=== PATIENT | male | born 1975 | race Caucasian/White ===

== ENCOUNTER → 2017-11-04 07:08 | Outpatient (CLI) | payer OTHER, SELFPAY ==
--- NOTE | 2017-11-04 07:08 | DT_ITS ---
This patient was seen during an EMR downtime November 04, 2017 - November 11, 2017. This patient may have a combination of paper and electronic documentation or all paper documentation. All documentation is viewable within the e-chart portion of [facility] for each patient visit.
--- NOTE | 2017-11-04 09:42 | RDU_ITS ---
Reason For Study: HTN - CKD Right Renal Artery Left Renal Artery Right renal artery ostium Left renal artery ostium 104.0/29.2 125.0/33.7 RSV/EDV. PSV/EDV. Right renal artery proximal Left renal artery proximal PSV/EDV 140.0/38.3 PSV/EDV. 114.0/25.5 . Right renal artery mid 139.0/43.8 Left renal artery mid 102.0/23.7 PSV/EDV. PSV/EDV . Right renal artery distal 134.0 Left renal artery distal 112.0/27.4 PSV/EDV. PSV/EDV. Right Renal Parenchyma Left Renal Parenchyma Upper Pole Medula 41.9/11.0 Left upper pole medulla 33.6/8.6 PSV/EDV. PSV/EDV . Right upper pole medulla EDR .26 . Left upper pole medulla EDR .26 . Right upper pole medulla R.I. .74 . Left upper pole medulla R.I. .75 . Upper Evan Cortx 23.8/6.7 PSV/EDV. UP Cortex 15.0/4.3 PSV/EDV. Right upper pole cortex EDR .28 . Left upper pole cortex EDR .29 . Right upper pole cortex R.I. .72 . Left upper pole cortex R.I. .71 . Right lower Pole medulla 26.0/8.6 Left lower Pole medulla 30.3/8.9 PSV/EDV . PSV/EDV . Right lower pole medulla EDR .33 . Left lower pole medulla EDR .29 . Right lower pole medulla R.I. .67 . Left lower pole medulla R.I. .71 . Lower Pole Cortex 22.9/6.1 PSV/EDV. Lower Pole Cortx 20.5/6.7 PSV/EDV. Right lower pole cortex EDR .27 . Left lower pole cortex EDR .33 . Right lower pole cortex R.I. .73 . Left lower pole cortex R.I. .67 . Right Renal Hilar Left Renal Hilar Right Hilar avg 45.9/12.8 PSV/EDV. LT Hilar avg 73.9/12.3 PSV/EDV . Right hilar acceleration time 66 Left hilar acceleration time 51 m/sec. m/sec. Right Renal Dimensions Left Renal Dimensions Right kidney size 8.7 cm . Left kidney size 8.5 cm . Right cortical dimension 1.5 cm . Left cortical dimension 1.5 cm . Aorta Proximal abdominal aorta 1.5 x 1.6 cm . Distal abdominal aorta 1.0 x 1.1 cm . Proximal abdominal aorta peak systolic velocity is 119.0 cm/sec . Distal abdominal aorta peak systolic velocity is 101.0 cm/sec . Interpretation Summary Dimensions of the intra-abdominal aorta appear normal, without evidence of aneurysmal dilatation. Renal artery velocities are bilaterally normal. Acceleration times are normal bilaterally. There is no evidence of hemodynamically significant renal artery stenosis on either side. Renovascular resistance appears to be bilaterally elevated . Cortical dimensions are bilaterally normal. The right kidney is small in size. The left kidney is small in size. Ordering Physician: Les Jones Referring Physician: Les Jones
== END ==
PROVIDERS: Family Provider Family Medicine; PCP Family Medicine; Visit Provider Family Medicine
DX: N18.9 Chronic kidney disease, unspecified (principal)
CPT/HCPCS: 93975

== ENCOUNTER → 2017-11-28 16:51 | Outpatient (CLI) | payer OTHER, SELFPAY ==
--- NOTE | 2017-11-28 16:56 | RAD_ITS ---
STUDY: X-RAY - LEFT TIBIA AND FIBULA REASON FOR EXAM: Male, 42 years old. Lumbar and mid left lower leg anteriorly TECHNIQUE: 2 view(s) of the tibia and fibula were obtained. COMPARISON: None. FINDINGS: Normal visualized tibia. Normal visualized fibula. There is no demonstrated acute fracture. Vascular calcifications are seen. RAD/Tibia & Fibula 2 Views IMPRESSION: Atherosclerotic vascular changes. No discrete bony abnormality. Electronically Signed: Jose A Singh DO at 8:57 EDT Tel , Service support ,
== END ==
LOC: MTRAD 16:54
PROVIDERS: Family Provider Family Medicine; PCP Family Medicine; Visit Provider Family Medicine
DX: R22.42 Localized swelling, mass and lump, left lower limb (principal)
CPT/HCPCS: 73590

== ENCOUNTER → 2018-01-14 13:28 | Outpatient (CLI) | payer OTHER, SELFPAY ==
[2018-01-14 18:53] LABS: 24HR. UA Prot. Total Volume 1675 mL; Urine Protein (24 Hour) 100.5 mg/dL (<11.9)
[2018-01-14 19:16] LABS: Creat.Clear Total Volume 1675 mL
[2018-01-14 19:17] LABS: Creatinine Clearance 17 ml/min (100-200); Creatinine Serum Creat 5.1 mg/dL (0.8-1.3); Creatinine Urine 78.7 mg/dL (NO RANGE EST.); EST Glomerular Filtration Rate 13 mL/min (>60); Est Glom Filt Rate - Afr Amer 13 mL/min (>60)
== END ==
PROVIDERS: Family Provider Family Medicine; PCP Family Medicine; Visit Provider Internal Medicine Nephrology
DX: N18.4 Chronic kidney disease, stage 4 (severe) (principal)
CPT/HCPCS: 82575; 84156

== ENCOUNTER 2018-01-23 08:33 | Outpatient (RCR) | payer OTHER, SELFPAY | END 2018-01-31 23:59 | LOC: DC 08:33 | PROVIDERS: Family Provider Family Medicine; PCP Family Medicine; Visit Provider Internal Medicine Nephrology | DX: E10.22 Type 1 diabetes mellitus with diabetic chronic kidney disease (principal); Z71.3 Dietary counseling and surveillance | CPT/HCPCS: G0108 ==

== ENCOUNTER → 2018-01-24 08:26 | Outpatient (CLI) | payer OTHER, SELFPAY | PROVIDERS: Family Provider Family Medicine; PCP Family Medicine; Visit Provider Internal Medicine Nephrology | DX: N18.4 Chronic kidney disease, stage 4 (severe) (principal) ==

== ENCOUNTER → 2018-01-28 11:44 | Outpatient (CLI) | payer OTHER, SELFPAY ==
[2018-01-28 13:02] LABS: BUN 69 mg/dL (7-18); BUN/Creat Ratio 18.2 RATIO (10-20); Calcium,Total 9.1 mg/dL (8.5-10.1); Chloride 106 mmol/L (98-107); Creatinine, Serum 3.79 mg/dL (0.70-1.30); EST Glomerular Filtration Rate 19 mL/min (>60); Est Glom Filt Rate - Afr Amer 22 mL/min (>60); Glucose 95 mg/dL (74-106); Phosphorus 3.8 mg/dL (2.5-4.9); Potassium 5.3 mmol/L (3.5-5.1); Sodium Level 138 mmol/L (136-145)
[2018-01-29 09:47] LABS: PTHIN 86.1 pg/mL (18.4-80.1)
[2018-01-29 09:51] LABS: Vitamin D,25 Hydroxy 30.1 ng/mL (29.95-100.01)
== END ==
PROVIDERS: Family Provider Family Medicine; PCP Family Medicine; Visit Provider Internal Medicine Nephrology
DX: N18.4 Chronic kidney disease, stage 4 (severe) (principal)
CPT/HCPCS: 36415; 80069; 82306; 83970

== ENCOUNTER 2018-02-06 11:57 | Outpatient (RCR) | payer OTHER, SELFPAY | END 2018-02-06 23:59 | LOC: DC 11:57 | PROVIDERS: Family Provider Family Medicine; PCP Family Medicine; Visit Provider Internal Medicine Nephrology | DX: E10.22 Type 1 diabetes mellitus with diabetic chronic kidney disease (principal); Z71.3 Dietary counseling and surveillance | CPT/HCPCS: 97802 ==

== ENCOUNTER → 2018-02-07 16:00 | Outpatient (CLI) | payer OTHER, SELFPAY | LOC: CT 16:02 | PROVIDERS: Family Provider Family Medicine; PCP Family Medicine; Visit Provider Family Medicine | DX: R22.42 Localized swelling, mass and lump, left lower limb (principal) | CPT/HCPCS: 73700 ==

== ENCOUNTER → 2018-02-24 16:03 | Outpatient (CLI) | payer OTHER, SELFPAY ==
--- NOTE | 2018-02-24 16:21 | MRI_ITS ---
PROCEDURE: MRI LOWER EXTREMITY LEFT TIBIA/FIBULA REASON FOR EXAM: Male, 43 years old. Left calf mass. TECHNIQUE: Standardized fat and water weighted pulse sequences were obtained in all 3 orthogonal planes. COMPARISON: X-ray November 28, 2017. FINDINGS: Normal tibia and fibula, without a periosteal, cortical or cancellous marrow abnormality. Normal anterior, lateral, and posterior calf compartments, with normal muscles, crural fascia and intermuscular septa. There is subcutaneous edema and skin thickening of the anterior and lateral aspects. There is no solid, cystic or lipomatous mass lesion of the subcutis adipose space. MRI/Lower Ext/No Jt/w/o IMPRESSION: Normal unenhanced MRI of the calf. No dominant mass. Subcutaneous edema. No fracture or periosteal reaction. Electronically Signed: Lennox Burt MD at 16:08 EDT , Service support ,
--- NOTE | 2018-02-24 16:27 | RAD_ITS ---
STUDY: X-RAY - ORBITS REASON FOR EXAM: Male, 43 years old. This study is being performed as a clearance examination for exclusion of orbital metal, prior to the performance of an MRI examination. TECHNIQUE: 2 view(s) of the orbits were obtained. COMPARISON: None. FINDINGS: Normal bilateral orbits without a metallic orbital foreign body. Normal visualized facial bones. Normal paranasal sinuses. The soft tissue structures are unremarkable. RAD/Orbits for Foreign Body IMPRESSION: No demonstrated metallic orbital foreign body. The patient is cleared for an MRI examination. Electronically Signed: Chong Taylor MD at 16:40 EDT , Service support ,
== END ==
LOC: MRI 16:05
PROVIDERS: Family Provider Family Medicine; PCP Family Medicine; Visit Provider Family Medicine
DX: R22.42 Localized swelling, mass and lump, left lower limb (principal)
CPT/HCPCS: 70030; 73718

== ENCOUNTER 2018-03-26 09:40 | Day surgery (SDC) | payer OTHER, SELFPAY ==
[2018-03-26] VITALS (8 sets, daily range): BP systolic 126–150; BP diastolic 65–86; PULSE 61–76; RESP 16; TEMP 36–36.8; O2SAT 94–99; BMI 25.7
--- NOTE | 2018-03-26 09:45 | EKG12_ITS ---
Test Reason : PRE-OP Blood Pressure : / mmHG Vent. Rate : 080 BPM Atrial Rate : 080 BPM P-R Int : 122 ms QRS Dur : 074 ms QT Int : 340 ms P-R-T Axes : 000 170 127 degrees QTc Int : 392 ms Normal sinus rhythm Anterolateral infarct , age undetermined , possible arm lead reversal Abnormal ECG When compared with ECG of 02-MAR-2011 16:09, QRS axis Shifted right Anterolateral infarct is now Present T wave inversion now evident in Lateral leads Confirmed by BEAR LOCO ([id number]), publications editor MOHSEN VALENTINE ([id number]) on 04/01/2018 11:30:31 AM Referred By: Moshe Garcia Confirmed By:BEAR LOCO
[2018-03-26 10:02] LABS: Hematocrit 34.6 % (40-54); Hemoglobin 11.5 g/dl (13.0-16.5); Mean Corp Hgb Conc 33.2 g/gl (32-36); Mean Corpuscular Hgb 28.8 pg (27.0-32.0); Mean Corpuscular Volume 86.7 fL (80-94); Mean Platelet Vol. 10.2 fl (6.2-12.0); Platelet Count 214 K/mm3 (150-450); RBC Distribution Width CV 13.1 % (11.6-14.6); RBC Distribution Width SD 42.1 fl (35.1-43.9); Red Blood Count 3.99 M/mm3 (4.6-6.2); Scan Indicated on CBC? Y/N NO; White Blood Count 8.4 K/mm3 (4.4-11.0)
[2018-03-26 10:13] LABS: Anion Gap 6 (5-15); BUN 49 mg/dL (7-18); Calcium,Total 9.1 mg/dL (8.5-10.1); Chloride 104 mmol/L (98-107); Creatinine, Serum 3.51 mg/dL (0.70-1.30); EST Glomerular Filtration Rate 20 mL/min (>60); Est Glom Filt Rate - Afr Amer 25 mL/min (>60); Estimated Creatinine Clearance 23.36 ml/min; Glucose 273 mg/dL (74-106); Sodium Level 136 mmol/L (136-145)
--- NOTE | 2018-03-26 10:21 | DCINST_ITS ---
Discharge Diet: Renal Diet Discharge Activity: May Not Drive, May Not Shower Lifting Restrictions: 10 pounds Additional Dressing/Incision Instructions:: Please leave the dressings intact. The dialysis center will help manage with flushing the catheter and dressing changes Allergies/Adverse Reactions: Allergies No Known Allergies Allergy (Verified 03/24/18 13:41) Medications to take at Discharge amlodipine 10 mg tablet 10 mg PO DAILY 01/28/18 atorvastatin 20 mg tablet 20 mg PO DAILY 01/28/18 chromium picolinate 400 mcg tablet 400 mcg PO DAILY 01/28/18 ferrous sulfate ER 142 mg (45 mg iron) tablet,extended release 45 mg PO DAILY tab 01/28/18 insulin glargine (U-100) 100 unit/mL (3 mL) subcutaneous pen 28 unit SC QHS ml 01/28/18 krill oil 500 mg capsule 500 mg PO DAILY 01/28/18 losartan 50 mg tablet 50 mg PO DAILY tab 01/28/18 metoprolol tartrate 100 mg tablet 150 mg PO QDAY tab 01/28/18 nwxkjbmz-gytrnlyh-ihnyk acid 400 mcg-vit K 20 mcg-lycop 300 mcg tablet 1 tab PO DAILY 01/28/18 omeprazole 20 mg capsule,delayed release 40 mg PO DAILY 02/13/18 Glucosamine/MSM/Chondroitin A [Glucosamine Chondroit MSM Tab] 1 each PO 03/24/18 Insulin Aspart [Novolog Flexpen (BKC)] 5 - 15 units SC TIDCM 03/24/18 Primary Care Physician: Luis Jones MD [Primary Care Provider] - Test Results: Test results from this visit will be discussed in further detail at your follow- up appointment, if applicable. Please Follow Up With: Moshe Garcia MD - [phone] When: Call to make an appointment to be seen in about 10 days.
[2018-03-26] MEDS: Cefazolin 2 GM in 0.9% Normal Saline 100 ML IV (11:03)
[2018-03-26] MEDS: Heparin Injection (Vial) 5,000 UNIT/ML VIAL 5000 UNIT (12:12)
--- NOTE | 2018-03-26 12:15 | PCM.OPRPT ---
Problem List (1) Chronic renal insufficiency, stage IV (severe) Status: Acute Report of Operation Date of Procedure: 03/26/18 Pre-Operative Diagnosis: Stage IV chronic renal insufficiency Post-Operative Diagnosis: Stage IV chronic renal insufficiency Surgery/Procedure Performed:: Laparoscopic peritoneal dialysis catheter placement with laparoscopic omentopexy Description of Surgical Findings:: Timeout informed consent was obtained. 43-year-old gent was taken out from placement table underwent general endotracheal intubation anesthesia. Ancef 2 g given intravenous preoperatively. The abdomen sterilely prepped draped. Ioban draping was used. To the right of the umbilicus 0.5% Marcaine was instilled. Using a Visiport technique direct access was gained to the abdomen. The abdomen was inflated with CO2 to a pressure of 10 mmHg pressure. 10 lap scope inserted. No evidence of any trocar injuries. 5-minute trocar was placed in the right lower quadrant. Inspection revealed that there appeared to be a good pelvic space anterior to the rectum. The tubing was measured it was a double cuffed curl cath. Placed for the cuff exit was selected. A small incision was created in that area dissection performed down to the fascia a step to varies needle was then inserted tunneled in the posterior rectus sheath and then exited aimed at the pelvis. The stepwise dilator was inserted. The curl cath tubing was inserted through the sheath and placed in the pelvis. The internal cuff just beneath the peritoneal posterior sheath. The tubing was then tunneled so as to exit in the left midabdomen at a 30 degree angle. That counterincision was closed with interrupted 4 Monocryl subdermal stitches. The connection device of titanium was applied to the catheter. Saline tubing was applied to the catheter liter saline was instilled flowed easily and it was dropped to the floor return was achieved. Then the extension tubing was applied at the cath was irrigated with 20 cc of heparinized saline. The abdomen is inspected felt that was appropriate to secure the omentum and so in the left lateral abdomen cranial needle was inserted and using 0 Prolene I pleaded the omentum up on a grainy needle and secured the omentum to the left low lateral abdomen. This presented the omentum from each in the pelvis. Hemostasis was intact blood loss was minimal catheter was in good position. Trochars removed under visualization. Skin edges proximate up to 4 Monocryl subdermal stitches. Steri-Strips Telfa OpSite dressings applied silver dressing applied to the exit site complete OpSite dressings applied no apparent complications he tolerated procedure well he was taken to the recovery area in satisfactory condition without apparent complication Specimens none. Drains none. Blood loss minimal. Moshe Garcia M.D., F.A.C.S. Type of Anesthesia:: General Anesthesiologist: Irene Farias
[2018-03-26] MEDS: Bupivacaine 0.5% PF 10 ML VIAL (12:21)
[2018-03-26 12:55] LABS: Bedside Glucose 342 mg/dL (70-110)
[2018-03-26 14:21] LABS: Bedside Glucose 321 mg/dL (70-110)
[2018-03-26] MEDS: HYDROcodone Bitartrate/Apap 5/325 Tablet PO (14:22)
== END 2018-03-26 15:45 | disposition home or self-care (01) ==
LOC: SDC 09:42 → AC 09:42
PROVIDERS: Family Provider Family Medicine; PCP Family Medicine; Visit Provider Surgery
PROC: 0WHG43Z Insertion of Infusion Device into Peritoneal Cavity, Percutaneous Endoscopic Approach (ICD-10-PCS; CPT 49324; principal; 2018-03-26 11:05)
DX: I12.9 Hypertensive chronic kidney disease with stage 1 through stage 4 chronic kidney disease, or unspecified chronic kidney disease (principal); N18.4 Chronic kidney disease, stage 4 (severe); E10.22 Type 1 diabetes mellitus with diabetic chronic kidney disease; Z79.4 Long term (current) use of insulin; Z99.2 Dependence on renal dialysis; K21.9 Gastro-esophageal reflux disease without esophagitis; Z79.899 Other long term (current) drug therapy
CPT/HCPCS: 00840; 49324; 49326; 36415; 80048; 82962; 85027; 93005; J2405

== ENCOUNTER 2018-04-21 07:01 | Day surgery (SDC) | payer OTHER, SELFPAY ==
[2018-04-21] VITALS (7 sets, daily range): BP systolic 116–166; BP diastolic 76–93; PULSE 55–78; RESP 16–18; TEMP 36.3–36.9; O2SAT 96–100; BMI 25.6
--- NOTE | 2018-04-21 | GALL_PTH ---
PATIENT: BEAR DAVE [place] [facility] [id number] AGE/SX: 43/M ROOM: RE04/21/[address]: Dr. Moshe Garcia MD : [id number] BED: DIS: 04/21/2018 SPEC #: [id number] RECD: 04/21/18 13:39 STATUS: JABIER YUMIKO #: [id number] TREV: 04/21/18 00:[address]: Moshe Garcia DEPT: SURGICAL PATHOLOGY RECD BY: Fredy Aldana ENTERED: 04/21/18 13:39 SP TYPE: MEHRAN CASTELLANO DR: Dr. Les Jones MD Tissues: Gallbladder, NOS Procedures: Surgery Specimen Level III HEADER OPERATION: Laparoscopic cholecystectomy with IOC PRE-OP DIAGNOSIS: Gallbladder polyp TISSUE SUBMITTED: Gallbladder and contents MICROSCOPIC DIAGNOSIS Gallbladder and contents: Mild chronic cholecystitis. No stones are identified in the container or in the gallbladder. No obvious mucosal polyp is noted. SJ:diego 04/22/18 MICROSCOPIC DESCRIPTION Slides are reviewed. GROSS DESCRIPTION Received is one container labeled with the patient's name and designated gallbladder and contents. The specimen consists of a gallbladder measuring 8 cm in length and 3 cm in diameter. The external surface is pink-rueda, smooth and glistening for the most part. Focally it is granular, hemorrhagic and contains cautery artifact. The gallbladder contains green-yellow mucoid bile. No stones are identified in the container or in the gallbladder. The gallbladder wall measures up to 0.2 cm in thickness. Insulation Worker Interior Surface sections from the gallbladder and the cystic duct are submitted in one cassette. / NAVEEN:diego 04/21/18 TC:3 CPT: 57831
--- NOTE | 2018-04-21 07:18 | EKG12_ITS ---
Test Reason : PRE OP Blood Pressure : / mmHG Vent. Rate : 069 BPM Atrial Rate : 069 BPM P-R Int : 126 ms QRS Dur : 078 ms QT Int : 366 ms P-R-T Axes : 048 015 047 degrees QTc Int : 392 ms Normal sinus rhythm Normal ECG When compared with ECG of 26-MAR-2018 09:57, QRS axis Shifted left Criteria for Anterolateral infarct are no longer Present Confirmed by MARI ROSEN, DON ([id number]), mapping editor MOHSEN VALENTINE ([id number]) on 04/25/2018 2:30:08 PM Referred By: Moshe Garcia Confirmed By:DON GUERRA MD
[2018-04-21 07:35] LABS: Bedside Glucose 148 mg/dL (70-110)
[2018-04-21 07:39] LABS: Hematocrit 32.8 % (40-54); Hemoglobin 10.7 g/dl (13.0-16.5); Mean Corp Hgb Conc 32.6 g/gl (32-36); Mean Corpuscular Hgb 28.6 pg (27.0-32.0); Mean Corpuscular Volume 87.7 fL (80-94); Mean Platelet Vol. 10.8 fl (6.2-12.0); Platelet Count 225 K/mm3 (150-450); RBC Distribution Width CV 13.2 % (11.6-14.6); RBC Distribution Width SD 42.6 fl (35.1-43.9); Red Blood Count 3.74 M/mm3 (4.6-6.2); Scan Indicated on CBC? Y/N NO; White Blood Count 8.1 K/mm3 (4.4-11.0)
[2018-04-21 08:01] LABS: Anion Gap 6 (5-15); BUN 51 mg/dL (7-18); Chloride 109 mmol/L (98-107); Creatinine, Serum 3.18 mg/dL (0.70-1.30); EST Glomerular Filtration Rate 23 mL/min (>60); Est Glom Filt Rate - Afr Amer 27 mL/min (>60); Estimated Creatinine Clearance 25.79 ml/min; Glucose 141 mg/dL (74-106); Potassium 4.8 mmol/L (3.5-5.1); Sodium Level 140 mmol/L (136-145)
--- NOTE | 2018-04-21 08:31 | DCINST_ITS ---
Discharge Diet: Light diet - advance as tolerated - if you have questions about your diet instructions, please talk to you doctor. Discharge Activity: May Not Drive - for 3-5 days or while taking narcotic pain medicine. May shower in (days): 1 Lifting Restrictions: 10 pounds Call your doctor if your incision/area has: Continuous Slow Oozing, Sudden Increased Bleeding, Increased Pain/ Swelling, Increased Redness, Foul Smelling Discharge Call your doctor if you observe: Fever of 101 or Higher Suture Line Care: Avoid Pulling/Pushing, Avoid Pinching/Bending Additional Dressing/Incision Instructions:: Change or remove dressing in 4 days. Leave steri-strips in place for 1 week. Allergies/Adverse Reactions: Allergies No Known Allergies Allergy (Verified 04/18/18 14:47) Medications to take at Discharge atorvastatin 20 mg tablet 20 mg PO DAILY 01/28/18 chromium picolinate 400 mcg tablet 400 mcg PO DAILY 01/28/18 ferrous sulfate ER 142 mg (45 mg iron) tablet,extended release 45 mg PO DAILY tab 01/28/18 insulin glargine (U-100) 100 unit/mL (3 mL) subcutaneous pen 26 unit SC QHS ml 01/28/18 krill oil 500 mg capsule 500 mg PO DAILY 01/28/18 losartan 50 mg tablet 50 mg PO DAILY tab 01/28/18 metoprolol tartrate 100 mg tablet 150 mg PO QDAY tab 01/28/18 fegijfyk-nseluwyl-pcusm acid 400 mcg-vit K 20 mcg-lycop 300 mcg tablet 1 tab PO DAILY 01/28/18 omeprazole 20 mg capsule,delayed release 40 mg PO DAILY 02/13/18 Glucosamine/MSM/Chondroitin A [Glucosamine Chondroit MSM Tab] 2 ea PO DAILY 03/24/18 Insulin Aspart [Novolog Flexpen] 5 - 15 units SUBCUT TIDCM 03/24/18 nifedipine ER 90 mg tablet,extended release 90 mg PO DAILY 04/10/18 Primary Care Physician: Luis Jones MD [Primary Care Provider] - Test Results: Test results from this visit will be discussed in further detail at your follow- up appointment, if applicable. Please Follow Up With: Moshe Garcia MD - [phone] When: Call to make an appointment to be seen in about 10 days.
[2018-04-21] MEDS: Cefazolin 2 GM in 0.9% Normal Saline 100 ML IV (08:46)
--- NOTE | 2018-04-21 08:58 | RAD_ITS ---
STUDY: INTRAOPERATIVE CHOLANGIOGRAM. REASON FOR EXAM: Male, 43 years old. Laparoscopic cholecystectomy. FLUOROSCOPY TIME (if supplied): (0:06) minutes/seconds TECHNIQUE: An intraoperative cavagram was performed by the surgeon. Imaging was submitted. COMPARISON: None. FINDINGS: The common bile duct is not dilated. No intraluminal filling defect is seen. There is free flow of contrast into the duodenum. RAD/Cholangiogram/ O R,Initial IMPRESSION: Unremarkable examination. Electronically Signed: Warren Walter MD at 8:05 EST Tel [phone], Service support ,
[2018-04-21] MEDS: Bupivacaine Mpf 0.5% 30 ML VIAL (10:09)
--- NOTE | 2018-04-21 10:09 | PCM.OPRPT ---
Problem List (1) Gallbladder polyp Status: Acute Report of Operation Date of Procedure: 04/21/18 Pre-Operative Diagnosis: Gallbladder polyps Post-Operative Diagnosis: Same Surgery/Procedure Performed:: Laparoscopic cholecystectomy with cholangiograms Description of Surgical Findings:: Timeout and informed consent was obtained. 43-year-old gentleman was taken to the operating placement table and underwent general endotracheal intubation anesthesia. The abdomen sterilely prepped and draped. Ancef 2 g given intravenously preoperatively. She will 0.5% Marcaine was used as local anesthetic. Throughout the procedure a total 30 cc was used. Skin sites were pre-anesthetized. A vertical infraumbilical incision was created holding sutures of 0 Vicryl placed there is no certain saline drop test performed the abdomen was insufflated with CO2 to a pressure of 10 mmHg pressure to me trocar inserted to the left scope inserted no ventricular injuries under direct visitation 100 trochars were placed in the epigastric right upper quadrant and right lateral upper quadrant. Expiration of the abdomen revealed the peritoneal dialysis cath in good position in the pelvis. Gallbladder had some mild adhesions of omentum to it. These were bluntly dissected free hemoclips were used for hemostasis the infundibular the gallbladder was actually rather adherent and tedious blunt dissection was required until finally the cystic duct lymph node could be dissected free hemoclips used for hemostasis and then the cystic artery was densely adherent to the cystic duct and had to be very carefully teased free having achieved this I placed 2 hemoclips proximally 1 distally on the cystic artery prior to transecting it hemo-lock clip was placed on the cystic duct and through a 14-gauge change, apocrine Cleve catheter was inserted. Fluoroscopically controlled plane scans were obtained demonstrating normal ductal anatomy and free flow into the small bowel. Clench Cleve catheter was removed and 2 additional hemoclips were placed on the cystic duct stump prior to transecting it. The gallbladder was dissected free from the liver bed using electrocautery absolutely complete hemostasis was intact and there was absolutely no spillage throughout the entire procedure. The gallbladder was placed in retrieval bag intact. It was exited at the umbilicus by slightly and enlarging the fascial incision. The right upper quadrant was again inspected was noted to be hemostatic. The abdomen was allowed to deflate of the CO2 as trochars were removed under visualization. The fascia at the umbilicus pressing up to 2-0 Vicryl ipdrqt-aq-dvlid suture. Skin edges were approximated with interrupted 4 Monocryl subdermal stitches. Steri-Strips Telfa and OpSite dressings applied. Sponge and instrument and needle counts were reported to the surgeon to be correct. Blood loss was minimal. Specimens gallbladder. Drains none. Blood loss minimal. Moshe Garcia M.D., F.A.C.S.
--- NOTE | 2018-04-21 10:12 | OP.PCM_ITS ---
Problem List (1) Gallbladder polyp Status: Acute Report of Operation Date of Procedure: 04/21/18 Pre-Operative Diagnosis: Gallbladder polyps Post-Operative Diagnosis: Same Surgery/Procedure Performed:: Laparoscopic cholecystectomy with cholangiograms Description of Surgical Findings:: Timeout and informed consent was obtained. 43-year-old gentleman was taken to the operating placement table and underwent general endotracheal intubation anesthesia. The abdomen sterilely prepped and draped. Ancef 2 g given intravenously preoperatively. She will 0.5% Marcaine was used as local anes thetic. Throughout the procedure a total 30 cc was used. Skin sites were pre- anesthetized. A vertical infraumbilical incision was created holding sutures of 0 Vicryl placed there is no certain saline drop test performed the abdomen was insufflated with CO2 to a pressure of 10 mmHg pressure to me trocar inserted to the left scope inserted no ventricular injuries under direct visitation 100 trochars were placed in the epigastric right upper quadrant and right lateral upper quadrant. Expiration of the abdomen revealed the peritoneal dialysis cath in good position in the pelvis. Gallbladder had some mild adhesions of omentum to it. These were bluntly dissected free hemoclips were used for hemostasis the infundibular the gallbladder was actually rather adherent and tedious blunt dissection was required until finally the cystic duct lymph node could be dissected free hemoclips used for hemostasis and then the cystic artery was densely adherent to the cystic duct and had to be very carefully teased free having achieved this I placed 2 hemoclips proximally 1 distally on the cystic artery prior to transecting it hemo-lock clip was placed on the cystic duct and through a 14-gauge change, apocrine Cleve catheter was inserted. Fluoroscopically controlled plane scans were obtained demonstrating normal ductal anatomy and free flow into the small bowel. Clench Cleve catheter was removed and 2 additional hemoclips were placed on the cystic duct stump prior to transecting it. The gallbladder was dissected free from the liver bed using electrocautery absolutely complete hemostasis was intact and there was absolutely no spillage throughout the entire procedure. The gallbladder was placed in retrieval bag intact. It was exited at the umbilicus by slightly and enlarging the fascial incision. The right upper quadrant was again inspected was noted to be hemostatic. The abdomen was allowed to deflate of the CO2 as trochars were removed under visualization. The fascia at the umbilicus pressing up to 2-0 Vicryl [id number]-se-xdqzi suture. Skin edges were approximated with interrupted 4 Monocryl subdermal stitches. Steri-Strips Telfa and OpSite dressings applied. Sponge and instrument and needle counts were reported to the surgeon to be correct. Blood loss was minimal. Specimens gallbladder. Drains none. Blood loss minimal. Moshe Garcia M.D., F.A.C.S.
[2018-04-21] MEDS: Cefazolin 1 GM/50 ML BAG IV (11:35)
[2018-04-21 11:56] LABS: Bedside Glucose 250 mg/dL (70-110)
== END 2018-04-21 13:54 | disposition home or self-care (01) ==
LOC: SDC 07:01 → AC 07:03
PROVIDERS: Family Provider Family Medicine; PCP Family Medicine; Referring Provider Surgery; Visit Provider Surgery
PROC: (CPT 47610; principal; 2018-04-21 08:45)
DX: K81.1 Chronic cholecystitis (principal); I12.9 Hypertensive chronic kidney disease with stage 1 through stage 4 chronic kidney disease, or unspecified chronic kidney disease; E10.22 Type 1 diabetes mellitus with diabetic chronic kidney disease; N18.4 Chronic kidney disease, stage 4 (severe); N17.9 Acute kidney failure, unspecified; K21.9 Gastro-esophageal reflux disease without esophagitis; Z79.4 Long term (current) use of insulin; Z79.899 Other long term (current) drug therapy; Z87.891 Personal history of nicotine dependence
CPT/HCPCS: 47563; 74300; 76000; 80048; 82962; 85027; 88304; 93005; J7120; J2405

== ENCOUNTER → 2018-05-05 13:13 | Outpatient (CLI) | payer OTHER, SELFPAY ==
[2018-04-21 07:39] VITALS: BMI 25.6
[2018-05-05 14:14] LABS: Albumin, Serum 3.4 g/dL (3.2-5.0); BUN 54 mg/dL (7-18); BUN/Creat Ratio 15.8 RATIO (10-20); Chloride 100 mmol/L (98-107); Creatinine, Serum 3.42 mg/dL (0.70-1.30); EST Glomerular Filtration Rate 21 mL/min (>60); Est Glom Filt Rate - Afr Amer 25 mL/min (>60); Glucose 411 mg/dL (74-106); Potassium 4.6 mmol/L (3.5-5.1); Sodium Level 136 mmol/L (136-145)
--- OUTSIDE RECORDS SUMMARY | 2018-06-28 21:16 | XMS RPT_ITS ---
:1975 Author Organization OHIP Support Name Relationship Address Phone BATSHEVA DAVE Unavailable [address] + [place] [address] [facility] Unavailable [address] + [place] [address] [facility] Unavailable [address] + [place] [address] [facility] Unavailable [address] + [place] [address] [facility] Unavailable [address] + [place] [address] [facility] Unavailable [address] + [place] [address] [facility] BATS[facility]VA Unavailable [address] + [place] [address] [facility] Unavailable [address] + [place] [address] UN[facility] Unavailable [address] + [place] [address] TENZIN BATSHEVA Unavailable [address] + [place] [address] [facility] Unavailable [address] + [place] [address] [facility] Unavailable [address] + [place] [address] TENZIN BATSHEVA Unavailable [address] + [place] [address] [facility] Unavailable [address] + [place] [address] [facility] Unavailable [address] + [place] [address] TENZIN BATSHEVA Unavailable [address] + [place] [address] [facility] Unavailable [address] + [place] [address] UN[facility] Unavailable [address] + [place] [address] MILICH, BATSHEVA Unavailable [address] + [place] [address] [facility], [facility] Unavailable [address] + [place] [address] [facility] Unavailable [address] + [place] [address] [facility] BATSHEVA Unavailable [address] + [place] [address] [facility] Unavailable [address] + [place] [address] [facility] Unavailable [address] + [place] [address] [facility] BATSHEVA Unavailable [address] + [place] [address] [facility] Unavailable [address] + [place] [address] UN[facility] Unavailable [address] + [place] [address] MILICH, BATSHEVA Unavailable [address] + [place] [address] [facility] Unavailable [address] + [place] [address] [facility] Unavailable [address] + [place] [address] MILICH, BATSHEVA Unavailable [address] + [place] [address] [facility], [facility] Unavailable [address] + [place] [address] [facility] Unavailable [address] + [place] [address] MILICH, BATSHEVA Unavailable Unavailable + MILICH, BATSHEVA Unavailable Unavailable + MILICH, BATSHEVA Unavailable [address] + [place] [address] [facility], [facility] Unavailable [address] + [place] [address] [facility] Unavailable [address] + [place] [address] MILICH, BATSHEVA Unavailable [address] + [place] [address] [facility], [facility] Unavailable [address] + [place] [address] [facility] Unavailable [address] + [place] [address] MILICH, BATSHEVA Unavailable [address] + [place] [address] [facility] Unavailable [address] + [place] [address] UN[facility] Unavailable [address] + [place] [address] MILICH, BATSHEVA Unavailable Unavailable + MILICH, BATSHEVA Unavailable Unavailable + MILICH, BATSHEVA Unavailable [address] + [place] [address] [facility] Unavailable [address] + [place] [address] UNIT[facility] Unavailable [address] + [place] [address] MILICH, BATSHEVA Unavailable Unavailable + MILICH, BATSHEVA Unavailable [address] + [place] [address] [facility] Unavailable [address] + [place] [address] UNIT[facility] Unavailable [address] + [place] [address] MILICH, BATSHEVA Unavailable Unavailable + MILICH, BATSHEVA Unavailable [address] + [place] [address] [facility] Unavailable [address] + [place] [address] UN[facility] Unavailable [address] + [place] [address] MILICH, BATSHEVA Unavailable Unavailable + MILICH, BATSHEVA Unavailable Unavailable + MILICH, BATSHEVA Unavailable Unavailable + MILICH, BATSHEVA Unavailable Unavailable + MILICH, BATSHEVA Unavailable Unavailable + MILICH, BATSHEVA Unavailable Unavailable + MILICH, BATSHEVA Unavailable Unavailable + MILICH, BATSHEVA Unavailable [address] + [place] [address] [facility], [facility] Unavailable [address] + [place] [address] [facility] Unavailable [address] + [place] [address] [facility] Unavailable [address] + [place] [address] [facility] Unavailable [address] + [place] [address] UN[facility] Unavailable [address] + [place] [address] [facility] Unavailable [address] + [place] [address] [facility] Unavailable [address] + [place] [address] [facility] Unavailable [address] + [place] [address] [facility] BATSHEVA Unavailable [address] + [place] [address] [facility], [facility] Unavailable [address] + [place] [address] [facility] Unavailable [address] + [place] [address] [facility] Unavailable [address] + [place] [address] [facility] Unavailable [address] + [place] [address] [facility] Unavailable [address] + [place] [address] MILICH, BATSHEVA Unavailable [address] + [place] [address] [facility], [facility] Unavailable [address] + [place] [address] [facility] Unavailable [address] + [place] [address] MILICH, BATSHEVA Unavailable [address] + [place] [address] [facility] Unavailable [address] + [place] [address] [facility] Unavailable [address] + [place] [address] [facility] BATSHEVA Unavailable [address] + [place] [address] [facility] Unavailable [address] + [place] [address] [facility] Unavailable [address] + [place] [address] MILICH, BATSHEVA Unavailable [address] + [place] [address] [facility] Unavailable [address] + [place] [address] UN[facility] Unavailable [address] + [place] [address] MILICH, BATSHEVA Unavailable [address] + [place] [address] [facility] Unavailable [address] + [place] [address] [facility] Unavailable [address] + [place] [address] [facility] Unavailable [address] + [place] [address] [facility] Unavailable [address] + [place] [address] [facility] Unavailable [address] + [place] [address] Care Team Providers Name Role Phone Hanane Chowdary Attending Unavailable Les Jones Primary Care Unavailable Susan Gutiérrez Attending Unavailable Susan Gutiérrez Referring Unavailable Les Jones Primary Care Unavailable Les Jones Attending Unavailable Les Jones Primary Care Unavailable Ranney, Christopher Referring Unavailable Ranney, Christopher Attending Unavailable Ranney, Christopher Referring Unavailable Ranney, Christopher Primary Care Unavailable Epi, Hanane Attending Unavailable Ranney, Christopher Primary Care Unavailable Epi, Hanane Referring Unavailable Epi, Hanane Attending Unavailable Ranney, Christopher Primary Care Unavailable Epi, Hanane Attending Unavailable Ranney, Christopher Primary Care Unavailable Epi, Hanane Attending Unavailable Ranney, Christopher Primary Care Unavailable Epi, Hanane Referring Unavailable Tracy Glez ADMISSION NURSE COORDINATOR-C Attending Unavailable Ranney, Christopher Referring Unavailable Ranney, Christopher Primary Care Unavailable Epi, Hanane Attending Unavailable Ranney, Christopher Primary Care Unavailable Epi, Hanane Attending Unavailable Ranney, Christopher Primary Care Unavailable Ranney, Christopher Attending Unavailable Ranney, Christopher Referring Unavailable Ranney, Christopher Primary Care Unavailable Cebul, Moshe Attending Unavailable Ranney, Christopher Referring Unavailable Ranney, Christopher Primary Care Unavailable Ranney, Christopher Attending Unavailable Ranney, Christopher Primary Care Unavailable Ranney, Christopher Referring Unavailable Cebul, Moshe Attending Unavailable Cebul, Moshe Referring Unavailable Ranney, Christopher Primary Care Unavailable Epi, Hanane Attending Unavailable Ranney, Christopher Primary Care Unavailable Epi, Hanane Referring Unavailable Epi, Hanane Attending Unavailable Ranney, Christopher Primary Care Unavailable Stella Barr PA-C Attending Unavailable Ranney, Christopher Referring Unavailable Cebul, Moshe Attending Unavailable Cebul, Moshe Referring Unavailable Cebul, Moshe Attending Unavailable Tracy Glez ADMISSION NURSE COORDINATOR-C Attending Unavailable Ranney, Christopher Referring Unavailable Cebul, Moshe Attending Unavailable Ranney, Christopher Referring Unavailable Gavino Loco Attending Unavailable Cebul, Moshe Referring Unavailable Cebul, Moshe Attending Unavailable Cebul, Moshe Referring Unavailable Ranney, Christopher Primary Care Unavailable Stella Barr PA-C Attending Unavailable Ranney, Christopher Referring Unavailable EpiHanane Attending Unavailable Ranney, Christopher Primary Care Unavailable Fly Borjas Attending Unavailable Cebul, Moshe Referring Unavailable Cebul, Moshe Attending Unavailable UNKNOWN, PCP Primary Care Unavailable Lupe, Dr. Howard Attending Unavailable Padiyaelysia, Dr. Howard Referring Unavailable UNKNOWN, PCP Primary Care Unavailable Lupe, Dr. Howard Attending Unavailable Lupe, Dr. Howard Referring Unavailable Collins, Dr. Dewayne Cedeno Attending Unavailable UNKNOWN, PCP Referring Unavailable UNKNOWN, PCP Primary Care Unavailable UNKNOWN, PCP Primary Care Unavailable Lupe, Dr. Howard Attending Unavailable Lupe, Dr. Howard Referring Unavailable Sol, Dr. Radha Dickey Attending Unavailable UNKNOWN, PCP Referring Unavailable UNKNOWN, PCP Primary Care Unavailable Lupe, Dr. Howard Attending Unavailable UNKNOWN, PCP Referring Unavailable UNKNOWN, PCP Primary Care Unavailable Quang, Dr. Tex Shoemaker Attending Unavailable UNKNOWN, PCP Primary Care Unavailable Dr. Tex Del Rio Attending Unavailable UNKNOWN, PCP Primary Care Unavailable Mariano, Dr. Colt Prince Attending Unavailable Mariano, Dr. Colt Prince Referring Unavailable UNKNOWN, PCP Primary Care Unavailable MAIKEL BLACKBURN Attending Unavailable UNKNOWN, PCP Primary Care Unavailable Quang, Dr. Tex Shoemaker Attending Unavailable UNKNOWN, PCP Primary Care Unavailable MEÑO Attending Unavailable PCP, Pt states no Referring Unavailable UNKNOWN, PCP Primary Care Unavailable Quang, Dr. 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 Quang [place] [address] diagnosis preprocedural [facility] examination / Repository Z01.818(ICD-10) Final Encounter for other MEÑO [place] [address] diagnosis preprocedural Hospitals (discharge) examination / Repository Z01.818(ICD-10) Final Type 1 diabetes [place] [address] diagnosis mellitus w diabetic Hospitals (discharge) chronic kidney disease Repository / E10.22(ICD-10) Final End stage renal [place] [address] diagnosis disease / Hospitals (discharge) N18.6(ICD-10) Repository Final Dependence on renal [place] [address] diagnosis dialysis / Hospitals (discharge) Z99.2(ICD-10) Repository Final Essential (primary) WIL[facility] 8 diagnosis hypertension / Hospitals (discharge) I10(ICD-10) Repository Final Personal history of [facility] 8 diagnosis other diseases of Hospitals (discharge) urinary system / Repository Z87.448(ICD-10) Final Family history of WIL[facility] 8 diagnosis diabetes mellitus / Hospitals (discharge) Z83.3(ICD-10) Repository Unknown G89.18 - Other acute Moshe Garcia [facility] 8 postprocedural pain / Community G89.18(ICD-10) Hospital Repository Unknown N18.4 - Chronic kidney Moshe Garcia [facility] 8 disease, stage 4 Community (severe) / Hospital N18.4(ICD-10) Repository Unknown R94.31 - Abnormal Gavino Loco [facility] 8 electrocardiogram Community [ECG] [EKG] / Hospital R94.31(ICD-10) Repository Final Peripheral vascular Dr. Quang [facility] 8 diagnosis disease, unspecified / [facility] Hospitals (discharge) I73.9(ICD-10) Repository Admitting End stage renal Dr. Quang [facility] 8 diagnosis disease / [place] Hospitals N18.6(ICD-10) Repository Unknown E10.22 - Type 1 EpiHanane [facility] 8 diabetes mellitus with Community diabetic chronic Hospital kidney disease / Repository E10.22(ICD-10) Unknown R22.42 - Localized Rancb, [facility] 8 swelling, mass and [facility] lump, left lower limb Hospital / R22.42(ICD-10) Repository Unknown N18.9 - Chronic kidney Ranney, [facility] 8 disease, unspecified / [facility] N18.9(ICD-10) Hospital Repository PROCEDURES PROCEDURES No Procedure Records FoundRESULTS RESULTS ABO RH BLOOD TYPE, Collected: 06/05/2018 Status: F Source: [place]LEX PATIENT 4:43 PM [facility] [place] TYPE CODE TESTS RESULT OUT OF RANGE REFERENCE UNITS LAB B10.0800 B Normal BLOOD POSITIVE TYPE GEL Performed By: #### B10.0010 #### [facility] [place], [address] PHARM D NOTE Observed: 05/22/2018 Status: UNK Source: [place] 3:33 PM HOSPITALS REPOSITORY Active Problems Hypertension (401.9) (I10) Pre-transplant evaluation for end stage renal disease (V72.83) (Z01.818) Pre-transplant evaluation for kidney and pancreas transplant (V72.83) (Z01.818) Type 1 diabetes mellitus with chronic kidney disease on chronic dialysis (250.41,585.9,V45.11) (E10.22,N18.6,Z99.2) Allergies No Known Allergies Current Meds NIFEdipine ER 90 MG Oral Tablet Extended Release 24 Hour; TAKE 1 TABLET DAILY; Therapy: 01Apr2018 to (Evaluate:27Mar2019) Requested for: 01Apr2018; Last Rx:01Apr2018 Ordered Atorvastatin Calcium 20 MG Oral Tablet; TAKE 1 TABLET AT BEDTIME; Therapy: 50Beo7862 to (Evaluate:42Vlf8775) Recorded Basaglar KwikPen 100 UNIT/ML Subcutaneous Solution Pen-injector; Therapy: 25Feb2017 to Recorded Chromium 400 MCG Oral Tablet; TAKE 2 TABLET Daily; Therapy: (Recorded:01Apr2018) to Recorded Ferrous Sulfate ER 140 (45 Fe) MG Oral Tablet Extended Release; Take 1 tablet daily; Therapy: 01Apr2018 to Recorded Fish Oil OIL; Therapy: (Recorded:[id number]) to Recorded Glucosamine TABS; TAKE 2 TABLET Daily; Therapy: (Recorded:01Apr2018) to Recorded Losartan Potassium 100 MG Oral Tablet; TAKE 0.5 TABLET Daily; Therapy: 87Zaz7889 to (Evaluate:17Mpk1037) Recorded Metoprolol Succinate ER 100 MG Oral Tablet Extended Release 24 Hour; Take 1 tablet daily; Therapy: 14Bms7826 to (Evaluate:69Iqq0458) Recorded Metoprolol Succinate ER 50 MG Oral Tablet Extended Release 24 Hour; TAKE 1 TABLET BY MOUTH DAILY; Therapy: 01Apr2018 to (Evaluate:45Cnw7220) Recorded Multivitamin Men Oral Tablet; TAKE 1 TABLET DAILY; Therapy: (Recorded:68Bzq3744) to Recorded NovoLOG FlexPen 100 UNIT/ML Subcutaneous Solution Pen-injector; Therapy: 09Mar2017 to Recorded Meyers Chuck 3 1200 MG Oral Capsule; TAKE 1 CAPSULE Daily; Therapy: 01Apr2018 to Recorded PriLOSEC OTC 20 MG Oral Tablet Delayed Release; TAKE 1 TABLET DAILY; Therapy: 01Apr2018 to Recorded Testosterone PLLT; Therapy: (Recorded:21Feb2018) to Recorded Progress Note The patient's reported medications have been reviewed in [facility]. Based on the above medication list, there are no pharmacologic contraindications to kidney or kidney/pancreas transplantation. Recommend discontinuing herbal supplements at the time of transplant as the risk of unpredictable and erratic drug interactions with immunosuppressive agents likely outweigh any potential benefits of these supplements. Andres Soto, PharmD, BCPS Solid Organ Transplant Clinical Stable Manager Current Orders CT Abdomen and Pelvis without Contrast; Requested for:17Mar2018; Radiologist to Determine Optimal Study : Y What are the patient's signs and symptoms? : assess vessels for pre kidney txp eval. NO DYE Electrocardiogram EKG; Requested for:21Feb2018; Ultrasound Duplex Abd/Pel/Scrotal Cmpt; Requested for:21Feb2018; Radiologist to Determine Optimal Study : Y What are the patient's signs and symptoms? : Complete Abdomen with DOPPLERS.Include Iliacs. Signatures Electronically signed by : Andres Soto, ; May 22 2018 3:33PM EST (Author) PTHIN Collected: 05/15/2018 Status: F Source: [place] 12:17 PM [facility] [place] TYPE CODE TESTS RESULT OUT OF RANGE REFERENCE UNITS LAB L509.1000 18.4-80.1 pg/mL High PTHIN 105.7 Performed By: #### L509.1000 #### [facility] [address] [facility], [address] SURGERY VISIT REPORT Observed: 05/05/2018 Status: F Source: [place] 3:35 PM [facility] [place] [address] [place] [address] OFFICE VISIT Date of Service: 05/05/18 MR#: [id number] Acct: [id number] Name: GAVINO DAVE Rep #: [id number] : 1975 Provider: Stella Barr PA-C Age/Sex: 43/M Location: [facility] Status: Signed Intake Intake Visit Reasons: Gall Bladder Surgery 04/21 Chief Complaint: tawanda Allergies No Known Allergies Allergy (Verified 04/18/18 14:47) Medications atorvastatin 20 mg tablet 20 mg PO DAILY 01/28/18 [History Confirmed 04/18/18] chromium picolinate 400 mcg tablet 400 mcg PO DAILY 01/28/18 [History Confirmed 04/18/18] ferrous sulfate ER 142 mg (45 mg iron) tablet,extended release 45 mg PO DAILY tab 01/28/18 [History Confirmed 04/18/18] insulin glargine (U-100) 100 unit/mL (3 mL) subcutaneous pen 26 unit SC QHS ml 01/28/18 [History Confirmed 04/18/18] krill oil 500 mg capsule 500 mg PO DAILY 01/28/18 [History Confirmed 04/18/18] losartan 50 mg tablet 50 mg PO DAILY tab 01/28/18 [History Confirmed 04/18/18] metoprolol tartrate 100 mg tablet 150 mg PO QDAY tab 01/28/18 [History Confirmed 04/18/18] knvpqlap-owhdelqp-jxqbb acid 400 mcg-vit K 20 mcg-lycop 300 mcg tablet 1 tab PO DAILY 01/28/18 [History Confirmed 04/18/18] omeprazole 20 mg capsule,delayed release 40 mg PO DAILY 02/13/18 [History Confirmed 04/18/18] Glucosamine/MSM/Chondroitin A [Glucosamine Chondroit MSM Tab] 2 ea PO DAILY 03/24/18 [History Confirmed 04/18/18] Insulin Aspart [Novolog Flexpen] 5 - 15 units SUBCUT TIDCM 03/24/18 [History Confirmed 04/18/18] nifedipine ER 90 mg tablet,extended release 90 mg PO DAILY 04/10/18 [History Confirmed 04/18/18] Subjective Details: Patient is a 43 y/o male I am following for gallbladder polyp. Dr. Garcia performed a laparoscopic cholecystectomy with intraoperative cholangiogram on 04/21/18. Patient tolerated the procedure well. Pathology demonstrated mild chronic cholecystitis. No obvious polyp or stones noted. Patient notes minimal amount of discomfort of the right lateral incision. He denies nausea, vomiting. Objective Details: Abdomen- soft, nontender. incisions c/d/i. No erythema or infection noted. Peritoneal catheters intact and working well. Assessment AND Plan Problems 1. Chronic renal insufficiency, stage IV (severe) N18.4 2. Gallbladder polyp K82.4 Plan - Follow-up as needed - RTW letter given for 05/07 Coding Level of Care Code Global Post Op Diagnoses Chronic renal insufficiency, stage IV (severe) N18.4 Gallbladder polyp K82.4 05/05/18 9285 <Electronically signed by Stella Barr PA-C> Date Stella Barr PA-C Cosigner Signature: Date (if applicable) CC: Les Jones MD RENAL PROFILE Collected: 05/05/2018 Status: F Source: FLEX 1:19 PM [facility] [place] TYPE CODE TESTS RESULT OUT OF RANGE REFERENCE UNITS LAB L501.0100 74-106 mg/dL High GLU 411 Result Comment: Glucose result greater than or equal to 200 mg/dL suggests DIABETES MELLITUS per A.D.A. criteria. Please note revised GLUCOSE reference range effective 2017. LAB L501.1000 7-18 mg/dL High BUN 54 LAB L501.1100 0.70-1.30 mg/dL High CREAT,SERUM 3.42 Result Comment: The validity of the calculated GFR AND GFRAA in patients over 70 years has not been determined. Clinical correlation is essential. LAB L501.1110 >60 mL/min Low EST GFR 21 Result Comment: Non- GFR Calc LAB L501.1115 >60 mL/min Low EST GFR - AA 25 Result Comment: GFR Calc LAB L501.1300 10-20 RATIO Normal BUN/CRE 15.8 LAB L501.1800 3.2-5.0 g/dL Normal ALB 3.4 LAB L501.2200 8.5-10.1 mg/dL CA Normal 9.0 LAB L501.2300 2.5-4.9 mg/dL Normal PHOS 4.0 LAB L501.5300 136-145 mmol/L NA Normal 136 LAB L501.5600 3.5-5.1 mmol/L K Normal 4.6 LAB L501.5900 98-107 mmol/L CL Normal 100 LAB L501.6100 21.0-32.0 mmol/L Normal CO2 26.0 Performed By: #### L500.3600 #### [facility] [address] [place], [address] 12 LEAD ELECTROCARDIOGRAM Observed: 05/02/2018 Status: F Source: [place]LEX 9:20 AM [facility] [place] [facility] Cardi[facility] Services [address] [place] [address] 12 Lead EKG 04/21/18 0738 MR#: [id number] Acct: [id number] Name: GAVINO DAVE Rep #: [id number] : 1975 43 From: Fly Borjas MD Attending Dr: Moshe Garcia MD Status: DEP SDC Ordering Dr: Moshe Garcia MD Date: 04/21/18 [place] [facility] M C Admitted: Test Reason : PRE OP Blood Pressure : / mmHG Vent. Rate : 069 BPM Atrial Rate : 069 BPM P-R Int : 126 ms QRS Dur : 078 ms QT Int : 366 ms P-R-T Axes : 048 015 047 degrees QTc Int : 392 ms Normal sinus rhythm Normal ECG When compared with ECG of 26-MAR-2018 09:57, QRS axis Shifted left Criteria for Anterolateral infarct are no longer Present Confirmed by MARI ROSEN, FLY ([id number]), video news editor MOHSEN VALENTINE ([id number]) on 04/25/2018 2:30:08 PM Referred By: Moshe Garcia Confirmed By:FLY BORJAS MD 04/25/18 1430 Date Fly Borjas MD CC: Les Jones MD; Moshe Garcia MD Signed DISCHARGE INSTRUCTION Observed: 04/22/2018 Status: F Source: [place]LEX 3:11 PM [facility] [place] [facility] Medical Records Department [address] [place] [address] Instructions for Home/Discharge Instructions 04/21/18 0831 MR#: [id number] Acct: [id number] Name: GAVINO DAVE Rep #: [id number] : 1975 43 From: Moshe Garcia MD PCP: Les Jones MD [place] [facility] [place] Diet: Light diet - advance as tolerated - if you have questions about your diet instructions, please talk to you doctor. Discharge Activity: May Not Drive - for 3-5 days or while taking narcotic pain medicine. May shower in (days): 1 Lifting Restrictions: 10 pounds Call your doctor if your incision/area has: Continuous Slow Oozing, Sudden Increased Bleeding, Increased Pain/ Swelling, Increased Redness, Foul Smelling Discharge Call your doctor if you observe: Fever of 101 or Higher Suture Line Care: Avoid Pulling/Pushing, Avoid Pinching/Bending Additional Dressing/Incision Instructions:: Change or remove dressing in 4 days. Leave steri-strips in place for 1 week. Allergies/Adverse Reactions: Allergies No Known Allergies Allergy (Verified 04/18/18 14:47) Medications to take at Discharge atorvastatin 20 mg tablet 20 mg PO DAILY 01/28/18 chromium picolinate 400 mcg tablet 400 mcg PO DAILY 01/28/18 ferrous sulfate ER 142 mg (45 mg iron) tablet,extended release 45 mg PO DAILY tab 01/28/18 insulin glargine (U-100) 100 unit/mL (3 mL) subcutaneous pen 26 unit SC QHS ml 01/28/18 krill oil 500 mg capsule 500 mg PO DAILY 01/28/18 losartan 50 mg tablet 50 mg PO DAILY tab 01/28/18 metoprolol tartrate 100 mg tablet 150 mg PO QDAY tab 01/28/18 ghthjlfv-ereyqmna-rsjry acid 400 mcg-vit K 20 mcg-lycop 300 mcg tablet 1 tab PO DAILY 01/28/18 omeprazole 20 mg capsule,delayed release 40 mg PO DAILY 02/13/18 Glucosamine/MSM/Chondroitin A [Glucosamine Chondroit MSM Tab] 2 ea PO DAILY 03/24/18 Insulin Aspart [Novolog Flexpen] 5 - 15 units SUBCUT TIDCM 03/24/18 nifedipine ER 90 mg tablet,extended release 90 mg PO DAILY 04/10/18 Primary Care Physician: Luis Jones MD [Primary Care Provider] - Test Results: Test results from this visit will be discussed in further detail at your follow-up appointment, if applicable. Please Follow Up With: Moshe Garcia MD - [phone] When: Call to make an appointment to be seen in about 10 days. 04/22/18 1511 <Electronically signed by Moshe Garcia MD> Date Moshe Garcia MD CC: Les Jones MD OPERATIVE REPORT Observed: 04/22/2018 Status: F Source: [place] 3:11 PM [facility] [place] Medical Records Department [address] [place] [address] Operative Report 04/21/18 1009 MR#: [id number] Acct: [id number] Name: GAVINO DAVE Rep #: [id number] : 1975 43 From: Moshe Garcia MD PCP: Les Jones MD [place] [facility] [facility] List (1) Gallbladder polyp Status: Acute Report of Operation Date of Procedure: 04/21/18 Pre-Operative Diagnosis: Gallbladder polyps Post-Operative Diagnosis: Same Surgery/Procedure Performed:: Laparoscopic cholecystectomy with cholangiograms Description of Surgical Findings:: Timeout and informed consent was obtained. 43-year-old gentleman was taken to the operating placement table and underwent general endotracheal intubation anesthesia. The abdomen sterilely prepped and draped. Ancef 2 g given intravenously preoperatively. She will 0.5% Marcaine was used as local anesthetic. Throughout the procedure a total 30 cc was used. Skin sites were pre-anesthetized. A vertical infraumbilical incision was created holding sutures of 0 Vicryl placed there is no certain saline drop test performed the abdomen was insufflated with CO2 to a pressure of 10 mmHg pressure to me trocar inserted to the left scope inserted no ventricular injuries under direct visitation 100 trochars were placed in the epigastric right upper quadrant and right lateral upper quadrant. Expiration of the abdomen revealed the peritoneal dialysis cath in good position in the pelvis. Gallbladder had some mild adhesions of omentum to it. These were bluntly dissected free hemoclips were used for hemostasis the infundibular the gallbladder was actually rather adherent and tedious blunt dissection was required until finally the cystic duct lymph node could be dissected free hemoclips used for hemostasis and then the cystic artery was densely adherent to the cystic duct and had to be very carefully teased free having achieved this I placed 2 hemoclips proximally 1 distally on the cystic artery prior to transecting it hemo-lock clip was placed on the cystic duct and through a 14-gauge change, apocrine Cleve catheter was inserted. Fluoroscopically controlled plane scans were obtained demonstrating normal ductal anatomy and free flow into the small bowel. Clench Cleve catheter was removed and 2 additional hemoclips were placed on the cystic duct stump prior to transecting it. The gallbladder was dissected free from the liver bed using electrocautery absolutely complete hemostasis was intact and there was absolutely no spillage throughout the entire procedure. The gallbladder was placed in retrieval bag intact. It was exited at the umbilicus by slightly and enlarging the fascial incision. The right upper quadrant was again inspected was noted to be hemostatic. The abdomen was allowed to deflate of the CO2 as trochars were removed under visualization. The fascia at the umbilicus pressing up to 2-0 Vicryl xasjqg-ai-nqzmn suture. Skin edges were approximated with interrupted 4 Monocryl subdermal stitches. Steri-Strips Telfa and OpSite dressings applied. Sponge and instrument and needle counts were reported to the surgeon to be correct. Blood loss was minimal. Specimens gallbladder. Drains none. Blood loss minimal. Moshe Garcia M.D., F.A.C.S. 04/22/18 1511 <Electronically signed by Moshe Garcia MD> Date Moshe Garcia MD CC: Les Jones MD; Moshe Garcia MD Signed BEDSIDE GLUCOSE Collected: 04/21/2018 Status: F Source: [place] 11:50 AM [facility] [place] TYPE CODE TESTS RESULT OUT OF REFERENCE UNITS RANGE LAB L501.080 70-110 mg/dL High BEDSIDE GLU 250 Result Comment: MANAGEMENT OF PATIENT CARE PER NURSING PROTOCOL Performed By: #### L501.080 #### [facility] Point of Care [address] [place] [address] BEDSIDE GLUCOSE Collected: 04/21/2018 Status: F Source: [place] 7:33 AM [facility] [place] TYPE CODE TESTS RESULT OUT OF REFERENCE UNITS RANGE LAB L501.080 70-110 mg/dL High BEDSIDE GLU 148 Result Comment: MANAGEMENT OF PATIENT CARE PER NURSING PROTOCOL Performed By: #### L501.080 #### [facility] Point of Care [address] [place] [place] [address] CBC-COMPLETE BLOOD CNT Collected: 04/21/2018 Status: F Source: [place] NO DIFF 7:25 AM [facility] [place] [facility] TYPE CODE TESTS RESULT OUT OF RANGE REFERENCE UNITS LAB L100.1000 4.4-11.0 K/mm3 Normal WBC 8.1 LAB L100.1200 4.6-6.2 M/mm3 Low RBC 3.74 LAB L100.1300 13.0-16.5 g/dl Low HGB 10.7 LAB L100.1400 40-54 % Low HCT 32.8 LAB L100.1500 80-94 fL Normal MCV 87.7 LAB L100.1600 27.0-32.0 pg Normal MCH 28.6 LAB L100.1700 32-36 g/gl Normal MCHC 32.6 LAB L100.1810 11.6-14.6 % Normal RDW CV 13.2 LAB L100.1820 35.1-43.9 fl Normal RDW SD 42.6 LAB L100.1900 150-450 K/mm3 Normal PLT 225 LAB L100.2000 6.2-12.0 fl Normal MPV 10.8 Performed By: #### L100.0500, L500.2500 #### [facility] [address] [place], [place], [address] BASIC METABOLIC Collected: 04/21/2018 Status: F Source: [place] PROFILE (BMP) 7:25 AM [facility] [place] TYPE CODE TESTS RESULT OUT OF RANGE REFERENCE UNITS LAB L501.0100 74-106 mg/dL High GLU 141 Result Comment: Fasting Glucose result greater than or equal to 126 mg/dL suggests DIABETES MELLITUS per A.D.A. criteria. Please note revised GLUCOSE reference range effective 2017. LAB L501.1000 7-18 mg/dL High BUN 51 LAB L501.1100 0.70-1.30 mg/dL High CREAT,SERUM 3.18 Result Comment: The validity of the calculated GFR AND GFRAA in patients over 70 years has not been determined. Clinical correlation is essential. LAB L501.1110 >60 mL/min Low EST GFR 23 Result Comment: Non- GFR Calc LAB L501.1115 >60 mL/min Low EST GFR - AA 27 Result Comment: GFR Calc LAB L501.1255 ml/min Normal Estimated CRCL 25.79 LAB L501.1300 10-20 RATIO Normal BUN/CRE 16.0 LAB L501.2200 8.5-10 mg/dL Normal .1 CA 9.0 LAB L501.5300 136-14 mmol/L Normal 5 NA 140 LAB L501.5600 3.5-5. mmol/L Normal 1 K 4.8 LAB L501.5900 98-107 mmol/L High CL 109 LAB L501.6100 21.0-3 mmol/L Normal 2.0 CO2 25.0 LAB L501.6200 5-15 Normal GAP 6 Performed By: #### L100.0500, L500.2500 #### [facility] [address] [facility] [place], [address] CHOLANGIOGRAM/ O Observed: 04/21/2018 Status: F Source: [place] R,INITIAL 3:58 AM [facility] [place] Imaging Services [address] [place] [address] Cholangiogram/ O R,Initial MR#: [id number] Acct: [id number] Name: GAVINO DAVE Rep #: [id number] : 1975 M 43 From: Warren Walter MD PCP: Les Jones MD Status: [facility] Study: Cholangiogram/ O R,Initial Date of Exam: 04/21/18 Exam# [id number] Ordering Dr: Moshe Garcia MD STUDY: INTRAOPERATIVE CHOLANGIOGRAM. REASON FOR EXAM: Male, 43 years old. Laparoscopic cholecystectomy. FLUOROSCOPY TIME (if supplied): (0:06) minutes/seconds TECHNIQUE: An intraoperative cavagram was performed by the surgeon. Imaging was submitted. COMPARISON: None. FINDINGS: The common bile duct is not dilated. No intraluminal filling defect is seen. There is free flow of contrast into the duodenum. RAD/Cholangiogram/ O R,Initial IMPRESSION: Unremarkable examination. Electronically Signed: Warren Walter MD at 8:05 EST Tel [phone], Service support , CC: Les Jones MD; Moshe Garcia MD Circular Tank Cooper: Signed GALLBLADDER Observed: 04/21/2018 Status: F Source: [place] 12:00 AM [facility] [place] Patient: GAVINO DAVE : 1975 (43/M) Acct Num: [id number] Phys: Radha ROSEN,Moshe Unit Num: [id number] [place] [facility] Specimen: [id number] Received: 04/21/181338 Spec Type: GALLBLADDE TISSUES 1 TISSUES: Gallbladder, NOS GROSS DESCRIPTION Received is one container labeled with the patient's name and designated gallbladder and contents. The specimen consists of a gallbladder measuring 8 cm in length and 3 cm in diameter. The external surface is pink-rueda, smooth and glistening for the most part. Focally it is granular, hemorrhagic and contains cautery artifact. The gallbladder contains green-yellow mucoid bile. No stones are identified in the container or in the gallbladder. The gallbladder wall measures up to 0.2 cm in thickness. Data Storage Specialist sections from the gallbladder and the cystic duct are submitted in one cassette. / Dwayne 04/21/18 TC:3 CPT: 53870 HEADER OPERATION: Laparoscopic cholecystectomy with IOC PRE-OP DIAGNOSIS: Gallbladder polyp TISSUE SUBMITTED: Gallbladder and contents MICROSCOPIC DESCRIPTION Slides are reviewed. MICROSCOPIC DIAGNOSIS Gallbladder and contents: Mild chronic cholecystitis. No stones are identified in the container or in the gallbladder. No obvious mucosal polyp is noted. Dwayne 04/22/18 Signed Flavio Jain 04/22/18 <signature on file> Performed By: #### PGALL #### [facility] [address] [place], [address] ENDOCRINOLOGY VISIT Observed: 04/16/2018 Status: F Source: [place] REPORT 11:41 AM [facility] [address] [place] [address] OFFICE VISIT Date of Service: 04/10/18 MR#: [id number] Acct: [id number] Name: GAVINO DAVE Rep #: [id number] : 1975 Provider: Tracy Glez NP Age/Sex: 43/M [place] [facility] [place]: Signed HPI History of present illness History of present illness Gavino Dave is a 43 year old male who presents for follow up of diabetes type 1. Diagnosed at age 15. Accompanied by his . Is with significant renal issues and is following with Dr. Chowdary. He reports he is getting ready to be worked up for a kidney transplant. He is currently taking basaglar 27 units daily and meal insulin 10/05/09 and using 1-50 for correction. Reports less low BG while at work and when he uses his correction. Has peritoneal catheter in place now for home dialysis but has not started. Pt denies difficulty with injections or self monitoring of BG. Denies any signs of infection or irritation at site of injections. Reports taking insulin as directed At time of visit: -Pt denies symptoms of hypertensive emergency (CP,SOB,MACK, or blurred vision) and hypotension(dizziness or lightheadedness) -Pt denies symptoms of hypoglycemia ( sweaty, confusion, anxiety, tremor, hunger, palpitations) and hyperglycemia ( polydipsia, polyuria) -Pt denies potential medication adverse effect. Hypoglycemia Aware of hypoglycemia: When awake Able to self treat low BG: Yes Frequent low Blood sugar: No Has supply of glucagon: No SMBG 6-8 times daily Before meals and bedtime range of BG readings 78-330, average 200 Diet 3 meals and snacks Getting more comfortable carb count his meals Exercise Is active but does not have a routine exercise program Exam Const General: comfortable, well groomed Nutritional Appearance: well nourished Orientation: oriented x3 [facility] Head: normal to inspection, atraumatic Ears: hearing grossly normal bilaterally Nose: external nose normal Mouth: oral mucosae normal, moist mucous membranes Teeth and gingiva: dentition normal Eyes General: appearance normal, both eyes and all related structures Eyelids: eyelids normal Sclera: sclerae normal Pupils: PERRL Resp Effort AND Inspection: normal respiratory effort, able to speak in complete sentences, symmetric chest movement Auscultation: Bilateral: Clear to Auscultation Cardio Rate: regular rate Rhythm: regular rhythm Heart Sounds: S1 normal, S2 normal GI Inspection: normal to inspection, catheter for dialysis in place Auscultation: normal bowel sounds Palpation: soft, no guarding Skin General: no rashes or lesions noted Lesions: no lesions Diabetic Foot Pulses: L dorsalis pedis pulse: normal, R dorsalis pedis pulse: normal Monofilament test: Left foot: abnormal, Right foot: abnormal Neuro General: oriented x3, moves all extremities Cognition: normal cognition Speech: speech normal Gait: normal gait Motor: muscle tone normal throughout Extrem General: normal to inspection, normal capillary refill, no pedal edema Psych Appearance: grossly normal Mental Status: mental status grossly normal Mood: congruent mood Affect: normal affect Speech and Movement: speech and movement normal Attitude: cooperative Thought Process: normal Judgment: judgment good Weight and fatigue symptoms: Denies snoring Cardiopulmonary symptoms: Reports lightheadedness; denies chest pain at rest, dyspnea on exertion or myalgias GI symptoms: Denies constipation, diarrhea, nausea/dyspepsia or vomiting Skin and extremity symptoms: Denies erectile dysfunction Other symptoms: Denies blurry vision or change in vision Intake Vital Signs04/10/18 Height 5 ft 5 in 04/10/18 Weight: 157 lb 6 oz 04/10/18 Body Mass Index (BMI) 26.2 04/10/18 Blood Pressure 145/83 H 04/10/18 Blood Pressure Location Lt popliteal 04/10/18 Blood Pressure Position Sitting Intake Visit Reasons: Type 1 diabetes mellitus Investment Broker Required: No Accompanied by: Family / Other Allergies No Known Allergies Allergy (Verified 04/14/18 15:33) Medications atorvastatin 20 mg tablet 20 mg PO DAILY 01/28/18 [History Confirmed 04/14/18] chromium picolinate 400 mcg tablet 400 mcg PO DAILY 01/28/18 [History Confirmed 04/14/18] ferrous sulfate ER 142 mg (45 mg iron) tablet,extended release 45 mg PO DAILY tab 01/28/18 [History Confirmed 04/14/18] insulin glargine (U-100) 100 unit/mL (3 mL) subcutaneous pen 28 unit SC QHS ml 01/28/18 [History Confirmed 04/14/18] krill oil 500 mg capsule 500 mg PO DAILY 01/28/18 [History Confirmed 04/14/18] losartan 50 mg tablet 50 mg PO DAILY tab 01/28/18 [History Confirmed 04/14/18] metoprolol tartrate 100 mg tablet 150 mg PO QDAY tab 01/28/18 [History Confirmed 04/14/18] utjmhylo-wahwbfev-pfcrs acid 400 mcg-vit K 20 mcg-lycop 300 mcg tablet 1 tab PO DAILY 01/28/18 [History Confirmed 04/14/18] omeprazole 20 mg capsule,delayed release 40 mg PO DAILY 02/13/18 [History Confirmed 04/14/18] Glucosamine/MSM/Chondroitin A [Glucosamine Chondroit MSM Tab] 1 ea PO 03/24/18 [History Confirmed 04/14/18] Insulin Aspart [Novolog Flexpen] 5 - 15 units SUBCUT TIDCM 03/24/18 [History Confirmed 04/14/18] nifedipine ER 90 mg tablet,extended release 90 mg PO DAILY 04/10/18 [History Confirmed 04/14/18] Nurse's Note: blood sugars : low : 78 high : 330 PFSH Medical History Chronic renal insufficiency, stage IV (severe) (Acute) GERD (gastroesophageal reflux disease) (Acute) History of wisdom tooth extraction (Acute) Kidney disease (Acute) Kidney failure (Acute) Type 1 diabetes mellitus (Acute) HTN (hypertension) (Chronic) Surgical History H/O hernia repair (Acute) Hx of appendectomy (Acute) repair of fx arm (Acute) Family History Mother Cancer sarcoma Breast cancer Skin cancer Brother Diabetes Father Heart disease High cholesterol Social History Smoking Status: Smoker, status unknown alcohol intake: never substance use type: does not use ROS Const Constitutional: No anorexia, body ache, chills, fatigue, fever(s), frequent falls, decreased energy, malaise, night sweats, weakness, weight change, sleep problems, abnormal sleep pattern, change in appetite, other, headache(s), snoring or excessive sweating Eyes Eyes: No blurry vision, change in vision, double vision, discharge, dry eyes, bulging eyes, floaters, visual disturbances, eye pain, light sensitivity, spots in vision, tunnel vision or other ENT ENT: No abnormal hearing, ear pain, ear discharge, ear pressure, hearing loss, tinnitus, dizziness/vertigo, balance problems, nosebleed/epistaxis, nasal congestion, nasal obstruction, nose pain, sinus pressure, sinus pain, nasal discharge, post nasal drip, headache(s), facial pain, dental pain, dry mouth, bad breath, hoarseness, lip swelling, mouth lesions, mouth pain, sore throat, tongue swelling, throat swelling, other, difficulty swallowing or neck pain Resp Respiratory: No cough, change in phlegm color, chest congestion, excessive phlegm production, hemoptysis, pain on inspiration, shortness of breath, pain with cough, snoring, stridor, wheezing or other Cardio Cardiology: Positive for lightheadedness; no chest pain at rest, chest pain with exertion, leg pain with exertion, excessive sweating, shortness of breath, dyspnea on exertion, generalized swelling, irregular heart rhythm, orthopnea, radiating jaw, neck or arm pain, fast heart rate, slow heart rate, palpitations or other Gastro GI: No abdominal pain, belching, bloating, change in bowel habits, change in stool character, coffee ground emesis, constipation, cramping, diarrhea, heartburn, difficulty swallowing, feeling full early, excessive flatus, incontinent of stools, Vomiting blood/hematemesis, blood in stool, loose stools, Black,tarry stools, nausea/dyspepsia, pain with swallowing, vomiting or other Genitourinary Male: No difficulty urinating, burning urination, painful urination, urinary incontinence, urinary frequency, urinary urgency, urinary hesitancy, urinary retention, blood in urine, Frequent nighttime urination/ nocturia, post void dribbling, suprapubic fullness, side pain, sexual problems, genital lesions, genital itching, erectile dysfunction, penile discharge, difficulty with ejaculations, blood in semen, scrotal swelling, testicle lump, testicle pain or other Musc Musculoskeletal: No abnormal walking, joint pain, back pain, deformity, joint swelling, limited range of motion, loss of height, muscle cramps, muscle weakness, decreased muscle mass, body aches, neck pain, numbness, radiating pain into limb, stiffness, tingling or other Skin Skin: No acne, hair loss, change in hair, nail changes, boil, change in skin color, dry skin, redness, excessive hair growth, yellowing of the skin, lesions, itching, rash, skin pain, skin ulcer, sores, skin swelling, wounds or other Breast Breast: No other Neuro Neurology: No frequent falls, weakness, visual disturbances, abnormal hearing, headache(s), abnormal walking, numbness or tingling Psych Psychiatric: No abnormal sleep pattern, No change in appetite Endo Endocrine: No fatigue, other or excessive sweating Aller/Imm Allergy/Immunologic: No lip swelling, tongue swelling, throat swelling, wheezing or itchy eyes Assessment AND Plan 1. Uncontrolled type 1 diabetes with renal manifestation E10.29; E10.65 Plan Reviewed BG readings. Has more awareness of low BG and has been able to feel BG in the 70 range now Is still working on his carb counting. We reviewed how to mathematically use his carb counting to work through his I/C ratio. He understands how to do but has not done it consistently enough to have it figured out to have his I/c ratio. Has done some calls regarding the kidney transplant process. Contninues to follow with Dr. Chowdary nephrology. Patient Instructions Carb counting of meals I/C ratios Continue to monitor BG intensively Plan Detail Additional Comments 1. Please schedule follow up in 3 months. 2. Lab work one week before appointment. 3. Discussed importance of regular exercise and recommend starting or continuing a regular exercise program for good health. 4. The patient was encouraged to lose weight for good health 5. The importance of monitoring blood sugar regularly was reviewed. 6. The importance of monitoring the HBA1c level regularly was reviewed. 7. The importance of prper foot care and regularly checking feet to prevent sores and loss of limbs was reviewed. 8. The importance of keeping BP at or below 130/80 to prevent stroke, heart attacks, kidney failure, blindness was reviewed. Spent approximately 60 minutes with patient with over 50% of time spent in discussion and counseling regarding medication adjustment, symptoms and treatment of hypoglycemia, diet adherence, and checking BG before driving. Coding Level of Care Code Off vis,est,level 4 Diagnoses Uncontrolled type 1 diabetes with renal manifestation E10.29; E10.65 04/16/18 1141 <Electronically signed by Tracy CASAS> Date Tracy CASAS Cosigner Signature: Date (if applicable) CC: SURGERY VISIT REPORT Observed: 04/14/2018 Status: F Source: [place] 3:46 PM [facility] [place] [address] [place] [address]. [address] [place], [place] [address] OFFICE VISIT Date of Service: 04/14/18 MR#: [id number] Acct: [id number] Name: GAVINO DAVE Rep #: [id number] : 1975 Provider: Moshe Garcia MD Age/Sex: 43/M Location: [facility] Status: Signed Intake Vital Signs04/14/18 Height 5 ft 5 in 04/14/18 Weight: 157 lb 8 oz 04/14/18 Body Mass Index (BMI) 26.2 04/14/18 Blood Pressure 143/79 H Intake Visit Reasons: Gall Bladder US 04/01 Chief Complaint: tawanda Investment Broker Required: No Is patient in pain?: No Allergies No Known Allergies Allergy (Verified 04/14/18 15:33) Medications atorvastatin 20 mg tablet 20 mg PO DAILY 01/28/18 [History Confirmed 04/14/18] chromium picolinate 400 mcg tablet 400 mcg PO DAILY 01/28/18 [History Confirmed 04/14/18] ferrous sulfate ER 142 mg (45 mg iron) tablet,extended release 45 mg PO DAILY tab 01/28/18 [History Confirmed 04/14/18] insulin glargine (U-100) 100 unit/mL (3 mL) subcutaneous pen 28 unit SC QHS ml 01/28/18 [History Confirmed 04/14/18] krill oil 500 mg capsule 500 mg PO DAILY 01/28/18 [History Confirmed 04/14/18] losartan 50 mg tablet 50 mg PO DAILY tab 01/28/18 [History Confirmed 04/14/18] metoprolol tartrate 100 mg tablet 150 mg PO QDAY tab 01/28/18 [History Confirmed 04/14/18] tttpdixt-urvfuayz-thqlx acid 400 mcg-vit K 20 mcg-lycop 300 mcg tablet 1 tab PO DAILY 01/28/18 [History Confirmed 04/14/18] omeprazole 20 mg capsule,delayed release 40 mg PO DAILY 02/13/18 [History Confirmed 04/14/18] Glucosamine/MSM/Chondroitin A [Glucosamine Chondroit MSM Tab] 1 ea PO 03/24/18 [History Confirmed 04/14/18] Insulin Aspart [Novolog Flexpen] 5 - 15 units SUBCUT TIDCM 03/24/18 [History Confirmed 04/14/18] nifedipine ER 90 mg tablet,extended release 90 mg PO DAILY 04/10/18 [History Confirmed 04/14/18] PFSH Medical History Chronic renal insufficiency, stage IV (severe) (Acute) GERD (gastroesophageal reflux disease) (Acute) History of wisdom tooth extraction (Acute) Kidney disease (Acute) Kidney failure (Acute) Type 1 diabetes mellitus (Acute) HTN (hypertension) (Chronic) Surgical History H/O hernia repair (Acute) Hx of appendectomy (Acute) repair of fx arm (Acute) Family History Mother Cancer sarcoma Breast cancer Skin cancer Brother Diabetes Father Heart disease High cholesterol Social History Smoking Status: Smoker, status unknown alcohol intake: never substance use type: does not use HPI HPI HPI: GAVINO DAVE, is a 43 M who presents to the office today for surgical consultation regarding an abnormal gallbladder ultrasound suggesting multiple polyps. I have recently assisted this patient. I performed a consult on him with previous information noted below GAVINO DAVE, is a 43 M who presents to the office today for surgical consultation regarding peritoneal dialysis catheter placement. The patient's primary care physician is Dr. Les Jones and his special delivery worker is Dr. Hanane Chowdary. The patient is referred by Dr. Hanane Chowdary for surgical consultation regarding PD placement and a written copy of my surgical consult recommendations will be returned to her. The patient is age 43. He has been long-term type I diabetic since age 15. He has been variable in his attention and controlled to his diabetes. 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 There is a lubricating oil that gets vaporized and he returns home daily with a fine mist of oil on his skin face and clothing. They have already made arrangements to change their home situation to allow for room to be dedicated free from their pets. He currently has stage IV renal insufficiency with a GFR of 17. He has had a previous appendectomy and he states at the same time he had a umbilical or ventral hernia repair and he thinks with mesh On March 26, 2018 I performed laparoscopy with placement of peritoneal dialysis catheters. That went without complication there is no evidence of any intra-abdominal adhesions. He has had 2 simulated catheter drainage procedures with good results. As part of his ongoing workup for renal transplantation on April 01, 2018 at [facility] the patient had an ultrasound performed. The gallbladder was noted to be of normal size. There is no evidence of any wall thickening or gallstones however multiple polyps were noted. The largest one measures less than 5 mm. Recommendations were made to the patient to have his gallbladder removed. He has not had any symptoms. ROS General General: Yes fatigue; no weight change, appetite, colon cancer, breast cancer or weakness HEENT HEENT: Yes eye injury; no difficulty swallowing, eye surgery, swollen glands or hoarseness Additional Details: corneal injury x2 Endo Endocrine: Yes diabetes mellitus; no thyroid disease, thyroid cancer, Hair loss, heat intolerance or cold intolerance Musc Musculoskeletal: No back problems, arthritis, rheumatoid arthritis, gout or joint pain Cardio Cardiovascular: Yes high blood pressure; no murmur, pacemaker, heart disease, atrial fibrillation, heart attack, heart stent, palpitations, shortness of breat with exertion or chest pain Psych Psychiatric: No depression, anxiety or hearing voices Resp Respiratory: No shortness of breath, No sleep apnea, No cough, No COPD, No asthma, No emphysema, No wheezing Gastro Gastrointestinal: No abdominal pain, No nausea or vomiting, No diarrhea, No constipation, No blood in stool, Yes acid reflux, No hemorrhoids, No ulcers, No gallbladder problem, No black,tarry stools Jayden Hematologic: No blood thinners, No blood disorders, No bleeding, No anemia, No blood clots Neuro Neurologic: No weakness Exam Const General: cooperative, healthy appearing, comfortable Nutritional Appearance: average body habitus Orientation: alert, awake, oriented x3 HENMT Head: normal to inspection Ears: hearing grossly normal bilaterally Eyes General: appearance normal, both eyes and all related structures Resp Effort AND Inspection: normal respiratory effort Auscultation: clear to auscultation bilaterally Cardio Rate: regular rate Rhythm: regular rhythm Heart Sounds: no murmurs GI Palpation: soft, no hepatosplenomegaly Other: Left lower quadrant peritoneal dialysis catheter exiting clean and dry Skin General: no rashes or lesions noted Neuro General: alert, awake Extrem General: no clubbing, cyanosis or edema Psych Affect: normal affect Assessment AND Plan Problems 1. Gallbladder polyp K82.4 Plan The patient is doing well status post lap scopic placement of peritoneal dialysis catheters This appointment is for a completely separate issue. The patient has been detected as having suspected gallbladder polyps. He is being evaluated for renal transplantation. Recommendations have been made for his removal of his gallbladder. I have discussed with him technique, benefits, risks, alternatives. Greater care will need to be observed because of the recent placement of the peritoneal dialysis catheters. He has had an opportunity to ask and have questions answered. We will schedule and proceed at his discretion. I appreciate the ongoing opportunity of assisting with his surgical care. Cc: Dr. Les Garcia M.D., F.A.C.S. Coding Level of Care Code Off vis,est,level 2 Diagnoses Gallbladder polyp K82.4 Comment modifier 24 04/14/18 1546 <Electronically signed by Moshe Garcia MD> Date Moshe Garcia MD Cosigner Signature: Date (if applicable) CC: Les Jones MD SURGERY VISIT REPORT Observed: 04/07/2018 Status: F Source: [place] 5:18 PM [facility] [place] [facility] 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 Required: No Is patient in pain?: No Allergies No Known Allergies Allergy (Verified 04/07/18 16:00) Medications amlodipine 10 mg tablet 10 mg PO DAILY 01/28/18 [History Confirmed 03/26/18] atorvastatin 20 mg tablet 20 mg PO DAILY 01/28/18 [History Confirmed 03/26/18] chromium picolinate 400 mcg tablet 400 mcg PO DAILY 01/28/18 [History Confirmed 03/26/18] ferrous sulfate ER 142 mg (45 mg iron) tablet,extended release 45 mg PO DAILY tab 01/28/18 [History Confirmed 03/26/18] insulin glargine (U-100) 100 unit/mL (3 mL) subcutaneous pen 28 unit SC QHS ml 01/28/18 [History Confirmed 03/26/18] krill oil 500 mg capsule 500 mg PO DAILY 01/28/18 [History Confirmed 03/26/18] losartan 50 mg tablet 50 mg PO DAILY tab 01/28/18 [History Confirmed 03/26/18] metoprolol tartrate 100 mg tablet 150 mg PO QDAY tab 01/28/18 [History Confirmed 03/26/18] ywotebnn-uslozxhc-cfnsf acid 400 mcg-vit K 20 mcg-lycop 300 mcg tablet 1 tab PO DAILY 01/28/18 [History Confirmed 03/26/18] omeprazole 20 mg capsule,delayed release 40 mg PO DAILY 02/13/18 [History Confirmed 03/26/18] Glucosamine/MSM/Chondroitin A [Glucosamine Chondroit MSM Tab] 1 ea PO 03/24/18 [History Confirmed 03/24/18] Insulin Aspart [Novolog Flexpen] 5 - 15 units SUBCUT TIDCM 03/24/18 [History Confirmed 03/26/18] Subjective Details: 43-year-old gentleman. He returns for his first post surgical follow-up from laparoscopic placement of dialysis catheters March 26, 2018. By his report the initial flushing went without complication. Objective Details: Laparoscopic incisions and peritoneal dialysis catheter all appear to be intact. Minimal erythema at the catheter exit site. Assessment AND Plan Problems 1. Chronic renal insufficiency, stage IV (severe) N18.4 Plan Wounds were inspected and dressings changed for him today. He has had an opting to ask and have questions answered. Their office surgical follow-up can be as needed. Moshe Garcia M.D., F.A.C.S. Coding Level of Care Code Global Post Op Diagnoses Chronic renal insufficiency, stage IV (severe) N18.4 04/07/18 1718 <Electronically signed by Moshe Garcia MD> Date Moshe Garcia MD Cosigner Signature: Date (if applicable) CC: NUTRITION - TRANSPLANT Observed: 04/02/2018 Status: UNK Source: [place] 7:42 AM HOSPITALS REPOSITORY Reason For Visit Reason For Visit: Patient is here for initial assessment. Pt is being evaluated for pancreas transplant Active Problems Problems Hypertension (401.9) (I10) Pre-transplant evaluation for end stage renal disease (V72.83) (Z01.818) Pre-transplant evaluation for kidney and pancreas transplant (V72.83) (Z01.818) Type 1 diabetes mellitus with chronic kidney disease on chronic dialysis (250.41,585.9,V45.11) (E10.22,N18.6,Z99.2) Past Medical History History of chronic kidney disease (V13.09) (Z87.448) Family History Mother Family history of malignant neoplasm (V16.9) (Z80.9) Brother Family history of type 1 diabetes mellitus (V18.0) (Z83.3) Unknown No pertinent family history Social History Problems Activities of daily living (ADL's), independent Full-time employment Lives with family Never smoker No illicit drug use Current Meds Medication NameInstruction Atorvastatin Calcium 20 MG Oral TabletTAKE 1 TABLET AT BEDTIME. Basaglar KwikPen 100 UNIT/ML Subcutaneous Solution Pen-injector Chromium 400 MCG Oral TabletTAKE 2 TABLET Daily Ferrous Sulfate ER 140 (45 Fe) MG Oral Tablet Extended ReleaseTake 1 tablet daily Fish Oil OIL Glucosamine TABSTAKE 2 TABLET Daily Losartan Potassium 100 MG Oral TabletTAKE 0.5 TABLET Daily Metoprolol Succinate ER 100 MG Oral Tablet Extended Release 24 HourTake 1 tablet daily Metoprolol Succinate ER 50 MG Oral Tablet Extended Release 24 HourTAKE 1 TABLET BY MOUTH DAILY Multivitamin Men Oral TabletTAKE 1 TABLET DAILY. NIFEdipine ER 90 MG Oral Tablet Extended Release 24 HourTAKE 1 TABLET DAILY. NovoLOG FlexPen 100 UNIT/ML Subcutaneous Solution Pen-injector Meyers Chuck 3 1200 MG Oral CapsuleTAKE 1 CAPSULE Daily PriLOSEC OTC 20 MG Oral Tablet Delayed ReleaseTAKE 1 TABLET DAILY. Testosterone PLLT Results/Data Nutrition Labs [id number] Height5 ft 4 in5 ft 4 in Ujrzmr015 lb 12.8 oz157 lb 11.2 oz BMI Wmisrmnumt10.7427.07 Wgppqnnvfs86.3 g/dL Cxkcczfykp94.2 % Cqemmvj86 mg/dL Cqklbk396 mmol/L Potassium4.6 mmol/L Blood Urea Nitrogen (BUN)69 mg/dL Creatinine3.64 mg/dL Rzykwcc40.7 mg/dL Albumin5.1 g/dL Total Bilirubin0.5 mg/dL HGB A1C8.3 % History of Present Illness Transplant Nutrition HPI Listed Status: evaluatin for kidney/pancreas transplant. Anthropometrics DBW: 130# % DBW: 119.8% Food/Nutrition Related History: Pt states he didn't know he had kidney disease until a few months ago. He was having trouble controlling his blood pressure with medications and a low Na diet so they did more lab work where they found he had ESRD. He will be starting PD, training starts in a few weeks. 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 He is more tired but feels good. He has variable glycemic control. He ranges from 40 mid 200's. They do hot believe it is based on what he eats. He has been educated on a diabetic diet but they do admit that they need further education. They started seeing an Endo MD recently to yael kory manage his blood sugars. He has been seeing a PCP who had been managing his insulin regimen for years. They enjoy the Endo MD but also admitted that they didn't understand everything she said as fal l as sliding scale coverage. Pt has an appointment next week. States his A1c has also been less than 7% but the last one was above 7%, most recent A1c - (02/2018) - 8.3% They follow a low Na diet as well as potassium because he has had elevated potassium levels. He started eating banana chips instead of potato chips and then he had a really high potassium lab, he has si nce stopped that, most recent lab normal. 24 Hour Diet Recall: - , Breakfast: 3 eggs, 3 toast, 4 oz OJ, - 1-2x/week or granola bar. - Lunch: egg salad sandwich or tuna sandwich - made at home. - Dinner: meatloaf with mashed potatoes - potatoes soaked - 1/2 cup. - Snack: fruit or fruit roll up during the day meatloaf and 1/2 cup MP for snack before bed. - Fluids: coffee, water, 1 can of dt pepsi. Dining Out: Fast Foods: no. Restaurants: no. Take Out: no. Food Insecurity: none. SNAP: Patient does not receive SNAP. Cooking: patient and spouse/sig. other. Grocery Shopping: spouse/sig. other. Food Allergy/Intolerance: Patient has no food allergies. Patient has no food intolerance. Percentage of usual intake: >/= 75% Appetite: Good Supplement Intake: none. CMN: no. Dietary Supplements: multivitamin and fish oil . GI Symptoms: None . one day of nausea and diarrhea, believes it was a stomach bug. Chewing/Swallowing: Denies. Mobility: Assistive Devices: Patient does not use assistive devices. Overall Physical Activity Level: moderate. active at work. Sleep: 5-6 hours per night, disrupted. Does not nap during the day. insomnia, can fall asleep but does not stay asleep, believes it is due to stress Physical Exam Muscle Wasting: Temporal: None Shoulder: None Clavicle: None Scapula/Back: None Interosseous: None Quadriceps: None Calf: None Loss of Subcutaneous Fat: Eyes: None Perioral: None Triceps: None Chest: None Other Physical Findings: Hair: Negative Eyes: Negative Mouth: Negative Nails: Negative Skin: Negative Edema: none. Change in Metabolic Demand: No Malnutrition Assessment: Malnutrition not present at this time Estimated Nutrient Needs Estimated Nutrient Needs Estimated Nutrient Needs Designed for Maintenance: 1900-200 kcals/day 50-55 gms protein/day Nutrition Diagnosis Diagnosis 1: new Food- and nutrition-related knowledge deficit related to a diabetic diet with consistent CHO intake at meals as well as sliding scale coverage with meals as evidence by as evidence by diet recall and re view of blood sugars where are variable, not necessarily based on his CHO Intake but he is not sure what appropriate portions are. Nutrition Interventions Nutrition Intervention Discussed: 1) Reviewed diabetic diet including CHO foods and appropriate portions at each meal. They have handouts when they met with Nan ROSEN and RDN to review diet. If they want to call me with directions for insulin coverage based on CHO, I will be happy to review. 2) Discussed high potassium foods to limit 3) Remain active. Monitoring and Evaluation Nutritional Goals: improve blood glucose control , carbohydrate consistency 3 -4 per meal, consistent meal/snack pattern , Improve Hgb A1C Less than 7% and maintain stable weight . Exercise: 30 min, 4 days a week. Recommended Follow-Up: 6 Months Signatures Electronically signed by : ROMEO Banuelos; Apr 02 2018 7:42AM EST (Author) US ABD COMPLETE Observed: 04/01/2018 Status: F Source: [place] 12:56 PM HOSPITALS REPOSITORY Patient Name: GAVINO DAVE STUDY: US ABD COMP; US DUPLX ART/VEIN AB; 04/01/2018 12:56 pm INDICATION: complete abdomen w/dopplers include lliacs. COMPARISON: None. ACCESSION NUMBER(S): [id number]; [id number] ORDERING CLINICIAN: TEX DEL RIO TECHNIQUE: Multiple images of the abdomen were obtained. FINDINGS: LIVER: The liver measures 13.3 cm and is grossly unremarkable and free of any focal lesions. GALLBLADDER: The gallbladder is nondistended, and demonstrates no evidence of gallstones, wall thickening or surrounding fluid. Sonographic Hercules's sign is negative. There are multiple polyps noted, the largest of which measures less than 5 mm.. BILIARY SYSTEM: No evidence of intra or extrahepatic biliary dilatation is identified; the common bile duct measures 2.6 mm. DOPPLER EVALUATION: HEPATIC ARTERIES: Hepatic artery and its right and left branches RI's are estimated at 0.73, 0.73 and 0.68, respectively. PORTAL VEIN: Portal vein is patent and measures 11.1 mm. There is normal respiratory variation. Portal vein velocities are calculated as follows: main portal vein 23.9 cm/sec, antegrade flow; left portal vein branch 25.6 cm/sec, antegrade flow; right portal vein anterior branch 12.8 cm/sec, antegrade flow; right portal vein posterior branch 18.0 cm/sec, antegrade flow. The splenic vein is also patent. HEPATIC VEIN: The right, middle and left hepatic veins are patent and demonstrate triphasic antegrade flow. IVC appears also patent. PANCREAS: The pancreas is poorly visualized due to overlying bowel gas. RIGHT KIDNEY: The right kidney measures 7.65 cm in length. No hydronephrosis or renal calculi are seen. The kidney is atrophic with diffuse cortical echogenicity. LEFT KIDNEY: The right kidney measures 9.37 cm in length. No hydronephrosis or renal calculi are seen. The kidney is atrophic with diffuse cortical echogenicity. BLADDER: The bladder is unremarkable. SPLEEN: The spleen measures 8.92 cm and is grossly unremarkable. PERITONEUM AND RETROPERITONEUM: There is no free or loculated fluid seen in the abdomen. ABDOMINAL AORTA AND IVC: The visualized portions of the aorta and IVC are unremarkable. ILIAC VESSELS: The right iliac artery is patent with a flow velocity of 95.1 cm/sec. The right iliac vein is patent. The left iliac artery is patent with a velocity of 104.8 cm/sec. The left iliac vein is patent. IMPRESSION: 1. Diffusely echogenic bilateral kidneys. Consistent with medical renal disease. 2. Patent iliac vessels with appropriate flow velocities. 3. Multiple small gallbladder polyps. I personally reviewed the images/study and I agree with the findings as stated. This study was interpreted at [facility], [place], [place]. Electronically signed by: CHARLES YA MD US DUPLX ART/VEIN AB Observed: 04/01/2018 Status: F Source: [place] 12:56 PM HOSPITALS REPOSITORY Patient Name: GAVINO DAVE STUDY: US ABD COMP; US DUPLX ART/VEIN AB; 04/01/2018 12:56 pm INDICATION: complete abdomen w/dopplers include lliacs. COMPARISON: None. ACCESSION NUMBER(S): [id number]; [id number] ORDERING CLINICIAN: TEX DEL RIO TECHNIQUE: Multiple images of the abdomen were obtained. FINDINGS: LIVER: The liver measures 13.3 cm and is grossly unremarkable and free of any focal lesions. GALLBLADDER: The gallbladder is nondistended, and demonstrates no evidence of gallstones, wall thickening or surrounding fluid. Sonographic Hercules's sign is negative. There are multiple polyps noted, the largest of which measures less than 5 mm.. BILIARY SYSTEM: No evidence of intra or extrahepatic biliary dilatation is identified; the common bile duct measures 2.6 mm. DOPPLER EVALUATION: HEPATIC ARTERIES: Hepatic artery and its right and left branches RI's are estimated at 0.73, 0.73 and 0.68, respectively. PORTAL VEIN: Portal vein is patent and measures 11.1 mm. There is normal respiratory variation. Portal vein velocities are calculated as follows: main portal vein 23.9 cm/sec, antegrade flow; left portal vein branch 25.6 cm/sec, antegrade flow; right portal vein anterior branch 12.8 cm/sec, antegrade flow; right portal vein posterior branch 18.0 cm/sec, antegrade flow. The splenic vein is also patent. HEPATIC VEIN: The right, middle and left hepatic veins are patent and demonstrate triphasic antegrade flow. IVC appears also patent. PANCREAS: The pancreas is poorly visualized due to overlying bowel gas. RIGHT KIDNEY: The right kidney measures 7.65 cm in length. No hydronephrosis or renal calculi are seen. The kidney is atrophic with diffuse cortical echogenicity. LEFT KIDNEY: The right kidney measures 9.37 cm in length. No hydronephrosis or renal calculi are seen. The kidney is atrophic with diffuse cortical echogenicity. BLADDER: The bladder is unremarkable. SPLEEN: The spleen measures 8.92 cm and is grossly unremarkable. PERITONEUM AND RETROPERITONEUM: There is no free or loculated fluid seen in the abdomen. ABDOMINAL AORTA AND IVC: The visualized portions of the aorta and IVC are unremarkable. ILIAC VESSELS: The right iliac artery is patent with a flow velocity of 95.1 cm/sec. The right iliac vein is patent. The left iliac artery is patent with a velocity of 104.8 cm/sec. The left iliac vein is patent. IMPRESSION: 1. Diffusely echogenic bilateral kidneys. Consistent with medical renal disease. 2. Patent iliac vessels with appropriate flow velocities. 3. Multiple small gallbladder polyps. I personally reviewed the images/study and I agree with the findings as stated. This study was interpreted at [facility], [place], [place]. Electronically signed by: CHARLES YA MD 12 LEAD ELECTROCARDIOGRAM Observed: 04/01/2018 Status: F Source: [place] 11:30 AM [facility] [place] [facility] [address] [place] [address] 12 Lead EKG 03/26/18 0957 MR#: [id number] Acct: [id number] Name: GAVINO DAVE Rep #: [id number] : 1975 43 From: Gavino Loco MD Attending Dr: Moshe Garcia MD [place] [facility] [place]: Moshe Garcia MD Date: 03/26/18 [place] [facility] [place]: M C Admitted: Test Reason : PRE-OP Blood Pressure : / mmHG Vent. Rate : 080 BPM Atrial Rate : 080 BPM P-R Int : 122 ms QRS Dur : 074 ms QT Int : 340 ms P-R-T Axes : 000 170 127 degrees QTc Int : 392 ms Normal sinus rhythm Anterolateral infarct , age undetermined , possible arm lead reversal Abnormal ECG When compared with ECG of 02-MAR-2011 16:09, QRS axis Shifted right Anterolateral infarct is now Present T wave inversion now evident in Lateral leads Confirmed by GAVINO LOCO ([id number]), video news editor MOHSEN VALENTINE ([id number]) on 04/01/2018 11:30:31 AM Referred By: Moshe Garcia Confirmed By:GAVINO LOCO 04/01/18 1130 Date Gavino Loco MD CC: Les Jones MD; Moshe Garcia MD Signed OFFICE VISIT Observed: 04/01/2018 Status: UNK Source: [place] (CARDIOLOGY) 10:18 AM HOSPITALS REPOSITORY Chief Complaint GAVINO DAVE is being seen for a consultation for cardiac risk stratification pre-renal and pancreatic transplant and a routine medication evaluation. History of Present Illness Transportation Engineering Technician: , Dr Hanane Chowdary Transplant Surgeon: Dr. 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 Consultation is requested by Nephrology/ Transplant Surgery for an opinion regarding cardiac risks pre kidney pancreas transplantation and my final recommendations will be communicated back to the [facility] physicians by way of shared Medical record. 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 His other co- morbidities include HTN x 4 years that has been s uboptimally controlled, HL, Type 1 DM diagnosed in 1990 without DM complications, bilateral rotator cuff injury ( chronic). Per history and review of Physician Portal there is history of past UT, percutaneous coronary interventions, CABG, cardiac related admissions. Functionally, his energy levels are generally good and he is always in the go but his energy levels have been declining in the past month of so. Despite this drop in energy, he is able to chop a truck load of wood and last did that on December 2017, able to do heavy gardening with automation, He is an avid hiker on outdoor trails and has unlimited exercise capacity, and he last hiked 2 miles, 2 days pror to this appt. He climbed steep outdoor trail stairs and did 5 minutes without needing to stop and can climb in door stairs for several flights. No exertional symptoms. Symptomatically, there is no h/o orthopnoea, PND, chronic fatigue, ankle swelling, chest pain, palpitations, SOB, SOBOE, pre syncope, syncope. See full RoS below Surgical Hx: - PD cath insertion 03/2018 - appendectomy - hernia repair - L arm fracture repair with metal plate SHx: - Smoking- ex smoker, quit 2009. smoked 1PPD for 20 years - Ethanol- never - Illicit drugs- never Family history: Paternal gfather with fatal UT at 80s Dad- QUINONEZ ( ETOH) Paternal great g'father- PPM Specifically, there is no family history of heart failure, ICD, LVAD, OHT, or sudden cardiac . Has 2 children (20, 22 years)- healthy Ix: TTE 03/13/2018 1. The left ventricular systolic function is normal. 2. Normal RV size and function. IVSd: 1.00 cm (0.6-1.1cm) LVPWd: 1.00 cm (0.6-1.1cm) LVIDd: 4.40 cm (3.9-5.9cm) LVIDs: 2.50 cm LV Mass Index: 82.4 g/m2 LV % FS 43.2 % Nuclear pharm stress test 03/20/2018 Normal myocardial perfusion imaging in response to pharmacologic stress without evidence for stress-induced ischemia or previous infarct. 2. Well-maintained left ventricular function with the ventricle ejection fraction of 64%. Physician portal has been reviewed by me for salient history. All cardiovascular imaging and testing available in Physician portal, and [employer] has been reviewed. ECG done 03/20/2018 has been reviewed independently by me. Active Problems Pre-transplant evaluation for end stage renal disease (V72.83) (Z01.818) Pre-transplant evaluation for kidney and pancreas transplant (V72.83) (Z01.818) Type 1 diabetes mellitus with chronic kidney disease on chronic dialysis (250.41,585.9,V45.11) (E10.22,N18.6,Z99.2) Surgical History History of Appendectomy History of Hernia Repair Performed concurrenttly with appendectomy. Type of hernia not known. Past Medical History History of chronic kidney disease (V13.09) (Z87.448) Current Meds AmLODIPine Besylate 10 MG Oral Tablet; Take 1 tablet daily; Therapy: 40Nua5391 to (Evaluate:23Sep2017) Recorded Dispense: 30 Days ; #:30 Tablet; Refill: 6; LAURA = N; Record; Last Updated By: Beatriz Bonilla; 04/01/2018 10:04:00 AM Atorvastatin Calcium 20 MG Oral Tablet; TAKE 1 TABLET AT BEDTIME; Therapy: 41Drs0253 to (Evaluate:19Jyo2670) Recorded Dispense: 90 Days ; #:90 Tablet; Refill: 3; LAURA = N; Record; Last Updated By: Beatriz Bonilla; 04/01/2018 9:27:44 AM Basaglar KwikPen 100 UNIT/ML Subcutaneous Solution Pen-injector; Therapy: 27Dqq1792 to Recorded Dispense: 90 Days ; #:30 SOPN; Refill: 0; LAURA = N; Record; Last Updated By: Savi Benites; 02/21/2018 2:02:33 PM Chromium 400 MCG Oral Tablet; TAKE 2 TABLET Daily; Therapy: (Recorded:01Apr2018) to Recorded Dispense: 0 Days ; #: Sufficient Tablet; Refill: 0; LAURA = N; Record; Last Updated By: Beatriz Bonilla; 04/01/2018 9:27:45 AM Ferrous Sulfate ER 140 (45 Fe) MG Oral Tablet Extended Release; Take 1 tablet daily; Therapy: 01Apr2018 to Recorded Dispense: 0 Days ; #: Sufficient Tablet Extended Release; Refill: 0; LAURA = N; Record; Last Updated By: Beatriz Bonilla; 04/01/2018 9:27:45 AM Fish Oil OIL; Therapy: (Recorded:71Wfw7195) to Recorded Dispense: 0 Days ; #: Sufficient OIL; Refill: 0; LAURA = N; Record; Last Updated By: Savi Benites; 02/21/2018 2:02:33 PM Glucosamine TABS; TAKE 2 TABLET Daily; Therapy: (Recorded:37Tpi9736) to Recorded Dispense: 0 Days ; #: Sufficient Tablet; Refill: 0; LAURA = N; Record; Last Updated By: Beatriz Bonilla; 04/01/2018 9:27:44 AM Losartan Potassium 100 MG Oral Tablet; TAKE 0.5 TABLET Daily; Therapy: 29Mwl6711 to (Evaluate:96Ire9977) Recorded Dispense: 90 Days ; #:45 Tablet; Refill: 0; LAURA = N; Record; Last Updated By: Beatriz Bonilla; 04/01/2018 9:27:44 AM Metoprolol Succinate ER 100 MG Oral Tablet Extended Release 24 Hour; Take 1 tablet daily; Therapy: 08Afc1595 to (Evaluate:37Lyw7640) Recorded Dispense: 30 Days ; #:30 Tablet Extended Release 24 Hour; Refill: 6; LAURA = N; Record; Last Updated By: Beatriz Bonilla; 04/01/2018 9:27:44 AM Metoprolol Succinate ER 50 MG Oral Tablet Extended Release 24 Hour; TAKE 1 TABLET BY MOUTH DAILY; Therapy: 52Ndf3453 to (Evaluate:72Ynu9792) Recorded Dispense: 90 Days ; #:90 Tablet Extended Release 24 Hour; Refill: 2; LAURA = N; Record; Last Updated By: Beatriz Bonilla; 04/01/2018 9:27:45 AM Multivitamin Men Oral Tablet; TAKE 1 TABLET DAILY; Therapy: (Recorded:01Apr2018) to Recorded Dispense: 0 Days ; #: Sufficient Tablet; Refill: 0; LAURA = N; Record; Last Updated By: Beatriz Bonilla; 04/01/2018 9:27:45 AM NexIUM 40 MG Oral Capsule Delayed Release; Therapy: (Recorded:21Feb2018) to Recorded Dispense: 0 Days ; #: Sufficient CPDR; Refill: 0; LAURA = N; Record; Last Updated By: Savi Benites; 04/01/2018 9:27:45 AM NovoLOG FlexPen 100 UNIT/ML Subcutaneous Solution Pen-injector; Therapy: 09Mar2017 to Recorded Dispense: 90 Days ; #:45 SOPN; Refill: 0; LAURA = N; Record; Last Updated By: Savi Benites; 02/21/2018 2:02:33 PM Meyers Chuck 3 1200 MG Oral Capsule; TAKE 1 CAPSULE Daily; Therapy: 01Apr2018 to Recorded Dispense: 0 Days ; #: Sufficient Capsule; Refill: 0; LAURA = N; Record; Last Updated By: Beatriz Bonilla; 04/01/2018 9:27:45 AM PriLOSEC OTC 20 MG Oral Tablet Delayed Release; TAKE 1 TABLET DAILY; Therapy: 01Apr2018 to Recorded Dispense: 0 Days ; #: Sufficient Tablet Delayed Release; Refill: 0; LAURA = N; Record; Last Updated By: Beatriz Bonilla; 04/01/2018 9:27:45 AM Testosterone PLLT; Therapy: (Recorded:21Feb2018) to Recorded Dispense: 0 Days ; #: Sufficient PLLT; Refill: 0; LAURA = N; Record; Last Updated By: Savi Benites; 02/21/2018 2:02:33 PM Allergies No Known Allergies Recorded By: Savi Benites; 02/21/2018 2:02:33 PM Family History Family history of malignant neoplasm (V16.9) (Z80.9) Family history of type 1 diabetes mellitus (V18.0) (Z83.3) No pertinent family history Social History Activities of daily living (ADL's), independent Full-time employment Lives with family Never smoker No illicit drug use Review of Systems Constitutional: not feeling tired. Eyes: no eyesight problems. ENT: no hearing loss and no nosebleeds. Cardiovascular: as noted in HPI, no chest pain, no tightness or heavy pressure, no palpitations, no lower extremity edema and no intermittent leg claudication. Respiratory: no chronic cough, no shortness of breath during exertion, no shortness of breath, no orthopnea and no postural nocturnal dyspnea. Gastrointestinal: diarrhea and nausea, but no change in bowel habits, no constipation, no blood in stools and no vomiting. Genitourinary: no urinary frequency and no hematuria. Musculoskeletal: no limb swelling. Skin: no skin rashes. Neurological: no dizziness, no seizures, no frequent falls and no fainting. Psychiatric: no depression and not suicidal. Endocrine: diabetes mellitus, but no thyroid disorder. Hematologic/Lymphatic: does not bleed easily. Vitals Vital Signs Recorded: 01Apr2018 09:23AM Jdokxjllexp39.9 F Heart Rate75 Xqbvpitf258 Jjxyomgrg76 Height5 ft 4 in Buwxcz559 lb 12.8 oz BMI Pioraxogng09.74 BSA Calculated1.76 Pain Scale0 Physical Exam Constitutional: Very pleasant, fit appearing young man in no CP or painful distress. Eyes: no erythema, swelling or discharge from the eye . Ears, Nose, Mouth, and Throat: oropharynx normal with no erythema, edema, exudate or lesions . Neck: neck is supple, symmetric, trachea midline, no masses and no thyromegaly . Pulmonary: no increased work of breathing or signs of respiratory distress , normal percussion of chest , chest palpation normal and lungs clear to auscultation. Cardiovascular: carotid pulses 2+ bilaterally with no bruit , JVP was normal, no thrills , regular rhythm, normal S1 and S2, no murmurs and no edema . Abdomen: Heavy dressing over site of PD insertion surgery. Dressings immaculate. Abdomen flat, SNT, BS wnl. Lymphatic: no palpable adenopathy. Musculoskeletal: Grossly normal. Limited RoM of upper limbs 2/2 roattor cuff issues. Skin: skin warm and dry, normal skin turgor . Neurologic: AO x 3. Psychiatric judgment and insight is normal , Excellent insight, oriented to person, place and time , recent and remote memory intact and normal mood and affect . Results/Data 03/20/2018: NSR, no ischaemic changes NM Cardiac Stress/Rest Nuclear Med [id number] 11:13AMMaikel Blackburn [Mar 11, 2018 12:55PM Kristine Silva] AMA Intake Activity Log Entry by Kristine Silva ([email or web address]) on 03/11/2018 12:50 PM Status Change: To Confirmed - N/A [Mar 11, 2018 12:55PM Kristine Silva] AMA Intake updated by Kristine Silva ([email or web address]) on 03/11/2018 12:50 PM New Recipient: Maikel Blackburn New Appointment Date: Mar 20 2018 9:00AM [Mar 06, 2018 12:46PM Maikel Blackburn] Reason: Unspecified for NM Cardiac Stress/Rest Nuclear Med Order Test NameResultFlagReference NM Cardiac Stress/Rest Nuclear Med Order(Report) Interpreted by: PLACIDO JAMIL 03/20/18 12:04 Patient Name: GAVINO DAVE STUDY: CARDIAC STRESS/REST INJECTION; CARDIAC STRESS/REST (MYOCARDIAL PERFUSION/MIBI); PART 2 STRESS OR R EST (NO CHARGE); 03/20/2018 11:13 am INDICATION: Pre renal transplant evaluation. COMPARISON: None. ACCESSION NUMBER(S): [id number]; [id number]; [id number] ORDERING CLINICIAN: MAIKEL BLACKBURN TECHNIQU E: DIVISION OF NUCLEAR MEDICINE PHARMACOLOGIC STRESS MYOCARDIAL PERFUSION SCAN, ONE DAY PROTOCOL The patient received an intravenous dose of 10 mCi of Tc-99m Myoview and resting emission tomographic ( SPECT) images of the myocardium were acquired. The patient then received an intravenous infusion of 0.4 mg regadenoson (Lexiscan) followed by an additional dose of 32.2 mCi of Tc-99m Myoview. Stress pha se SPECT images of the myocardium were then acquired. These included ECG-gated images to assess and quantify ventricular function. FINDINGS: Stress and rest images both demonstrate a normal distributi on of perfusion throughout all LV segments with no sign of stress-induced ischemia or fixed perfusion defect to suggest infarct. ECG-gated images demonstrate normal LV size and myocardial contractilit y with an LV ejection fraction of 64 % (normal above 45 percent). IMPRESSION: 1. Normal myocardial perfusion imaging in response to pharmacologic stress without evidence for stress-induced ischemia or previous infarct. 2. Well-maintained left ventricular function with the ventricle ejection fraction of 64%. I personally reviewed the images/study and I agree with the findings as stated. This study wa s interpreted at [facility], [place], [place]. Electronically signed by: PLACIDO JAMIL 03/20/18 12:04 [id number] 09:22AMMaikel Blackburn [Mar 01, 2018 9:35AM Sharon Alvarenga] AMA Intake Activity Log Entry by Sharon Alvarenga ([email or web address]) on 03/01/2018 9:34 AM Status Change: To Confirmed - N/A [Mar 01, 2018 9:35AM Sharon Alvarenga] AMA Intake updated by Sharon Alvarenga ([email or web address]) on 03/01/2018 9:34 AM New Recipient: Colt Quintana Appointment Date: Mar 13 2018 9:00AM Test NameResultFlagReference Echocardiogram(Report) [id number] [facility], [address] [place] [address], [address] [address] and TRANSTHORACIC ECHOCARDIOGRA M REPORT Patient Name: GAVINO Lafleur Physician: [id number] Colt Quintana MD Study Date: 03/13/2018 Referring Physician: Maikel Blackburn MD MRN/PID: [id number] PCP: Accession/Order#: [id number] Department Location: [facility] Date of : 1975 Fellow: Gender: M Nurse: Admit Date: Eviscerator: Delbert Hercules [facility] Admission Status: Outpatient Additi onal Staff: Height: 165.10 cm CC Report to: Weight: 72.12 kg Study Type: Echocardiogram BSA: 1.79 m2 Blood Pressure: 145 /74 mmHg Diagnosis/ICD: Z01.818-Encounter for other prepr ocedural examination Indication: Pre kidney and pancreas transplant Procedure/CPT: Echo Complete w Full Doppler-[id number] Patient History: Pertinent History: DM, HTN, kidney and pancreas disease. Study Det ail: The following Echo studies were performed: 2D, M-Mode, Doppler and color flow. PHYSICIAN INTERPRETATION: Left Ventricle: The left ventricular systolic function is normal. The left ventricu lar cavity size is normal. Spectral Doppler shows a normal pattern of left ventricular diastolic filling. Left Atrium: The left atrium is normal in size. Right Ventricle: The right ventricle is normal i n size. There is normal right ventricular global systolic function. Right Atrium: The right atrium is normal in size. Aortic Valve: The aortic valve appears structurally normal. There is no evidence of aortic valve regurgitation. The peak instantaneous gradient of the aortic valve is 6.7 mmHg. The mean gradient of the aortic valve is 4.0 mmHg. Mitral Valve: The mitral valve is normal in structure. The re is no evidence of mitral valve regurgitation. Tricuspid Valve: The tricuspid valve is structurally normal. No evidence of tricuspid regurgitation. Pulmonic Valve: The pulmonic valve is structurally n ormal. There is no indication of pulmonic valve regurgitation. Pericardium: There is no pericardial effusion noted. Aorta: The aortic root is normal. CONCLUSIONS: 1. The left ventricular systolic fun ction is normal. 2. Normal RV size and function. QUANTITATIVE DATA SUMMARY: 2D MEASUREMENTS: Normal Ranges: IVSd: 1.00 cm (0.6-1.1cm) LVPWd: 1.00 cm (0.6-1.1cm) LVIDd: 4.40 c m (3.9-5.9cm) LVIDs: 2.50 cm LV Mass Index: 82.4 g/m2 LV % FS 43.2 % LA VOLUME: Normal Ranges: LA Vol A4C: 40.6 ml (22+/-6mL/m2) LA Vol A2C: 40.2 ml LA Vol BP: 40.6 ml LA Vol Index A4C: 22.6 ml/m2 LA Vol Index A2C: 22.4 ml/m2 LA Vol Index BP: 22.6 ml/m2 LA Area A4C: 15.4 cm2 LA Area A2C: 15.4 cm2 LA Major [place] A4C: 5.0 cm LA Major [place] A2C: 5.0 cm LA Volume Ind ex: 22.4 ml/m2 RA VOLUME BY A/L METHOD: Normal Ranges: RA Area A4C: 12.3 cm2 M-MODE MEASUREMENTS: Normal Ranges: Ao Root: 3.00 cm (2.0- 3.7cm) LAs: 3.50 cm (2.7-4.0cm) AORTA MEASUR EMENTS: Normal Ranges: Asc Ao, d: 2.90 cm (2.1-3.4cm) LV SYSTOLIC FUNCTION BY 2D PLANIMETRY (MOD): Normal Ranges: EF-A4C View: 56.2 % (>55%) EF- A2C View: 63.0 % EF-Biplane: 60.8 % LV DIASTOLIC FUNCTION: Normal Ranges: MV Peak E: 1.12 m/s (0.7- 1.2 m/s) MV Peak A: 0.86 m/s (0.42-0.7 m/s) E/A Ratio: 1.30 (1.0-2.2) MV e' 0.10 m/s (>8.0) MV lateral e ' 0.11 m/s MV medial e' 0.09 m/s E/e' Ratio: 11.20 (<8.0) PulmV Sys Braxton: 51.80 cm/s PulmV Zaidi Braxton: 37.50 cm/s PulmV S/D Braxton: 1.40 MITRAL VALVE: Normal Ranges: MV DT: 169 msec (150-240m sec) AORTIC VALVE: Normal Ranges: AoV Vmax: 1.29 m/s (<1.7m/s) AoV Peak P.7 mmHg (<20mmHg) AoV Mean P.0 mmHg (1.7- 11.5mmHg) LVOT Max Braxton: 1.01 m/s (<1.1m/s) AoV VTI: 28.40 cm (18-25cm) LVOT VTI: 19.60 cm LVOT Diameter: 1.90 cm (1.8-2.4cm) AoV Area, VTI: 1.96 cm2 (2.5-5.5cm2) AoV Area,Vmax: 2.22 cm2 (2.5-4.5cm2) AoV Dimensionless Index: 0.69 RIGHT VENTRICLE: RV 1 3.3 cm RV 2 2.3 cm RV 3 6.4 cm TAPSE: 21.8 mm RV s' 0.14 m/s TRICUSPID VALVE/RVSP: Normal Ranges: IVC Diam: 1.50 cm PULMONIC VALVE: Normal Ranges: PV Max Braxton: 1.1 m/s (0.6-0.9m/s) PV Max P.8 mmHg Pulmonary Veins: PulmV Zaidi Braxton: 37.50 cm/s PulmV S/D Braxton: 1.40 PulmV Sys Braxton: 51.80 cm/s [id number] Colt Quintana MD Electronically signed on 03/18/2018 at 12:57:34 PM Final Diagnoses/Problems Hypertension (401.9) (I10) Pre-transplant evaluation for kidney and pancreas transplant (V72.83) (Z01.818) Type 1 diabetes mellitus with chronic kidney disease on chronic dialysis (250.41,585.9,V45.11) (E10.22,N18.6,Z99.2) History of Appendectomy History of chronic kidney disease (V13.09) (Z87.448) Family history of type 1 diabetes mellitus (V18.0) (Z83.3) : Brother Never smoker No illicit drug use Activities of daily living (ADL's), independent Full-time employment Lives with family Impressions IMPRESSION/PLAN: 43 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 His other co- morbidities include HTN x 4 years that has been suboptimally controlled, HL, Type 1 DM diagnosed in 1990 without DM complications, bi lateral rotator cuff injury ( chronic). he is euvolaemic and hypertensive today. Mr Dave has an excellent exercise capacity ( > 10 METS) and is completely asymptomatic from a cardiac perspective and there has been no previous concern for cardiac pathology. Review of his ECG, TTE, and nuclear stress test were all satisfactory His BP control is suboptimal and we will stop Amlodipine and start Nifedpine 90 mg once daily. Can be monitored and antiHTNsives uptitrated as needed by his Nephrology team His topographic computator will monitor his lipids and notify us if help with lipid management is required. His Revised Cardiac Risk Index (RCRI) score for pre-operative risk is 3 (high risk surgery, SCr > 2, insulin controlled DM) with an 11 % risk of perioperative events. Overall, he is at low risk from a cardiac perspective for pursuing kidney pancreas transplantation. He does not require any additional cardiac testing. I will plan to see him I spent 45 minutes in this visit, with more than 50% of the time devoted to patient counseling. Follow-up appointment March 2019 with a TTE and stress test. We discussed that in future, coronary interrogation might be required with [facility] and we will discuss this, should it become necessary. Patient Instructions Thank you for coming to see me. How to reach Dr. Blakely office: [phone], option 6. Follow up with Dr. Madison in 12 months. Call [phone] to schedule the appointment. Please bring all pill bottles and inhalers OR an updated copy of your medication list with you to each visit 1. STOP Amlodipine. START taking Nifedipine 90mg daily 2.Endocrinology should perform lipid blood panel- can contact us for statin dosing if necessary 3.Ok to proceed with transplant from cardiac perspective. Follow up in 1 year with echocardiogram and nuclear stress test done prior to visit .. End of Encounter Meds Atorvastatin Calcium 20 MG Oral Tablet; TAKE 1 TABLET AT BEDTIME; Therapy: 94Ynl2588 to (Evaluate:36Vlz2181) Recorded Basaglar KwikPen 100 UNIT/ML Subcutaneous Solution Pen-injector; Therapy: 36Xxx5858 to Recorded Chromium 400 MCG Oral Tablet; TAKE 2 TABLET Daily; Therapy: (Recorded:22Zvj6545) to Recorded Ferrous Sulfate ER 140 (45 Fe) MG Oral Tablet Extended Release; Take 1 tablet daily; Therapy: 07Xdv0025 to Recorded Fish Oil OIL; Therapy: (Recorded:51Uju5761) to Recorded Glucosamine TABS; TAKE 2 TABLET Daily; Therapy: (Recorded:83Tmz1223) to Recorded Losartan Potassium 100 MG Oral Tablet; TAKE 0.5 TABLET Daily; Therapy: 59Xnw8200 to (Evaluate:29Dxz2233) Recorded Metoprolol Succinate ER 100 MG Oral Tablet Extended Release 24 Hour; Take 1 tablet daily; Therapy: 58Zih7761 to (Evaluate:45Yng8868) Recorded Metoprolol Succinate ER 50 MG Oral Tablet Extended Release 24 Hour; TAKE 1 TABLET BY MOUTH DAILY; Therapy: 98Ewp1030 to (Evaluate:18Cfh7454) Recorded Multivitamin Men Oral Tablet; TAKE 1 TABLET DAILY; Therapy: (Recorded:38Ahf8352) to Recorded NIFEdipine ER 90 MG Oral Tablet Extended Release 24 Hour; TAKE 1 TABLET DAILY; Therapy: 41Ime2487 to (Evaluate:52Tou9501) Requested for: 01Apr2018; Last Rx:01Apr2018; Status: ACTIVE - Retrospective By Protocol Authorization Ordered NovoLOG FlexPen 100 UNIT/ML Subcutaneous Solution Pen-injector; Therapy: 09Mar2017 to Recorded Meyers Chuck 3 1200 MG Oral Capsule; TAKE 1 CAPSULE Daily; Therapy: 01Apr2018 to Recorded PriLOSEC OTC 20 MG Oral Tablet Delayed Release; TAKE 1 TABLET DAILY; Therapy: 01Apr2018 to Recorded Testosterone PLLT; Therapy: (Recorded:93Byo7605) to Recorded Signatures Electronically signed by : Alivia Madison MD; Apr 01 2018 10:18AM EST (Author) DISCHARGE INSTRUCTION Observed: 03/27/2018 Status: F Source: [facility] 7:22 AM [facility] [place] [facility] Medical Records Department [address] [place] [address] Instructions for Home/Discharge Instructions 03/26/18 1020 MR#: [id number] Acct: [id number] Name: GAVINO DAVE Rep #: [id number] : 1975 43 From: Moshe Garcia MD PCP: Les Jones MD Status: DEP DCC Discharge Diet: Renal Diet Discharge Activity: May Not Drive, May Not Shower Lifting Restrictions: 10 pounds Additional Dressing/Incision Instructions:: Please leave the dressings intact. The dialysis center will help manage with flushing the catheter and dressing changes Allergies/Adverse Reactions: Allergies No Known Allergies Allergy (Verified 03/24/18 13:41) Medications to take at Discharge amlodipine 10 mg tablet 10 mg PO DAILY 01/28/18 atorvastatin 20 mg tablet 20 mg PO DAILY 01/28/18 chromium picolinate 400 mcg tablet 400 mcg PO DAILY 01/28/18 ferrous sulfate ER 142 mg (45 mg iron) tablet,extended release 45 mg PO DAILY tab 01/28/18 insulin glargine (U-100) 100 unit/mL (3 mL) subcutaneous pen 28 unit SC QHS ml 01/28/18 krill oil 500 mg capsule 500 mg PO DAILY 01/28/18 losartan 50 mg tablet 50 mg PO DAILY tab 01/28/18 metoprolol tartrate 100 mg tablet 150 mg PO QDAY tab 01/28/18 pdvxrwgs-yuzgqfxb-cxiwu acid 400 mcg-vit K 20 mcg-lycop 300 mcg tablet 1 tab PO DAILY 01/28/18 omeprazole 20 mg capsule,delayed release 40 mg PO DAILY 02/13/18 Glucosamine/MSM/Chondroitin A [Glucosamine Chondroit MSM Tab] 1 each PO 03/24/18 Insulin Aspart [Novolog Flexpen (BKC)] 5 - 15 units SC TIDCM 03/24/18 Primary Care Physician: Luis Jones MD [Primary Care Provider] - Test Results: Test results from this visit will be discussed in further detail at your follow-up appointment, if applicable. Please Follow Up With: Moshe Garcia MD - [phone] When: Call to make an appointment to be seen in about 10 days. 03/27/18 0722 <Electronically signed by Moshe Garcia MD> Date Moshe Garcia MD CC: Les Jones MD OPERATIVE REPORT Observed: 03/27/2018 Status: F Source: [facility]RAS 7:22 AM [facility] Medical Records Department [address] [place] [address] Operative Report 03/26/18 1215 MR#: [id number] Acct: [id number] Name: GAVINO DAVE Rep #: [id number] : 1975 43 From: Moshe Garcia MD PCP: Les Jones MD Status: [facility] [place] [facility] [place] (1) Chronic renal insufficiency, stage IV (severe) Status: Acute Report of Operation Date of Procedure: 03/26/18 Pre-Operative Diagnosis: Stage IV chronic renal insufficiency Post-Operative Diagnosis: Stage IV chronic renal insufficiency Surgery/Procedure Performed:: Laparoscopic peritoneal dialysis catheter placement with laparoscopic omentopexy Description of Surgical Findings:: Timeout informed consent was obtained. 43-year-old gent was taken out from placement table underwent general endotracheal intubation anesthesia. Ancef 2 g given intravenous preoperatively. The abdomen sterilely prepped draped. Ioban draping was used. To the right of the umbilicus 0.5% Marcaine was instilled. Using a Visiport technique direct access was gained to the abdomen. The abdomen was inflated with CO2 to a pressure of 10 mmHg pressure. 10 lap scope inserted. No evidence of any trocar injuries. 5-minute trocar was placed in the right lower quadrant. Inspection revealed that there appeared to be a good pelvic space anterior to the rectum. The tubing was measured it was a double cuffed curl cath. Placed for the cuff exit was selected. A small incision was created in that area dissection performed down to the fascia a step to varies needle was then inserted tunneled in the posterior rectus sheath and then exited aimed at the pelvis. The stepwise dilator was inserted. The curl cath tubing was inserted through the sheath and placed in the pelvis. The internal cuff just beneath the peritoneal posterior sheath. The tubing was then tunneled so as to exit in the left midabdomen at a 30 degree angle. That counterincision was closed with interrupted 4 Monocryl subdermal stitches. The connection device of titanium was applied to the catheter. Saline tubing was applied to the catheter liter saline was instilled flowed easily and it was dropped to the floor return was achieved. Then the extension tubing was applied at the cath was irrigated with 20 cc of heparinized saline. The abdomen is inspected felt that was appropriate to secure the omentum and so in the left lateral abdomen cranial needle was inserted and using 0 Prolene I pleaded the omentum up on a grainy needle and secured the omentum to the left low lateral abdomen. This presented the omentum from each in the pelvis. Hemostasis was intact blood loss was minimal catheter was in good position. Trochars removed under visualization. Skin edges proximate up to 4 Monocryl subdermal stitches. Steri-Strips Telfa OpSite dressings applied silver dressing applied to the exit site complete OpSite dressings applied no apparent complications he tolerated procedure well he was taken to the recovery area in satisfactory condition without apparent complication Specimens none. Drains none. Blood loss minimal. Moshe Garcia M.D., F.A.C.S. Type of Anesthesia:: General Anesthesiologist: Irene Farias 03/27/18 0722 <Electronically signed by Moshe Garcia MD> Date Moshe Garcia MD CC: Les Jones MD; Moshe Garcia MD Signed BEDSIDE GLUCOSE Collected: 03/26/2018 Status: F Source: FLEX 1:52 PM [facility] [place] TYPE CODE TESTS RESULT OUT OF REFERENCE UNITS RANGE LAB L501.080 70-110 mg/dL High BEDSIDE GLU 321 Result Comment: MANAGEMENT OF PATIENT CARE PER NURSING PROTOCOL Performed By: #### L501.080 #### [facility] Point of Care [address] [place], [place] [id number] BEDSIDE GLUCOSE Collected: 03/26/2018 Status: F Source: FLEX 12:51 PM [facility] [place] TYPE CODE TESTS RESULT OUT OF REFERENCE UNITS RANGE LAB L501.080 70-110 mg/dL High BEDSIDE GLU 342 Result Comment: MANAGEMENT OF PATIENT CARE PER NURSING PROTOCOL Performed By: #### L501.080 #### [facility] Point of Care [address] [facility]. [place], [place] [id number] CBC-COMPLETE BLOOD CNT Collected: 03/26/2018 Status: F Source: FLEX NO DIFF 9:56 AM [facility] [place] TYPE CODE TESTS RESULT OUT OF RANGE REFERENCE UNITS LAB L100.1000 4.4-11.0 K/mm3 Normal WBC 8.4 LAB L100.1200 4.6-6.2 M/mm3 Low RBC 3.99 LAB L100.1300 13.0-16.5 g/dl Low HGB 11.5 LAB L100.1400 40-54 % Low HCT 34.6 LAB L100.1500 80-94 fL Normal MCV 86.7 LAB L100.1600 27.0-32.0 pg Normal MCH 28.8 LAB L100.1700 32-36 g/gl Normal MCHC 33.2 LAB L100.1810 11.6-14.6 % Normal RDW CV 13.1 LAB L100.1820 35.1-43.9 fl Normal RDW SD 42.1 LAB L100.1900 150-450 K/mm3 Normal PLT 214 LAB L100.2000 6.2-12.0 fl Normal MPV 10.2 Performed By: #### L100.0500 #### [facility] [address] [place], [address] BASIC METABOLIC Collected: 03/26/2018 Status: F Source: [place] PROFILE (BMP) 9:56 AM [facility] [place] TYPE CODE TESTS RESULT OUT OF RANGE REFERENCE UNITS LAB L501.0100 74-106 mg/dL High GLU 273 Result Comment: Glucose result greater than or equal to 200 mg/dL suggests DIABETES MELLITUS per A.D.A. criteria. Please note revised GLUCOSE reference range effective 2017. LAB L501.1000 7-18 mg/dL High BUN 49 LAB L501.1100 0.70-1.30 mg/dL High CREAT,SERUM 3.51 Result Comment: The validity of the calculated GFR AND GFRAA in patients over 70 years has not been determined. Clinical correlation is essential. LAB L501.1110 >60 mL/min Low EST GFR 20 Result Comment: Non- GFR Calc LAB L501.1115 >60 mL/min Low EST GFR - AA 25 Result Comment: GFR Calc LAB L501.1255 ml/min Normal Estimated CRCL 23.36 LAB L501.1300 10-20 RATIO Normal BUN/CRE 14.0 LAB L501.2200 8.5-10 mg/dL Normal .1 CA 9.1 LAB L501.5300 136-14 mmol/L Normal 5 NA 136 LAB L501.5600 3.5-5. mmol/L Normal 1 K 5.0 LAB L501.5900 98-107 mmol/L Normal CL 104 LAB L501.6100 21.0-3 mmol/L Normal 2.0 CO2 26.0 LAB L501.6200 5-15 Normal GAP 6 Performed By: #### L500.2500 #### [facility] [address] [place], [place], [address] VASC LAB PVR (ARTERIAL Observed: 03/25/2018 Status: F Source: [facility]) ZANDER 7:55 AM HOSPITALS REPOSITORY [facility], [address] [place] [address], [address], [place], [place] [address] and Vascular Lab Report PVR ZANDER Patient Name: GAVINO Lafleur Physician: [id number] Fabrice Covarrubias MD Study Date: 03/25/2018 Referring Physician: Tex Del Rio MD MRN/PID: [id number] PCP: Accession/Order#: [id number] CC Report to: Date of : 1975 Technologist: Isabel Stokes RVT Gender: M Technologist 2: Admission Status: Outpatient Location Performed: [facility] Diagnosis/ICD: I73.9-Peripheral vascular disease, unspecified Procedure/CPT: 90218 Peripheral artery ZANDER Only-[id number] CONCLUSIONS: Bilateral Lower PVR: No evidence of arterial occlusive disease bilaterally in the lower extremities at rest. Right Lower PVR: Right pressures of >220 mmHg suggest no compressibility of vessels and may make absolute Segmental Limb Pressures (TROUBLE DISPATCHER) unreliable. Triphasic flow is noted in the right dorsalis pedi s artery, right posterior tibial artery and right common femoral artery. Left Lower PVR: Left pressures of >220 mmHg suggest no compressibility of vessels and may make absolute Segmental Limb Pressures (TROUBLE DISPATCHER) unreliable. Triphasic flow is noted in the left dorsalis pedis a rtery, left posterior tibial artery and left common femoral artery. Imaging & Doppler Findings: RIGHT Lower PVR Pressures Ratios Right Posterior Tibial (Ankle) 255 mmHg 1.60 Right Dorsalis Pedis (Ankle) 255 mmHg 1.60 Right Digit (Great Toe) 133 mmHg 0.84 LEFT Lower PVR Pressures Ratios Left Posterior Tibial (Ankle) 255 mmHg 1.60 Left Dorsalis Pedis (Ankle) 255 mmHg 1.60 Left Digit (Great Toe) 124 mmHg 0.78 Right Left Brachial Pressure 159 mmHg 150 mmHg [id number] Fabrice Covarrubias MD Final CARDIAC STRESS/REST Observed: 03/20/2018 Status: F Source: [facility] 11:13 AM HOSPITALS REPOSITORY Patient Name: GAVINO DAVE STUDY: CARDIAC STRESS/REST INJECTION; CARDIAC STRESS/REST (MYOCARDIAL PERFUSION/MIBI); PART 2 STRESS OR REST (NO CHARGE); 03/20/2018 11:13 am INDICATION: Pre renal transplant evaluation. COMPARISON: None. ACCESSION NUMBER(S): [id number]; [id number]; [id number] ORDERING CLINICIAN: MAIKEL BLACKBURN TECHNIQUE: DIVISION OF NUCLEAR MEDICINE PHARMACOLOGIC STRESS MYOCARDIAL PERFUSION SCAN, ONE DAY PROTOCOL The patient received an intravenous dose of 10 mCi of Tc-99m Myoview and resting emission tomographic (SPECT) images of the myocardium were acquired. The patient then received an intravenous infusion of 0.4 mg regadenoson (Lexiscan) followed by an additional dose of 32.2 mCi of Tc-99m Myoview. Stress phase SPECT images of the myocardium were then acquired. These included ECG-gated images to assess and quantify ventricular function. FINDINGS: Stress and rest images both demonstrate a normal distribution of perfusion throughout all LV segments with no sign of stress-induced ischemia or fixed perfusion defect to suggest infarct. ECG-gated images demonstrate normal LV size and myocardial contractility with an LV ejection fraction of 64 % (normal above 45 percent). IMPRESSION: 1. Normal myocardial perfusion imaging in response to pharmacologic stress without evidence for stress-induced ischemia or previous infarct. 2. Well-maintained left ventricular function with the ventricle ejection fraction of 64%. I personally reviewed the images/study and I agree with the findings as stated. This study was interpreted at [place], [place]. Electronically signed by: PLACDIO JAMIL MD SYNGO NUCLEAR ORDER Observed: 03/20/2018 Status: F Source: [place] 9:23 [facility], [address] [place] [address], [place] [address] [address] and Nuclear Pharmacologic Stress Test Patient Name: Gavino Dave Ordering Physician: [id number] Maikel Blackburn MD Study Date: 03/20/2018 Reading Physician: [id number] Colt Quintana MD MRN/PID: [id number] Referring [id number] Maikel Blackburn MD Physician: Accession/Order#: [id number] PCP: Date of : 1975 Fellow: Gender: M Fellow: Admit Date: 03/20/2018 Patient Location: [facility] Admission Status: 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: Height: 165.10 cm Nurse: Savi Hernandez RN, CVRN-BC Weight: 72.58 kg Eviscerator: N/A BSA: 1.80 m2 Technologist: Jocy Walls BMI: 26.63 kg/m2 Additional Staff: Age: 43 years cc report to: Radha Horton MD cc report to: [id number] Maikel Blackburn MD Study Type: Syngo Nuclear Order Diagnosis/ICD: G29-Axtyuixta (primary) hypertension;Z01.818- Encounter for other preprocedural examination Indication: Pre-Op Evaluation and Hypertension Procedure/CPT: Stress Test Interpretation-03761;Stress Test Supervision-15136 Study Details: Correct procedure and correct patient verified with ID Band checked and verbally. Patient History: Sedentary life style, renal failure and hypertension. Allergies: None. Smoker: Former. Diabetes: Yes. Medications: The patient's prescribed medication is Metoprolol, Norvasc, Insulin, Fish Oil, MVI. The patient took medications as prescribed. Patient Performance: Patient received a total of 0.4 mg of Regadenoson at 9:51:56 AM. Patient received a total of 32.2 mCi of Myoview at 9:52:31 AM. The patient did not exercise during infusion. The pea k heart rate achieved was 99 bpm, which was 56 % of the age predicted target heart rate of 176 bpm. The resting blood pressure was 169/89 mmHg with a heart rate of 72 bpm. The patient developed no sympt oms during the stress exam. The blood pressure response was normal. The test was terminated due to: completed lab protocol. Patient has met the discharge criteria and is discharged to home. Baseline ECG: Resting ECG showed normal sinus rhythm with normal tracing. Stress ECG: Stress ECG showed normal sinus rhythm, with no abnormal findings. No ST changes. Stress Stage Data: +--+------+-------+ + HRSys BPDias BPComments +--+------+-------+ + 68225 89 +--+------+-------+ + 03843 80 0100 minute +--+------+-------+ + 63990 83 0200 minutes +--+------+-------+ + Recovery ECG: Recovery ECG showed normal sinus rhythm, with no abnormal findings. The heart rate recovery was normal. + +--+------+-------+ + HRSys BPDias BPComments + +--+------+-------+ + Recovery I 95 0100 minute + +--+------+-------+ + [place] [address] 87 0200 minutes + +--+------+-------+ + Recovery [id number] 83 0400 minutes + +--+------+-------+ + [place] [address] 78 0600 minutes + +--+------+-------+ + Summary: 1. No clinical or electrocardiographic evidence for ischemia at a maximal infusion. 2. Normal ECG. 3. Normal Stress Test. 4. Nuclear image results are reported separately. 5. The adequate level of stress was achieved. [id number] Colt Quintana MD Electronically signed on 03/20/2018 at 5:11:[address] ABDOMEN AND PELVIS Observed: 03/20/2018 Status: F Source: [place] WO CONTRAST 9:16 AM HOSPITALS REPOSITORY Patient Name: GAVINO DAVE STUDY: CT ABDOMEN AND PELVIS WO CONTRAST; 03/20/2018 9:16 am INDICATION: Assess vessels for pre kidney txp eval. End-stage renal disease COMPARISON: None ACCESSION NUMBER(S): [id number] ORDERING CLINICIAN: MAIKEL BLACKBURN TECHNIQUE: CT of the abdomen and pelvis was performed. Contiguous axial images were obtained at 3 mm slice thickness through the abdomen and pelvis. Coronal and sagittal reconstructions at 3 mm slice thickness were performed. No intravenous contrast was administered. FINDINGS: Please note that the evaluation of vessels, lymph nodes and organs is limited without intravenous contrast. LOWER CHEST: The visualized lung base is unremarkable. The heart is normal in size without evidence of pericardial effusion. No pleural effusion is present. Visualized distal esophagus appears normal. ABDOMEN: LIVER: The liver is normal in size without evidence of focal hepatic lesion. BILE DUCTS: The intrahepatic and extrahepatic ducts are not dilated. GALLBLADDER: The gallbladder is nondistended and without evidence of radiopaque stones. PANCREAS: The pancreas appears unremarkable without evidence of ductal dilatation or masses. SPLEEN: The spleen is normal in size without focal lesions. ADRENAL GLANDS: Bilateral adrenal glands appear normal. KIDNEYS AND URETERS: The kidneys are normal in size and unremarkable in appearance. No hydroureteronephrosis or nephroureterolithiasis is identified. PELVIS: BLADDER: The urinary bladder appears normal without abnormal wall thickening. REPRODUCTIVE ORGANS: The prostate is not enlarged. BOWEL: The stomach is unremarkable. The small bowel is not abnormally dilated. There are several diverticula involving the sigmoid colon without inflammation. The appendix is surgically absent. VESSELS: Atherosclerotic changes to the aorta and pelvic vessels are as follows: - distal aorta moderate calcifications; RIGHT pelvic arteries: common iliac mild, external iliac none, internal iliac severe; LEFT pelvic arteries: common iliac none, external iliac none, internal iliac severe. PERITONEUM/RETROPERITONEUM/LYMPH NODES: No ascites or free air, no fluid collection. No abdominopelvic lymphadenopathy is present. ABDOMINAL WALL: The abdominal wall soft tissues appear normal. BONES: No suspicious osseous lesions are identified. IMPRESSION: 1. No acute abdominopelvic process. 2. Mild to severe atherosclerotic calcification of the aorta and pelvic vessels, as above. 3. Mild colonic diverticulosis without evidence of diverticulitis. I personally reviewed the images/study and I agree with the findings as stated. This study was interpreted at [place], [place]. Electronically signed by: OLY NUÑEZ MD SURGERY VISIT REPORT Observed: 03/19/2018 Status: F Source: [place] 3:57 PM [facility] [place] [facility] [address] [place] [address]. [address] [place] [address] OFFICE VISIT Date of Service: 03/19/18 MR#: [id number] Acct: [id number] Name: GAVINO DAVE Rep #: [id number] : 1975 Provider: Stella Barr PA-C Age/Sex: 43/M Location: [facility] Status: Signed Intake Vital Signs03/19/18 Height 5 ft 5 in 03/19/18 Blood Pressure 155/89 H 03/19/18 Blood Pressure Location Lt brachial Intake Visit Reasons: Update H AND P Lap PD Caths Chief Complaint: PD cath insertion Investment Broker Required: No Accompanied by: None Is patient in pain?: No Allergies No Known Allergies Allergy (Verified 02/13/18 09:14) Medications amlodipine 10 mg tablet 10 mg PO DAILY 01/28/18 [History Confirmed 02/13/18] atorvastatin 20 mg tablet 20 mg PO DAILY 01/28/18 [History Confirmed 02/13/18] chromium picolinate 400 mcg tablet 400 mcg PO DAILY 01/28/18 [History Confirmed 02/13/18] ferrous sulfate ER 142 mg (45 mg iron) tablet,extended release 142 mg PO DAILY tab 01/28/18 [History Confirmed 02/13/18] glycosamine PO 01/28/18 [History Confirmed 02/13/18] insulin aspart U- 100 100 unit/mL subcutaneous solution See Rx Instructions SC TID ml 01/28/18 [History Confirmed 02/13/18] insulin glargine (U-100) 100 unit/mL (3 mL) subcutaneous pen 31 unit SC DAILY ml 01/28/18 [History Confirmed 02/13/18] krill oil 500 mg capsule mg PO 01/28/18 [History Confirmed 02/13/18] losartan 50 mg tablet 25 mg PO DAILY tab 01/28/18 [History Confirmed 02/13/18] metoprolol tartrate 100 mg tablet 100 mg PO QDAY tab 01/28/18 [History Confirmed 02/13/18] spadygfj-lacsdfbf-hrpiq acid 400 mcg-vit K 20 mcg-lycop 300 mcg tablet tab PO 01/28/18 [History Confirmed 02/13/18] omeprazole 20 mg capsule,delayed release 20 mg PO DAILY 02/13/18 [History Confirmed 02/13/18] metoprolol succinate ER 50 mg tablet,extended release 24 hr PO 90 Days #90 tab 03/19/18 [History Confirmed 03/19/18] PFSH Medical History Chronic renal insufficiency, stage IV (severe) (Acute) GERD (gastroesophageal reflux disease) (Acute) History of wisdom tooth extraction (Acute) Kidney disease (Acute) Kidney failure (Acute) Type 1 diabetes mellitus (Acute) HTN (hypertension) (Chronic) Surgical History H/O hernia repair (Acute) Hx of appendectomy (Acute) repair of fx arm (Acute) Family History Mother Cancer sarcoma Breast cancer Skin cancer Brother Diabetes Father Heart disease High cholesterol Social History Smoking Status: Smoker, status unknown alcohol intake: never substance use type: does not use HPI HPI HPI: Patient is a 43 y/o male I am following for chronic renal failure. Patient denies recent hospitalizations or illnesses. Patient has a cardiac work- up tomorrow, 03/20, in preparation for a future renal pancreas transplant at . Patient denies previous cardiac history, stroke and blood clots. Patient's history per Dr. Garcia: GAVINO DAVE, is a 43 M who presents to the office today for surgical consultation regarding peritoneal dialysis catheter placement. The patient's primary care physician is Dr. Les Jones and his special delivery worker is Dr. Hanane Chowdary. The patient is referred by Dr. Hanane Chowdary for surgical consultation regarding PD placement and a written copy of my surgical consult recommendations will be returned to her. The patient is age 43. He has been long-term type I diabetic since age 15. He has been variable in his attention and controlled to his diabetes. 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 There is a lubricating oil that gets vaporized and he returns home daily with a fine mist of oil on his skin face and clothing. They have already made arrangements to change their home situation to allow for room to be dedicated free from their pets. He currently has stage IV renal insufficiency with a GFR of 17. He has had a previous appendectomy and he states at the same time he had a umbilical or ventral hernia repair and he thinks with mesh. That procedure was performed approximately 2004 at [facility]. We do not have records regarding that particular process yet. He denies any abdominal pain. He is interested in performing home dialysis. He is interested in the future renal pancreatic combined transplant Exam Const General: cooperative, healthy appearing, comfortable, no acute distress HENMT Head: normal to inspection Eyes General: appearance normal, both eyes and all related structures Neck Neck mass: No Resp Effort AND Inspection: normal respiratory effort Auscultation: clear to auscultation bilaterally Cardio Rate: regular rate Rhythm: regular rhythm GI Inspection: normal to inspection Palpation: soft Auscultation: normal bowel sounds Skin General: no rashes or lesions noted Neuro General: no focal motor deficits, CN's II-XI intact bilaterally Extrem General: normal to inspection Psych Appearance: grossly normal Affect: normal affect Assessment AND Plan Problems 1. Chronic renal insufficiency, stage IV (severe) N18.[address] Garcia will plan to perform a laparoscopic peritoneal dialysis catheters with omentopexy. Procedure details, risks and benefits were reviewed with the patient. Patient has had the opportunity to ask and have questions answered. Patient verbally understands and agrees with the plan. Patient to stop Fish oil today. Coding Level of Care Code No Charge Diagnoses Chronic renal insufficiency, stage IV (severe) N18.4 Comment Update H AND P 03/19/18 1557 <Electronically signed by Stella Barr PA-C> Date Stella Barr PA-C Cosigner Signature: Date (if applicable) CC: ECHOCARDIOGRAM Observed: 03/13/2018 Status: F Source: [place] 9:22 [facility], [address] [place] [address], [address] [address] and TRANSTHORACIC ECHOCARDIOGRAM REPORT Patient Name: GAVINO Lafleur Physician: [id number] Colt Quintana MD Study Date: 03/13/2018 Referring Physician: Maikel Blackburn MD MRN/PID: [id number] PCP: Accession/Order#: [id number] Department Location: [facility] Date of : 1975 Fellow: Gender: M Nurse: Admit Date: Eviscerator: Delbert Hercules [facility] Admission Status: Outpatient Additional Staff: Height: 165.10 cm CC Report to: Weight: 72.12 kg Study Type: Echocardiogram BSA: 1.79 m2 Blood Pressure: 145 /74 mmHg Diagnosis/ICD: Z01.818-Encounter for other preprocedural examination Indication: Pre kidney and pancreas transplant Procedure/CPT: Echo Complete w Full Doppler-10092 Patient History: Pertinent History: DM, HTN, kidney and pancreas disease. Study Detail: The following Echo studies were performed: 2D, M-Mode, Doppler and color flow. PHYSICIAN INTERPRETATION: Left Ventricle: The left ventricular systolic function is normal. The left ventricular cavity size is normal. Spectral Doppler shows a normal pattern of left ventricular diastolic filling. Left Atrium: The left atrium is normal in size. Right Ventricle: The right ventricle is normal in size. There is normal right ventricular global systolic function. Right Atrium: The right atrium is normal in size. Aortic Valve: The aortic valve appears structurally normal. There is no evidence of aortic valve regurgitation. The peak instantaneous gradient of the aortic valve is 6.7 mmHg. The mean gradient of the aortic valve is 4.0 mmHg. Mitral Valve: The mitral valve is normal in structure. There is no evidence of mitral valve regurgitation. Tricuspid Valve: The tricuspid valve is structurally normal. No evidence of tricuspid regurgitation. Pulmonic Valve: The pulmonic valve is structurally normal. There is no indication of pulmonic valve regurgitation. Pericardium: There is no pericardial effusion noted. Aorta: The aortic root is normal. CONCLUSIONS: 1. The left ventricular systolic function is normal. 2. Normal RV size and function. QUANTITATIVE DATA SUMMARY: 2D MEASUREMENTS: Normal Ranges: IVSd: 1.00 cm (0.6-1.1cm) LVPWd: 1.00 cm (0.6-1.1cm) LVIDd: 4.40 cm (3.9-5.9cm) LVIDs: 2.50 cm LV Mass Index: 82.4 g/m2 LV % FS 43.2 % LA VOLUME: Normal Ranges: LA Vol A4C: 40.6 ml (22+/-6mL/m2) LA Vol A2C: 40.2 ml LA Vol BP: 40.6 ml LA Vol Index A4C: 22.6 ml/m2 LA Vol Index A2C: 22.4 ml/m2 LA Vol Index BP: 22.6 ml/m2 LA Area A4C: 15.4 cm2 LA Area A2C: 15.4 cm2 LA Major [place] A4C: 5.0 cm LA Major [place] A2C: 5.0 cm LA Volume Index: 22.4 ml/m2 RA VOLUME BY A/L METHOD: Normal Ranges: RA Area A4C: 12.3 cm2 M-MODE MEASUREMENTS: Normal Ranges: Ao Root: 3.00 cm (2.0-3.7cm) LAs: 3.50 cm (2.7-4.0cm) AORTA MEASUREMENTS: Normal Ranges: Asc Ao, d: 2.90 cm (2.1-3.4cm) LV SYSTOLIC FUNCTION BY 2D PLANIMETRY (MOD): Normal Ranges: EF-A4C View: 56.2 % (>55%) EF-A2C View: 63.0 % EF-Biplane: 60.8 % LV DIASTOLIC FUNCTION: Normal Ranges: MV Peak E: 1.12 m/s (0.7-1.2 m/s) MV Peak A: 0.86 m/s (0.42-0.7 m/s) E/A Ratio: 1.30 (1.0-2.2) MV e' 0.10 m/s (>8.0) MV lateral e' 0.11 m/s MV medial e' 0.09 m/s E/e' Ratio: 11.20 (<8.0) PulmV Sys Braxton: 51.80 cm/s PulmV Zaidi Braxton: 37.50 cm/s PulmV S/D Braxton: 1.40 MITRAL VALVE: Normal Ranges: MV DT: 169 msec (150-240msec) AORTIC VALVE: Normal Ranges: AoV Vmax: 1.29 m/s (<1.7m/s) AoV Peak P.7 mmHg (<20mmHg) AoV Mean P.0 mmHg (1.7-11.5mmHg) LVOT Max Braxton: 1.01 m/s (<1.1m/s) AoV VTI: 28.40 cm (18-25cm) LVOT VTI: 19.60 cm LVOT Diameter: 1.90 cm (1.8-2.4cm) AoV Area, VTI: 1.96 cm2 (2.5-5.5cm2) AoV Area,Vmax: 2.22 cm2 (2.5-4.5cm2) AoV Dimensionless Index: 0.69 RIGHT VENTRICLE: RV 1 3.3 cm RV 2 2.3 cm RV 3 6.4 cm TAPSE: 21.8 mm RV s' 0.14 m/s TRICUSPID VALVE/RVSP: Normal Ranges: IVC Diam: 1.50 cm PULMONIC VALVE: Normal Ranges: PV Max Braxton: 1.1 m/s (0.6-0.9m/s) PV Max P.8 mmHg Pulmonary Veins: PulmV Zaidi Braxton: 37.50 cm/s PulmV S/D Braxton: 1.40 PulmV Sys Braxton: 51.80 cm/s [id number] Colt Quintana MD Electronically signed on 03/18/2018 at 12:57:34 PM Final HLA-A,B,C LR Collected: 02/26/2018 Status: F Source: [place] 5:09 [facility] REPOSITORY TYPE CODE TESTS RESULT OUT OF REFERENCE UNITS RANGE LAB DN1LA(LOINC ) HLA-A SEE COMMENT LOCUS LR TYPE Result Comment: HLA-A LOCUS, LOW RESOLUTION TYPE SEE SEPARATE REPORT. LAB DN1LB(LOINC) SEE HLA-B LOCUS COMMENT LR TYPE Result Comment: HLA-B LOCUS, LOW RESOLUTION TYPE SEE SEPARATE REPORT. LAB DN1LC(LOINC) SEE HLA-C LOCUS COMMENT LR TYPE Result Comment: HLA-C LOCUS, LOW RESOLUTION TYPE SEE SEPARATE REPORT. Performed By: #### [id number] #### [facility] [id number] [place] [address] HLA-DRB1/3/4/5 AND DQB1 Collected: 02/26/2018 Status: F Source: [place] LR TYPING 5:09 [facility] REPOSITORY TYPE CODE TESTS RESULT OUT OF REFERENCE UNITS RANGE LAB DN2LR(LOINC ) HLA-DRB1/3/4/ SEE COMMENT 5 & DQB1 LR TYPING Result Comment: HLA-DRB1/3/4/5 AND DQB1 LOW RESOLUTION TYPING SEE SEPARATE REPORT. Performed By: #### [id number] #### [facility] [address] [place] [address] HLA-DQB1 HR TYPING Collected: 02/26/2018 Status: F Source: [place] 5:09 [facility] REPOSITORY TYPE CODE TESTS RESULT OUT OF REFERENCE UNITS RANGE LAB DQBHR(LOINC ) HLA-DQB1 HR SEE COMMENT TYPING Result Comment: HLA-DQB1 HIGH RESOLUTION TYPING SEE SEPARATE REPORT. Performed By: #### DQBHT #### [facility] [address] [place] [id number] HLA-DPB1 HR TYPING Collected: 02/26/2018 Status: F Source: [place] 5:09 PM [facility] REPOSITORY TYPE CODE TESTS RESULT OUT OF REFERENCE UNITS RANGE LAB DPBHR(LOINC ) HLA-DPB1 HR SEE COMMENT TYPING Result Comment: HLA-DPB1 HIGH RESOLUTION TYPING SEE SEPARATE REPORT. Performed By: #### DPBHT #### [facility] [address] [place] [id number] HLA CLASS I AB Collected: 02/26/2018 Status: F Source: [facility] 5:09 PM HOSPITALS REPOSITORY TYPE CODE TESTS RESULT OUT OF REFERENCE UNITS RANGE LAB HLA1S(LOINC ) HLA CLASS SEE COMMENT I AB SCREEN,FC Result Comment: HLA CLASS I AB SCREEN,FLOW CYTOMETRY SEE SEPARATE REPORT. Performed By: #### [id number] #### [place] [address] [place] [address] HLA CLASS II AB Collected: 02/26/2018 Status: F Source: [facility], 5:09 PM [facility] REPOSITORY TYPE CODE TESTS RESULT OUT OF REFERENCE UNITS RANGE LAB HLA2S(LOINC ) HLA CLASS SEE COMMENT II AB SCREEN,FC Result Comment: HLA CLASS II AB SCREEN,FLOW CYTOMETRY SEE SEPARATE REPORT. Performed By: #### HLAS2 #### [facility] [address] [place] [id number] AUTOCROSSMATCH, FLOW Collected: 02/26/2018 Status: F Source: [place] 5:09 PM [facility] REPOSITORY TYPE CODE TESTS RESULT OUT OF REFERENCE UNITS RANGE LAB FLAUT(LOINC ) COMMENT AUTOCROSSMAT CH, FLOW Result Comment: SEE SEPARATE REPORT. Performed By: #### FLAUC #### [facility] [id number] [place] [address] ORBITS FOR FOREIGN Observed: 02/24/2018 Status: F Source: [place] 4:27 PM [facility] [place] Imaging Services [address] [place] [address] Orbits for Foreign Body MR#: [id number] Acct: [id number] Name: GAVINO DAVE Rep #: [id number] : 1975 M 43 From: Chong Taylor MD PCP: Les Jones MD Status: REG CLI Study: Orbits for Foreign Body Date of Exam: 02/24/18 Exam# [id number] Ordering Dr: Luis Jones MD STUDY: X-RAY - ORBITS REASON FOR EXAM: Male, 43 years old. This study is being performed as a clearance examination for exclusion of orbital metal, prior to the performance of an MRI examination. TECHNIQUE: 2 view(s) of the orbits were obtained. COMPARISON: None. FINDINGS: Normal bilateral orbits without a metallic orbital foreign body. Normal visualized facial bones. Normal paranasal sinuses. The soft tissue structures are unremarkable. RAD/Orbits for Foreign Body IMPRESSION: No demonstrated metallic orbital foreign body. The patient is cleared for an MRI examination. Electronically Signed: Chong Taylor MD at 16:40 EDT , Service support , CC: Les Jones MD Circular Tank Cooper: Signed LOWER EXT/NO JT/W/O Observed: 02/24/2018 Status: F Source: [place] 4:22 PM [facility] [place] [facility] Imaging Services [address] [place] [id number] Lower Ext/No Jt/w/o MR#: [id number] Acct: [id number] Name: GAVINO DAVE Rep #: [id number] : 1975 M 43 From: Lennox Burt MD PCP: Les Jones MD Status: REG CLI Study: Lower Ext/No Jt/w/o Date of Exam: 02/24/18 Exam# [id number] Ordering Dr: Luis Jones MD PROCEDURE: MRI LOWER EXTREMITY LEFT TIBIA/FIBULA REASON FOR EXAM: Male, 43 years old. Left calf mass. TECHNIQUE: Standardized fat and water weighted pulse sequences were obtained in all 3 orthogonal planes. COMPARISON: X-ray November 28, 2017. FINDINGS: Normal tibia and fibula, without a periosteal, cortical or cancellous marrow abnormality. Normal anterior, lateral, and posterior calf compartments, with normal muscles, crural fascia and intermuscular septa. There is subcutaneous edema and skin thickening of the anterior and lateral aspects. There is no solid, cystic or lipomatous mass lesion of the subcutis adipose space. MRI/Lower Ext/No Jt/w/o IMPRESSION: Normal unenhanced MRI of the calf. No dominant mass. Subcutaneous edema. No fracture or periosteal reaction. Electronically Signed: Lennox Burt MD at 16:08 EDT , Service support , CC: Les Jones MD Circular Tank Cooper: Signed TRANSPLANT SW Observed: 02/21/2018 Status: UNK Source: [place] RECIPIENT ASSESSMENT 4:58 PM HOSPITALS REPOSITORY Assessment Visit Type: This is the initial visit for the patient. Location: [facility]. Accompanied by: Spouse- Batsheva. Organ for Transplant: Pancreas and Kidney. Ethnicity: White: Not Specified/ Unknown. ADLs: Fully Independent. Instrumental ADLs: Fully Independent. Level of Activity: Active. Knowledge of Health: Good. Why do you have end stage organ disease? Diabetes (Dx at age 15). Knowledge of Transplant: Patient is able to make an informed decision. Patient verbalizes understanding of: risk of rejection, risk of infection, risk of complications and risk of . Patient verbalizes understanding of recovery and follow up from transplant regarding length of stay, verbalizes understanding of recovery and follow up from transplant regarding appointments, verbalizes understanding of recovery and follow up from transplant regarding labs and verbalizes understanding of recovery and follow up from transplant regarding rehab. Patient has Identified Goals of Transplant? Pt states no longer having to be on dialysis, follow a restricted diet or constantly check his blood sugar. Any Potential Donors? No. Overall Compliance: Good. Compliance with Medications: good. Managed By: Patient. Understanding of Medication: good. Compliance with Appointments: good. Kidney Dialysis: What Dialysis Center? Pre-Dialysis, Began: Pt having PD put in March 10. Pancreas Pancreas: checks blood sugar 6-7 times/day. : no Education: HS Diploma, Patient is literate, Patient is computer literate, Patient has Internet access . 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 Will patient have paid status from employment during recovery? no. Short Term Disability Pt states he is hopeful to get FMLA Spouse/SO current employment: Full-time Will spouse/SO have paid status from employment during recovery? yes. PTO Patient has no financial concerns Patient is able to meet current monthly expenses Primary Insurance: Self [employer] [place] Medicaid: no. Pt states he will be eligible for Medicare at the beginning of next month. Single: no. : yes. How Long? 24. Describe Relationship: very good. : no. : no. : no. In a Relationship: no. Spouse/SO Name: Batsheva. Health: Very Good. Children: # Biological: 2 Adult Children. Child #1 Name: Mo. Health: Asperger's, Bipolar, ADHD- pt and spouse identify no concerns about pt's care at this time. Lives: local. How Much Contact? daily. Child #2 Name: Reema. Health: Very Good. Lives: local. How Much Contact? daily. Raised By: both biological parents. Mother ? yes. Father ? yes. Siblings: # Biological: 1 Brother . Sibling #1 Name: Stephen. Health: Diabetes. Lives: local. Support AND Recovery Plan: Both primary and secondary supports are adequate. Primary Support Name: Batsheva. Relationship to Patient: Spouse If employed, can they take time off work? yes. If so, is it paid time off? no. If not, will this impact your finances? no. Did they attend education classes? yes. Do they have their own conditions which may prevent them from providing care for you? no. Are they available on short notice? yes. Are they reliable? yes. Are they responsible? yes. Are they able to understand and process new information? yes. Do they have reliable transportation or will you allow them to use you vehicle? yes. Are they currently involved in your care? yes. Secondary Support: Name: Rufina. Dumisodgwokt to Patient: Mother Can they take time off work? yes. If so, is it paid time off? yes. If not, will this impact your finances? no. Did they attend education classes? no. Do they have other caregiver responsibilities (child or eldercare)? no. Do they have their own conditions which may prevent them from providing care for you? yes. Cancer. Are they available on short notice? yes. Are they reliable? yes. Are they responsible? yes. Are they able to understand and process new information? yes. Do they have reliable transportation or will you allow them to use you vehicle? yes. Are they currently involved in your care? yes. Comments: Pt's mother lives down the street. Alternate Support: Name: Reema. Zluktapqwllu to Patient: Child Can they take time off work? yes. Do they have their own conditions which may prevent them from providing care for you? no. Are they available on short notice? yes. Are they reliable? yes. Are they responsible? yes. Are they able to understand and process new information? yes. Do they have reliable transportation or will you allow them to use you vehicle? yes. Are they currently involved in your care? yes. Housing: Patient does have adequate housing, Owns home. Type of Home: # of stairs [place] . Distance to [facility]: 1 hour 20 minutes. Pets: 4 dogs, 3 Cats. Does Patient Feel Safe in Home? yes. Transportation: Patient does have adequate transportation. # Licensed Drivers in the Home: 3. Does Patient Drive? yes. # Reliable Vehicles: 3. Does Patient use Public Transportation? no. Does Patient use Medical Transportation? no. The patient reports his/her mood as: Pt states good but admits to feeling nervous and scared about the transplant. Family History of Mental Health Concerns: Pt states his son is diagnosed with Bipolar What are patient's psychosocial stressors? Pt states stress related to receiving a transplant. Cognition: No cognitive deficits reported or observed. OTC Meds: Melatonin, Benedryl Counseling: never Patient has not been hospitalized for mental health. Hospitalization was involuntary. History of Suicide Ideation: No History of Suicide Attempt: No History of Suicide Ideation in the past 3 months: No. Attitude toward Interviewer: cooperative. Eye Contact: Patient maintained good eye contact throughout appointment. Appearance: The patient was neatly groomed, appropriately dressed and adequately nourished and unkempt. Affect: appropriate. Is the patient's mental health stable enough to proceed including the donor's ability to cope with the surgery, related stresses and potential risks? yes. Current Tobacco User? No. Former Tobacco User? Yes. Describe past tobacco use and date quit: 1 PPD- quit in 2007 Current Alcohol User? No. Former Alcohol User? Yes. Describe past alcohol use and date quit: Pt reports last use was 3 years ago. Pt states he drank one beer. Has patient ever gone to CD treatment? No. Do support people drink alcohol? Yes. Is alcohol kept in the home? No. Does Patient need to sign a CD contract? No. Current Illegal / Unprescribed Drug User? No. Former Illegal / Unprescribed Drug User? No. Has patient ever gone to CD treatment? No. Do support people use illegal drugs? No. Are illegal drugs kept in the home? No. Does Patient need to sign a CD contract? No. Prescription Drug Abuse: patient has not experienced feelings of addiction, patient has not experienced symptoms of withdrawal and patient has not experienced any side effects. Does Patient Meet the Criteria for Alcohol Use Disorder? No. Does Patient Meet [place] guidelines? Yes Does Patient Does Patient Meet the Criteria for Illegal Drug Use Disorder? No. Does Patient Meet [place] guidelines? Yes Legal Issues: patient has had no arrests Patient is not currently on probation or parole. Custodial: No Citizenship: [place] Citizen: Yes Advance Directives: no Impression Impression: SW met with pt and his spouse for initial assessment. Both were pleasant and engaged. Pt has [employer] [place] Insurance. Pt states he will apply for Medicare next month. Pt states he found out he had ESRD two months ago. Pt has a good support system as evidence by his (Batsheva) as the primary support and his mother and daughter as back up support. All supports drive and are reliable. Pt den ies any history of mental health illness.Pt describes his overall mood as good but does report he is feels anxious and nervous about having a transplant. Pt denies current tobacco use. Pt also denies al cohol or drug use. He states he has never used illicit drugs. Pt states he is getting PD for Peritoneal dialysis next month. Pt is low psychosocial risk. Pt currently meets [place]ST[employer] guidelines. Plan Plan: SW will see pt yearly. Signatures Electronically signed by : FORREST Amin; Feb 21 2018 4:58PM EST (Author) INITIAL VISIT Observed: 02/21/2018 Status: UNK Source: [facility] (NEPHROLOGY) 3:22 PM HOSPITALS REPOSITORY Chief Complaint Kidney transplant evaluation History of Present Illness 43 yo CM here for transplant evaluation Blood group B, cPRA unknown % Predialysis, PD cath planned for next month Followed by Dr. 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 No potential donors Interested in KP PMH/PSH T1 DM diagnosed age 10, req insulin since age 10; denies retinopathy, neuropathy, gastroparesis HTN DLD CKD as above SocHx Denies tobacco, ETOH, illicits Lives with FMHX Brother with T1DM No cancer ROS: Otherwise negative for constitutional, cardiac, respiratory, gastrointestinal, genitourinary, endocrinologic, hematologic, musculoskeletal, psychiatric, neurologic *Active Problems Pre-transplant evaluation for end stage renal disease (V72.83) (Z01.818) Family History No pertinent family history Vitals All Vitals Recorded: [id number] 01:30PM Zpsbcvli688 Egcgutuma75 Heart Rate86 Znpuloaephl97.9 F, Tympanic Height5 ft 4 in Srkjia373 lb 11.2 oz BMI Vvnkujcinx94.07 BSA Calculated1.77 O2 Azjesdzrzx84, RA Physical Exam NAD Sclera AI without injection MMM, no sores Neck supple, no LAD CTAB s1s2 reg no rub/murmur soft, nontender No edema No tremor/asterixis No rash Appropriate mood/behavior Diagnoses/Problems Pre-transplant evaluation for end stage renal disease (V72.83) (Z01.818) Provider Impressions Appears to be medically suitable candidate for KP Needs standard evaluation, await labs. Discussed the typical course of both and live donor transplant. Discussed risks of immunosuppression in general, including infection and malignancy. Patient asked appropriate questions, which I answered to the best of my ability. Encouraged pursuit of living donor candidates. Appreciate referral of Dr. Hanane Chowdary. [phone] Signatures Electronically signed by : Anita Andrade MD; Feb 21 2018 3:22PM EST (Author) TRANSPLANT-SURGERY Observed: 02/21/2018 Status: UNK Source: [place] 3:17 PM HOSPITALS REPOSITORY Chief Complaint Kidney and pancreas transplant surgical evaluation. History of Present Illness Reason For Visit: Initial Surgical Evaluation . w/ pancreas transplant evaluation. Functional Status: 100 - Normal; no complaints; no evidence of disease. CKD: ESRD. Disease Etiology: diabetic nephropathy. Disease Complications: dyslipidemia and hypertension. Current Treatment: SHELDON inhibitors/angiotensin receptor blockers, antihypertensives, diabetes control and dyslipidemia treatment. Compliance/Tolerance/Control: good compliance with treatment. Pertinent History: diabetes. No risk factors have been identified. I am seeing your patient at your request to perform a surgical evaluation for potential candidacy on the kidney transplant list here at [facility]. I court byers reviewed all potential records we have received, and all testing performed to this date. This is a patient of Dr. HANANE CHOWDARY (tel: [phone]) This is a 43 year yo male with ESRD secondary to DM type I. Listing Date: PENDING. Dialysis Vintage: PRE-DIALYSIS. Current Vascular Access or PD: PRE-DIALYSIS; PD catheter placement planned. Issues with dialysis or access: PRE-DIALYSIS. Exhausted Vascular Access: PRE-DIALYSIS. Urine O/P: NORMAL. Blood transfusions in the past year: NO. Recent hospitalizations/illnesses: NO. Previous Transplant: NO. Hx of Cancer: NO. Hx Peripheral Vascular Disease: NO. Living Donors: NO. Karnofsky Score: 100. Visit issues: 1. Patient takes Humalog on sliding scale, and 28 U of Basaglar. 5-10 U of Novalog with meals morning/afternoon/evening, for insulin dosage of about 48 U a day. 2. Patient is scheduled for PD catheter placement. 2. Patient exhibits no hypoglycemic unawareness or issues with gastric emptying or bowel movements. In the past few months, patient has experienced issues with GERD which were relieved with medication. No diabetic neuropathy or retinopathy was reported. Latest Hgb A1c is about 7.8%. 3. Patient has been experiencing high daily BP. 4 Patient previously had appendectomy and hernia repair. Also hx of L arm fracture repair with metal plate. Review of Systems Constitutional: feeling tired. Cardiovascular: lower extremity edema. Gastrointestinal: heartburn. Musculoskeletal: joint stiffness/swelling. Endocrine: has diabetes. Surgical History History of Appendectomy History of Hernia Repair Performed concurrenttly with appendectomy. Type of hernia not known. Family History Family history of malignant neoplasm (V16.9) (Z80.9) Family history of type 1 diabetes mellitus (V18.0) (Z83.3) No pertinent family history Social History Never smoker No illicit drug use * Vitals 21 Feb 2018 1:30 PM Systolic 176 mm Hg Diastolic 88 mm Hg Heart Rate 86 bpm Temperature 97.9 F O2 Saturation 98 BSA Calculated 1.77 BMI Calculated 27.07 Height 5-4 in Weight 157.7-0 lb Physical Exam Constitutional - General appearance: In no acute distress, well appearing and well nourished. Eyes sclera anicteric. Ears, Nose, Mouth, and Throat - External inspection of ears and nose: Normal. Pulmonary - Respiratory effort: Normal respiration. Cardiovascular - NSR. 2+ bilaterally. no BLE edema present. Chest - No HD catheter present. Abdomen - no CVA tenderness; soft non-tender, nondistended, ASIS easily palpable. Musculoskeletal - Digits and nails: Normal without clubbing or cyanosis. Skin - no rashes. Neurologic - Coordination: Normal gait. Psychiatric - Orientation to person, place, and time: Normal. Mood and affect: Normal. Diagnoses/Problems Type 1 diabetes mellitus with chronic kidney disease on chronic dialysis (250.41,585.9,V45.11) (E10.22,N18.6,Z99.2) Pre-transplant evaluation for kidney and pancreas transplant (V72.83) (Z01.818) Patient Discussion/Summary Impression: Kidney Transplant and Pancreas Transplant . Current Status:. Patient is stable. Medication Changes. There are no changes in medication management. Transplant Status:. Candidate work-up is in progress. Reviewed:. Further Testing Required. Patient Discussion:. Discussed with the patient. Discussed with the patient's family. Plan: 1. Patient advised to work closely with endocrinology following PD catheter placement for management of blood glucose. 2. Patient advised that he is very appropriate for dual pancreas and kidney transplant given his age and relatively healthy status. He was further educated that a dual pancreas and kidney transplant justino l come from the same donor, is placed with a different surgical technique compared to single kidney transplant, and also results in a longer recovery period compared to single kidney transplant. 3. Patient advised to be continually mindful of diet and lifestyle following transplant in order to reduce risk of developing type II DM. 4. Standard KP work-up The patient and I reviewed the rules applicable to the donor kidney and pancreas transplant wait list. I described the listing process as well as the selection committee process. I described ho w they would accrue waiting time. We discussed the different kinds of donors including KDPI and PHS high risk donors. The criteria that makes a donor high risk were discussed. We also discussed the risks and benefits of surgery. The ris ks include but are not limited to bleeding, infection, damage to surrounding structures, lymphatic leaks, pancreatic leaks, bowel anastomotic leaks, urine leaks, rejection, clotting of the kidney, clott ing of the pancreas, need for reoperation, DVT, PE, myocardial infarction, stroke, and . The patient expressed understanding and wished to proceed. We also discussed the need for long-term immunosuppression after the kidney and pancreas transplant. If the patient does not take their immunosuppression exactly as directed, the chance of rejection is very high. Even if they do take their medications exactly as directed, rejection is still a possibility however it is much less likely. We discussed the risks of long-term immunosuppression including op portunistic infections and cancers. We specifically discussed CMV infection and PTLD. We also discussed skin cancer as this is the most common malignancy post- transplant. I encouraged them to stay out o f the sun and use sunscreen. I also recommended seeing a lead software tester yearly for a skin check. We further discussed the possibility of transmission of HIV, hepatitis C, and hepatitis B through the dono r organs. We also discussed the possibility of other donor derived infections and/or malignancies being transmitted with donor organs. We discussed the 1 and 3 year survival rates after transplant. The patient expressed understanding and wished to proceed with listing. Finally I discussed the importance of being available by phone while on the list. I encouraged the patient to call us with any changes in their medical history, medications, or if they received blood tr ansfusions. I also encouraged them to call us should they be out of town for any reason. This patient will be taken to the committee for final decision on listing. The patient and I discussed listing for the following types of donors: 1. PHS increased risk donors 2. KDPI greater than 85% donors 3. Hepatitis B core antibody positive donors 4. Hepatitis C antibody positive donors 5. DCD donors The patient consented to receiving the following donor offers: 1. PHS increased risk donors 2. Hepatitis B core antibody positive donors 3. DCD donors All of the risks benefits and alternatives were discussed with the patient. The patient was in agreement and wishes to proceed with listing for the above donors. I spent approximately 30 minutes in cons ultation with the patient discussing the above consent. By signing my name below, I, Kandice Martinez, attest that this documentation has been prepared under the direction and in the presence of Dr. Radha Horton. All medical record entries made by the Scribe were at my direction and personally dictated by me. I have reviewed the chart and agree that the record accurately reflects my personal performance of the h istory, physical exam, discussion and plan. Signatures Electronically signed by : Radha Horton MD; Feb 21 2018 3:17PM EST (Author) TH CHEST 2 VIEW PA Observed: 02/21/2018 Status: F Source: [facility] 3:07 PM HOSPITALS REPOSITORY Patient Name: GAVINO DAVE STUDY: CHEST 2 VIEW PA AND LAT; 02/21/2018 3:07 pm INDICATION: Signs/Symptoms: pre kidney/panc txp eval. COMPARISON: None. ACCESSION NUMBER(S): [id number] ORDERING CLINICIAN: TEX DEL RIO FINDINGS: CARDIOMEDIASTINAL SILHOUETTE: Cardiomediastinal silhouette is normal in size and configuration. LUNGS: Lungs are clear. ABDOMEN: No remarkable upper abdominal findings. BONES: No acute osseous changes. IMPRESSION: 1. No evidence of acute cardiopulmonary process. I personally reviewed the images/study and I agree with the findings as stated. This study was interpreted at [facility], [place], [place]. Electronically signed by: OLY NUÑEZ MD TRANSPLANT-SURGERY Observed: 02/21/2018 Status: UNK Source: [place] 12:05 PM HOSPITALS REPOSITORY No report was sent COAGULATION SCREEN Collected: 02/21/2018 Status: F Source: [place] 8:28 AM HOSPITALS REPOSITORY TYPE CODE TESTS RESULT OUT OF REFERENCE UNITS RANGE LAB PT(LOINC) 9.8 - 12.7 sec PROTHROMBIN TIME 10.5 LAB INR(LOINC) 0.9 - 1.1 PT, INR 1.0 LAB APTT(LOINC 25 - 36 sec ) APTT 29 Result Comment: THE APTT IS NO LONGER USED FOR MONITORING UNFRACTIONATED HEPARIN THERAPY. FOR MONITORING HEPARIN THERAPY, USE THE HEPARIN ASSAY. Performed By: #### COAGS #### [facility] [address] [place] [address] HLA-A,B,C LR Collected: 02/21/2018 Status: CANCELLED Source: [place] 8:28 AM HOSPITALS REPOSITORY Order Comment: TEST HLA-A,B,C LR WAS CANCELLED, 02/21/2018 10:54 DUPLICATE ORDER. TYPE CODE TESTS RESULT OUT OF REFERENCE UNITS RANGE LAB DN1LA(LOINC ) HLA-A Canceled LOCUS LR TYPE LAB DN1LB(LOINC ) HLA-B Canceled LOCUS LR TYPE LAB DN1LC(LOINC ) HLA-C Canceled LOCUS LR TYPE Performed By: #### [id number] #### [facility] [address] [place] [id number] HLA-DRB1/3/4/5 AND DQB1 Collected: 02/21/2018 Status: CANCELLED Source: [place] LR TYPING 8:28 AM HOSPITALS REPOSITORY Order Comment: TEST HLA-DRB1/3/4/5 AND DQB1 LR TYPING WAS CANCELLED, 02/21/2018 10:54 DUPLICATE ORDER. TYPE CODE TESTS RESULT OUT OF REFERENCE UNITS RANGE LAB DN2LR(LOINC ) Canceled HLA-DRB1/3/4 /5 & DQB1 LR TYPING Performed By: #### DN2LT #### [facility] [address] [place] [address] HLA-DPB1 HR TYPING Collected: 02/21/2018 Status: CANCELLED Source: [place] 8:28 HOSPITALS REPOSITORY Order Comment: TEST HLA-DPB1 HR TYPING WAS CANCELLED, 02/21/2018 10:54 DUPLICATE ORDER. TYPE CODE TESTS RESULT OUT OF REFERENCE UNITS RANGE LAB DPBHR(LOINC ) HLA-DPB1 Canceled HR TYPING Performed By: #### DPBHT #### [facility] [address] [place] [address] HLA CLASS I AB Collected: 02/21/2018 Status: CANCELLED Source: [place] SCREEN,FC 8:28 [facility]POSITORY Order Comment: TEST HLA CLASS I AB SCREEN,FC WAS CANCELLED, 02/21/2018 10:54 DUPLICATE ORDER. TYPE CODE TESTS RESULT OUT OF REFERENCE UNITS RANGE LAB HLA1S(LOINC ) HLA CLASS Canceled I AB SCREEN,FC Performed By: #### HLAS1 #### [facility] [address] [place] [address] HLA-DQB1 HR TYPING Collected: 02/21/2018 Status: CANCELLED Source: [place] 8:28 AM [facility]IT[facility] REPOSITORY Order Comment: TEST HLA-DQB1 HR TYPING WAS CANCELLED, 02/21/2018 10:54 DUPLICATE ORDER. TYPE CODE TESTS RESULT OUT OF REFERENCE UNITS RANGE LAB DQBHR(LOINC ) HLA-DQB1 Canceled HR TYPING Performed By: #### DQBHT #### [facility] [address] [place] [id number] HLA CLASS II AB Collected: 02/21/2018 Status: CANCELLED Source: [place] SCREEN, 8:28 HOSPITALS REPOSITORY Order Comment: TEST HLA CLASS II AB SCREEN,FC WAS CANCELLED, 02/21/2018 10:54 DUPLICATE ORDER. TYPE CODE TESTS RESULT OUT OF REFERENCE UNITS RANGE LAB HLA2S(LOINC ) HLA CLASS Canceled II AB SCREEN,FC Performed By: #### HLAS2 #### [facility] [address] [place] [id number] CBC Collected: 02/21/2018 Status: F Source: [place] 8:28 [facility] [address] REPOSITORY TYPE CODE TESTS RESULT OUT OF REFERENCE UNITS RANGE LAB WBCR(LOINC 4.4 - 11.3 x10E9/L ) WBC 7.9 LAB NRBC(LOINC 0.0-0.0 /100 WBC ) NUCLEATED RBC 0.0 LAB RBCCT(LOIN 4.50 - 5.90 x10E12/L C) Low RBC 4.44 LAB HGB(LOINC) 13.5 - 17.5 g/dL Low HGB 13.3 LAB HCT(LOINC) 41.0 - 52.0 % Low HCT 39.2 LAB MCV(LOINC) 80 - 100 fL MCV 88 LAB MCHC2(LOIN 32.0 - 36.0 g/dL C) MCHC 33.9 LAB PLTCT(LOIN 150 - 450 x10E9/L C) PLT 233 LAB RDWCV(LOIN 11.5 - 14.5 % C) RDW-CV 13.2 Performed By: #### CBC #### [facility] [address] [place] [address] HEPATITIS B SURF AB Collected: 02/21/2018 Status: F Source: [address] REPOSITORY TYPE CODE TESTS RESULT OUT OF RANGE REFERENCE UNITS LAB HABF2(LOINC <10 mIU/mL ) HEP B 439.2 SURF AB Result Comment: INTERPRETIVE CRITERIA: <10 mIU/mL....NONREACTIVE >=10 mIU/mL...REACTIVE . Patients receiving more than 5 mg/day of biotin may have interference in test results. A sample should be taken no sooner than eight hours after previous dose. Contact [phone] for additional information. LAB SOURCE([facility]) Lab Specimen Source Performed By: #### [id number] #### [facility] [address] [place] [address] HEPATITIS B SURFACE AG Collected: 02/21/2018 Status: F Source: [address] REPOSITORY TYPE CODE TESTS RESULT OUT OF REFERENCE UNITS RANGE LAB HAGFN(LOIN NONREACTIVE C) HEP.B SURFACE NONREACTIVE AG Result Comment: Patients receiving more than 5 mg/day of biotin may have interference in test results. A sample should be taken no sooner than eight hours after previous dose. Contact [phone] for additional information. LAB SOURCE([facility]) Lab Specimen Source Performed By: #### HBSAG #### [facility] [address] [place] [address] SYPHILIS IGG Collected: 02/21/2018 Status: F Source: [address] REPOSITORY TYPE CODE TESTS RESULT OUT OF REFERENCE UNITS RANGE LAB SYPHG(LOIN NONREACTIVE C) SYPHILIS IGG NON REACTIVE Result Comment: Patients receiving more than 5 mg/day of biotin may have interference in test results. A sample should be taken no sooner than eight hours after previous dose. Contact [phone] for additional information. LAB SOURCE([facility]) Lab Specimen Source Performed By: #### SYPH #### [facility] [address] [place] [address] HEPATITIS C AB Collected: 02/21/2018 Status: F Source: [address] REPOSITORY TYPE CODE TESTS RESULT OUT OF REFERENCE UNITS RANGE LAB HCVFN(LOIN NONREACTIVE C) HEPATITIS C AB NON-REACTIVE Result Comment: Patients receiving more than 5 mg/day of biotin may have interference in test results. A sample should be taken no sooner than eight hours after previous dose. Contact [phone] for additional information. LAB SOURCE([facility]) Lab Specimen Source Performed By: #### HCVAB #### [facility] [address] [place] [address] HEPATITIS B CORE Collected: 02/21/2018 Status: F Source: [place] AB-TOTAL 8:28 [facility] [address] REPOSITORY TYPE CODE TESTS RESULT OUT OF REFERENCE UNITS RANGE LAB HCTFN(LOIN NONREACTIVE C) NONREACTIVE HEP. B CORE AB-TOTAL Result Comment: Patients receiving more than 5 mg/day of biotin may have interference in test results. A sample should be taken no sooner than eight hours after previous dose. Contact [phone] for additional information. LAB SOURCE([facility]) Lab Specimen Source Performed By: #### HBCRT #### [facility] [address] [place] [address] ABO/RH GROUP TEST Collected: 02/21/2018 Status: F Source: [place] 8:28 [facility] [address] REPOSITORY TYPE CODE TESTS RESULT OUT OF RANGE REFERENCE UNITS LAB ABORH(LOINC ) ABO TYPE B LAB RH(LOINC) RH TYPE POS Performed By: #### ABORG #### [facility] [address] [place] [id number] AMYLASE Collected: 02/21/2018 Status: F Source: [place] 8:28 [facility] [address] REPOSITORY TYPE CODE TESTS RESULT OUT OF REFERENCE UNITS RANGE LAB BATSHEVA(LOINC) 29 - 103 U/L High AMYLASE 137 LAB SOURCE(LOIN C) Lab Specimen Source Performed By: #### BATSHEVA #### [facility] [address] [place] [id number] BILIRUBIN,DIRECT Collected: 02/21/2018 Status: F Source: [place] 8:28 [facility] [address] REPOSITORY TYPE CODE TESTS RESULT OUT OF REFERENCE UNITS RANGE LAB DBILI(LOINC 0.0 - 0.3 mg/dL ) BILIRUBIN,DIRE 0.1 CT LAB SOURCE(LOIN C) Lab Specimen Source Performed By: #### DBILI #### [facility] [address] [place] [address] COMPREHENSIVE PANEL Collected: 02/21/2018 Status: F Source: [place] 8:28 AM [facility]OSPITALS REPOSITORY TYPE CODE TESTS RESULT OUT OF RANGE REFERENCE UNITS LAB GLU(LOINC) 74 - 99 mg/dL Low GLUCOSE 44 LAB SOD(LOINC) 136 - 145 mmol/L SODIUM 138 LAB K(LOINC) 3.5 - 5.3 mmol/L POTASSIUM 4.6 LAB CHLOR(LOIN 98 - 107 mmol/L C) CHLORIDE 104 LAB BIC(LOINC) 21 - 32 mmol/L BICARBONATE 21 LAB ANGAP(LOIN 10 - 20 mmol/L C) ANION GAP 18 LAB UREA(LOINC 6 - 23 mg/dL ) High UREA NITROGEN 69 LAB CREA(LOINC 0.50 - 1.30 mg/dL ) High CREATININE 3.64 LAB GFRFN(LOIN >60 mL/min/1.7 C) 3m2 GFR-NON Abnormal AM. 18 LAB GFRAA(LOIN >60 mL/min/1.7 C) 3m2 GFR- Abnormal AM. 22 Result Comment: CALCULATIONS OF ESTIMATED GFR ARE PERFORMED USING THE MDRD STUDY EQUATION FOR THE IDMS-TRACEABLE CREATININE METHODS. CLIN CHEM 2007;53:766-72 LAB CA(LOINC) 8.6 - 10.6 mg/dL CALCIUM High 10.7 LAB ALB(LOINC) 3.4 - 5.0 g/dL ALBUMIN High 5.1 LAB AP(LOINC) 33 - 120 U/L ALKALINE PHOSPHATASE 93 LAB TP(LOINC) 6.4 - 8.2 g/dL TOTAL PROTEIN High 8.9 LAB AST(LOINC) 9 - 39 U/L AST 22 LAB TBILI(LOINC) 0.0 - 1.2 mg/dL BILIRUBIN,TOTAL 0.5 LAB ALT(LOINC) 10 - 52 U/L ALT 44 Result Comment: Patients treated with Sulfasalazine may generate falsely decreased results for ALT. LAB SOURCE(LOINC) Lab Specimen Source Performed By: #### [facility] #### [facility] [address] [place] [address] CMV IGG Collected: 02/21/2018 Status: F Source: [place] 8:28 AM [facility]OS[facility]ITALS REPOSITORY TYPE CODE TESTS RESULT OUT OF RANGE REFERENCE UNITS LAB CMVGF(LOINC INDEX ) CMV IGG 0.3 AB Result Comment: RESULTS WERE OBTAINED WITH THE IMMULITE CMV IGG CHEMILUMINESCENT METHOD. THE MAGNITUDE OF THE MEASURED RESULT, ABOVE THE CUT-OFF, IS NOT INDICATIVE OF THE TOTAL AMOUNT OF ANTIBODY PRESENT. NEGATIVE: < 0.9 EQUIVOCAL: 0.9 - 1.0 POSITIVE: >=1.1 Performed By: #### CMVG2 #### [facility] [address] [facility] [place] [address] EBV PANEL Collected: 02/21/2018 Status: F Source: [place] [address] [place] [address] REPOSITORY TYPE CODE TESTS RESULT OUT OF RANGE REFERENCE UNITS LAB VCAGI(JEANNIE NEGATIVE NC) VCA IGG ANTIBODY Abnormal POSITIVE LAB EAGI(LOIN NEGATIVE C) EBV EA-D IGG ANTIBODY Negative LAB KOJO(LOIN NEGATIVE C) EBV NA-1 IGG Abnormal ANTIBODY POSITIVE LAB VCAMI(JEANNIE NEGATIVE NC) VCA IGM ANTIBODY Negative LAB EBVIN(JEANNIE NC) EBV INTERPRETATION SEE BELOW Result Comment: . EBV INTERPRETATION CHART . VCA-IGG VCA-IGM NA-IGG EA-IGG . PRIMARY ACUTE +/- +/- - +/- LATE ACUTE + +/- +/- +/- RECOVERING + - - + PREVIOUS INFECTION + - +/- - LAB SOURCE([facility]) Lab Specimen Source Performed By: #### EBVP1 #### [facility] [address] [employer] [facility] [place] [address] VARICELLA [place] IGG Collected: 02/21/2018 Status: F Source: [facility] [address] [place] [address] REPOSITORY TYPE CODE TESTS RESULT OUT OF REFERENCE UNITS RANGE LAB VARZG(LOIN NEGATIVE C) VARICELLA POSITIVE [place] IGG AB Result Comment: INTERPRETATIVE COMMENT NEGATIVE: No IgG antibodies specific to VZV detected. It is likely that the patient has not had a previous exposure to VZV through infection or vaccination. Alternatively, the patient may have been exposed to VZV but a failure to respond may indicate immunodeficiency. EQUIVOCAL:Equivocal results; obtain additional sample for retesting. POSITIVE: IgG antibody to VZV detected. This may indicate that the patient was exposed to VZV through infection or vaccination. The interpretation of serological tests should take into account the immunological status of the patient. Test results for patients, including immunocompromised patients, neonates, and pediatric patients, reflect their capacity to respond immunologically to the virus as well as their exposure to the pathogen. Patients treated with IVIG may demonstrate altered results in serological assays. LAB SOURCE(LOINC) Lab Specimen Source Performed By: #### VARZG #### [facility] [address] [place] [address] AUTOCROSSMATCH, FLOW Collected: Status: CANCELLED Source: [place] 02/21/2018 8:28 AM HOSPITALS REPOSITORY Order Comment: TEST AUTOCROSSMATCH, FLOW WAS CANCELLED, 02/21/2018 16:16 Wrong visit used. TYPE CODE TESTS RESULT OUT OF REFERENCE UNITS RANGE LAB FLAUT(LOINC ) Canceled AUTOCROSSMAT CH, FLOW Performed By: #### FLAUC #### [facility] [address] [place] [address] HEMOGLOBIN A1C Collected: 02/21/2018 Status: F Source: [place] 8:28 [facility] [address] REPOSITORY TYPE CODE TESTS RESULT OUT OF RANGE REFERENCE UNITS LAB HBA1C(LOINC % ) HGB A1C 8.3 Result Comment: Diagnosis of Diabetes-Adults Non-Diabetic: < or = 5.6% Increased risk for developing diabetes: 5.7-6.4% Diagnostic of diabetes: > or = 6.5% . Monitoring of Diabetes Age (y) Therapeutic Goal (%) Adults: >18 <7.0 Pediatrics: 13-18 <7.5 7-12 <8.0 0- 6 7.5-8.5 [place] [employer]. Diabetes Care 33(S1), Jun 2009. LAB ESAVG(LOINC) MG/DL EST.AVG.GLUCOSE 192 Performed By: #### HBA1E #### [facility] [address] [place] [address] C PEPTIDE Collected: 02/21/2018 Status: F Source: [place] 8:28 [facility] [address] REPOSITORY TYPE CODE TESTS RESULT OUT OF REFERENCE UNITS RANGE LAB CPEPT(LOINC 1.1 - 5.0 ng/mL ) Low C PEPTIDE <0.1 Performed By: #### CPEPT #### [facility] [address] [place] [address] HIV 1/2 ANTIBODY Collected: 02/21/2018 Status: F Source: [facility] 8:28 AM HOSPITALS REPOSITORY TYPE CODE TESTS RESULT OUT OF REFERENCE UNITS RANGE LAB HIV12(LOIN C) HIV CONFIRMATION NEGATIVE Result Comment: A positive/indeterminate HIV Ag/Ab screening test followed by a negative HIV1/HIV2 confirmation test may indicate either a false positive screening test, acute HIV infection, or, rarely, an HIV strain that reacts poorly with the confirmatory test. Recommend testing HIV RNA by PCR (viral load) to further evaluate the clinical status. LAB SOURCE(LOINC) Lab Specimen Source Performed By: #### HIVCN #### [facility] [address] [address] DRUG-PROFILE 9,BLOOD Collected: 02/21/2018 Status: F Source: [place] WITH REFLEX TO 8:28 AM HOSPITALS REPOSITORY CONFIRMATION TYPE CODE TESTS RESULT OUT OF REFERENCE UNITS RANGE LAB AMPB0(EJANNIE Cutoff 30 ng/mL NC) AMPHETAMINES SCREEN Negative LAB MAMB0(JEANNIE Cutoff 30 ng/mL NC) METHAMPHETAMINES SCREEN Negative LAB BARC0(JEANNIE Cutoff 75 ng/mL NC) BARBITURATES SCREEN Negative LAB BENC0(JEANNIE Cutoff 75 ng/mL NC) BENZODIAZEPINES SCREEN Negative LAB BUPB0(JEANNIE Cutoff 1 ng/mL NC) BUPRENORPHINE SCREEN Negative LAB CANB0(JEANNIE Cutoff 30 ng/mL NC) CANNABINOID SCREEN Negative LAB COCB0(JEANNIE Cutoff 30 ng/mL NC) COCAINE SCREEN Negative LAB METB0(JEANNIE Cutoff 40 ng/mL NC) METHADONE SCREEN Negative LAB OPIB0(JEANNIE Cutoff 30 ng/mL NC) OPIATE SCREEN Negative LAB OXYB0(JEANNIE Cutoff 30 ng/mL NC) OXYCODONE SCREEN Negative LAB PCPB0(JEANNIE Cutoff 15 ng/mL NC) PCP SCREEN Negative LAB DRBSC(JEANNIE NC) DRUG SCREEN COMMENT See Note Result Comment: INTERPRETIVE INFORMATION: Drug Screen 9 Panel, Serum or Plasma - Immunoassay Screen with Reflex to Mass Spectrometry Confirmation/Quantitation 1. Methodology: Qualitative Immunoassay Screen 2. Drugs/Drug classes reported as Positive are automatically reflexed to mass spectrometry confirmation/quantitation testing. An immunoassay unconfirmed positive screen result may be useful for medical purposes but does not meet forensic standards. 3. The absence of expected drug(s) and/or drug metabolite(s) may indicate non-compliance, inappropriate timing of specimen collection relative to drug administration, poor drug absorption, or limitations of testing. The concentration at which the screening test can detect a drug or metabolite varies within a drug class. Specimens for which drugs or drug classes are detected by the screen are automatically reflexed to a second, more specific technology (mass spectrometry). The concentration value must be greater than or equal to the cutoff to be reported as positive. Interpretive questions should be directed to the laboratory. 4. For medical purposes only; not valid for forensic use. Test developed and characteristics determined by [employer]. See Compliance Statement B: CNZZ/ Performed by [employer], [address] [facility], [facility] [address] [email or web address], Senthil Rizvi MD - Lab. Director Performed By: #### [id number] #### [employer] [facility] [address] [place] [address] QUANTIFERON TB GOLD Collected: 02/21/2018 Status: F Source: [place] 8:28 AM HOSPITALS REPOSITORY TYPE CODE TESTS RESULT OUT OF REFERENCE UNITS RANGE LAB QUAFE(LOIN Negative C) QUANTIFERON TB GOLD NEGATIVE Result Comment: Negative test result. M. tuberculosis complex infection unlikely. LAB QUNIL(LOINC) IU/mL NIL 0.05 LAB QUMIN(LOINC) IU/mL MITOGEN NIL 8.68 LAB QUTBN(LOINC) IU/mL TB ANTIGEN NIL <0.00 Result Comment: The Nil tube value is used to determine if the patient has a preexisting immune response which could cause a false-positive reading on the test. In order for a test to be valid, the Nil tube must have a value of <=8.0 IU/mL. The Mitogen control tube is used to assure the patient has a healthy immune status and also serves as a control for correct blood handling and incubation. It is used to detect false-negative readings. The mitogen tube must have a gamma interferon value >= 0.5 IU/mL higher than the value of the Nil tube. The TB Antigen tube is coated with the M tuberculosis specific antigens. For a test to be considered positive the TB antigen tube value minus the Nil tube value must be >=0.35 IU/mL. Data on the performance of the test in children younger than 5 years of age are limited, and the CDC advises that caution is warranted when using the assay in children aged <5 years (MMWR 2010; 59 (RR-05):1-25). For additional information, please refer to: http://education.BioVentrix.RentPost/faq/QFT (This link is being provided for informational/ educational purposes only). Performed By: #### [email or web address] #### [facility] [place] [id number] [place] [address] URINALYSIS Collected: 02/21/2018 Status: F Source: [place] 8:25 [facility] [address] REPOSITORY TYPE CODE TESTS RESULT OUT OF RANGE REFERENCE UNITS LAB COLU(LOIN STRAW,YELLOW C) COLOR STRAW LAB APPRU(JEANNIE CLEAR NC) APPEARANCE CLEAR LAB SPGRU(JEANNIE 1.005 - 1.035 NC) SPECIFIC GRAVITY 1.008 LAB PIYUSH(LOINC 5.0 - 8.0 ) pH 5.0 LAB PROTU(JEANNIE NEGATIVE mg/dL NC) PROTEIN Abnormal 100 (2+) LAB GLUCU(JEANNIE NEGATIVE mg/dL NC) GLUCOSE Abnormal >=500 (3+) LAB BLDU(LOIN NEGATIVE C) BLOOD NEGATIVE LAB KETU(LOIN NEGATIVE mg/dL C) KETONES NEGATIVE LAB BILIU(JEANNIE NEGATIVE NC) BILIRUBIN NEGATIVE LAB UROU2(JEANNIE 0.0 - 1.9 mg/dL NC) UROBILINOGEN <2.0 LAB NITRU(JEANNIE NEGATIVE NC) NITRITE NEGATIVE LAB LEUKU(JEANNIE NEGATIVE NC) LEUKOCYTE ESTERASE NEGATIVE Performed By: #### UA #### [facility] [address] [place] [address] UA MICROSCOPIC Collected: 02/21/2018 Status: F Source: [place] [address] [place] [address] REPOSITORY TYPE CODE TESTS RESULT OUT OF REFERENCE UNITS RANGE LAB WBCUR(LOINC 0-5 /HPF ) WBC <1 LAB RBCUR(LOINC 0-5 /HPF ) RBC <1 LAB EPSQE(LOINC /HPF ) SQUAMOUS <1 EPITH. CELLS Performed By: #### UAMIC #### [facility] [address] [place] [address] SURGERY VISIT REPORT Observed: 02/13/2018 Status: F Source: [place] 5:45 PM [facility] [address] [place] [address]. [address] [place] [address] OFFICE VISIT Date of Service: 02/13/18 MR#: [id number] Acct: [id number] Name: GAVINO DAVE Rep #: [id number] : 1975 Provider: Moshe Garcia MD Age/Sex: 43/M Location: [facility] Status: Signed Intake Vital Signs02/13/18 Height 5 ft 5 in 02/13/18 Weight: 160 lb 2 oz 02/13/18 Body Mass Index (BMI) 26.6 02/13/18 Blood Pressure 161/82 Intake Visit Reasons: PD Catheter Placement Chief Complaint: PD cath insertion [employer] Required: No Is patient in pain?: No Allergies No Known Allergies Allergy (Verified 02/13/18 09:14) Medications amlodipine 10 mg tablet 10 mg PO DAILY 01/28/18 [History Confirmed 02/13/18] atorvastatin 20 mg tablet 20 mg PO DAILY 01/28/18 [History Confirmed 02/13/18] chromium picolinate 400 mcg tablet 400 mcg PO DAILY 01/28/18 [History Confirmed 02/13/18] ferrous sulfate ER 142 mg (45 mg iron) tablet,extended release 142 mg PO DAILY tab 01/28/18 [History Confirmed 02/13/18] glycosamine PO 01/28/18 [History Confirmed 02/13/18] insulin aspart U-100 100 unit/mL subcutaneous solution See Label Instructions SC TID ml 01/28/18 [History Confirmed 02/13/18] insulin glargine (U-100) 100 unit/mL (3 mL) subcutaneous pen 31 unit SC DAILY ml 01/28/18 [History Confirmed 02/13/18] krill oil 500 mg capsule mg PO 01/28/18 [History Confirmed 02/13/18] losartan 50 mg tablet 25 mg PO DAILY tab 01/28/18 [History Confirmed 02/13/18] metoprolol tartrate 100 mg tablet 100 mg PO QDAY tab 01/28/18 [History Confirmed 02/13/18] mgjvftdg-mofnvupy-yiutu acid 400 mcg-vit K 20 mcg-lycop 300 mcg tablet tab PO 01/28/18 [History Confirmed 02/13/18] omeprazole 20 mg capsule,delayed release 20 mg PO DAILY 02/13/18 [History Confirmed 02/13/18] [facility] Medical History Chronic renal insufficiency, stage IV (severe) (Acute) GERD (gastroesophageal reflux disease) (Acute) Kidney disease (Acute) Kidney failure (Acute) Type 1 diabetes mellitus (Acute) HTN (hypertension) (Chronic) Surgical History H/O hernia repair (Acute) History of wisdom tooth extraction (Acute) Hx of appendectomy (Acute) repair of fx arm (Acute) Family History Mother Cancer sarcoma Breast cancer Skin cancer Brother Diabetes Father Heart disease High cholesterol Social History Smoking Status: Smoker, status unknown alcohol intake: never substance use type: does not use HPI HPI HPI: GAVINO DAVE, is a 43 M who presents to the office today for surgical consultation regarding peritoneal dialysis catheter placement. The patient's primary care physician is Dr. Les Jones and his special delivery worker is Dr. Hanane Chowdary. The patient is referred by Dr. Hanane Chowdary for surgical consultation regarding PD placement and a written copy of my surgical consult recommendations will be returned to her. The patient is age 43. He has been long-term type I diabetic since age 15. He has been variable in his attention and controlled to his diabetes. 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 There is a lubricating oil that gets vaporized and he returns home daily with a fine mist of oil on his skin face and clothing. They have already made arrangements to change their home situation to allow for room to be dedicated free from their pets. He currently has stage IV renal insufficiency with a GFR of 17. He has had a previous appendectomy and he states at the same time he had a umbilical or ventral hernia repair and he thinks with mesh. That procedure was performed approximately 2004 at the [facility]. We do not have records regarding that particular process yet. He denies any abdominal pain. He is interested in performing home dialysis. He is interested in the future renal pancreatic combined transplant ROS General General: Yes fatigue; no weight change, appetite, colon cancer, breast cancer or weakness HEENT HEENT: Yes eye injury; no difficulty swallowing, eye surgery, swollen glands or hoarseness Additional Details: corneal injury x2 Endo Endocrine: Yes diabetes mellitus; no thyroid disease, thyroid cancer, Hair loss, heat intolerance or cold intolerance Musc Musculoskeletal: No back problems, arthritis, rheumatoid arthritis, gout or joint pain Cardio Cardiovascular: Yes high blood pressure; no murmur, pacemaker, heart disease, atrial fibrillation, heart attack, heart stent, palpitations, shortness of breat with exertion or chest pain Psych Psychiatric: No depression, anxiety or hearing voices Resp Respiratory: No shortness of breath, No sleep apnea, No cough, No COPD, No asthma, No emphysema, No wheezing Gastro Gastrointestinal: No abdominal pain, No nausea or vomiting, No diarrhea, No constipation, No blood in stool, Yes acid reflux, No hemorrhoids, No ulcers, No gallbladder problem, No black,tarry stools Jayden Hematologic: No blood thinners, No blood disorders, No bleeding, No anemia, No blood clots Neuro Neurologic: No system reviewed and no additional complaints, except as docu, No as per HPI, No abnormal walking, No abnormal hearing, No abnormal movements, No abnormal speech, No behavioral changes, No burning sensations, No confusion, No seizure-like activity, No unsteadiness, No dizziness, No localized weakness, No frequent falls, No headache(s), No lack of coordination, No loss of vision, No memory loss, No numbness, No other visual disturbances, No radiating pain, No restless legs, No sensory deficit, No fainting, No tingling, No tremor(s), No weakness, No other Exam Const General: cooperative, comfortable, no acute distress Nutritional Appearance: average body habitus Orientation: alert, awake, oriented x3 HENMT Head: normal to inspection Eyes General: appearance normal, both eyes and all related structures Neck Neck: normal visual inspection Resp Effort AND Inspection: normal respiratory effort Auscultation: clear to auscultation bilaterally Cardio Rate: regular rate Rhythm: regular rhythm Heart Sounds: no murmurs GI Palpation: soft, no hepatosplenomegaly Auscultation: normal bowel sounds Skin General: no rashes or lesions noted Neuro General: CN's II-XI intact bilaterally Extrem General: no calf tenderness Psych Affect: normal affect Assessment AND Plan Problems 1. Chronic renal insufficiency, stage IV (severe) N18.4 Plan I have discussed with him plans for laparoscopic placement of peritoneal dialysis catheters. I compared and contrasted this with arteriovenous fistula creation. Absolutely no guarantees of success been offered. I have educated the patient that his highest degree of risk is secondary to infection of the catheters. The patient already is establishing a home situation that would be favorable however his work conditions would place him at risk. I have instructed him that great care would need to be obtained on a daily basis to assure that the catheter exit site was well covered and protected from the vaporized lubricating oils that are present at work. He has had an appendectomy with a ventral hernia repair and he thinks mesh. We want to try to obtain those medical records from the [facility]. The patient did express some concern as to whether he needed to proceed at this time. I directed him back to Dr. Hanane Chowdary if he has concerns as to when the peritoneal dialysis catheter should be placed. I did caution him that we work very hard to avoid placement of tunneled venous hemodialysis catheters. This was a 50 minute ucjv-xq-iwnw consultative appointment. He and his have had an opportunity to ask and have questions answered. At this point they will tentatively schedule to proceed with the laparoscopic placement of the peritoneal dialysis catheters. I very much appreciate the kind opportunity of assisting with his surgical care Cc: Dr. Les Jones and Dr. Hanane Garcia M.D., F.A.C.S. Coding Level of Care Code Comprehensive,moderate Diagnoses Chronic renal insufficiency, stage IV (severe) N18.4 02/13/18 1745 <Electronically signed by Moshe Garcia MD> Date Moshe Garcia MD [facility] Signature: Date (if applicable) CC: Hanane Chowdary DO; Les Jones MD EXTREMITY LOWER Observed: 02/07/2018 Status: F Source: [facility] WITHOUT CONTRA 4:04 PM [facility] [place] [facility] Imaging Services [address] [place] [address] Extremity Lower without Contra MR#: [id number] Acct: [id number] Name: GAVINO DAVE Rep #: [id number] : 1975 M 43 From: Bassem Lemos MD PCP: Les Jones MD Status: REG CLI Study: Extremity Lower without Contra Date of Exam: 02/07/18 Exam# [id number] Ordering Dr: Luis Jones MD STUDY: CT LOWER LEG WITHOUT CONTRAST, LEFT REASON FOR EXAM: Male, 43 years old. Left leg mass RADIATION DOSAGE (If Supplied By Facility): CTDIvol = ( 15.35 ) mGy, DLP = ( 821.97 ) mGycm. Individualized dose optimization techniques were used for this CT.? TECHNIQUE: Axial CT images of the left lower leg were obtained without contrast followed by sagittal and coronal reconstructions. COMPARISON: Radiographs 11/28/2017 FINDINGS: Arterial calcifications. No fractures or osteolytic lesions. No distinct soft tissue masses are identified on this noncontrast study. No fluid collections are seen. The visualized musculature is intact. CT/Extremity Lower without Contra IMPRESSION: No leg masses are identified on this noncontrast study. No osseous or muscular abnormalities are evident. Electronically Signed: Bassem Lemos MD at 22:22 EDT Tel , Service support , CC: Les Jones MD Circular Tank Cooper: Signed ENDOCRINOLOGY VISIT Observed: 02/02/2018 Status: F Source: [facility] REPORT 3:29 PM [facility] [place] [facility] [address] [place] [address] [address] [place] [address] OFFICE VISIT Date of Service: 01/28/18 MR#: [id number] Acct: [id number] Name: GAVINO DAVE Rep #: [id number] : 1975 Provider: Tracy Glez NP Age/Sex: 43/M [place] [facility] [place]: Signed HPI History of present illness Gavino Dave is a 43 year old male who presents for consult of diabetes type 1. Diagnosed at age 15. Accompanied by his . Is with significant renal issues and is following with Dr. Chowdary. He reports he is getting ready to be worked up for a kidney transplant. He is currently taking basaglar 31 units daily and meal insulin 5/5/10 and using 1-50 for correction. Reports frequent low BG while at work and shruthi when he uses his correction. Pt denies difficulty with injections or self monitoring of BG. Denies any signs of infection or irritation at site of injections. Reports taking insulin as directed At time of visit: -Pt denies symptoms of hypertensive emergency (CP,SOB,MACK, or blurred vision) and hypotension(dizziness or lightheadedness) -Pt denies symptoms of hypoglycemia ( sweaty, confusion, anxiety, tremor, hunger, palpitations) and hyperglycemia ( polydipsia, polyuria) -Pt denies potential medication adverse effect. Hypoglycemia Aware of hypoglycemia: When awake Able to self treat low BG: Yes Frequent low Blood sugar: Recently yes Has supply of glucagon: No SMBG 8-10 times daily Before meals and bedtime 35-250 range of BG readings Diet 3 meals and snacks Does not carb count his meals Exercise Is active but does not have a routine exercise program Type: type 1, insulin-requiring Glucose control symptoms: Reports hypoglycemic with activity, daytime hypoglycemia and nocturnal hypoglycemia Weight and fatigue symptoms: Denies snoring Cardiopulmonary symptoms: Denies chest pain at rest, dyspnea on exertion, lightheadedness or myalgias GI symptoms: Reports diarrhea; denies constipation, nausea/dyspepsia or vomiting Skin and extremity symptoms: Reports tingling/numbness/burning; denies erectile dysfunction Other symptoms: Denies blurry vision or change in vision Pertinent visit history: Denies recent visit to ER or recent DKA Self monitoring: Yes Dietary compliance: Diabetes: good Diabetes education in past year: No Glucose testing: demonstrates correct use of meter Sick day education - understands ketone testing: Yes Physical activity: regular Exam Const General: comfortable, well groomed Nutritional Appearance: well nourished Orientation: oriented x3 HENMT Head: normal to inspection, atraumatic Ears: hearing grossly normal bilaterally Nose: external nose normal Mouth: oral mucosae normal, moist mucous membranes Teeth and gingiva: dentition normal Eyes General: appearance normal, both eyes and all related structures Eyelids: eyelids normal Sclera: sclerae normal Pupils: PERRL Resp Effort AND Inspection: normal respiratory effort, able to speak in complete sentences, symmetric chest movement Auscultation: Bilateral: Clear to Auscultation Cardio Rate: regular rate Rhythm: regular rhythm Heart Sounds: S1 normal, S2 normal GI Inspection: normal to inspection Auscultation: normal bowel sounds Palpation: soft, no guarding Skin General: no rashes or lesions noted Lesions: no lesions Diabetic Foot Pulses: L dorsalis pedis pulse: normal, R dorsalis pedis pulse: normal Monofilament test: Left foot: abnormal, Right foot: abnormal Neuro General: oriented x3, moves all extremities Cognition: normal cognition Speech: speech normal Gait: normal gait Motor: muscle tone normal throughout Extrem General: normal to inspection, normal capillary refill, no pedal edema Psych Appearance: grossly normal Mental Status: mental status grossly normal Mood: congruent mood Affect: normal affect Speech and Movement: speech and movement normal Attitude: cooperative Thought Process: normal Judgment: judgment good Intake Vital Signs01/28/18 Height 5 ft 5 in 01/28/18 Weight: 161 lb 4 oz 01/28/18 Body Mass Index (BMI) 26.8 01/28/18 Blood Pressure 157/89 01/28/18 Blood Pressure Location Lt popliteal 01/28/18 Blood Pressure Position Sitting Intake Visit Reasons: Diabetes Investment Broker Required: No Accompanied by: Family / Other Is patient in pain?: No Allergies No Known Allergies Allergy (Unverified 01/28/18 09:56) Medications amlodipine 10 mg tablet 10 mg PO DAILY 01/28/18 [History Confirmed 01/28/18] atorvastatin 20 mg tablet 20 mg PO DAILY 01/28/18 [History Confirmed 01/28/18] chromium picolinate 400 mcg tablet 400 mcg PO DAILY 01/28/18 [History Confirmed 01/28/18] ferrous sulfate ER 142 mg (45 mg iron) tablet,extended release 142 mg PO DAILY tab 01/28/18 [History Confirmed 01/28/18] glycosamine PO 01/28/18 [History Confirmed 01/28/18] insulin aspart U-100 100 unit/mL subcutaneous solution See Label Instructions SC TID ml 01/28/18 [History Confirmed 01/28/18] insulin glargine (U-100) 100 unit/mL (3 mL) subcutaneous pen 31 unit SC DAILY ml 01/28/18 [History Confirmed 01/28/18] krill oil 500 mg capsule mg PO 01/28/18 [History Confirmed 01/28/18] losartan 50 mg tablet 25 mg PO DAILY tab 01/28/18 [History Confirmed 01/28/18] metoprolol tartrate 100 mg tablet 100 mg PO QDAY tab 01/28/18 [History Confirmed 01/28/18] jiakjgyu-rngaeaev-edzmv acid 400 mcg-vit K 20 mcg-lycop 300 mcg tablet tab PO 01/28/18 [History Confirmed 01/28/18] ranitidine 150 mg capsule 150 mg PO DAILY 01/28/18 [History Confirmed 01/28/18] Nurse's Note: blood sugars : low : 34 high : 250 checks 6-10 x qd PFSH Medical History Kidney disease (Acute) Kidney failure (Acute) Type 1 diabetes mellitus (Acute) HTN (hypertension) (Chronic) Surgical History H/O hernia repair (Acute) Hx of appendectomy (Acute) repair of fx arm (Acute) Family History Mother Cancer Breast cancer Skin cancer Brother Diabetes Father Heart disease High cholesterol Social History Smoking Status: Smoker, status unknown alcohol intake: never substance use type: does not use ROS Const Constitutional: Positive for fatigue; no anorexia, body ache, chills, fever(s), frequent falls, decreased energy, malaise, night sweats, weakness, weight change, sleep problems, abnormal sleep pattern, change in appetite, other, headache(s), snoring or excessive sweating Eyes Eyes: Positive for other (eye exam soon); no blurry vision, change in vision, double vision, discharge, dry eyes, bulging eyes, floaters, visual disturbances, eye pain, light sensitivity, spots in vision or tunnel vision ENT ENT: No abnormal hearing, ear pain, ear discharge, ear pressure, hearing loss, tinnitus, dizziness/vertigo, balance problems, nosebleed/epistaxis, nasal congestion, nasal obstruction, nose pain, sinus pressure, sinus pain, nasal discharge, post nasal drip, headache(s), facial pain, dental pain, dry mouth, bad breath, hoarseness, lip swelling, mouth lesions, mouth pain, sore throat, tongue swelling, throat swelling, other, difficulty swallowing or neck pain Resp Respiratory: No cough, change in phlegm color, chest congestion, excessive phlegm production, hemoptysis, pain on inspiration, shortness of breath, pain with cough, snoring, stridor, wheezing or other Cardio Cardiology: No chest pain at rest, chest pain with exertion, leg pain with exertion, excessive sweating, shortness of breath, dyspnea on exertion, generalized swelling, irregular heart rhythm, lightheadedness, orthopnea, radiating jaw, neck or arm pain, fast heart rate, slow heart rate, palpitations or other Gastro GI: Positive for diarrhea; no abdominal pain, belching, bloating, change in bowel habits, change in stool character, coffee ground emesis, constipation, cramping, heartburn, difficulty swallowing, feeling full early, excessive flatus, incontinent of stools, Vomiting blood/hematemesis, blood in stool, loose stools, Black,tarry stools, nausea/dyspepsia, pain with swallowing, vomiting or other Genitourinary Male: No difficulty urinating, burning urination, painful urination, urinary incontinence, urinary frequency, urinary urgency, urinary hesitancy, urinary retention, blood in urine, Frequent nighttime urination/ nocturia, post void dribbling, suprapubic fullness, side pain, sexual problems, genital lesions, genital itching, erectile dysfunction, penile discharge, difficulty with ejaculations, blood in semen, scrotal swelling, testicle lump, testicle pain or other Musc Musculoskeletal: No abnormal walking, joint pain, back pain, deformity, joint swelling, limited range of motion, loss of height, muscle cramps, muscle weakness, decreased muscle mass, body aches, neck pain, numbness, radiating pain into limb, stiffness, tingling or other Skin Skin: No acne, hair loss, change in hair, nail changes, boil, change in skin color, dry skin, redness, excessive hair growth, yellowing of the skin, lesions, itching, rash, skin pain, skin ulcer, sores, skin swelling, wounds or other Breast Breast: No other Neuro Neurology: No frequent falls, weakness, visual disturbances, abnormal hearing, headache(s), abnormal walking, numbness or tingling Psych Psychiatric: No abnormal sleep pattern, No change in appetite Endo Endocrine: Positive for fatigue; no other or excessive sweating Aller/Imm Allergy/Immunologic: No lip swelling, tongue swelling, throat swelling, wheezing or itchy eyes Assessment AND Plan 1. Diabetes mellitus E11.9 2. Uncontrolled type 1 diabetes with renal manifestation E10.29; E10.65 Plan Reviewed patient data. Has frequent low BG during night as well as any time he gives correction. Will reduce his basal insulin as well as his sliding scale. Also will ask patient to begin use of I/C ratio approach to diabetes. Reviewed basic carb counting and the approach to determining his I/C ratio. He is a quick learn and he is given instruction to begin. Begin basaglar 28 units daily and titrate in small increments as needed. Use 1-70 sliding scale. Begin carb counting meals and check before meals and 2 hours post meal Will try to set patient up with dao sensor. Plan Detail Additional Comments 1. Please schedule follow up in 3 weeks 2. Lab work one week before appointment. 3. Discussed importance of regular exercise and recommend starting or continuing a regular exercise program for good health. 4. The patient was encouraged to lose weight for good health 5. The importance of monitoring blood sugar regularly was reviewed. 6. The importance of monitoring the HBA1c level regularly was reviewed. 7. The importance of prper foot care and regularly checking feet to prevent sores and loss of limbs was reviewed. 8. The importance of keeping BP at or below 130/80 to prevent stroke, heart attacks, kidney failure, blindness was reviewed. Spent approximately 60 minutes with patient with over 50% of time spent in discussion and counseling regarding medication adjustment, symptoms and treatment of hypoglycemia, diet adherence, and checking BG before driving. Coding Level of Care Code Off vis,new,level 4 Diagnoses Diabetes mellitus E11.9 Uncontrolled type 1 diabetes with renal manifestation E10.29; E10.65 Depression Screen PHQ-2/9 PHQ-2 Over the last 2 weeks, how often have you been bothered by any of the following problems? 1. Little interest or pleasure in doing things: not at all 2. Feeling down, depressed, or hopeless: not at all Total score: 0 If score is 2 or greater, continue 3. Trouble falling or staying asleep, or sleeping too much: nearly every day 4. Feeling tired or having little energy: nearly every day 5. Poor appetite or overeating: not at all 6. Feeling bad about yourself - or that you are a failure or have let yourself and your family down: not at all 7. Trouble concentrating on things, such as reading the newspaper or watching television: not at all 8. Moving or speaking so slowly that other people could have noticed? - Or the opposite - being so fidgety or restless that you have been moving around a lot more than usual: not at all 9. Thoughts that you would be better off or of hurting yourself in some way: not at all Total score: 6 If you checked off any problems, how difficult have these problems made it for you to do your work, take care of things at home, or get along with other people?: somewhat difficult Source: Developed by Drs. Moshe Leavitt, Rama Zuniga, Meliton Win and colleagues, with an educational skinny from [employer]. Scoring: Total Score Depression Severity Action 1-4 Minimal depression No action needed 5-9 Mild depression Repeat PHQ-9 at follow up 10-14 Moderate depression Make tx plan,consider counseling, fup, prescription 02/02/18 1529 <Electronically signed by Tracy CASAS> Date Tracy CASAS Cosigner Signature: Date (if applicable) CC: RENAL PROFILE Collected: 01/28/2018 Status: F Source: [place]LEX 11:49 AM [facility] [place] TYPE CODE TESTS RESULT OUT OF RANGE REFERENCE UNITS LAB L501.0100 74-106 mg/dL Normal GLU 95 Result Comment: Please note revised GLUCOSE reference range effective 2017. LAB L501.1000 7-18 mg/dL High BUN 69 LAB L501.1100 0.70-1.30 mg/dL High CREAT,SERUM 3.79 Result Comment: The validity of the calculated GFR AND GFRAA in patients over 70 years has not been determined. Clinical correlation is essential. LAB L501.1110 >60 mL/min Low EST GFR 19 Result Comment: Non- GFR Calc LAB L501.1115 >60 mL/min Low EST GFR - AA 22 Result Comment: GFR Calc LAB L501.1300 10-20 RATIO Normal BUN/CRE 18.2 LAB L501.1800 3.2-5.0 g/dL Normal ALB 4.0 LAB L501.2200 8.5-10.1 mg/dL CA Normal 9.1 LAB L501.2300 2.5-4.9 mg/dL Normal PHOS 3.8 LAB L501.5300 136-145 mmol/L NA Normal 138 LAB L501.5600 3.5-5.1 mmol/L High K 5.3 LAB L501.5900 98-107 mmol/L CL Normal 106 LAB L501.6100 21.0-32.0 mmol/L Normal CO2 22.0 Performed By: #### L500.3600 #### [facility] [address] [place], [address] PTHIN Collected: 01/28/2018 Status: F Source: [place] 11:49 AM [facility] [place] TYPE CODE TESTS RESULT OUT OF RANGE REFERENCE UNITS LAB L509.1000 18.4-80.1 pg/mL High PTHIN 86.1 Performed By: #### L509.1000 #### [facility] [address] [place], [address] VITAMIN D,25 HYDROXY Collected: 01/28/2018 Status: F Source: [place] 11:49 AM [facility] [place] TYPE CODE TESTS RESULT OUT OF RANGE REFERENCE UNITS LAB L506.1000 29.95-100.01 ng/mL Normal Vitamin D 30.1 25-OH Result Comment: Vitamin D 25(OH) Status Range Deficiency <20 ng/mL (50nmol/L) Insuffciency 20 - 30 ng/mL (50 - 75 nmol/L) Sufficiency 30 - 100 ng/mL (75 - 250 nmol/L) Toxicity >100 ng/mL (>250 nmol/L) Performed By: #### L506.1000 #### [facility] [address] [place], [address] CNCO Observed: 01/27/2018 Status: COMPLETED Source: HALLIDAY 12:[address] [facility] REPOSITORY Letter Text [facility] Pancreas Transplant Program Pre-Transplant Office [address] [place] [address], [address] [address] , ext. [phone] January 27, 2018 Dear Mr. Gavino Dave, Our office had received a referral for you for a kidney transplant evaluation. We made attempts to contact you on 01/21/2018 and 01/27/2018 but we were unable to reach you. If you are ready to pursue transplantation at [facility], please call our office at [phone] or toll-free at ext [phone] to speak with a member of our team about getting started. If this is not the right time for you to pursue transplantation, please call us in the future when you are ready. If we do not hear from you by 5pm on 02/10/2018, we will close your referral for transplant. Respectfully yours, [facility] cc: Dr. Hanane Chowdary PROTEIN, URINE 24HR Collected: 01/12/2018 Status: F Source: FLEX 12:00 PM [facility] [place] Order Comment: PATIENT WAS NOT PRESENT, PATIENT WILL BE BACK FOR A BLOOD DRAW ON 01/16/18 TYPE CODE TESTS RESULT OUT OF RANGE REFERENCE UNITS LAB L501.1850 24.0 HOURS Normal UR COLLECT 24.0 TIME LAB L501.1875 mL Normal UR TOTAL 1675 VOLUME LAB L501.1900 <11.9 mg/dL High URINE PROTEIN 100.5 LAB L501.1925 <150 MG/24HR mg/24HR High 24hr UR 1683.4 PROTEIN Performed By: #### L500.9000 #### [facility] [place], [address] 24 HR UR CREATININE Collected: 01/12/2018 Status: F Source: FLEX CLEARANCE 12:00 PM [facility] [place] [facility] Order Comment: PATIENT WAS NOT PRESENT, PATIENT WILL BE BACK FOR A BLOOD DRAW ON 01/16/18 TYPE CODE TESTS RESULT OUT OF RANGE REFERENCE UNITS LAB L501.0050 24.0 HOURS UR Normal COLLECT TIME 24.0 LAB L501.0075 mL UR Normal TOTAL VOLUME 1675 LAB L501.1050 0.8-1.3 mg/dL High SERUM CREAT 5.1 LAB L501.1110 >60 mL/min Low EST GFR 13 LAB L501.1115 >60 mL/min Low EST GFR - AA 13 LAB L501.1150 NO RANGE EST. mg/dL URINE Normal CREAT 78.7 LAB L501.1250 100-200 ml/min Low CREAT CLEARANCE 17 Performed By: #### L500.4507 #### [facility] [address] [place], [address] TIBIA AND FIBULA Observed: 11/28/2017 Status: F Source: FLEX 2 VIEWS 4:56 PM [facility] [place] [facility] Imaging Services [address] [place] [address] Tibia AND Fibula 2 Views MR#: [id number] Acct: [id number] Name: GAVINO DAVE Rep #: [id number] : 1975 M 42 From: Jose A Singh DO PCP: Les Jones MD Status: REG CLI Study: Tibia AND Fibula 2 Views Date of Exam: 11/28/17 Exam# [id number] Ordering Dr: Luis Jones MD STUDY: X-RAY - LEFT TIBIA AND FIBULA REASON FOR EXAM: Male, 42 years old. Lumbar and mid left lower leg anteriorly TECHNIQUE: 2 view(s) of the tibia and fibula were obtained. COMPARISON: None. FINDINGS: Normal visualized tibia. Normal visualized fibula. There is no demonstrated acute fracture. Vascular calcifications are seen. RAD/Tibia AND Fibula 2 Views IMPRESSION: Atherosclerotic vascular changes. No discrete bony abnormality. Electronically Signed: Jose A Singh DO at 8:57 EDT Tel , Service support , CC: Les Jones MD Circular Tank Cooper: Signed DOWNTIME REPORT Observed: 11/21/2017 Status: F Source: FLEX 11:46 AM [facility] [place] [facility] Medical Records Department [address] [place] [address] Downtime Report MR#: [id number] Acct: [id number] Name: GAVINO DAVE Rep #: [id number] : 1975 42 From: Ish Valentine PCP: Les Jones MD Status: REG CLI This patient was seen during an EMR downtime November 04, 2017 - November 11, 2017. This patient may have a combination of paper and electronic documentation or all paper documentation. All documentation is viewable within the e-chart portion of [employer] for each patient visit. RENAL ARTERY DUPLEX Observed: 11/13/2017 Status: F Source: FLEX 3:00 PM [facility] [place] [facility] Cardiovascular Services [address] [place] [address] Renal Artery Duplex Ultrasound 11/04/17 0800 MR#: [id number] Acct: [id number] Name: GAVINO DAVE Rep #: [id number] : 1975 42 From: Silvano Velarde MD Attending Dr: Les Jones MD Status: REG CLI Ordering Dr: Luis Jones MD Date: 11/04/17 Location: [facility] Sex: M C Admitted: Reason For Study: HTN - CKD Right Renal Artery Left Renal Artery Right renal artery ostium Left renal artery ostium 104.0/29.2 125.0/33.7 RSV/EDV. PSV/EDV. Right renal artery proximal Left renal artery proximal PSV/EDV 140.0/38.3 PSV/EDV. 114.0/25.5 . Right renal artery mid 139.0/43.8 Left renal artery mid 102.0/23.7 PSV/EDV. PSV/EDV . Right renal artery distal 134.0 Left renal artery distal 112.0/27.4 PSV/EDV. PSV/EDV. Right Renal Parenchyma Left Renal Parenchyma Upper Pole Medula 41.9/11.0 Left upper pole medulla 33.6/8.6 PSV/EDV. PSV/EDV . Right upper pole medulla EDR .26 . Left upper pole medulla EDR .26 . Right upper pole medulla R.I. .74 . Left upper pole medulla R.I. .75 . Upper Evan Cortx 23.8/6.7 PSV/EDV. UP Cortex 15.0/4.3 PSV/EDV. Right upper pole cortex EDR .28 . Left upper pole cortex EDR .29 . Right upper pole cortex R.I. .72 . Left upper pole cortex R.I. .71 . Right lower Pole medulla 26.0/8.6 Left lower Pole medulla 30.3/8.9 PSV/EDV . PSV/EDV . Right lower pole medulla EDR .33 . Left lower pole medulla EDR .29 . Right lower pole medulla R.I. .67 . Left lower pole medulla R.I. .71 . Lower Pole Cortex 22.9/6.1 PSV/EDV. Lower Pole Cortx 20.5/6.7 PSV/EDV. Right lower pole cortex EDR .27 . Left lower pole cortex EDR .33 . Right lower pole cortex R.I. .73 . Left lower pole cortex R.I. .67 . Right Renal Hilar Left Renal Hilar Right Hilar avg 45.9/12.8 PSV/EDV. LT Hilar avg 73.9/12.3 PSV/EDV . Right hilar acceleration time 66 Left hilar acceleration time 51 m/sec. m/sec. Right Renal Dimensions Left Renal Dimensions Right kidney size 8.7 cm . Left kidney size 8.5 cm . Right cortical dimension 1.5 cm . Left cortical dimension 1.5 cm . Aorta Proximal abdominal aorta 1.5 x 1.6 cm . Distal abdominal aorta 1.0 x 1.1 cm . Proximal abdominal aorta peak systolic velocity is 119.0 cm/sec . Distal abdominal aorta peak systolic velocity is 101.0 cm/sec . Interpretation Summary Dimensions of the intra-abdominal aorta appear normal, without evidence of aneurysmal dilatation. Renal artery velocities are bilaterally normal. Acceleration times are normal bilaterally. There is no evidence of hemodynamically significant renal artery stenosis on either side. Renovascular resistance appears to be bilaterally elevated . Cortical dimensions are bilaterally normal. The right kidney is small in size. The left kidney is small in size. Ordering Physician: Les Jones Referring Physician: Les Jones 11/13/17 1500 Date Silvano Velarde MD CC: Les Jones MD Date Dictated: 11/04/17 0800 Date Transcribed: 11/13/17 1500 Circular Tank Cooper: Signed PROGRESS Observed: 09/04/2017 Status: COMPLETED Source: [place] 2:54 PM [facility] REPOSITORY HNO ID: [id number] Author: Edwina Navarro Service: (none) Author Type: 411 Directory Assistance Operator Type: Progress Notes Filed: 09/04/2017 2:55 PM Note Text: Certified letter was not claimed. Label states Return to Sender, unclaimed, unable to forward. Edwina Navarro MA PROGRESS Observed: 08/05/2017 Status: COMPLETED Source: [place] 12:25 PM [facility] REPOSITORY HNO ID: [id number] Author: Edwina Navarro Service: (none) Author Type: 411 Directory Assistance Operator Type: Progress Notes Filed: 08/06/2017 4:59 PM Note Text: Mailed certified letter to patient. CNPTOUTREAKRIS Observed: 08/05/2017 Status: COMPLETED Source: [place] 12:00 AM [facility] REPOSITORY Patient Outreach (FAMPWS) GAVINO DAVE ([id number]) 1975 M Date Time Provider Department 08/05/17 EDWINA NAVARRO) FAMPWS During your visit today, we recorded the following information about you: Edwina Navarro MA 08/06/2017 4:59 PM Signed Mailed certified letter to patient. Edwina Navarro MA 09/04/2017 2:55 PM Signed Certified letter was not claimed. Label states Return to Sender, unclaimed, unable to forward. Edwina Navarro MA Allergies As of Date: 08/05/2017 Noted Allergy Reaction LISINOPRIL 11/08/2008 3 - Cough Date Reviewed: 08/10/2015 Reviewed by: Itzel Abbott Ma - Fully Assessed Reason for Visit: PHMA/Care Gap Outreach [3605] Prescriptions as of 08/05/2017 Sig: INSULIN ASPART U-100 100 UNI* INJECT SUBQ ACCORDING TO SLID* AMLODIPINE 10 MG TABLET TAKE 1 TABLET EVERY DAY INSULIN GLARGINE (U-100) 100 * Inject 26 units subcutaneousl* LOSARTAN 100 MG TABLET Take 1 tablet by mouth once d* LOVASTATIN 40 MG TABLET TAKE 1 TABLET BY MOUTH DAILY * TADALAFIL 20 MG TABLET Take 1 tablet by mouth once d* SILDENAFIL 100 MG TABLET Take 1 tablet by mouth as nee* INSULIN GLARGINE (U-100) 100 * 22 units daily in the morning* PEN NEEDLE, DIABETIC 31 GAUGE* Use as directed 5-6 times eric* COMPOUNDED PRESCRIPTION BLOOD PRESSURE CUFF FOR HOME * Problem List As Of Date 08/05/2017 Noted Resolved Essential hypertension [I10] INVALID FOR* Uncontrolled type 1 diabetes mellitus with allie*INVALID FOR* MIXED HYPERLIPIDEMIA [E78.2] INVALID FOR* Renal failure (HCC) [N19] INVALID FOR* Letter Text Elpidio Servin MD [address] [facility] [id number] Edwina Navarro MA, Population Health M.A. August 05, 2017 Gavino Dave [address] [facility] [address] Dear Mr. Dave In an effort to serve your healthcare needs, it has come to the attention of Elpidio Servin MD, your Primary Care Provider, that you are overdue for routine health care. We've attempted to contact you and have been unsuccessful. Please call the office at [phone] to schedule an appointment for Follow Up. In addition, you are due for the following health maintenance Health Maintenance Due: DILATED RETINAL EXAM due on 03/06/2015 TETANUS due on 11/13/2015 HBA1C due on 02/10/2016 URINE ALBUMIN CREATININE RATIO due on 08/09/2016 LDL due on 08/09/2016 DIABETIC FOOT EXAM due on 08/16/2016 INFLUENZA(1) due on 02/01/2017 If any of these routine health care items were completed by an outside facility, please have that office fax the results to [phone] Attn: Elpidio Servin MD or bring the records with you to your appointment. We will gladly update your record. If you have any questions, please feel free to call the office at [phone] or message us via [employer]. Thank you for choosing the [facility]. Sincerely, Edwina Navarro MA, [facility].A. (electronically signed to expedite mailing) Encounter Status:Closed by EDWINA NAVARRO on 08/06/17 ALLERGIES ALLERGIES DATE TYPE / CODE NAME / CODE REACTION SEVERITY SOURCE 04/18/2018 Drug No Known Unknown [facility] Allergy/4160 Allergies/F00 Hospital 16269(SNOMED 2082169(RXNOR Repository CT) M) ENCOUNTERS ENCOUNTERS ADMIT/DISCHARGE ACCOUNT ADMITTING ENCOUNTER LOCATION SOURCE NUMBER CLASS 06/16/2018 [id number] Ambulatory [facility] ing:LAB.FUTUR Repository E 06/05/2018 [id number] Ambulatory [facility] ing:MTLAB Repository 05/15/2018 [id number] Ambulatory [facility] ing:POLAB3 Repository 05/05/2018/05/05/20 [id number] Ambulatory BMSBuilding:B Andreas [facility] Repository 05/05/2018 [id number] Ambulatory [facility] ing:MTLAB Repository 04/21/2018/04/21/20 [id number] Ambulatory [address] ing:SDCRoom: Repository AC09 04/21/2018 [id number] Ambulatory BMSBuilding:W Flex [facility] Repository 04/21/2018/04/21/20 [id number] Ambulatory BMSBuilding:B Flex 18 MS.[facility] Repository 04/14/2018/04/14/20 [id number] Ambulatory BMSBuilding:B Flex 18 [facility] Hospital Repository 04/10/2018/04/10/20 [id number] Ambulatory BMSBuilding:B Andreas 18 [facility] Hospital Repository 04/07/2018/04/07/20 [id number] Ambulatory BMSBuilding:B Andreas 18 [facility] Hospital Repository 04/01/2018 [id number] Ambulatory [facility] Repository 04/01/2018 [id number] Ambulatory [facility] Repository 03/26/2018/03/26/20 [id number] [facility] [address] [facility] ing:SDCRoom: Repository 20 03/26/2018/03/26/20 [id number] Ambulatory BMSBuilding:B Andreas 18 [facility] Repository 03/26/2018 [id number] Ambulatory BMSBuilding:W Flex [facility] Hospital Repository 03/25/[id number] [facility] Repository 03/20/[id number] [facility] Repository 03/19/2018/03/19/20 [id number] Ambulatory BMSBuilding:B Flex 18 [facility] Hospital Repository 03/13/[id number] [facility] Repository 03/13/2018 [id number] [facility]DC Repository 02/26/2018 [id number] Ambulatory [facility] Repository 02/24/2018 [id number] [facility] ing:MRI Repository 02/21/2018 [id number] Ambulatory [facility] Repository 02/21/2018 [id number] Ambulatory [facility] Repository 02/21/2018 [id number] Ambulatory [facility] Repository 02/21/2018 [id number] Ambulatory [facility] Repository 02/21/2018 [id number] Ambulatory [facility] Repository 02/21/2018 [id number] Ambulatory [facility] Repository 02/21/2018 [id number] Ambulatory [facility] Repository 02/13/2018/02/14/20 [id number] Ambulatory BMSBuilding:B Andreas 18 MS.SRUTHI [facility] Hospital Repository 02/07/2018 [id number] [facility] Repository 02/06/2018/03/02/20 [id number] Ambulatory Andreas Andreas[address] Hospital ing:DC Repository 01/30/2018 [id number] Ambulatory [facility] Hospital ing:LAB.FUTUR Repository E 01/28/2018 [id number] Ambulatory [facility] Hospital ing:LAB.FUTUR Repository E 01/28/2018/01/29/20 [id number] Ambulatory BMSBuilding:B Flex 18 MS.AVELINO [facility] Repository 01/24/2018 [id number] [facility] Hospital ing:LAB.FUTUR Repository E 01/23/2018/02/01/20 [id number] Ambulatory Andreas Flex[address] Hospital ing:DC Repository 01/14/2018 [id number] [facility] Hospital ing:LAB.FUTUR Repository E 11/28/2017 [id number] [facility] Hospital ing:MTRAD Repository 11/04/2017 [id number] [facility] Hospital ing:CVS Repository PAYERS PAYERS ENCOUNTER GUARANTOR PAYER SUBSCRIBER SOURCE 06/16/2018 GAVINO Hackett Primary AGVINOLAMIN Spearoster [id number] STEVIC Insurance:MEDICAL MILICHDOB: [facility] [id number] Health Center [address]Apb: Number: Repository [id number] () Date:2151-57-83QW [address] [place] [address]KG: 06/16/2018 Secondary NOT GIVENUNK Flex Insurance:SELF PAY [facility] Number: Effective Repository Date:2018-05-16 06/05/2018 GAVINO Hackett Primary GAVINO Spearoster [id number] STEVIC Insurance:MEDICAL MILICHDOB: [facility] [id number] Health Center [address]Acv: Number: Repository [id number] (HP) Date:5790-28-36JS [address] [address]HN: 06/05/2018 Secondary NOT GIVENUNK Andreas Insurance:SELF PAY [facility] Number: Effective Repository Date:2018-06-05 05/15/2018 GAVINO Lew Primary GAVINO Mccord [id number] STEVIC Insurance:MEDICAL MILICHDOB: [facility] [id number] Hospital [place] [address]Ibf: Number: Repository [id number] (HP) Date:4489-14-81TF [address] [address]OQ: 05/15/2018 Secondary NOT GIVENUNK Andreas Insurance:SELF PAY [facility] Number: Effective Repository Date:2018-05-06 05/05/2018 GAVINO M Primary GAVINO Mccord [id number] STEVIC Insurance:MEDICAL MILICHDOB: [facility] [id number] Health Center [address]Cad: Number: Repository [id number] (HP) Date:8099-22-50HN [address] [address]DC: 05/05/2018 Secondary NOT GIVENUNK Flex Insurance:SELF PAY [facility] Number: Effective Repository Date:2018-05-05 05/05/2018 GAVINO M Primary GAVINO Mccord [id number] STEVIC Insurance:MEDICAL MILICHDOB: [address]08-18[facility] [place] [address]Bqt: Number: Repository [id number] (HP) Date:3441-76-84KF [address] [address]KZ: 05/05/2018 Secondary NOT GIVENUNK Flex Insurance:SELF PAY [facility] Number: Effective Repository Date:2018-02-24 04/21/2018 GAVINO Hackett Primary Insurance:MED GAVINO MEZA [facility] MILICHDOB: [facility], Number: [id number] Health Center [address]Acz: [id number] Repository Date:4153-69-82AJ [address] () 92644UZFUSHWFU, [place] [address]LM: CHECK WEBSITE 04/21/2018 Secondary NOT GIVENUNK Andreas Insurance:SELF PAY [facility] Number: Effective Repository Date:2018-04-15 04/21/2018 GAVINO Hackett Primary Insurance:MED GAVINO FLOWERS [facility] MILICHDOB: [facility], Number: [id number] Health Center [address]Xgu: [id number] Repository Date:0120-65-99OQ [address] () [place]TDFBTKXUNScott [place] [address]WP: CHECK WEBSITE 04/21/2018 Secondary NOT GIVENUNK Andreas Insurance:SELF PAY [facility] Number: Effective Repository Date:2018-04-21 04/21/2018 GAVINO Hackett Primary Insurance:CRISTI FLOWERS [facility]: [facility], Number: [id number] Health Center [address]Ljd: [id number] Repository Date:1332-83-13OZ [address] () [address]WALHUALPX, [place] [address]JL: CHECK WEBSITE 04/21/2018 Secondary NOT GIVENUNK Andreas Insurance:SELF PAY [facility] Number: Effective Repository Date:2018-04-21 04/14/2018 GAVINO Hackett Primary Insurance:MED GAVINO FLOWERS [facility]wayICHDOB: [facility], Number: [id number] Health Center [address]Hee: [id number] Repository Date:4179-80-89OZ [address]OX () [address]33[address]FYOXYDPFH, [place] [address]BI: CHECK WEBSITE 04/14/2018 Secondary NOT GIVENUNK Flex Insurance:SELF PAY [facility] Number: Effective Repository Date:2018-04-12 04/10/2018 GAVINO M Primary Insurance:MED GAVINO Hackett Andreas [id number] [facility]: [facility], Number: [id number] Health Center [address]Kda: [id number] Repository Date:5412-15-88NK [address] () [address]AJSHEGNYQ, [place] [address]NY: CHECK WEBSITE 04/10/2018 Secondary NOT GIVENUNK Andreas Insurance:SELF PAY [facility] Number: Effective Repository Date:2018-04-10 04/07/2018 GAVINO Lew Primary Insurance:MED GAVINO Hackett Flex[address]: [facility], Number: [id number] Health Center [address]Pbf: [id number] Repository Date:5629-58-19FV [address] () [address]186CVPKZVGII, [place] [address]UC: CHECK WEBSITE 04/07/2018 Secondary NOT GIVENUNK Andreas Insurance:SELF PAY [facility] Number: Effective Repository Date:2018-04-03 04/01/2018 [facility]: [facility] Policy Number: [id number] Repository [facility] [id number] [facility] [place] Date:Plan Name:Health [place], [place] [address]Bmz: [phone]: (HP) [phone] (HP) 04/01/2018 Secondary [facility] Insurance:Medical MILICHDOB: [facility] [id number] Repository Number: STEVIVCMARSHALLV [id number] [place], [place] Date:Plan Name:Health [address]Nyl: (HP) 04/01/2018 GAVINO Primary GAVINO University MILICHDOB: Insurance:[facility] MILICHDOB: Hospitals Policy Number: [id number] Repository STEVIVCMARSHALLV [id number] [facility]INICIVCMARSVIRTUA [place] Date:Plan Name:[place], [place] [address]Jbt: [phone]: (HP) [phone] () 04/01/2018 Secondary [facility] Insurance:Medical MILICHDOB: [facility] [id number] Repository Number: STEVIVCMARSHALLV [id number] [facility] [place] Date:Plan Name:[facility] [address]Uxf: () 03/26/2018 GAVINO Hackett Primary Insurance:MED GAVINO Mccord [address]: [facility], Number: [id number] [facility] [address]Hwy: [id number] Repository Date:6744-97-55FZ [address]OX () [address]14UOSOGBINQ, [place] [address]DL: CHECK WEBSITE 03/26/2018 Secondary NOT GIVENUNK Flex Insurance:SELF PAY [facility] Number: Effective Repository Date:2018-02-13 03/26/2018 GAVINO Hackett Primary Insurance:MED GAVINO Hackett [address]: [facility], Number: [id number] [facility] [address]Bkt: [id number] Repository Date:0137-91-02EI [address]OX () [address]33WZSLZIXBS, [place] [address]TZ: CHECK WEBSITE 03/26/2018 Secondary NOT GIVENUNK Andreas Insurance:SELF PAY [facility] Number: Effective Repository Date:2018-03-26 03/26/2018 GAVINO Hackett Primary Insurance:MED GAVINO Mcocrd [address]: [facility], Number: [id number] [facility] [address]Uwz: [id number] Repository Date:5192-06-28IZ [address] ) [address]YZTWRFDWV, [place] [address]MB: CHECK WEBSITE 03/26/2018 Secondary NOT GIVENUNK Andreas Insurance:SELF PAY [facility] Number: Effective Repository Date:2018-03-26 03/25/2018 [facility]B: Insurance:[facility] MILICHDOB: Hospitals Policy Number: [id number] Repository [facility] [id number] [place]IVCMARSHARTF[place], [place] Date:Plan Name:[place], [place] [address]Fqr: [phone]: () [phone] () 03/20/2018 [facility]B: Insurance:Medical MILICHDOB: [facility] [id number] Repository [facility]OH[facility] Number: STEVIVCMARSHARTFORD, [place] [id number] [place], [place] [address]Wbh: (330) Date:2760-12-90Ucvs [address]Mvn: () Name:[address]3102 () 03/19/2018 [facility] Andreas[address] Insurance:MEDICAL [facility]: [facility] [id number] Health Center [address]Hev: Number: Repository [id number] () Date:2782-91-18XH [address], [place] [address]JR: 03/19/2018 Secondary NOT GIVENUNK Andreas Insurance:SELF PAY [facility] Number: Effective Repository Date:2018-03-19 03/13/2018 [facility]B: Insurance:[facility] MILICHDOB: Hospitals Policy Number: [id number] Repository [facility] [id number] STEVIVCMARSHALLV [place], [place] Date:Plan Name:[place], [place] [address]Tar: [phone]: (HP) [phone] (HP) 03/13/2018 Secondary [facility] Insurance:Medical MILICHDOB: [facility] [id number] Repository Number: STEVIVCMARSHALLV [id number] [place], [place] Date:Plan Name:[place] [address]Tel: (HP) 03/13/2018 GAVINO Hackett Primary GAVINO [place] [address] STEVIC Insurance:MEDICAL MILICHDOB: [facility] [id number] Health Center [address]Zyc: Number: Repository [id number] () Date:1346-05-82TE [address] [place] [address]TT: 03/13/2018 Secondary NOT GIVENUNK Andreas Insurance:SELF PAY [facility] Number: Effective Repository Date:2018-03-03 02/26/2018 GAVINO [facility]HDOB: Insurance:[facility]: [facility] Policy Number: [id number] Repository HANNAIVCMARSHALLV [id number] STEVIVCMARSHALLV [place] Date:Plan Name:[place], [place] [address]Aae: [phone]: (HP) [phone] (HP) 02/24/2018 GAVINO Hackett Primary GAVINO [address] Insurance:MEDICAL [facility] HOSPITALICHDOB: [facility] [id number] Hospital [place] [address]Zom: Number: Repository [id number] () Date:8176-80-96EO [address] [place] [address]JM: 02/24/2018 Secondary NOT GIVENUNK Flex Insurance:SELF PAY [facility] Number: Effective Repository Date:2018-02-18 02/21/2018 [facility] MILICHDOB: [facility] Policy Number: [id number] Repository STEVIVCMARSHALLV [id number] STEVIVCMARSHALLV [place], [place] Date:Plan Name:Health [place] [address]Xoj: [phone]: (HP) [phone] (HP) 02/21/2018 [facility] Insurance:Medical [facility] [id number] Repository Number: STEVIVCMARSHALLV [id number] [place] Date:Plan Name:Health [address]Qrm: (HP) 02/21/2018 [facility]: Insurance:[facility]: [facility] Policy Number: [id number] Repository STEVIVCMARSHALLV [id number] STEVIVCMARSHALLV [place] Date:Plan Name:Health [place], [place] [address]Rla: [phone]) [id number]: (HP) [phone] (HP) 02/21/2018 [facility] Insurance:Medical [facility]: [facility] [id number] Repository Number: STEVIVCMARSHALLV [id number] [place] Date:Plan Name:Health [address]Hgl: (HP) 02/21/2018 [facility]: Insurance:[facility] MILICHDOB: [facility] Policy Number: [id number] Repository STEVIVCMARSHALLV [id number] STEVIVCMARSHALLV [place] Date:Plan Name:Health [place] [address]Mal: 330) [id number]: (HP) [phone] (HP) 02/21/2018 [facility] Insurance:Medical [facility] HOSPITALICHDOB: [facility] [id number] Repository Number: STEVIVCMARSHALLV [id number] [place] Date:Plan Name:Health [address]Nfj: (HP) 02/21/2018 [facility] Insurance:Self [facility] PayPolic Number: Repository STEVIVCMARSHALLV Effective Date:Plan [place] Name:Health [address]Cme: (HP) 02/21/2018 [facility]B: Insurance:[facility]NOR[facility]. DEAN HOSPITALDOB: [facility] Policy Number: [id number] Repository STEVIVCMARSHALLV [id number] STEVIVCMARSHALLV [place] Date:Plan Name:Health [place] [address]Llj: [phone]: (HP) [phone] (HP) 02/21/2018 [facility] Insurance:Medical [facility]: [facility] [id number] Repository Number: STEVIVCMARSHALLV [id number] [place] Date:Plan Name:Health [address]Qcj: (HP) 02/21/2018 [facility]B: Insurance:Medical [facility]: [facility] [id number] Repository STEVIVCMARSHALLV Number: STEVIVCMARSHALLV [place] [id number] [place], [place] [address]Rqf: (330) Date:Plan Name:Health [address]Rtp: (HP) [phone] (HP) 02/21/2018 [facility]B: Insurance:Medical [facility]: [facility] [id number] Repository STEVIVCMARSHALLV Number: STEVIVCMARSHALLV [place] [id number] [place], [place] [address]Sap: (330) Date:Plan Name:[facility] [address]Wml: (HP) [phone] () 02/13/2018 GAVINO Hackett Primary Insurance:MED GAVINO Lew Andreas [id number] STEVIC [employer]UT[employer] TPAPolicy MILICHDOB: [facility], Number: [id number] Health Center [address]Ekb: [id number] Repository Date:0643-20-34XL [address]OX () [address]262QEJOPWATU, [place] [address]GQ: CHECK WEBSITE 02/13/2018 Secondary NOT GIVENUNK Flex Insurance:SELF PAY [facility] Number: Effective Repository Date:2018-01-23 02/07/2018 GAVINO Hackett Primary Insurance:MED GAVINO Hackett Andreas [id number] STEVIC MUTUAL TPAPolicy MILICHDOB: [facility], Number: [id number] Health Center [address]Uiq: [id number] Repository Date:6652-69-40YP [address]OX () [address]94AIZXPEVGM, [place] [address]RX: CHECK WEBSITE 02/07/2018 Secondary NOT GIVENUNK Andreas Insurance:SELF PAY [facility] Number: Effective Repository Date:2018-01-28 02/06/2018 GAVINO Hackett Primary Insurance:MED GAVINO M Flex [id number] STEVIC MUTUAL [facility]ITALPolicy MILICHDOB: [facility], Number: [id number] Health Center [address]Piq: [id number] Repository Date:2509-82-57BC [address]OX () [address]EYEOKPLCB, [place] [address]AQ: CHECK WEBSITE 02/06/2018 Secondary NOT GIVENUNK Flex Insurance:SELF PAY [facility] Number: Effective Repository Date:2018-02-01 01/30/2018 GAVINO Hackett Primary Insurance:MED GAVINO Hackett Andreas [id number] STEVIC MUTUAL TPAPolicy MILICHDOB: [facility], Number: [id number] Health Center [address]Mxs: [id number] Repository Date:0143-40-35XU BOX () [address]SAADEOQTH, [place] [address]JZ: CHECK WEBSITE 01/30/2018 Secondary NOT GIVENUNK Andreas Insurance:SELF PAY [facility] Number: Effective Repository Date:2018-01-30 01/28/2018 GAVINO Hackett Primary Insurance:MED GAVINO Hackett Andreas [id number] STEVIC [place] TPAPolicy MILICHDOB: [facility], Number: [id number] Health Center [address]Bqd: [id number] Repository Date:3520-20-28BP [address]OX () [address]MJYNAHLSI, [place] [address]MO: CHECK WEBSITE 01/28/2018 Secondary NOT GIVENUNK Flex Insurance:SELF PAY [facility] Number: Effective Repository Date:2018-01-24 01/28/2018 GAVINO Hackett Primary Insurance:MED GAVINO M Andreas [id number] [facility]ITALP[facility] MILICHDOB: [facility], Number: [id number] Health Center [address]Swi: [id number] Repository Date:5760-63-35OX BOX () [address]47UBFFJVFDN, [place] [address]JV: CHECK WEBSITE 01/28/2018 Secondary NOT GIVENUNK Andreas Insurance:SELF PAY [facility] Number: Effective Repository Date:2018-01-28 01/24/2018 GAVINO Hackett Primary Insurance:MED GAVINO [id number] [facility] MIL[facility], Number: [id number] [address]Gbn: [id number] Repository Date:3876-11-80[address] () [address], [place] [address]NA: CHECK WEBSITE 01/24/2018 Secondary NOT GIVENUNK Flex Insurance:SELF PAY [facility] Number: Effective Repository Date:2018-01-24 01/23/2018 GAVINO Hackett Primary Insurance:MED GAVINO Hackett Andreas [id number] [facility] MILICHDOB: [facility], Number: [id number] Health Center [address]Wxb: [id number] Repository Date:0290-75-37[address] () [address], [place] [address]CP: CHECK WEBSITE 01/23/2018 Secondary NOT GIVENUNK Flex Insurance:SELF PAY [facility] Number: Effective Repository Date:2018-01-23 01/14/2018 GAVINO Hackett Primary Insurance:MED GAVINO Hackett Flex [id number] [facility] MILICHDOB: [facility], Number: [id number] Health Center [id number]: [id number] Repository Date:7062-75-27[address] () [address], [place] [address]DH: CHECK WEBSITE 01/14/2018 Secondary NOT GIVENUNK Andreas Insurance:SELF PAY [facility] Number: Effective Repository Date:2018-01-13 11/28/2017 GAVINO Hackett Primary Insurance:MED GAVINO Spearoster [id number] [facility] MILICHDOB: [facility], Number: [id number] Health Center [address]Tnr: [id number] Repository Date:7480-57-45[address] () [address], [place] [address]EU: CHECK WEBSITE 11/28/2017 Secondary NOT GIVENUNK Flex Insurance:SELF PAY [facility] Number: Effective Repository Date:2017-11-28 11/04/2017 GAVINO Hackett Primary GAVINO Mccord [id number] STEVIC Insurance:MEDICAL MILICHDOB: [facility] [id number] Health Center [id number]: Number: Repository [id number] () Date:9354-10-39[address], [place] [address]YB: 11/04/2017 Secondary NOT GIVENUNK Flex Insurance:SELF PAY [facility] Number: Effective Repository Date:2017-10-15
== END ==
PROVIDERS: Family Provider Family Medicine; PCP Family Medicine; Referring Provider Internal Medicine Nephrology; Visit Provider Internal Medicine Nephrology
DX: N18.4 Chronic kidney disease, stage 4 (severe) (principal)
CPT/HCPCS: 36415; 80069

== ENCOUNTER → 2018-05-15 12:14 | Outpatient (CLI) | payer OTHER, SELFPAY ==
[2018-04-21 07:39] VITALS: BMI 25.6
[2018-05-15 13:09] LABS: PTHIN 105.7 pg/mL (18.4-80.1)
--- OUTSIDE RECORDS SUMMARY | 2018-07-01 07:22 | XMS RPT_ITS ---
:1975 Author Organization OHIP Support Name Relationship Address Phone BATSHEVA DAVE Unavailable [address] + [place] [address] [facility] Unavailable [address] + [place] [address] UNITI Unavailable [address] + [place] [address] [facility] Unavailable [address] + [place] [address] [facility] Unavailable [address] + [place] [address] UNIT[facility] Unavailable [address] + [place] [address] [facility] Unavailable [address] + [place] [address] [facility] Unavailable [address] + [place] [address] UNIT[facility] Unavailable [address] + [place] [address] TENZIN BATSHEVA Unavailable [address] + [place] [address] [facility] Unavailable [address] + [place] [address] UNIT[facility] Unavailable [address] + [place] [address] TENZIN BATSHEVA Unavailable [address] + [place] [address] [facility] Unavailable [address] + [place] [address] UNIT[facility] Unavailable [address] + [place] [address] TENZIN BATSHEVA Unavailable [address] + [place] [address] [facility] Unavailable [address] + [place] [address] UN[facility] Unavailable [address] + [place] [address] MILICH, BATSHEVA Unavailable [address] + [place] [address] [facility], [facility]FIN[facility] Unavailable [address] + [place] [address] UN[facility] Unavailable [address] + [place] [address] [facility] BATSHEVA Unavailable [address] + [place] [address] [facility] Unavailable [address] + [place] [address] UNIT[facility] Unavailable [address] + [place] [address] [facility] BATS[facility]VA Unavailable [address] + [place] [address] [facility] Unavailable [address] + [place] [address] [facility] Unavailable [address] + [place] [address] MILICH, BATSHEVA Unavailable [address] + [place] [address] [facility] Unavailable [address] + [place] [address] UN[facility] Unavailable [address] + [place] [address] MILICH, BATSHEVA Unavailable [address] + [place] [address] [facility], [facility]FIN[facility] Unavailable [address] + [place] [address] UN[facility] Unavailable [address] + [place] [address] MILICH, BATSHEVA Unavailable Unavailable + MILICH, BATSHEVA Unavailable Unavailable + MILICH, BATSHEVA Unavailable [address] + [place] [address] [facility], [facility]FIN[facility] Unavailable [address] + [place] [address] [facility] Unavailable [address] + [place] [address] MILICH, BATSHEVA Unavailable [address] + [place] [address] [facility], [facility]FIN[facility] Unavailable [address] + [place] [address] UN[facility] Unavailable [address] + [place] [address] MILICH, BATSHEVA Unavailable [address] + [place] [address] [facility] Unavailable [address] + [place] [address] UNIT[facility] Unavailable [address] + [place] [address] MILICH, BATSHEVA Unavailable Unavailable + MILICH, BATSHEVA Unavailable Unavailable + MILICH, BATSHEVA Unavailable [address] + [place] [address] [facility] Unavailable [address] + [place] [address] UN[facility] Unavailable [address] + [place] [address] MILICH, BATSHEVA Unavailable Unavailable + MILICH, BATSHEVA Unavailable [address] + [place] [address] [facility] Unavailable [address] + [place] [address] UNIT[facility] Unavailable [address] + [place] [address] MILICH, BATSHEVA Unavailable Unavailable + MILICH, BATSHEVA Unavailable [address] + [place] [address] [facility] Unavailable [address] + [place] [address] UN[facility] Unavailable [address] + [place] [address] MILICH, BATSHVEA Unavailable Unavailable + MILICH, BATSHEVA Unavailable Unavailable + MILICH, BATSHEVA Unavailable Unavailable + MILICH, BATSHEVA Unavailable Unavailable + MILICH, BATSHEVA Unavailable Unavailable + MILICH, BATSHEVA Unavailable Unavailable + MILICH, BATSHEVA Unavailable Unavailable + MILICH, BATSHEVA Unavailable [address] + [place] [address] [facility], [facility]FIN[facility] Unavailable [address] + [place] [address] UNIT[facility] Unavailable [address] + [place] [address] [facility], BATSHEVA Unavailable [address] + [place] [address] [facility] Unavailable [address] + [place] [address] UNIT[facility] Unavailable [address] + [place] [address] [facility], BATSHEVA Unavailable [address] + [place] [address] [facility] Unavailable [address] + [place] [address] UNIT[facility] Unavailable [address] + [place] [address] [facility] BATS[facility]VA Unavailable [address] + [place] [address] [facility], RUFINA Unavailable [address] + [place] [address] UNIT[facility] Unavailable [address] + [place] [address] [facility], BATSHEVA Unavailable [address] + [place] [address] [facility] Unavailable [address] + [place] [address] UN[facility] Unavailable [address] + [place] [address] MILICH, BATSHEVA Unavailable [address] + [place] [address] [facility], RUFIN[facility] Unavailable [address] + [place] [address] UN[facility] Unavailable [address] + [place] [address] MILICH, BATSHEVA Unavailable [address] + [place] [address] [facility] Unavailable [address] + [place] [address] UNIT[facility] Unavailable [address] + [place] [address] [facility] BATSHEVA Unavailable [address] + [place] [address] [facility] Unavailable [address] + [place] [address] UN[facility] Unavailable [address] + [place] [address] MILICH, BATSHEVA Unavailable [address] + [place] [address] [facility] Unavailable [address] + [place] [address] UN[facility] Unavailable [address] + [place] [address] MILICH, BATSHEVA Unavailable [address] + [place] [address] [facility] Unavailable [address] + [place] [address] UN[facility] Unavailable [address] + [place] [address] [facility], BATS[facility]VA Unavailable [address] + [place] [address] [facility] Unavailable [address] + [place] [address] [facility] Unavailable [address] + [place] [address] Care Team Providers Name Role Phone Les Jones Attending Unavailable Les Jones Primary Care Unavailable Les Jnoes Referring Unavailable Les Jones Attending Unavailable Les Jones Referring Unavailable Les Jones Primary Care Unavailable Hanane Chowdary Attending Unavailable Ranney, Christopher Primary Care Unavailable Epi, Hanane Referring Unavailable Epi, Hanane Attending Unavailable Ranney, Christopher Primary Care Unavailable Epi, Hanane Attending Unavailable Ranney, Christopher Primary Care Unavailable Epi, Hanane Attending Unavailable Ranney, Christopher Primary Care Unavailable Epi, Hanane Referring Unavailable Tracy Glez INSIDE TECHNICAL SALES REPRESENTATIVE-C Attending Unavailable Ranney, Christopher Referring Unavailable Ranney, Christopher Primary Care Unavailable Epi, Hanane Attending Unavailable Ranney, Christopher Primary Care Unavailable Epi, Hanane Attending Unavailable Ranney, Christopher Primary Care Unavailable Ranney, Mikeyopher Attending Unavailable Ranney, Christopher Referring Unavailable Ranney, [...] Unavailable Cebul, Moshe Attending Unavailable Tracy Glez INSIDE TECHNICAL SALES REPRESENTATIVE-C Attending Unavailable Ranney, Christopher Referring Unavailable Cebul, [...] Moshe Referring Unavailable Cebul, Moshe Attending Unavailable Hanane Chowdary Attending Unavailable Ranney, Christopher Primary Care Unavailable Susan Gutiérrez Attending Unavailable Susan Gutiérrez Referring Unavailable Ranney, Christopher Primary Care Unavailable UNKNOWN, PCP Primary Care Unavailable Lupe, Dr. Howard Attending Unavailable Deangeloiyaelysia, Dr. Howard Referring Unavailable UNKNOWN, PCP Primary Care Unavailable Dr. Anita nAdrade Attending Unavailable Lupe, Dr. 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 Quang [place] [address] diagnosis preprocedural [facility] examination / Repository Z01.818(ICD-10) Final Encounter for other MEÑO [place] [address] diagnosis preprocedural Hospitals (discharge) examination / Repository Z01.818(ICD-10) Final Type 1 diabetes [place] [address] diagnosis mellitus w diabetic Hospitals (discharge) chronic kidney disease Repository / E10.22(ICD-10) Final End stage renal [place] [address] diagnosis disease / Hospitals (discharge) N18.6(ICD-10) Repository Final Dependence on renal [place] [address] diagnosis dialysis / Hospitals (discharge) Z99.2(ICD-10) Repository Final Essential (primary) [facility] 8 diagnosis hypertension / Hospitals (discharge) I10(ICD-10) Repository Final Personal history of [facility] 8 diagnosis other diseases of Hospitals (discharge) urinary system / Repository Z87.448(ICD-10) Final Family history of W[facility] 8 diagnosis diabetes mellitus / Hospitals (discharge) Z83.3(ICD-10) Repository Unknown G89.18 - Other acute Moshe Garcia [facility] 8 postprocedural pain / Community G89.18(ICD-10) Hospital Repository Unknown N18.4 - Chronic kidney Moshe Garcia [facility] 8 disease, stage 4 Community (severe) / Hospital N18.4(ICD-10) Repository Unknown R94.31 - Abnormal Gavino Loco [facility] 8 electrocardiogram Community [ECG] [EKG] / Hospital R94.31(ICD-10) Repository Final Peripheral vascular Dr. Quang [facility] 8 diagnosis disease, unspecified / [place] [facility] Hospitals (discharge) I73.9(ICD-10) Repository Admitting End stage renal Dr. Quang [facility] 8 diagnosis disease / [place] Hospitals N18.6(ICD-10) Repository Unknown E10.22 - Type 1 EpiHanane [facility] 8 diabetes mellitus with Community diabetic chronic Hospital kidney disease / Repository E10.22(ICD-10) Unknown R22.42 - Localized Rancb, [facility] [address] [place] [address] swelling, mass and [facility] lump, left lower limb Hospital / R22.42(ICD-10) Repository Unknown N18.9 - Chronic kidney Ranney, [facility] 8 disease, unspecified / [facility] N18.9(ICD-10) Hospital Repository PROCEDURES PROCEDURES No Procedure Records FoundRESULTS RESULTS ABO RH BLOOD TYPE, Collected: 06/05/2018 Status: F Source: [place] PATIENT 4:43 PM [facility] REPOSITORY TYPE CODE TESTS RESULT OUT OF RANGE REFERENCE UNITS LAB B10.0800 B Normal BLOOD POSITIVE TYPE GEL Performed By: #### B10.0010 #### [facility] [place], [address] PHARM D NOTE Observed: 05/22/2018 Status: UNK Source: [place] 3:33 PM HOSPITALS REPOSITORY Active Problems Hypertension [...] Tablet; TAKE 1 TABLET AT BEDTIME; Therapy: 46Lhx1127 to (Evaluate:89Pwj8820) Recorded Basaglar KwikPen 100 UNIT/ML Subcutaneous Solution Pen-injector; Therapy: 25Feb2017 to Recorded Chromium 400 MCG Oral Tablet; TAKE 2 TABLET Daily; Therapy: (Recorded:01Apr2018) to Recorded Ferrous Sulfate ER 140 (45 Fe) MG Oral Tablet Extended Release; Take 1 tablet daily; Therapy: 01Apr2018 to Recorded Fish Oil OIL; Therapy: (Recorded:98Qeu6457) to Recorded Glucosamine TABS; TAKE 2 TABLET Daily; Therapy: (Recorded:01Apr2018) to Recorded Losartan Potassium 100 MG Oral Tablet; TAKE 0.5 TABLET Daily; Therapy: 62Mmb2291 to (Evaluate:05Pyx1202) Recorded Metoprolol Succinate ER 100 MG Oral Tablet Extended Release 24 Hour; Take 1 tablet daily; Therapy: 34Mvq9291 to (Evaluate:08Awq5135) Recorded Metoprolol Succinate ER 50 MG Oral Tablet Extended Release 24 Hour; TAKE 1 TABLET BY MOUTH DAILY; Therapy: 01Apr2018 to (Evaluate:31Opf3418) Recorded Multivitamin Men Oral Tablet; TAKE 1 TABLET DAILY; Therapy: (Recorded:85Cjy1212) to Recorded NovoLOG [place]Pen 100 UNIT/ML Subcutaneous Solution Pen-injector; Therapy: 09Mar2017 to Recorded [place] 3 1200 MG Oral Capsule; TAKE 1 [...] Soto, PharmD, BCPS Solid Organ Transplant Clinical Special Education Paraeducator Current Orders CT Abdomen and Pelvis without [...] (Author) PTHIN Collected: 05/15/2018 Status: F Source: [place] 12:17 PM [facility] REPOSITORY TYPE CODE TESTS RESULT OUT OF RANGE REFERENCE UNITS LAB L509.1000 18.4-80.1 pg/mL High PTHIN 105.7 Performed By: #### L509.1000 #### [facility] [address] [facility] [place], [address] SURGERY VISIT REPORT Observed: 05/05/2018 Status: F Source: [place] 3:35 PM [facility] REPOSITORY [facility] [place] [facility] [address] [place] [address] OFFICE VISIT Date of Service: 05/05/18 MR#: [id number] Acct: [id number] Name: GAVINO DAVE Rep #: [id number] : 1975 Provider: Stella Barr PA-C Age/Sex: 43/M Location: [facility] Status: Signed Intake Intake Visit Reasons: Gall [...] PO QDAY tab 01/28/18 [History Confirmed 04/18/18] rzndxhcs-erkmrqjz-toyav acid 400 mcg-vit K 20 mcg-lycop 300 [...] IV (severe) N18.4 Gallbladder polyp K82.4 05/05/18 4205 <Electronically signed by Stella Barr PA-C> Date Stella Barr PA-C Cosigner Signature: Date (if applicable) CC: Les Jones MD RENAL PROFILE Collected: 05/05/2018 Status: F Source: [place] 1:19 PM [facility] REPOSITORY TYPE CODE TESTS RESULT [...] CO2 26.0 Performed By: #### L500.3600 #### [facility] [address] [place], [address] 12 LEAD ELECTROCARDIOGRAM Observed: 05/02/2018 Status: F Source: [place] 9:20 AM [facility] REPOSITORY [facility] Cardiovascular Services [address] [place] [address] 12 Lead EKG 04/21/18 0738 MR#: [id number] Acct: [id number] Name: GAVINO DAVE Rep #: [id number] : 1975 43 From: Fly Borjas MD Attending Dr: Moshe Garcia MD Status: DEP SDC Ordering Dr: Moshe Garcia MD Date: 04/21/18 [place] [facility] Sex: M C Admitted: Test Reason : [...] Present Confirmed by MARI ROSEN, FLY ([id number]), book or script editor MOHSEN VALENTNIE ([id number]) on 04/25/2018 2:30:08 PM Referred By: Moshe Garcia Confirmed By:FLY BORJAS MD 04/25/18 1430 Date Fly Borjas MD CC: Les Jones MD; Moshe Garcia MD Signed DISCHARGE INSTRUCTION Observed: 04/22/2018 Status: F Source: [place] 3:11 PM [facility] REPOSITORY [facility] Medical Records Department [address] [place] [address] Instructions for Home/Discharge Instructions 04/21/18 0831 MR#: [id number] Acct: [id number] Name: GAVINO DAVE Rep #: [id number] : 1975 43 From: Moshe Garcia MD PCP: Les Jones MD Status: DEP [facility] Discharge Diet: Light diet - advance as [...] tablet 150 mg PO QDAY tab 01/28/18 vantezff-cqljzczl-bqhgu acid 400 mcg-vit K 20 mcg-lycop 300 [...] Follow Up With: Moshe Garcia MD - [phone] When: Call to make an appointment to be seen in about 10 days. 04/22/18 1511 <Electronically signed by Moshe Garcia MD> Date Moshe Garcia MD CC: Les Jones MD OPERATIVE REPORT Observed: 04/22/2018 Status: F Source: [place] 3:11 PM [facility] REPOSITORY [facility] Medical Records Department [address] [place] [address] Operative Report 04/21/18 1009 MR#: [id number] Acct: [id number] Name: GAVINO DAVE Rep #: [id number] : 1975 43 From: Moshe Garcia MD PCP: Les Jones MD Status: DEP [facility] Y Location: [facility] Problem List (1) Gallbladder polyp Status: Acute [...] the umbilicus pressing up to 2-0 Vicryl zxowoq-yl-icall suture. Skin edges were approximated with interrupted [...] 04/21/2018 Status: F Source: [place] 11:50 AM [facility] REPOSITORY TYPE CODE TESTS RESULT OUT OF REFERENCE UNITS RANGE LAB L501.080 70-110 mg/dL High BEDSIDE GLU 250 Result Comment: MANAGEMENT OF PATIENT CARE PER NURSING PROTOCOL Performed By: #### L501.080 #### [facility] Point of Care [address] [place] [address] BEDSIDE GLUCOSE Collected: 04/21/2018 Status: F Source: [place] 7:33 AM [facility] REPOSITORY TYPE CODE TESTS RESULT OUT OF REFERENCE UNITS RANGE LAB L501.080 70-110 mg/dL High BEDSIDE GLU 148 Result Comment: MANAGEMENT OF PATIENT CARE PER NURSING PROTOCOL Performed By: #### L501.080 #### [facility] Point of Care [address] [place] [address] CBC-COMPLETE BLOOD CNT Collected: 04/21/2018 Status: F Source: [place] NO DIFF 7:25 AM [facility] REPOSITORY TYPE CODE TESTS RESULT [...] 10.8 Performed By: #### L100.0500, L500.2500 #### [facility] [address] [place], [place], [address] BASIC METABOLIC Collected: 04/21/2018 Status: F Source: [place] PROFILE (BMP) 7:25 AM [facility] REPOSITORY TYPE CODE TESTS RESULT [...] 6 Performed By: #### L100.0500, L500.2500 #### [facility] [address] [facility] [place], [address] CHOLANGIOGRAM/ O Observed: 04/21/2018 Status: F Source: [place] R,INITIAL 3:58 AM [facility] REPOSITORY [facility] Imaging Services [address] [place] [address] Cholangiogram/ O R,Initial MR#: [id number] Acct: [id number] Name: GAVINO DAVE Rep #: [id number] : 1975 M 43 From: Warren [place] MD PCP: Les Jones MD Status: [facility] Study: Cholangiogram/ O R,Initial Date of Exam: 04/21/18 Exam# [id number] Ordering Dr: Moshe Garcia MD STUDY: INTRAOPERATIVE [...] Warren Walter MD at 8:05 EST Tel [phone], Service support , CC: Les Jones MD; Moshe Garcia MD Cyber Security Administrator: Signed GALLBLADDER Observed: 04/21/2018 Status: F Source: [place] 12:00 AM [facility] REPOSITORY Patient: GAVINO DAVE : 1975 (43/M) Acct Num: [id number] Phys: Radha ROSEN,Moshe Unit Num: [id number] Loc: [facility] Specimen: [id number] Received: 04/21/181338 Spec Type: GALLBLADDE TISSUES 1 [...] measures up to 0.2 cm in thickness. Consumer Experience Consultant sections from the gallbladder and the cystic duct are submitted in one cassette. / Dwayne 04/21/18 TC:3 CPT: 07053 HEADER OPERATION: Laparoscopic cholecystectomy with IOC PRE-OP DIAGNOSIS: Gallbladder polyp TISSUE SUBMITTED: Gallbladder and contents MICROSCOPIC DESCRIPTION Slides are reviewed. MICROSCOPIC DIAGNOSIS Gallbladder and contents: Mild chronic cholecystitis. No stones are identified in the container or in the gallbladder. No obvious mucosal polyp is noted. Dwayne 04/22/18 Signed Flavio Jain 04/22/18 <signature on file> Performed By: #### PGALL #### [facility] [address] [place], [address] ENDOCRINOLOGY VISIT Observed: 04/16/2018 Status: F Source: [place] REPORT 11:41 AM [facility] REPOSITORY [facility] [place] [facility] [address] [place] [address] OFFICE VISIT Date of Service: 04/10/18 MR#: [id number] Acct: [id number] Name: GAVINO DAVE Rep #: [id number] : 1975 Provider: Tracy Glez NP Age/Sex: 43/M Location[place] [facility] Status: Signed HPI History of present illness [...] Nutritional Appearance: well nourished Orientation: oriented x3 [facility] Head: normal to inspection, atraumatic Ears: [...] Intake Visit Reasons: Type 1 diabetes mellitus Jamb Cutter Required: No Accompanied by: Family / Other [...] PO QDAY tab 01/28/18 [History Confirmed 04/14/18] xhxygtpk-psryqazz-mnnkw acid 400 mcg-vit K 20 mcg-lycop 300 [...] VISIT REPORT Observed: 04/14/2018 Status: F Source: [place] 3:46 PM [facility] REPOSITORY [facility] [place] [facility] [address] [place] [address]. [address] [place], [place] [address] OFFICE VISIT Date of Service: 04/14/18 MR#: [id number] Acct: [id number] Name: GAVINO DAVE Rep #: [id number] : 1975 Provider: Moshe Garcia MD Age/Sex: 43/M Location: [facility] Status: Signed Intake Vital Signs04/14/18 Height 5 ft 5 in 04/14/18 Weight: 157 lb 8 oz 04/14/18 Body Mass Index (BMI) 26.2 04/14/18 Blood Pressure 143/79 H Intake Visit Reasons: Gall Bladder US 04/01 Chief Complaint: tawanda Jamb Cutter Required: No Is patient in pain?: No [...] PO QDAY tab 01/28/18 [History Confirmed 04/14/18] dmwimzwq-bwdmprts-tfdvy acid 400 mcg-vit K 20 mcg-lycop 300 [...] physician is Dr. Les Jones and his patient registration manager is Dr. Hanane Chowdary. The patient is referred by Dr. Hanane Chowdary for surgical consultation regarding PD placement and a written copy of my surgical consult recommendations will be returned to her. The patient is age 43. He has been long-term type I diabetic since age 15. He has been variable in his attention and controlled to his diabetes. 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 There is a lubricating oil that gets [...] renal transplantation on April 01, [address] [facility] the patient had an ultrasound performed. [...] 04/07/2018 Status: F Source: [place] 5:18 PM [facility] REPOSITORY [facility] [address] [place] [address] OFFICE VISIT Date of Service: 04/07/18 MR#: [id number] Acct: [id number] Name: GAVINO DAVE Rep #: [id number] : 1975 Provider: Moshe Garcia MD Age/Sex: 43/M Location: [facility] Status: Signed Intake Intake Visit Reasons: PD Cath Insert 03/26 Chief Complaint: post op PD cath insertion Jamb Cutter Required: No Is patient in pain?: No [...] PO QDAY tab 01/28/18 [History Confirmed 03/26/18] wayqwber-zcwzpqdf-tewfa acid 400 mcg-vit K 20 mcg-lycop 300 [...] - TRANSPLANT Observed: 04/02/2018 Status: UNK Source: [place] 7:42 AM HOSPITALS REPOSITORY Reason For Visit [...] NovoLOG [place]Pen 100 UNIT/ML Subcutaneous Solution Pen-injector [place] 3 1200 MG Oral CapsuleTAKE 1 CAPSULE Daily PriLOSEC OTC 20 MG Oral Tablet Delayed ReleaseTAKE 1 TABLET DAILY. Testosterone PLLT Results/Data [facility] [id number] Height5 ft 4 in5 ft 4 in Qgdbuf811 lb 12.8 oz157 lb 11.2 oz BMI Bmrodopahr95.7427.07 Gpsgiadqre48.3 g/dL Trciyfwecy91.2 % Xjaufcw95 mg/dL Qexcmz690 mmol/L Potassium4.6 mmol/L Blood Urea Nitrogen (BUN)69 mg/dL Creatinine3.64 mg/dL Emiazfr71.7 mg/dL Albumin5.1 g/dL Total Bilirubin0.5 mg/dL HGB [...] in a few weeks. 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 [...] ABD COMPLETE Observed: 04/01/2018 Status: F Source: [place] 12:56 PM [facility]OSPITALS REPOSITORY Patient Name: GAVINO DAVE STUDY: US ABD COMP; US DUPLX ART/VEIN AB; 04/01/2018 12:56 pm INDICATION: complete abdomen w/dopplers include lliacs. COMPARISON: None. ACCESSION NUMBER(S): [id number]; [id number] ORDERING CLINICIAN: TEX DEL RIO TECHNIQUE: Multiple [...] as stated. This study was interpreted at [facility], [place], [place]. Electronically signed by: CHARLES YA MD US DUPLX ART/VEIN AB Observed: 04/01/2018 Status: F Source: [place] 12:56 PM [facility]ITALS REPOSITORY Patient Name: GAVINO DAVE STUDY: US ABD COMP; US DUPLX ART/VEIN AB; 04/01/2018 12:56 pm INDICATION: complete abdomen w/dopplers include lliacs. COMPARISON: None. ACCESSION NUMBER(S): [id number]; [id number] ORDERING CLINICIAN: TEX DEL RIO TECHNIQUE: Multiple [...] as stated. This study was interpreted at [facility], [place], [place]. Electronically signed by: CHARLES YA MD 12 LEAD ELECTROCARDIOGRAM Observed: 04/01/2018 Status: F Source: [place] 11:30 AM [facility] [facility] REPOSITORY [facility] Cardiovascular Services [address] [place] [address] 12 Lead EKG 03/26/18 0957 MR#: [id number] Acct: [id number] Name: GAVINO DAVE Rep #: [id number] : 1975 43 From: Gavino Loco MD Attending Dr: Moshe Garcia MD Status: DEP [facility] Ordering Dr: Moshe Garcia MD Date: 03/26/18 Location: [facility] Sex: M C Admitted: Test Reason : [...] in Lateral leads Confirmed by GAVINO LOCO ([id number]), book or script editor MOHSEN VALENTINE ([id number]) on 04/01/2018 11:30:31 AM Referred By: Moshe Garcia Confirmed By:GAVINO LOCO 04/01/18 1130 Date Gavino Loco MD CC: Les Jones MD; Moshe Garcia MD Signed OFFICE VISIT Observed: 04/01/2018 Status: UNK Source: [facility] (CARDIOLOGY) 10:18 AM HOSPITALS REPOSITORY Chief Complaint GAVINO DAVE is being seen for a consultation for cardiac risk stratification pre-renal and pancreatic transplant and a routine medication evaluation. History of Present Illness Tool Specialist: , Dr Hanane Chowdary Transplant Surgeon: Dr. 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 Consultation is requested by Nephrology/ Transplant Surgery for an opinion regarding cardiac risks pre kidney pancreas transplantation and my final recommendations will be communicated back to the [facility] physicians by way of shared Medical record. [...] Physician Portal there is history of past IA, percutaneous coronary interventions, CABG, cardiac related admissions. [...] never Family history: Paternal gfather with fatal IA at 80s Dad- QUINONEZ ( ETOH) Paternal [...] and testing available in Physician portal, and [employer] has been reviewed. ECG done 03/20/2018 has [...] Oral Tablet; Take 1 tablet daily; Therapy: 06Kga6921 to (Evaluate:23Sep2017) Recorded Dispense: 30 Days ; #:30 Tablet; Refill: 6; LAURA = N; Record; Last Updated By: Beatriz Bonilla; 04/01/2018 10:04:00 AM Atorvastatin Calcium 20 MG Oral Tablet; TAKE 1 TABLET AT BEDTIME; Therapy: 64Lsm0714 to (Evaluate:20Dly4932) Recorded Dispense: 90 Days ; #:90 Tablet; Refill: 3; LAURA = N; Record; Last Updated By: Beatriz Bonilla; 04/01/2018 9:27:44 AM Basaglar KwikPen 100 UNIT/ML Subcutaneous Solution Pen-injector; Therapy: 74Ghe6279 to Recorded Dispense: 90 Days ; #:30 [...] 04/01/2018 9:27:45 AM Fish Oil OIL; Therapy: (Recorded:23Uzg4311) to Recorded Dispense: 0 Days ; #: Sufficient OIL; Refill: 0; LAURA = N; Record; Last Updated By: Savi Benites; 02/21/2018 2:02:33 PM Glucosamine TABS; TAKE 2 TABLET Daily; Therapy: (Recorded:20Ztj4841) to Recorded Dispense: 0 Days ; #: Sufficient Tablet; Refill: 0; LAURA = N; Record; Last Updated By: Beatirz Bonilla; 04/01/2018 9:27:44 AM Losartan Potassium 100 MG Oral Tablet; TAKE 0.5 TABLET Daily; Therapy: 51Aex0881 to (Evaluate:43Nlh3519) Recorded Dispense: 90 Days ; #:45 Tablet; Refill: 0; LAURA = N; Record; Last Updated By: Beatriz Bonilla; 04/01/2018 9:27:44 AM Metoprolol Succinate ER 100 MG Oral Tablet Extended Release 24 Hour; Take 1 tablet daily; Therapy: 40Swi4764 to (Evaluate:94Enh0752) Recorded Dispense: 30 Days ; #:30 Tablet Extended Release 24 Hour; Refill: 6; LAURA = N; Record; Last Updated By: Beatriz Bonilla; 04/01/2018 9:27:44 AM Metoprolol Succinate ER 50 MG Oral Tablet Extended Release 24 Hour; TAKE 1 TABLET BY MOUTH DAILY; Therapy: 82Myk9560 to (Evaluate:58Ypy2681) Recorded Dispense: 90 Days ; #:90 Tablet [...] Updated By: Savi Benites; 02/21/2018 2:02:33 PM Fairfax 3 1200 MG Oral Capsule; TAKE 1 [...] easily. Vitals Vital Signs Recorded: 01Apr2018 09:23AM Dighmxdxlho49.9 F Heart Rate75 Selosyzm446 Fxnhalsgl02 Height5 ft 4 in Vhtkbv317 lb 12.8 oz BMI Kfytoyrdof06.74 BSA Calculated1.76 Pain Scale0 Physical Exam Constitutional: [...] ischaemic changes NM Cardiac Stress/Rest Nuclear Med Kghoe58Kqs6243 11:13AMMaikel Blackburn [Mar 11, 2018 12:55PM Kristine [...] renal transplant evaluation. COMPARISON: None. ACCESSION NUMBER(S): [id number]; [id number]; [id number] ORDERING CLINICIAN: MAIKEL BLACKBURN TECHNIQU E: DIVISION [...] stated. This study wa s interpreted at [facility], [place], [place]. Electronically signed by: PLACIDO JAMIL 03/20/18 12:04 Ppqhdmzqbmhutg17Hmh0112 09:22AMMaikel Blackburn [Mar 01, 2018 9:35AM Sharon Alvarenga] AMA Intake Activity Log Entry by Sharon Alvarenga ([email or web address]) on 03/01/2018 9:34 AM Status Change: To Confirmed - N/A [Mar 01, 2018 9:35AM Sharon Alvarenga] AMA Intake updated by Sharon Alvarenga ([email or web address]) on 03/01/2018 9:34 AM New Recipient: Colt Quintana Appointment Date: Mar 13 2018 9:00AM Test NameResultFlagReference Echocardiogram(Report) [id number] [facility], [address] [place] [address], [address] [address] and TRANSTHORACIC ECHOCARDIOGRA M REPORT Patient Name: GAVINO Lafleur Physician: [id number] Colt Quintana MD Study Date: 03/13/2018 Referring Physician: Maikel Blackburn MD MRN/PID: [id number] PCP: Accession/Order#: [id number] Department Location: [facility] Date of : 1975 Fellow: Gender: M Nurse: Admit Date: Matzo Forming Machine Operator: Delbert Hercules [facility] Admission Status: Outpatient Additi onal Staff: Height: 165.10 cm CC Report to: Weight: 72.12 kg Study Type: Echocardiogram BSA: 1.79 m2 Blood Pressure: 145 /74 mmHg Diagnosis/ICD: Z01.818-Encounter for other prepr ocedural examination Indication: Pre kidney and pancreas transplant Procedure/CPT: Echo Complete w Full Doppler-65376 Patient History: Pertinent History: DM, HTN, kidney [...] LA Area A2C: 15.4 cm2 LA Major Aladdin A4C: 5.0 cm LA Major Aladdin A2C: 5.0 cm LA Volume Ind ex: [...] Braxton: 1.40 PulmV Sys Braxton: 51.80 cm/s [id number] Colt Quintana MD Electronically signed on 03/18/2018 [...] with family Impressions IMPRESSION/PLAN: 43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 Patient Instructions Thank you for coming to see me. How to reach Dr. Blakely office: [phone], option 6. Follow up with Dr. Madison in 12 months. Call [phone] to schedule the appointment. Please bring all [...] Tablet; TAKE 1 TABLET AT BEDTIME; Therapy: 58Ahs7175 to (Evaluate:04Lfz3093) Recorded Basaglar KwikPen 100 UNIT/ML Subcutaneous Solution Pen-injector; Therapy: 23Enq5517 to Recorded Chromium 400 MCG Oral Tablet; TAKE 2 TABLET Daily; Therapy: (Recorded:37Aqw3522) to Recorded Ferrous Sulfate ER 140 (45 Fe) MG Oral Tablet Extended Release; Take 1 tablet daily; Therapy: 29Brg2167 to Recorded Fish Oil OIL; Therapy: (Recorded:49Kvn3595) to Recorded Glucosamine TABS; TAKE 2 TABLET Daily; Therapy: (Recorded:22Omi1751) to Recorded Losartan Potassium 100 MG Oral Tablet; TAKE 0.5 TABLET Daily; Therapy: 11Vrq4119 to (Evaluate:86Kwh3088) Recorded Metoprolol Succinate ER 100 MG Oral Tablet Extended Release 24 Hour; Take 1 tablet daily; Therapy: 40Fxv4836 to (Evaluate:62Lco6182) Recorded Metoprolol Succinate ER 50 MG Oral Tablet Extended Release 24 Hour; TAKE 1 TABLET BY MOUTH DAILY; Therapy: 25Ylh6996 to (Evaluate:11Mbg9170) Recorded Multivitamin Men Oral Tablet; TAKE 1 TABLET DAILY; Therapy: (Recorded:46Dbr5714) to Recorded NIFEdipine ER 90 MG Oral Tablet Extended Release 24 Hour; TAKE 1 TABLET DAILY; Therapy: 57Zxt0511 to (Evaluate:86Rms4634) Requested for: 01Apr2018; Last Rx:01Apr2018; Status: ACTIVE - Retrospective By Protocol Authorization Ordered NovoLOG FlexPen 100 UNIT/ML Subcutaneous Solution Pen-injector; Therapy: 09Mar2017 to Recorded Fairfax 3 1200 MG Oral Capsule; TAKE 1 CAPSULE Daily; Therapy: 01Apr2018 to Recorded PriLOSEC OTC 20 MG Oral Tablet Delayed Release; TAKE 1 TABLET DAILY; Therapy: 01Apr2018 to Recorded Testosterone PLLT; Therapy: (Recorded:39Tsi0390) to Recorded Signatures Electronically signed by : Alivia Madison MD; Apr 01 2018 10:18AM EST (Author) DISCHARGE INSTRUCTION Observed: 03/27/2018 Status: F Source: [place] 7:22 AM [facility] REPOSITORY [facility] Medical Records Department [address] [place] [address] Instructions for Home/Discharge Instructions 03/26/18 1020 MR#: [id number] Acct: [id number] Name: GAVINO DAVE Rep #: [id number] : 1975 43 From: Moshe Garcia MD PCP: Les Jones MD Status: DEP [facility] Discharge Diet: Renal Diet Discharge Activity: May [...] tablet 150 mg PO QDAY tab 01/28/18 mtoxebyy-vkcnqpyg-vcqgw acid 400 mcg-vit K 20 mcg-lycop 300 [...] Follow Up With: Moshe Garcia MD - [phone] When: Call to make an appointment to be seen in about 10 days. 03/27/18 0722 <Electronically signed by Moshe Garcia MD> Date Moshe Garcia MD CC: Les Jones MD OPERATIVE REPORT Observed: 03/27/2018 Status: F Source: [place] 7:22 AM [facility] REPOSITORY [facility] Medical Records Department [address] [place] [address] Operative Report 03/26/18 1215 MR#: [id number] Acct: [id number] Name: GAVINO DAVE Rep #: [id number] : 1975 43 From: Moshe Garcia MD PCP: Les Jones MD Status: [facility] Location[place] [facility] Problem List (1) Chronic renal insufficiency, stage [...] 03/26/2018 Status: F Source: FLEX 1:52 PM [facility] REPOSITORY TYPE CODE TESTS RESULT OUT OF REFERENCE UNITS RANGE LAB L501.080 70-110 mg/dL High BEDSIDE GLU 321 Result Comment: MANAGEMENT OF PATIENT CARE PER NURSING PROTOCOL Performed By: #### L501.080 #### [facility] Point of Care [address] [place], [place] [address] BEDSIDE GLUCOSE Collected: 03/26/2018 Status: F Source: FLEX 12:51 PM [facility] REPOSITORY TYPE CODE TESTS RESULT OUT OF REFERENCE UNITS RANGE LAB L501.080 70-110 mg/dL High BEDSIDE GLU 342 Result Comment: MANAGEMENT OF PATIENT CARE PER NURSING PROTOCOL Performed By: #### L501.080 #### [facility] Point of Care [address] [facility] [place], [place] [address] CBC-COMPLETE BLOOD CNT Collected: 03/26/2018 Status: F Source: FLEX NO DIFF 9:56 AM [facility] REPOSITORY TYPE CODE TESTS RESULT [...] MPV 10.2 Performed By: #### L100.0500 #### [facility] [address] [place], [address] BASIC METABOLIC Collected: 03/26/2018 Status: F Source: [place] PROFILE (BMP) 9:56 AM [facility] REPOSITORY TYPE CODE TESTS RESULT [...] GAP 6 Performed By: #### L500.2500 #### [facility] [address] [place], [place], [address] VASC LAB PVR (ARTERIAL Observed: 03/25/2018 Status: F Source: [facility] 7:55 AM HOSPITALS REPOSITORY [facility], [address] [place] [address], [address], [place], [place] [address] and Vascular Lab Report PVR ZANDER Patient Name: GAVINO Lafleur Physician: [id number] Fabrice Covarrubias MD Study Date: 03/25/2018 Referring Physician: Tex Del Rio MD MRN/PID: [id number] PCP: Accession/Order#: [id number] CC Report to: Date of : 1975 Technologist: Isabel Stokes RVT Gender: M Technologist 2: Admission Status: Outpatient Location Performed: [facility] Diagnosis/ICD: I73.9-Peripheral vascular disease, unspecified Procedure/CPT: 95592 Peripheral artery ZANDER Only-13638 CONCLUSIONS: Bilateral Lower PVR: No evidence of arterial occlusive disease bilaterally in the lower extremities at rest. Right Lower PVR: Right pressures of >220 mmHg suggest no compressibility of vessels and may make absolute Segmental Limb Pressures (REGIONAL BUSINESS DEVELOPMENT MANAGER) unreliable. Triphasic flow is noted in the right dorsalis pedi s artery, right posterior tibial artery and right common femoral artery. Left Lower PVR: Left pressures of >220 mmHg suggest no compressibility of vessels and may make absolute Segmental Limb Pressures (REGIONAL BUSINESS DEVELOPMENT MANAGER) unreliable. Triphasic flow is noted in the [...] Left Brachial Pressure 159 mmHg 150 mmHg [id number] Fabrice Covarrubias MD Final CARDIAC STRESS/REST Observed: 03/20/2018 Status: F Source: [facility] 11:13 AM HOSPITALS REPOSITORY Patient Name: GAVINO DAVE STUDY: CARDIAC STRESS/REST INJECTION; CARDIAC STRESS/REST (MYOCARDIAL PERFUSION/MIBI); PART 2 STRESS OR REST (NO CHARGE); 03/20/2018 11:13 am INDICATION: Pre renal transplant evaluation. COMPARISON: None. ACCESSION NUMBER(S): [id number]; [id number]; [id number] ORDERING CLINICIAN: MAIKEL BLACKBURN TECHNIQUE: DIVISION OF [...] as stated. This study was interpreted at [place], [place]. Electronically signed by: PLACIDO JAMIL MD SYNGO NUCLEAR ORDER Observed: 03/20/2018 Status: F Source: [facility] 9:23 [facility], [address] [place] [address], [facility] [address] [address] and Nuclear Pharmacologic Stress Test Patient Name: Gavino Dave Ordering Physician: [id number] Maikel Blackburn MD Study Date: 03/20/2018 Reading Physician: [id number] Colt Quintana MD MRN/PID: [id number] Referring 64683 Maikel Blackburn MD Physician: Accession/Order#: [id number] PCP: Date of : 1975 Fellow: Gender: M Fellow: Admit Date: 03/20/2018 Patient Location: [facility] Admission Status: Outpatient Continuous Loft Operator: Height: 165.10 cm Nurse: Savi Hernandez RN, CVRN-BC Weight: 72.58 kg Matzo Forming Machine Operator: N/A BSA: 1.80 m2 Technologist: Jocy Walls BMI: 26.63 kg/m2 Additional Staff: Age: 43 years cc report to: Radha Horton MD cc report to: [id number] Maikel Blackburn MD Study Type: Syngo Nuclear Order Diagnosis/ICD: M16-Ydzegcyql (primary) hypertension;Z01.818- Encounter for other preprocedural examination Indication: Pre-Op Evaluation and Hypertension Procedure/CPT: Stress Test Interpretation-96385;Stress Test Supervision-58257 Study Details: Correct procedure and correct patient [...] +--+------+-------+ + HRSys BPDias BPComments +--+------+-------+ + 19181 89 +--+------+-------+ + 58931 80 0100 minute +--+------+-------+ + 10663 83 0200 minutes +--+------+-------+ + Recovery ECG: Recovery ECG showed normal sinus rhythm, with no abnormal findings. The heart rate recovery was normal. + +--+------+-------+ + HRSys BPDias BPComments + +--+------+-------+ + Recovery I 95 0100 minute + +--+------+-------+ + Recovery II 11605 87 0200 minutes + +--+------+-------+ + Recovery MCM56325 83 0400 minutes + +--+------+-------+ + [place] [address] 78 0600 minutes + +--+------+-------+ + Summary: 1. No clinical or electrocardiographic evidence for ischemia at a maximal infusion. 2. Normal ECG. 3. Normal Stress Test. 4. Nuclear image results are reported separately. 5. The adequate level of stress was achieved. 58106 Colt Quintana MD Electronically signed on 03/20/2018 at 5:11:[address] ABDOMEN AND PELVIS Observed: 03/20/2018 Status: F Source: [facility] WO CONTRAST 9:16 AM HOSPITALS REPOSITORY Patient Name: GAVINO DAVE STUDY: CT ABDOMEN AND PELVIS WO CONTRAST; 03/20/2018 9:16 am INDICATION: Assess vessels for pre kidney txp eval. End-stage renal disease COMPARISON: None ACCESSION NUMBER(S): [id number] ORDERING CLINICIAN: MAIKEL BLACKBURN TECHNIQUE: CT of [...] as stated. This study was interpreted at [place], [place]. Electronically signed by: OLY NUÑEZ MD SURGERY VISIT REPORT Observed: 03/19/2018 Status: F Source: [place] 3:57 PM [facility] REPOSITORY [facility] [address] [place] [address]. [address] [place] [address] OFFICE VISIT Date of Service: 03/19/18 MR#: [id number] Acct: [id number] Name: GAVINO DAVE Rep #: [id number] : 1975 Provider: Stella Barr PA-C Age/Sex: 43/M Location: [facility] Status: Signed Intake Vital Signs03/19/18 Height 5 ft 5 in 03/19/18 Blood Pressure 155/89 H 03/19/18 Blood Pressure Location Lt brachial Intake Visit Reasons: Update H AND P Lap PD Caths Chief Complaint: PD cath insertion Jamb Cutter Required: No Accompanied by: None Is patient [...] PO QDAY tab 01/28/18 [History Confirmed 02/13/18] rzhrhiww-dxlseftf-ggalt acid 400 mcg-vit K 20 mcg-lycop 300 [...] physician is Dr. Les Jones and his patient registration manager is Dr. Haanne Chowdary. The patient is referred by Dr. Hanane Chowdary for surgical consultation regarding PD placement and a written copy of my surgical consult recommendations will be returned to her. The patient is age 43. He has been long-term type I diabetic since age 15. He has been variable in his attention and controlled to his diabetes. 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 We do not have records regarding that [...] CC: ECHOCARDIOGRAM Observed: 03/13/2018 Status: F Source: [place] 9:22 [facility], [address] [place] [address], [address] [address] and TRANSTHORACIC ECHOCARDIOGRAM REPORT Patient Name: GAVINO Lafleur Physician: [id number] Colt Quintana MD Study Date: 03/13/2018 Referring Physician: Maikel Blackburn MD MRN/PID: [id number] PCP: Accession/Order#: [id number] Department Location: [facility] Date of : 1975 Fellow: Gender: M Nurse: Admit Date: Matzo Forming Machine Operator: Delbert Hercules [facility] Admission Status: Outpatient Additional Staff: Height: 165.10 cm CC Report to: Weight: 72.12 kg Study Type: Echocardiogram BSA: 1.79 m2 Blood Pressure: 145 /74 mmHg Diagnosis/ICD: Z01.818-Encounter for other preprocedural examination Indication: Pre kidney and pancreas transplant Procedure/CPT: Echo Complete w Full Doppler-96995 Patient History: Pertinent History: DM, HTN, kidney [...] LA Area A2C: 15.4 cm2 LA Major Aladdin A4C: 5.0 cm LA Major Aladdin A2C: 5.0 cm LA Volume Index: 22.4 [...] Braxton: 1.40 PulmV Sys Braxton: 51.80 cm/s 13665 Colt Quintana MD Electronically signed on 03/18/2018 at 12:57:34 PM Final HLA-A,B,C LR Collected: 02/26/2018 Status: F Source: [facility] 5:09 [facility] REPOSITORY TYPE CODE TESTS RESULT OUT [...] REPORT. Performed By: #### DN1LR #### [facility] [address] [place] [address] HLA-DRB1/3/4/5 AND DQB1 Collected: 02/26/2018 Status: F Source: [place] LR TYPING 5:09 [facility] REPOSITORY TYPE CODE TESTS RESULT OUT OF REFERENCE UNITS RANGE LAB DN2LR(LOINC ) HLA-DRB1/3/4/ SEE COMMENT 5 & DQB1 LR TYPING Result Comment: HLA-DRB1/3/4/5 AND DQB1 LOW RESOLUTION TYPING SEE SEPARATE REPORT. Performed By: #### DN2LT #### [facility] [address] [place] [address] HLA-DQB1 HR TYPING Collected: 02/26/2018 Status: F Source: [place] 5:09 [facility] REPOSITORY TYPE CODE TESTS RESULT OUT OF REFERENCE UNITS RANGE LAB DQBHR(LOINC ) HLA-DQB1 HR SEE COMMENT TYPING Result Comment: HLA-DQB1 HIGH RESOLUTION TYPING SEE SEPARATE REPORT. Performed By: #### DQBHT #### [facility] [address] [place] [id number] HLA-DPB1 HR TYPING Collected: 02/26/2018 Status: F Source: [place] 5:09 PM [facility] REPOSITORY TYPE CODE TESTS RESULT OUT OF REFERENCE UNITS RANGE LAB DPBHR(LOINC ) HLA-DPB1 HR SEE COMMENT TYPING Result Comment: HLA-DPB1 HIGH RESOLUTION TYPING SEE SEPARATE REPORT. Performed By: #### DPBHT #### [facility] [address] [place] [id number] HLA CLASS I AB Collected: 02/26/2018 Status: F Source: [facility] 5:09 PM HOSPITALS REPOSITORY TYPE CODE TESTS RESULT OUT OF REFERENCE UNITS RANGE LAB HLA1S(LOINC ) HLA CLASS SEE COMMENT I AB SCREEN,FC Result Comment: HLA CLASS I AB SCREEN,FLOW CYTOMETRY SEE SEPARATE REPORT. Performed By: #### HLAS1 #### [place] [address] [place] [address] HLA CLASS II AB Collected: 02/26/2018 Status: F Source: [facility], 5:09 PM [facility] REPOSITORY TYPE CODE TESTS RESULT OUT OF REFERENCE UNITS RANGE LAB HLA2S(LOINC ) HLA CLASS SEE COMMENT II AB SCREEN,FC Result Comment: HLA CLASS II AB SCREEN,FLOW CYTOMETRY SEE SEPARATE REPORT. Performed By: #### HLAS2 #### [facility] [address] [place] [id number] AUTOCROSSMATCH, FLOW Collected: 02/26/2018 Status: F Source: [place] 5:09 PM [facility] REPOSITORY TYPE CODE TESTS RESULT OUT OF REFERENCE UNITS RANGE LAB FLAUT(LOINC ) COMMENT AUTOCROSSMAT CH, FLOW Result Comment: SEE SEPARATE REPORT. Performed By: #### FLAUC #### [facility] [address] [place] [address] [facility] FOR [facility] Observed: 02/24/2018 Status: F Source: FLEX BODY 4:27 PM [facility] REPOSITORY [facility] Imaging Services [address] [place] [address] Orbits for Foreign Body MR#: [id number] Acct: [id number] Name: GAVINO DAVE Rep #: [id number] : 1975 M 43 From: Chong Taylor MD PCP: Les Jones MD Status: REG CLI Study: Orbits for Foreign Body Date of Exam: 02/24/18 Exam# [id number] Ordering Dr: Luis Jones MD STUDY: X-RAY [...] Service support , CC: Les Jones MD Cyber Security Administrator: Signed LOWER EXT/NO JT/W/O Observed: 02/24/2018 Status: F Source: [place] 4:22 PM [facility] REPOSITORY [facility] Imaging Services [address] [place] [address] Lower Ext/No Jt/w/o MR#: [id number] Acct: [id number] Name: GAVINO DAVE Rep #: [id number] : 1975 M 43 From: Lennox Burt MD PCP: Les Jones MD Status: REG CLI Study: Lower Ext/No Jt/w/o Date of Exam: 02/24/18 Exam# [id number] Ordering Dr: Luis Jones MD PROCEDURE: MRI [...] No fracture or periosteal reaction. Electronically Signed: Lennxo Burt MD at 16:08 EDT , Service support , CC: Les Jones MD Cyber Security Administrator: Signed TRANSPLANT SW Observed: 02/21/2018 Status: UNK Source: [place] RECIPIENT ASSESSMENT 4:58 PM HOSPITALS REPOSITORY Assessment Visit Type: This is the initial visit for the patient. Location: [facility]. Accompanied by: Spouse- Batsheva. Organ for Transplant: [...] Internet access . 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 Will patient have paid status from employment during recovery? no. Short Term Disability Pt states he is hopeful to get FMLA Spouse/SO current employment: Full-time Will spouse/SO have paid status from employment during recovery? yes. PTO Patient has no financial concerns Patient is able to meet current monthly expenses Primary Insurance: Self Medical [place] Medicaid: no. Pt states he will be [...] your care? yes. Secondary Support: Name: Rufina. Pmgyvgyidnnh to Patient: Mother Can they take time [...] down the street. Alternate Support: Name: Reema. Chhqlktwkfaw to Patient: Child Can they take time [...] # of stairs [place] . Distance to [facility]: 1 hour 20 minutes. Pets: 4 dogs, [...] is not currently on probation or parole. Nursing Home: No Citizenship: [place] Citizen: Yes Advance Directives: no Impression Impression: SW met with pt and his spouse for initial assessment. Both were pleasant and engaged. Pt has Medical [place] Insurance. 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 Appreciate referral of Dr. Hanane Chowdary. [phone] Signatures Electronically signed by : Anita Andrade MD; Feb 21 2018 3:22PM EST (Author) TRANSPLANT-SURGERY Observed: 02/21/2018 Status: UNK Source: [place] 3:17 PM HOSPITALS REPOSITORY Chief Complaint Kidney [...] on the kidney transplant list here at [facility] [place]. [address] reviewed all potential records we have received, and all testing performed to this date. This is a patient of Dr. HANANE CHOWDARY (tel: [phone]) This is a 43 year yo male [...] use sunscreen. I also recommended seeing a field attendant yearly for a skin check. We further [...] VIEW PA Observed: 02/21/2018 Status: F Source: [facility] 3:07 PM HOSPITALS REPOSITORY Patient Name: GAVINO DAVE STUDY: CHEST 2 VIEW PA AND LAT; 02/21/2018 3:07 pm INDICATION: Signs/Symptoms: pre kidney/panc txp eval. COMPARISON: None. ACCESSION NUMBER(S): [id number] ORDERING CLINICIAN: TEX DEL RIO FINDINGS: CARDIOMEDIASTINAL SILHOUETTE: Cardiomediastinal silhouette is normal in size and configuration. LUNGS: Lungs are clear. ABDOMEN: No remarkable upper abdominal findings. BONES: No acute osseous changes. IMPRESSION: 1. No evidence of acute cardiopulmonary process. I personally reviewed the images/study and I agree with the findings as stated. This study was interpreted at [facility], [place], [place]. Electronically signed by: OLY NUÑEZ MD TRANSPLANT-SURGERY Observed: 02/21/2018 Status: UNK Source: [facility] 12:05 PM HOSPITALS REPOSITORY No report was sent COAGULATION SCREEN Collected: 02/21/2018 Status: F Source: [facility] 8:28 AM HOSPITALS REPOSITORY TYPE CODE TESTS [...] HEPARIN ASSAY. Performed By: #### COAGS #### [facility] [address] [place] [address] HLA-A,B,C LR Collected: 02/21/2018 Status: CANCELLED Source: [facility] 8:28 AM HOSPITALS REPOSITORY Order Comment: TEST HLA-A,B,C LR WAS CANCELLED, 02/21/2018 10:54 DUPLICATE ORDER. TYPE CODE TESTS RESULT OUT OF REFERENCE UNITS RANGE LAB DN1LA(LOINC ) HLA-A Canceled LOCUS LR TYPE LAB DN1LB(LOINC ) HLA-B Canceled LOCUS LR TYPE LAB DN1LC(LOINC ) HLA-C Canceled LOCUS LR TYPE Performed By: #### DN1LR #### [facility] [address] [place] [id number] HLA-DRB1/3/4/5 AND DQB1 Collected: 02/21/2018 Status: CANCELLED Source: [facility] LR TYPING 8:28 AM HOSPITALS REPOSITORY Order Comment: TEST HLA-DRB1/3/4/5 AND DQB1 LR TYPING WAS CANCELLED, 02/21/2018 10:54 DUPLICATE ORDER. TYPE CODE TESTS RESULT OUT OF REFERENCE UNITS RANGE LAB DN2LR(LOINC ) Canceled HLA-DRB1/3/4 /5 & DQB1 LR TYPING Performed By: #### DN2LT #### [facility] [address] [place] [address] HLA-DPB1 HR TYPING Collected: 02/21/2018 Status: CANCELLED Source: [facility] 8:28 HOSPITALS REPOSITORY Order Comment: TEST HLA-DPB1 HR TYPING WAS CANCELLED, 02/21/2018 10:54 DUPLICATE ORDER. TYPE CODE TESTS RESULT OUT OF REFERENCE UNITS RANGE LAB DPBHR(LOINC ) HLA-DPB1 Canceled HR TYPING Performed By: #### DPBHT #### [facility] [address] [place] [address] HLA CLASS I AB Collected: 02/21/2018 Status: CANCELLED Source: [facility] SCREEN,FC 8:28 AM HOSPITALS REPOSITORY Order Comment: TEST HLA CLASS I AB SCREEN,FC WAS CANCELLED, 02/21/2018 10:54 DUPLICATE ORDER. TYPE CODE TESTS RESULT OUT OF REFERENCE UNITS RANGE LAB HLA1S(LOINC ) HLA CLASS Canceled I AB SCREEN,FC Performed By: #### HLAS1 #### [facility] [address] [place] [address] HLA-DQB1 HR TYPING Collected: 02/21/2018 Status: CANCELLED Source: [facility] 8:28 AM HOSPITALS REPOSITORY Order Comment: TEST HLA-DQB1 HR TYPING WAS CANCELLED, 02/21/2018 10:54 DUPLICATE ORDER. TYPE CODE TESTS RESULT OUT OF REFERENCE UNITS RANGE LAB DQBHR(LOINC ) HLA-DQB1 Canceled HR TYPING Performed By: #### DQBHT #### [facility] [address] [place] [id number] HLA CLASS II AB Collected: 02/21/2018 Status: CANCELLED Source: [facility] SCREEN, 8:28 HOSPITALS REPOSITORY Order Comment: TEST HLA CLASS II AB SCREEN,FC WAS CANCELLED, 02/21/2018 10:54 DUPLICATE ORDER. TYPE CODE TESTS RESULT OUT OF REFERENCE UNITS RANGE LAB HLA2S(LOINC ) HLA CLASS Canceled II AB SCREEN,FC Performed By: #### HLAS2 #### [facility] [address] [place] [id number] CBC Collected: 02/21/2018 Status: F Source: [facility] 8:28 [facility] REPOSITORY TYPE CODE TESTS RESULT OUT OF [...] 13.2 Performed By: #### CBC #### [facility] [address] [place] [address] HEPATITIS B SURF AB Collected: 02/21/2018 Status: F Source: [address] REPOSITORY TYPE CODE TESTS RESULT OUT OF RANGE REFERENCE UNITS LAB HABF2(LOINC <10 mIU/mL ) HEP B 439.2 SURF AB Result Comment: INTERPRETIVE CRITERIA: <10 mIU/mL....NONREACTIVE >=10 mIU/mL...REACTIVE . Patients receiving more than 5 mg/day of biotin may have interference in test results. A sample should be taken no sooner than eight hours after previous dose. Contact [phone] for additional information. LAB SOURCE([facility]) Lab Specimen Source Performed By: #### HBAB3 #### [facility] [address] [place] [address] HEPATITIS B SURFACE AG Collected: 02/21/2018 Status: F Source: [address] REPOSITORY TYPE CODE TESTS RESULT OUT OF REFERENCE UNITS RANGE LAB HAGFN(LOIN NONREACTIVE C) HEP.B SURFACE NONREACTIVE AG Result Comment: Patients receiving more than 5 mg/day of biotin may have interference in test results. A sample should be taken no sooner than eight hours after previous dose. Contact [phone] for additional information. LAB SOURCE([facility]) Lab Specimen Source Performed By: #### HBSAG #### [facility] [address] [place] [address] SYPHILIS IGG Collected: 02/21/2018 Status: F Source: [address] REPOSITORY TYPE CODE TESTS RESULT OUT OF REFERENCE UNITS RANGE LAB SYPHG(LOIN NONREACTIVE C) SYPHILIS IGG NON REACTIVE Result Comment: Patients receiving more than 5 mg/day of biotin may have interference in test results. A sample should be taken no sooner than eight hours after previous dose. Contact [phone] for additional information. LAB SOURCE([facility]) Lab Specimen Source Performed By: #### SYPH #### [facility] [address] [place] [address] HEPATITIS C AB Collected: 02/21/2018 Status: F Source: [address] REPOSITORY TYPE CODE TESTS RESULT OUT OF REFERENCE UNITS RANGE LAB HCVFN(LOIN NONREACTIVE C) HEPATITIS C AB NON-REACTIVE Result Comment: Patients receiving more than 5 mg/day of biotin may have interference in test results. A sample should be taken no sooner than eight hours after previous dose. Contact [phone] for additional information. [facility] Lab Specimen Source Performed By: #### HCVAB #### [facility] [address] [place] [address] HEPATITIS B CORE Collected: 02/21/2018 Status: F Source: [facility] AB-TOTAL 8:28 [facility] REPOSITORY TYPE CODE TESTS RESULT OUT OF REFERENCE UNITS RANGE LAB HCTFN(LOIN NONREACTIVE C) NONREACTIVE HEP. B CORE AB-TOTAL Result Comment: Patients receiving more than 5 mg/day of biotin may have interference in test results. A sample should be taken no sooner than eight hours after previous dose. Contact [phone] for additional information. LAB SOURCE([facility]) Lab Specimen Source Performed By: #### HBCRT #### [facility] [address] [place] [address] ABO/RH GROUP TEST Collected: 02/21/2018 Status: F Source: [facility] 8:28 [facility] REPOSITORY TYPE CODE TESTS RESULT OUT OF RANGE REFERENCE UNITS LAB ABORH(LOINC ) ABO TYPE B LAB RH(LOINC) RH TYPE POS Performed By: #### ABORG #### [facility] [address] [place] [id number] AMYLASE Collected: 02/21/2018 Status: F Source: [facility] 8:28 [facility] REPOSITORY TYPE CODE TESTS RESULT OUT OF REFERENCE UNITS RANGE LAB BATSHEVA(LOINC) 29 - 103 U/L High AMYLASE 137 LAB SOURCE(LOIN C) Lab Specimen Source Performed By: #### BATSHEVA #### [facility] [address] [place] [id number] BILIRUBIN,DIRECT Collected: 02/21/2018 Status: F Source: [facility] 8:28 [facility] REPOSITORY TYPE CODE TESTS RESULT OUT OF REFERENCE UNITS RANGE LAB DBILI(LOINC 0.0 - 0.3 mg/dL ) BILIRUBIN,DIRE 0.1 CT LAB SOURCE(LOIN C) Lab Specimen Source Performed By: #### DBILI #### [facility] [address] [place] [address] COMPREHENSIVE PANEL Collected: 02/21/2018 Status: F Source: [facility] 8:28 AM HOSPITALS REPOSITORY TYPE CODE TESTS [...] SOURCE(LOINC) Lab Specimen Source Performed By: #### [facility] #### [facility] [address] [place] [address] CMV IGG Collected: 02/21/2018 Status: F Source: [facility] 8:28 AM HOSPITALS REPOSITORY TYPE CODE TESTS [...] >=1.1 Performed By: #### CMVG2 #### [facility] [address] [facility] [address] EBV PANEL Collected: 02/21/2018 Status: F Source: [facility] [address] [place] [address] REPOSITORY TYPE CODE TESTS RESULT OUT OF [...] PREVIOUS INFECTION + - +/- - LAB SOURCE([facility]) Lab Specimen Source Performed By: #### EBVP1 #### [facility] [address] [facility] [address] VARICELLA ZOSTER IGG Collected: 02/21/2018 Status: F Source: [facility] [address] [place] [address] REPOSITORY TYPE CODE TESTS RESULT OUT OF [...] Source Performed By: #### VARZG #### [facility] [address] [place] [address] AUTOCROSSMATCH, FLOW Collected: Status: CANCELLED Source: [facility] 02/21/2018 8:28 AM HOSPITALS REPOSITORY Order Comment: TEST AUTOCROSSMATCH, FLOW WAS CANCELLED, 02/21/2018 16:16 Wrong visit used. TYPE CODE TESTS RESULT OUT OF REFERENCE UNITS RANGE LAB FLAUT(LOINC ) Canceled AUTOCROSSMAT CH, FLOW Performed By: #### FLAUC #### [facility] [address] [place] [address] HEMOGLOBIN A1C Collected: 02/21/2018 Status: F Source: [facility] 8:28 [facility] REPOSITORY TYPE CODE TESTS RESULT OUT OF RANGE REFERENCE UNITS LAB HBA1C(LOINC % ) HGB A1C 8.3 Result Comment: Diagnosis of Diabetes-Adults Non-Diabetic: < or = 5.6% Increased risk for developing diabetes: 5.7-6.4% Diagnostic of diabetes: > or = 6.5% . Monitoring of Diabetes Age (y) Therapeutic Goal (%) Adults: >18 <7.0 Pediatrics: 13-18 <7.5 7-12 <8.0 0- 6 7.5-8.5 [employer]. Diabetes Care 33(S1), Jun 2009. LAB ESAVG(LOINC) MG/DL EST.AVG.GLUCOSE 192 Performed By: #### HBA1E #### [facility] [address] [place] [address] C PEPTIDE Collected: 02/21/2018 Status: F Source: [facility] 8:28 [facility] REPOSITORY TYPE CODE TESTS RESULT OUT OF REFERENCE UNITS RANGE LAB CPEPT(LOINC 1.1 - 5.0 ng/mL ) Low C PEPTIDE <0.1 Performed By: #### CPEPT #### [facility] [address] [place] [address] HIV 1/2 ANTIBODY Collected: 02/21/2018 Status: F Source: [facility] 8:28 AM HOSPITALS REPOSITORY TYPE CODE TESTS [...] Specimen Source Performed By: #### HIVCN #### [facility] [address] [address] DRUG-PROFILE 9,BLOOD Collected: 02/21/2018 Status: F Source: [facility] WITH REFLEX TO 8:28 AM HOSPITALS REPOSITORY CONFIRMATION TYPE CODE TESTS RESULT OUT OF REFERENCE UNITS RANGE LAB AMPB0(JEANNIE Cutoff 30 ng/mL NC) AMPHETAMINES SCREEN Negative [...] use. Test developed and characteristics determined by [employer]. See Compliance Statement B: [employer]/ Performed by [employer], [address] [facility], [facility] [address] www.[email or web address], Senthil Rizvi MD - Lab. Director Performed By: #### DS7LC #### [employer] [facility] [address] [facility] [place] [address] QUANTIFERON TB GOLD Collected: 02/21/2018 Status: F Source: [facility] 8:28 AM HOSPITALS REPOSITORY TYPE CODE TESTS [...] (RR-05):1-25). For additional information, please refer to: http://education.[employer]/faq/QFT (This link is being provided for informational/ educational purposes only). Performed By: #### QUAF1 #### [facility] [place] [id number] [place] [address] URINALYSIS Collected: 02/21/2018 Status: F Source: [facility] 8:25 [facility] REPOSITORY TYPE CODE TESTS RESULT OUT OF [...] ESTERASE NEGATIVE Performed By: #### UA #### [facility] [address] [place] [address] UA MICROSCOPIC Collected: 02/21/2018 Status: F Source: [facility] [address] [place] [address] REPOSITORY TYPE CODE TESTS RESULT OUT OF REFERENCE UNITS RANGE LAB WBCUR(LOINC 0-5 /HPF ) WBC <1 LAB RBCUR(LOINC 0-5 /HPF ) RBC <1 LAB EPSQE(LOINC /HPF ) SQUAMOUS <1 EPITH. CELLS Performed By: #### UAMIC #### [facility] [address] [place] [address] SURGERY VISIT REPORT Observed: 02/13/2018 Status: F Source: [place] 5:45 PM [facility] REPOSITORY [facility] [address] [place] [address]. [address] [place] [id number] OFFICE VISIT Date of Service: 02/13/18 MR#: [id number] Acct: [id number] Name: GAVINO DAVE Rep #: [id number] : 1975 Provider: Moshe Garcia MD Age/Sex: 43/M Location: [facility] Status: Signed Intake Vital Signs02/13/18 Height 5 ft 5 in 02/13/18 Weight: 160 lb 2 oz 02/13/18 Body Mass Index (BMI) 26.6 02/13/18 Blood Pressure 161/82 Intake Visit Reasons: PD Catheter Placement Chief Complaint: PD cath insertion Jamb Cutter Required: No Is patient in pain?: No [...] PO QDAY tab 01/28/18 [History Confirmed 02/13/18] nfudonkt-wvlgfflc-yziap acid 400 mcg-vit K 20 mcg-lycop 300 mcg tablet tab PO 01/28/18 [History Confirmed 02/13/18] omeprazole 20 mg capsule,delayed release 20 mg PO DAILY 02/13/18 [History Confirmed 02/13/18] [facility] Medical History Chronic renal insufficiency, stage IV [...] physician is Dr. Les Jones and his patient registration manager is Dr. Hanane Chowdary. The patient is referred by Dr. Hanane Chowdary for surgical consultation regarding PD placement and a written copy of my surgical consult recommendations will be returned to her. The patient is age 43. He has been long-term type I diabetic since age 15. He has been variable in his attention and controlled to his diabetes. 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 We do not have records regarding that [...] to obtain those medical records from the [facility]. The patient did express some concern as to whether he needed to proceed at this time. I directed him back to Dr. Hanane Chowdary if he has concerns as to when the peritoneal dialysis catheter should be placed. I did caution him that we work very hard to avoid placement of tunneled venous hemodialysis catheters. This was a 50 minute xjup-oi-ljoa consultative appointment. He and his have had [...] Moshe Garcia MD> Date Moshe Garcia MD [facility] Signature: Date (if applicable) CC: Hanane Chowdary DO; Les Jones MD EXTREMITY LOWER Observed: 02/07/2018 Status: F Source: [place] WITHOUT CONTRA 4:04 PM [facility] REPOSITORY [facility] Imaging Services [address] [place] [address] Extremity Lower without Contra MR#: [id number] Acct: [id number] Name: GAVINO DAVE Rep #: [id number] : 1975 M 43 From: Bassem Lemos MD PCP: Les Jones MD Status: REG CLI Study: Extremity Lower without Contra Date of Exam: 02/07/18 Exam# [id number] Ordering Dr: Luis Jones MD STUDY: CT [...] Service support , CC: Les Jones MD Cyber Security Administrator: Signed ENDOCRINOLOGY VISIT Observed: 02/02/2018 Status: F Source: [place] REPORT 3:29 PM [facility] REPOSITORY [facility] [address] [place] [address] [address] [place] [address] OFFICE VISIT Date of Service: 01/28/18 MR#: [id number] Acct: [id number] Name: GAVINO DAVE Rep #: [id number] : 1975 Provider: Tracy Glez NP Age/Sex: 43/M Location: [facility] Status: Signed HPI History of present illness [...] Pressure Position Sitting Intake Visit Reasons: Diabetes Jamb Cutter Required: No Accompanied by: Family / Other [...] PO QDAY tab 01/28/18 [History Confirmed 01/28/18] gvaknqpw-khyciyml-iyuub acid 400 mcg-vit K 20 mcg-lycop 300 [...] and colleagues, with an educational skinny from [employer]. Scoring: Total Score Depression Severity Action 1-4 Minimal depression No action needed 5-9 Mild depression Repeat PHQ-9 at follow up 10-14 Moderate depression Make tx plan,consider counseling, fup, prescription 02/02/18 1529 <Electronically signed by Tracy CASAS> Date Tracy CASAS Cosigner Signature: Date (if applicable) CC: RENAL PROFILE Collected: 01/28/2018 Status: F Source: [facility] 11:49 AM [facility] REPOSITORY TYPE CODE TESTS RESULT [...] CO2 22.0 Performed By: #### L500.3600 #### [facility] [address] [place], [address] PTHIN Collected: 01/28/2018 Status: F Source: [place] 11:49 AM [facility] REPOSITORY TYPE CODE TESTS RESULT OUT OF RANGE REFERENCE UNITS LAB L509.1000 18.4-80.1 pg/mL High PTHIN 86.1 Performed By: #### L509.1000 #### [facility] [address] [place], [address] VITAMIN D,25 HYDROXY Collected: 01/28/2018 Status: F Source: [place] 11:49 AM [facility] REPOSITORY TYPE CODE TESTS RESULT OUT OF RANGE REFERENCE UNITS LAB L506.1000 29.95-100.01 ng/mL Normal Vitamin D 30.1 25-OH Result Comment: Vitamin D 25(OH) Status Range Deficiency <20 ng/mL (50nmol/L) Insuffciency 20 - 30 ng/mL (50 - 75 nmol/L) Sufficiency 30 - 100 ng/mL (75 - 250 nmol/L) Toxicity >100 ng/mL (>250 nmol/L) Performed By: #### L506.1000 #### [facility] [address] [place], [address] CNCO Observed: 01/27/2018 Status: COMPLETED Source: [place] 12:[address] [facility] REPOSITORY Letter Text Kidney and Pancreas Transplant Program Pre-Transplant Office [address] [place] [address], [address] [address] , ext. [phone] January 27, 2018 Dear Mr. Gavino Dave, Our office had received a referral for you for a kidney transplant evaluation. We made attempts to contact you on 01/21/2018 and 01/27/2018 but we were unable to reach you. If you are ready to pursue transplantation at [facility], please call our office at [phone] or toll-free at ext [phone] to speak [...] 01/12/2018 Status: F Source: [facility] 12:00 PM [facility] REPOSITORY Order Comment: PATIENT WAS NOT PRESENT, [...] 1683.4 PROTEIN Performed By: #### L500.9000 #### [facility] [place], [address] 24 HR UR CREATININE Collected: 01/12/2018 Status: F Source: [place] CLEARANCE 12:00 PM [facility] REPOSITORY Order Comment: PATIENT WAS NOT PRESENT, [...] CLEARANCE 17 Performed By: #### L500.4507 #### [facility] [address] [place], [address] TIBIA AND FIBULA Observed: 11/28/2017 Status: F Source: [place] 2 VIEWS 4:56 PM [facility] REPOSITORY [facility] Imaging Services [address] [place] [address] Tibia AND Fibula 2 Views MR#: [id number] Acct: [id number] Name: GAVINO DAVE Rep #: [id number] : 1975 M 42 From: Jose A Singh DO PCP: Les Jones MD Status: REG CLI Study: Tibia AND Fibula 2 Views Date of Exam: 11/28/17 Exam# [id number] Ordering Dr: Luis Jones MD STUDY: X-RAY [...] Service support , CC: Les Jones MD Cyber Security Administrator: Signed DOWNTIME REPORT Observed: 11/21/2017 Status: F Source: [place] 11:46 AM [facility] REPOSITORY [facility] Medical Records Department [address] [place] [address] Downtime Report MR#: [id number] Acct: [id number] Name: GAVINO DAVE Rep #: [id number] : 1975 42 From: Ish Valentine PCP: Les Jones MD Status: REG CLI This patient was seen during an EMR downtime November 04, 2017 - November 11, 2017. This patient may have a combination of paper and electronic documentation or all paper documentation. All documentation is viewable within the e-chart portion of [facility] for each patient visit. RENAL ARTERY DUPLEX Observed: 11/13/2017 Status: F Source: [place] 3:00 PM [facility] REPOSITORY [facility] Cardiovascular Services [address] [place] [address] Renal Artery Duplex Ultrasound 11/04/17 0800 MR#: [id number] Acct: [id number] Name: GAVINO DAVE Rep #: [id number] : 1975 42 From: Silvano Velarde MD Attending Dr: Les Jones MD Status: REG CLI Ordering Dr: Luis Jones MD Date: 11/04/17 Location: [facility] Sex: M C Admitted: Reason For Study: [...] Dictated: 11/04/17 0800 Date Transcribed: 11/13/17 1500 Cyber Security Administrator: Signed PROGRESS Observed: 09/04/2017 Status: COMPLETED Source: [place] 2:54 PM [facility] REPOSITORY HNO ID: [id number] Author: Edwina Navarro Service: (none) Author Type: Photo Printer Type: Progress Notes Filed: 09/04/2017 2:55 PM Note Text: Certified letter was not claimed. Label states Return to Sender, unclaimed, unable to forward. Edwina Navarro MA PROGRESS Observed: 08/05/2017 Status: COMPLETED Source: [place] 12:25 PM [facility] REPOSITORY HNO ID: [id number] Author: Edwina Navarro Service: (none) Author Type: Photo Printer Type: Progress Notes Filed: 08/06/2017 4:59 PM Note Text: Mailed certified letter to patient. CNPTOUTREAKRIS Observed: 08/05/2017 Status: COMPLETED Source: [place] 12:00 AM [facility] REPOSITORY Patient Outreach (FAMPWS) GAVINO DAVE ([id number]) 1975 M Date Time Provider Department 08/05/17 [...] INVALID FOR* Letter Text Elpidio Servin MD [address] [facility] [id number] Edwina Navarro MA, Population Health M.A. August 05, 2017 Gavino Dave [address] [facility] [address] Dear Mr. Dave In an effort to serve your healthcare needs, it has come to the attention of Elpidio Servin MD, your Primary Care Provider, that you are overdue for routine health care. We've attempted to contact you and have been unsuccessful. Please call the office at [phone] to schedule an appointment for Follow Up. [...] have that office fax the results to [phone] Attn: Elpidio Servin MD or bring the records with you to your appointment. We will gladly update your record. If you have any questions, please feel free to call the office at [phone] or message us via [employer]. Thank you for choosing the [facility]. Sincerely, Edwina Navarro MA, Formerly [facility].A. (electronically signed to expedite mailing) Encounter Status:Closed by EDWINA NAVARRO on 08/06/17 ALLERGIES ALLERGIES DATE TYPE / CODE NAME / CODE REACTION SEVERITY SOURCE 04/18/2018 Drug No Known Unknown [facility] Allergy/4160 Allergies/F00 Hospital 20955(SNOMED 1265692(RXNOR Repository CT) M) ENCOUNTERS ENCOUNTERS ADMIT/DISCHARGE ACCOUNT ADMITTING ENCOUNTER LOCATION SOURCE NUMBER CLASS 06/16/2018 [id number] Ambulatory [facility] ing:LAB.FUTUR Repository E 06/05/2018 [id number] Ambulatory [facility] ing:MTLAB Repository 05/15/2018 [id number] Ambulatory [facility] ing:POLAB3 Repository 05/05/2018/05/05/20 [id number] Ambulatory BMS[facility]:[address] [place] [address] [place].[facility] Repository 05/05/2018 [id number] Ambulatory [facility] ing:MTLAB Repository 04/21/2018/04/21/20 [id number] Ambulatory [address] ing:SDCRoom: Repository AC09 04/21/2018 [id number] Ambulatory BMSBuilding:W Flex [facility] Repository 04/21/2018/04/21/20 [id number] Ambulatory BMSBuilding:B [place] 18 MS.CF.[facility] Repository 04/14/2018/04/14/20 [id number] Ambulatory BMSBuilding:B Flex 18 MS.[facility] Repository 04/10/2018/04/10/20 [id number] Ambulatory BMSBuilding:B [address] [place] [address] [place].[facility] Repository 04/07/2018/04/07/20 [id number] Ambulatory BMSBuilding:B [address] [place] [address] [place].[facility] Repository 04/01/2018 [id number] Ambulatory [facility] Repository 04/01/2018 [id number] Ambulatory [facility] Repository 03/26/2018/03/26/20 [id number] [facility] [address] [facility] ing:SDCRoom: Repository 20 03/26/2018/03/26/20 [id number] Ambulatory BMSBuilding:B [address] [place] [address] [place].[facility].[place] [facility] Repository 03/26/2018 [id number] Ambulatory BMSBuilding:W Flex [facility] Repository 03/25/[id number] [facility] Repository 03/20/[id number] [facility] Repository 03/19/2018/03/19/20 [id number] Ambulatory BMSBuilding:B Flex 18 [facility] Repository 03/13/[id number] [facility] Repository 03/13/2018 [id number] [facility] Repository 02/26/2018 [id number] Ambulatory [facility] Repository 02/24/2018 [id number] Ambulatory [facility] Hospitalild Hospital ing:MRI Repository 02/21/2018 [id number] Ambulatory [facility] Repository 02/21/2018 [id number] Ambulatory [facility] Repository 02/21/2018 [id number] Ambulatory [facility] Repository 02/21/2018 [id number] Ambulatory [facility] Repository 02/21/2018 [id number] Ambulatory [facility] Repository 02/21/2018 [id number] Ambulatory [facility] Repository 02/21/2018 [id number] Ambulatory [facility] Repository 02/13/2018/02/14/20 [id number] Ambulatory BMSBuilding:B [address] 18 [place].SRUTHI [facility] Repository 02/07/2018 [id number] [facility] Repository 02/06/2018/03/02/[id number] Hospital ing:DC Repository 01/30/2018 [id number] Ambulatory [facility] Hospital ing:LAB.FUTUR Repository E 01/28/2018 [id number] Ambulatory [facility] Hospital ing:LAB.FUTUR Repository E 01/28/2018/01/29/20 [id number] Ambulatory BMSBuilding:B Flex 18 MS.AVELINO [facility] Repository 01/24/2018 [id number] [facility] Hospital ing:LAB.FUTUR Repository E 01/23/2018/02/01/[id number] Hospital ing:DC Repository 01/14/2018 [id number] [facility] Hospital ing:LAB.FUTUR Repository E 11/28/2017 [id number] [facility] Hospital ing:MTRAD Repository 11/04/2017 [id number] [facility] Hospital ing:CVS Repository PAYERS PAYERS ENCOUNTER GUARANTOR PAYER SUBSCRIBER SOURCE 06/16/2018 GAVINO Hackett Primary GAVINOLAMIN Spearoster [id number] STEVIC Insurance:MEDICAL MILICHDOB: [facility] [id number] Alamos Medical Center [address]Lnd: Number: Repository [id number] () Date:3116-24-18[address] [place] [address]TH: 06/16/2018 Secondary NOT GIVENUNK Flex Insurance:SELF PAY [facility] Number: Effective Repository Date:2018-05-16 06/05/2018 GAVINO Hackett Primary GAVINO Spearoster [id number] STEVIC Insurance:MEDICAL MILICHDOB: [facility] 1730-09-09ZPSLos Alamos Medical Center [address]Tei: Number: Repository [id number] (HP) Date:5101-24-65EE [address] [address]OE: 06/05/[address] GIVENUNK [address] Insurance:SELF PAY [facility] Number: Effective Repository Date:2018-06-05 05/15/2018 GAVINO Lew Primary GAVINO Mccord [id number] STEVIC Insurance:MEDICAL MILICHDOB: [facility] [id number] [address]Rqp: Number: Repository [id number] (HP) Date:4766-14-82JE [address] [address]KF: 05/15/2018 Secondary NOT GIVENUNK [address] Insurance:SELF PAY [facility] Number: Effective Repository Date:2018-05-06 05/05/2018 GAVINO M Primary GAVINO Mccord [id number] STEVIC Insurance:MEDICAL MILICHDOB: [facility] [id number] Alamos Medical Center [address]Tqy: Number: Repository [id number] (HP) Date:5380-72-53MA [address] [address]BL: 05/05/2018 Secondary NOT GIVENUNK Flex Insurance:SELF PAY [facility] Number: Effective Repository Date:2018-05-05 05/05/2018 GAVINO M Primary GAVINO Mccord [id number] STEVIC Insurance:MEDICAL MILICHDOB: [address]08[address]18[facility] [place] [address]Fou: Number: Repository [id number] (HP) Date:5172-63-60DE [address] [address]OJ: 05/05/2018 Secondary NOT GIVENUNK Flex Insurance:SELF PAY [facility] Number: Effective Repository Date:2018-02-24 04/21/2018 GAVINO Hackett Primary Insurance:MED GAVINO [facility] MILICHDOB: [facility], Number: [id number] Alamos Medical Center [address]Ppk: [id number] Repository Date:8187-60-50UZ [address] () 19733KKFGPTFBG, [place] [address]GY: CHECK WEBSITE 04/21/[address] GIVENUNK [address] Insurance:SELF PAY [facility] Number: Effective Repository Date:2018-04-15 04/21/2018 GAVINO Hackett Primary Insurance:MED GAVINO FLOWERS [facility] N[facility]LESPolic MILICHDOB: [facility], Number: [id number] Alamos Medical Center [address]Flr: [id number] Repository Date:4410-75-55VB [address] () [place]JOFMVVXMary [place] [address]WP: CHECK WEBSITE 04/21/2018 Secondary NOT GIVENUNK [address] Insurance:SELF PAY [facility] Number: Effective Repository Date:2018-04-21 04/21/2018 GAVINO Hackett Primary Insurance:CRISTI FLOWERS [facility], Number: [id number] Alamos Medical Center [address]Yxl: [id number] Repository Date:8451-84-92AS [address] () [address]187VLMJMPSWJ, [place] [address]TR: CHECK WEBSITE 04/21/2018 Secondary NOT GIVENUNK [address] Insurance:SELF PAY [facility] Number: Effective Repository Date:2018-04-21 04/14/2018 GAVINO Hackett Primary Insurance:MED GAVINO FLOWERS [facility] HospitalICHD[facility]: [facility], Number: [id number] Alamos Medical Center [address]Ryc: [id number] Repository Date:3521-61-47BF [address] () [address]OHDTMCWTR, [place] [address]UB: CHECK WEBSITE 04/14/2018 Secondary NOT GIVENUNK Flex Insurance:SELF PAY [facility] Number: Effective Repository Date:2018-04-12 04/10/2018 GAVINO M Primary Insurance:MED GAVINO Hackett [address] [id number] [facility]: [facility], Number: [id number] Alamos Medical Center [address]Sjl: [id number] Repository Date:3331-81-31GZ [address] () [address]133FLUHPFDOD, [place] [address]YP: CHECK WEBSITE 04/10/2018 Secondary NOT GIVENUNK [address] Insurance:SELF PAY [facility] Number: Effective Repository Date:2018-04-10 04/07/2018 GAVINO Lew Primary Insurance:MED GAVINO Hackett [address]: [facility], Number: [id number] Alamos Medical Center [address]Fdn: [id number] Repository Date:3955-29-50XM [address] () [address]PXDUIWBFJ, [place] [address]IU: CHECK WEBSITE 04/07/2018 Secondary NOT GIVENUNK [address] Insurance:SELF PAY [facility] Number: Effective Repository Date:2018-04-03 04/01/2018 [facility]: [facility] Policy Number: [id number] Repository [facility]PITALIVCMARSHAL [id number] [facility]ITALIVMCK[facility] [place] Date:Plan Name:Health [place], [place] [address]Doz: [phone]: (HP) [phone] (HP) 04/01/2018 Secondary [facility] Insurance:Medical MILICHDOB: [facility] [id number] Repository Number: STEVIVCMARSHALLV [id number] [place], [place] Date:Plan Name:Health [address]Dnc: (HP) 04/01/2018 GAVINO Primary GAVINO University MILICHDOB: Insurance:[facility] MILICHDOB: Hospitals Policy Number: [id number] Repository STEVIVCMARSHALLV [id number] [facility] HOSPITALIVCMARSLOURDES [facility] [place], [place] Date:Plan Name:[place], [place] [address]Nhv: [phone]: (HP) [phone] () 04/01/2018 Secondary [facility] Insurance:Medical MILICHDOB: [facility] [id number] Repository Number: STEVIVCMARSHALLV [id number] [facility], [place] Date:Plan Name:[facility] [address]Uau: () 03/26/2018 GAVINO Hackett Primary Insurance:MED GAVINO Mccord [address]OB: [facility], Number: [id number] [facility] [address]Kjj: [id number] Repository Date:0925-18-15DS [address] () 84309JBCRKVNYT, [place] [address]XR: CHECK WEBSITE 03/26/2018 Secondary NOT GIVENUNK Flex Insurance:SELF PAY [facility] Number: Effective Repository Date:2018-02-13 03/26/2018 GAVINO Hackett Primary Insurance:MED GAVINO Hackett [address]: [facility], Number: [id number] [facility] [address]Wnu: [id number] Repository Date:5573-48-75TZ [address] () [address]AIWNUQCTS, [place] [address]SG: CHECK WEBSITE 03/26/2018 Secondary NOT GIVENUNK [address] Insurance:SELF PAY [facility] Number: Effective Repository Date:2018-03-26 03/26/2018 GAVINO Hackett Primary Insurance:MED GAVINO Mccord [address]: [facility], Number: [id number] [facility] [address]Cfj: [id number] Repository Date:5446-70-78YN [address] ) 25562VQPBPCFON, [place] [address]VE: CHECK WEBSITE 03/26/2018 Secondary NOT GIVENUNK [address] Insurance:SELF PAY [facility] Number: Effective Repository Date:2018-03-26 03/25/2018 [facility]: Insurance:[facility] MILICHDOB: Hospitals Policy Number: [id number] Repository [facility] [id number] STEVIVCMARSPHOENIX, [place] Date:Plan Name:[place], [place] [address]Shz: [phone]: () [phone] 03/20/2018 [facility]: Insurance:Medical MILICHDOB: [facility] [id number] Repository [facility] Number: STEVIVCMARSPHOENIX, [place] [id number] [place], [place] [address]Ala: (330) Date:0231-42-35Svsk [address]Tix: () Name:[address]109 () 03/19/2018 [facility] [address] Insurance:MEDICAL [facility]B: [facility] [id number] [facility]amos Medical Center [address]Hyr: Number: Repository [id number] () Date:8557-78-14[address], [place] [address]MA: 03/19/2018 Secondary NOT GIVENUNK [address] Insurance:SELF PAY [facility] Number: Effective Repository Date:2018-03-19 03/13/2018 [facility]: Insurance:[facility] MILICHDOB: Hospitals Policy Number: [id number] Repository [facility]MCK[facility] [id number] STEVIVCMARSHALLV [place], [place] Date:Plan Name:[place], [place] [address]Ree: [phone]: (HP) [phone] (HP) 03/13/2018 Secondary [facility] Insurance:Medical MILICHDOB: [facility] [id number] Repository Number: STEVIVCMARSHALLV [id number] [place], [place] Date:Plan Name:[place] [address]20165Tel: (HP) 03/13/2018 GAVINO Hackett Primary GAVINO [place] [address] STEVIC Insurance:MEDICAL MILICHDOB: [facility] [id number] Alamos Medical Center [address]Ahn: Number: Repository [id number] () Date:8009-96-95RH [address] [place] [address]PI: 03/13/2018 Secondary NOT GIVENUNK [address] Insurance:SELF PAY [facility] Number: Effective Repository Date:2018-03-03 02/26/2018 GAVINO [facility]HD[facility]: Insurance:[facility]B: [facility] Policy Number: [id number] Repository HANNAIVCMARSHALLV [id number] STEVIVCMARSHALLV [place], [place] Date:Plan Name:[place], [place] [address]Fdk: [phone]: (HP) [phone] (HP) 02/24/2018 GAVINO Hackett Primary GAVINO [address] Insurance:MEDICAL [facility]ITALICHD[facility]: [facility] [id number] [place] [address]Eey: Number: Repository [id number] () Date:4585-55-21BX [address] [place] [address]XQ: 02/24/2018 Secondary NOT GIVENUNK Flex Insurance:SELF PAY [facility] Number: Effective Repository Date:2018-02-18 02/21/2018 [facility] MILICHDOB: [facility] Policy Number: [id number] Repository STEVIVCMARSHALLV [id number] STEVIVCMARSHALLV [place], [place] Date:Plan Name:[place] [address]Nly: [phone]: (HP) [phone] (HP) 02/21/2018 [facility] Insurance:Medical [facility] [id number] Repository Number: STEVIVCMARSHALLV [id number] [place], [place] Date:Plan Name:Health [address]Msl: (HP) 02/21/2018 [facility]: Insurance:[facility]: [facility] Policy Number: [id number] Repository STEVIVCMARSHALLV [id number] ST[place]IVCMARSHALLV [place] Date:Plan Name:Health [place] [address]Ogn: [phone]) [id number]: (HP) [phone] (HP) 02/21/2018 [facility] Insurance:Medical [facility]: [facility] [id number] Repository Number: STEVIVCMARSHALLV [id number] [place] Date:Plan Name:Health [address]Iog: (HP) 02/21/2018 [facility]: Insurance:[facility] MILICHDOB: [facility] Policy Number: [id number] Repository STEVIVCMARSHALLV [id number] ST[place]CM[place]V [place] Date:Plan Name:Health [place] [address]Bju: [phone]) [phone]: (HP) [phone] (HP) 02/21/2018 [facility] Insurance:Medical [facility] [id number] Repository Number: STEVIVCMARSHALLV [id number] [place] Date:Plan Name:Health [address]Wiq: (HP) 02/21/2018 [facility]: Insurance:Self [facility] PayPolic Number: Repository STEVIVCMARSHALLV Effective Date:Plan [place] Name:Health [address]Iui: (HP) 02/21/2018 [facility] [facility]: Insurance:[facility]: [facility] Policy Number: [id number] Repository STEVIVCMARSHALLV [id number] ST[place]IVCMARSHALLV [place] Date:Plan Name:[place] [address]Hvd: [phone]: (HP) [phone] (HP) 02/21/2018 [facility] Insurance:Medical [facility] [id number] Repository Number: STEVIVCMARSHALLV [id number] [place] Date:Plan Name:Health [address]Frq: (HP) 02/21/2018 [facility]: Insurance:Medical [facility]: [facility] [id number] Repository STEVIVCMARSHALLV Number: STEVIVCMARSHALLV [place] [id number] [place], [place] [address]Kfx: (330) Date:Plan Name:Health [address]Hiw: (HP) [phone] (HP) 02/21/[address] [facility]: Insurance:Medical [facility]: [facility] [id number] Repository STEVIVCMARSHALLV Number: STEVIVCMARSHALLV [place] [id number] [place], [place] [address]Rrz: (330) Date:Plan Name:[facility] [address]Gcj: (HP) [phone] () 02/13/2018 GAVINO Hackett Primary Insurance:MED GAVINO Lew [address] [id number] STEVIC MUTUAL TPAPolicy MILICHDOB: [facility], Number: [id number] [facility]amos Medical Center [address]Flv: [id number] Repository Date:1076-92-07RZ [address]OX () 35924VFTNRQMXJ, [place] [address]RI: CHECK WEBSITE 02/13/2018 Secondary NOT GIVENUNK Flex Insurance:SELF PAY [facility] Number: Effective Repository Date:2018-01-23 02/07/2018 GAVINO Hackett Primary Insurance:MED GAVINO Hackett [address] [id number] STEVIC MUTUAL TPAPolicy MILICHDOB: [facility], Number: [id number] Alamos Medical Center [address]Cte: [id number] Repository Date:2112-89-88CP [address] () 04174QZRRNJCON, [place] [address]BO: CHECK WEBSITE 02/07/2018 Secondary NOT GIVENUNK [address] Insurance:SELF PAY [facility] Number: Effective Repository Date:2018-01-28 02/06/2018 GAVINO Hackett Primary Insurance:MED GAVINO M Flex [id number] STEVIC MUTUAL [facility]LANDPolicy MILICHDOB: [facility], Number: [id number] Alamos Medical Center [address]Xby: [id number] Repository Date:6869-50-50MX [address] () 42353UOPDTQFXH, [place] [address]SK: CHECK WEBSITE 02/06/2018 Secondary NOT GIVENUNK Flex Insurance:SELF PAY [facility] Number: Effective Repository Date:2018-02-01 01/30/2018 GAVINO Hackett Primary Insurance:MED GAVINO Hackett [address] [id number] STEVIC MUTUAL TPAPolicy MILICHDOB: [facility], Number: [id number] [facility]amos Medical Center [address]Pqd: [id number] Repository Date:6574-69-69KZ [address]OX () [address]90GLALCVNCJ, [place] [address]BV: CHECK WEBSITE 01/30/2018 Secondary NOT GIVENUNK [address] Insurance:SELF PAY [facility] Number: Effective Repository Date:2018-01-30 01/28/2018 GAVINO Hackett Primary Insurance:MED GAVINO Hackett [address] [id number] STEVIC MOKENA TPAPolicy MILICHDOB: [facility], Number: [id number] Alamos Medical Center [address]Zay: [id number] Repository Date:5720-26-90GO [address] () 56183CBEDXPPCE, [place] [address]FS: CHECK WEBSITE 01/28/2018 Secondary NOT GIVENUNK Flex Insurance:SELF PAY [facility] Number: Effective Repository Date:2018-01-24 01/28/2018 GAVINO Hackett Primary Insurance:MED GAVINO M [address] [id number] [facility] HE[facility] CENTERPolic MILICHDOB: [facility], Number: [id number] Alamos Medical Center [address]Klw: [id number] Repository Date:2432-26-20KR [address]OX () 58439BPRIXIMQR, [place] [address]RV: CHECK WEBSITE 01/28/2018 Secondary NOT GIVENUNK [address] Insurance:SELF PAY [facility] Number: Effective Repository Date:2018-01-28 01/24/2018 GAVINO Hackett Primary Insurance:MED GAVINO [id number] STEVPAYNESVILLE HOSPITALPolicy MILICHDOB: [facility], Number: [id number] Alamos Medical Center [address]Fpi: [id number] Repository Date:5028-88-03LT [address]OX () 13828VLZQDAUQC, [place] [address]PI: CHECK WEBSITE 01/24/2018 Secondary NOT GIVENUNK Flex Insurance:SELF PAY [facility] Number: Effective Repository Date:2018-01-24 01/23/2018 GAVINO Hackett Primary Insurance:MED GAVINO Hackett [address] [id number] STEVPAYNESVILLE HOSPITALPolicy MILICHDOB: [facility], Number: [id number] [facility] [address]Pzz: [id number] Repository Date:6790-86-56XZ [address]OX () 8[address]44TJCVFOJHH, [place] [address]ZF: CHECK WEBSITE 01/23/2018 Secondary NOT GIVENUNK Flex Insurance:SELF PAY [facility] Number: Effective Repository Date:2018-01-23 01/14/2018 GAVINO Hackett Primary Insurance:MED GAVINO Hackett Flex [id number] [facility] MILICHDOB: [facility], Number: [id number] [facility]amos Medical Center [address]Pxa: [id number] Repository Date:3817-57-67FQ [address]OX () 77909ZDXGZBPQT, [place] [address]LU: CHECK WEBSITE 01/14/2018 Secondary NOT GIVENUNK [address] Insurance:SELF PAY [facility] Number: Effective Repository Date:2018-01-13 11/28/2017 GAVINO Hackett Primary Insurance:MED GAVINO Spearoster [id number] [facility] MILICHDOB: [facility], Number: [id number] [facility] [address]Euw: [id number] Repository Date:0662-51-05IW [address]OX () 61013BYGPYRHEG, [place] [address]MA: CHECK WEBSITE 11/28/2017 Secondary NOT GIVENUNK Flex Insurance:SELF PAY [facility] Number: Effective Repository Date:2017-11-28 11/04/2017 GAVINO Hackett Primary GAVINO Mccord [id number] STEVIC Insurance:MEDICAL MILICHDOB: [facility] [id number] [facility]amos Medical Center [address]Lck: Number: Repository [id number] () Date:5297-47-59DG [address], [place] [address]IN: 11/04/2017 Secondary NOT GIVENUNK Flex Insurance:SELF PAY [facility] Number: Effective Repository Date:2017-10-15
== END ==
PROVIDERS: Family Provider Family Medicine; PCP Family Medicine; Visit Provider Internal Medicine Nephrology
DX: E10.22 Type 1 diabetes mellitus with diabetic chronic kidney disease (principal); N18.4 Chronic kidney disease, stage 4 (severe); D63.8 Anemia in other chronic diseases classified elsewhere; N25.81 Secondary hyperparathyroidism of renal origin
CPT/HCPCS: 36415; 83970

== ENCOUNTER → 2018-06-05 16:36 | Outpatient (CLI) | payer OTHER, SELFPAY ==
[2018-04-21 07:39] VITALS: BMI 25.6
== END ==
PROVIDERS: Family Provider Family Medicine; PCP Family Medicine; Referring Provider Internal Medicine; Visit Provider Internal Medicine
DX: Z01.818 Encounter for other preprocedural examination (principal)
CPT/HCPCS: 36415; 86900

== ENCOUNTER → 2018-08-09 07:27 | Outpatient (CLI) | payer OTHER, SELFPAY ==
[2018-04-21 07:39] VITALS: BMI 25.6
[2018-08-09 09:44] LABS: Hematocrit 35.7 % (40-54); Hemoglobin 11.7 g/dl (13.0-16.5); Mean Corp Hgb Conc 32.8 g/gl (32-36); Mean Corpuscular Hgb 28.3 pg (27.0-32.0); Mean Corpuscular Volume 86.4 fL (80-94); Platelet Count 186 K/mm3 (150-450); RBC Distribution Width CV 13.4 % (11.6-14.6); RBC Distribution Width SD 42.5 fl (35.1-43.9); Red Blood Count 4.13 M/mm3 (4.6-6.2); White Blood Count 6.7 K/mm3 (4.4-11.0)
[2018-08-09 09:54] LABS: Scan Indicated on CBC? Y/N NO
[2018-08-09 09:58] LABS: Albumin, Serum 3.7 g/dL (3.2-5.0); BUN 61 mg/dL (7-18); BUN/Creat Ratio 14.5 RATIO (10-20); Calcium,Total 9.1 mg/dL (8.5-10.1); Chloride 107 mmol/L (98-107); Creatinine, Serum 4.22 mg/dL (0.70-1.30); EST Glomerular Filtration Rate 16 mL/min (>60); Est Glom Filt Rate - Afr Amer 20 mL/min (>60); Glucose 235 mg/dL (74-106); Phosphorus 3.5 mg/dL (2.5-4.9); Potassium 4.4 mmol/L (3.5-5.1); Sodium Level 140 mmol/L (136-145)
[2018-08-09 10:37] LABS: PTHIN 151.5 pg/mL (18.4-80.1)
== END ==
LOC: LAB.FUTURE 07:32
PROVIDERS: Family Provider Family Medicine; PCP Family Medicine; Visit Provider Internal Medicine Nephrology
DX: N18.4 Chronic kidney disease, stage 4 (severe) (principal); D63.1 Anemia in chronic kidney disease
CPT/HCPCS: 36415; 80069; 83970; 85027

== ENCOUNTER → 2018-11-18 16:05 | Outpatient (CLI) | payer OTHER, SELFPAY ==
[2018-04-21 07:39] VITALS: BMI 25.6
[2018-11-18 17:44] LABS: Albumin, Serum 3.3 g/dL (3.2-5.0); BUN 77 mg/dL (7-18); BUN/Creat Ratio 14.6 RATIO (10-20); Calcium,Total 8.6 mg/dL (8.5-10.1); Chloride 100 mmol/L (98-107); Creatinine, Serum 5.27 mg/dL (0.70-1.30); EST Glomerular Filtration Rate 13 mL/min (>60); Est Glom Filt Rate - Afr Amer 15 mL/min (>60); Glucose 157 mg/dL (74-106); Phosphorus 4.4 mg/dL (2.5-4.9); Potassium 4.9 mmol/L (3.5-5.1); Sodium Level 134 mmol/L (136-145)
== END ==
PROVIDERS: Family Provider Family Medicine; PCP Family Medicine; Referring Provider Internal Medicine Nephrology; Visit Provider Internal Medicine Nephrology
DX: N18.4 Chronic kidney disease, stage 4 (severe) (principal)
CPT/HCPCS: 36415; 80069

== ENCOUNTER → 2018-11-27 09:47 | Outpatient (CLI) | payer OTHER, SELFPAY ==
[2018-04-21 07:39] VITALS: BMI 25.6
[2018-11-27 12:51] LABS: Hematocrit 34.5 % (40-54); Hemoglobin 11.4 g/dl (13.0-16.5); Mean Corpuscular Hgb 28.2 pg (27.0-32.0); Mean Corpuscular Volume 85.4 fL (80-94); Mean Platelet Vol. 11.8 fl (6.2-12.0); Platelet Count 227 K/mm3 (150-450); RBC Distribution Width CV 12.9 % (11.6-14.6); RBC Distribution Width SD 39.8 fl (35.1-43.9); Red Blood Count 4.04 M/mm3 (4.6-6.2); White Blood Count 8.4 K/mm3 (4.4-11.0)
[2018-11-27 12:53] LABS: Scan Indicated on CBC? Y/N NO
[2018-11-27 13:01] LABS: Albumin, Serum 3.7 g/dL (3.2-5.0); BUN 71 mg/dL (7-18); BUN/Creat Ratio 14.9 RATIO (10-20); Calcium,Total 9.7 mg/dL (8.5-10.1); Chloride 106 mmol/L (98-107); Creatinine, Serum 4.75 mg/dL (0.70-1.30); EST Glomerular Filtration Rate 14 mL/min (>60); Est Glom Filt Rate - Afr Amer 17 mL/min (>60); Glucose 213 mg/dL (74-106); Phosphorus 3.7 mg/dL (2.5-4.9); Potassium 4.9 mmol/L (3.5-5.1); Sodium Level 137 mmol/L (136-145)
[2018-11-27 13:16] LABS: PTHIN 190.5 pg/mL (18.4-80.1)
== END ==
LOC: POLAB3 09:48
PROVIDERS: Family Provider Family Medicine; PCP Family Medicine; Visit Provider Internal Medicine Nephrology
DX: N18.5 Chronic kidney disease, stage 5 (principal)
CPT/HCPCS: 36415; 80069; 83970; 85027

== ENCOUNTER → 2018-12-18 16:37 | Outpatient (CLI) | payer OTHER, SELFPAY ==
[2018-04-21 07:39] VITALS: BMI 25.6
[2018-12-18 17:36] LABS: Hematocrit 31.7 % (40-54); Hemoglobin 10.6 g/dL (13.0-16.5); Mean Corp Hgb Conc 33.4 g/dL (32-36); Mean Corpuscular Hgb 29.1 pg (27.0-32.0); Mean Corpuscular Volume 87.1 fL (80-94); Mean Platelet Vol. 11.5 fl (6.2-12.0); Platelet Count 226 K/mm3 (150-450); RBC Distribution Width CV 12.6 % (11.6-14.6); RBC Distribution Width SD 40.2 fl (35.1-43.9); Red Blood Count 3.64 M/mm3 (4.6-6.2); White Blood Count 8.9 K/mm3 (4.4-11.0)
[2018-12-18 17:46] LABS: Albumin, Serum 3.5 g/dL (3.2-5.0); BUN 75 mg/dL (7-18); BUN/Creat Ratio 16.2 RATIO (10-20); Calcium,Total 8.9 mg/dL (8.5-10.1); Chloride 104 mmol/L (98-107); Creatinine, Serum 4.63 mg/dL (0.70-1.30); EST Glomerular Filtration Rate 15 mL/min (>60); Est Glom Filt Rate - Afr Amer 18 mL/min (>60); Glucose 75 mg/dL (74-106); Phosphorus 4.2 mg/dL (2.5-4.9); Potassium 4.3 mmol/L (3.5-5.1); Sodium Level 138 mmol/L (136-145)
[2018-12-18 18:24] LABS: PTHIN 301.8 pg/mL (18.4-80.1)
== END ==
LOC: LAB.FUTURE 16:38
PROVIDERS: Family Provider Family Medicine; PCP Family Medicine; Referring Provider Internal Medicine Nephrology; Visit Provider Internal Medicine Nephrology
DX: N18.5 Chronic kidney disease, stage 5 (principal)
CPT/HCPCS: 36415; 80069; 83970; 85027

== ENCOUNTER → 2019-02-11 13:37 | Outpatient (CLI) | payer OTHER, SELFPAY ==
[2018-04-21 07:39] VITALS: BMI 25.6
[2019-02-11 15:39] LABS: Hematocrit 32.2 % (40-54); Hemoglobin 10.6 g/dL (13.0-16.5); Mean Corp Hgb Conc 32.9 g/dL (32-36); Mean Corpuscular Hgb 29.2 pg (27.0-32.0); Mean Corpuscular Volume 88.7 fL (80-94); Mean Platelet Vol. 11.5 fl (6.2-12.0); Platelet Count 208 K/mm3 (150-450); RBC Distribution Width CV 12.9 % (11.6-14.6); RBC Distribution Width SD 42.3 fl (35.1-43.9); Red Blood Count 3.63 M/mm3 (4.6-6.2); White Blood Count 9.1 K/mm3 (4.4-11.0)
[2019-02-11 16:09] LABS: PTHIN 294.5 pg/mL (18.4-80.1)
[2019-02-11 16:13] LABS: Albumin, Serum 3.4 g/dL (3.2-5.0); BUN 70 mg/dL (7-18); BUN/Creat Ratio 13.8 RATIO (10-20); Calcium,Total 8.8 mg/dL (8.5-10.1); Chloride 104 mmol/L (98-107); Creatinine, Serum 5.09 mg/dL (0.70-1.30); EST Glomerular Filtration Rate 13 mL/min (>60); Est Glom Filt Rate - Afr Amer 16 mL/min (>60); Ferritin 200 ng/mL (26-388); Glucose 140 mg/dL (74-106); Iron 49 ug/dL (65-175); Iron Binding Capacity,Total 274 ug/dL (250-450); Phosphorus 4.1 mg/dL (2.5-4.9); Potassium 5.1 mmol/L (3.5-5.1); Sodium Level 137 mmol/L (136-145)
== END ==
LOC: POLAB3 13:38
PROVIDERS: Family Provider Family Medicine; PCP Family Medicine; Visit Provider Internal Medicine Nephrology
DX: N18.5 Chronic kidney disease, stage 5 (principal); D63.8 Anemia in other chronic diseases classified elsewhere; N25.81 Secondary hyperparathyroidism of renal origin
CPT/HCPCS: 36415; 80069; 82728; 83540; 83550; 83970; 85027

== ENCOUNTER → 2019-05-04 15:49 | Outpatient (CLI) | payer OTHER, SELFPAY ==
[2018-04-21 07:39] VITALS: BMI 25.6
[2019-05-04 18:03] LABS: Hematocrit 32.7 % (40-54); Hemoglobin 10.6 g/dL (13.0-16.5); Mean Corp Hgb Conc 32.4 g/dL (32-36); Mean Corpuscular Volume 89.3 fL (80-94); Mean Platelet Vol. 11.6 fl (6.2-12.0); Platelet Count 212 K/mm3 (150-450); RBC Distribution Width SD 42.6 fl (35.1-43.9); Red Blood Count 3.66 M/mm3 (4.6-6.2); White Blood Count 8.6 K/mm3 (4.4-11.0)
[2019-05-04 18:41] LABS: AST(SGOT) 22 U/L (15-37); Alanine Aminotransfer ALT/SGPT 40 U/L (16-61); Albumin, Serum 3.7 g/dL (3.2-5.0); Alkaline Phosphatase 88 U/L (45-117); Anion Gap 10 (5-15); BUN 64 mg/dL (7-18); BUN/Creat Ratio 13.4 RATIO (10-20); Bilirubin, Direct 0.09 mg/dL (0.00-0.30); Calcium,Total 9.2 mg/dL (8.5-10.1); Chloride 103 mmol/L (98-107); Cholesterol 137 mg/dL (200); Creatinine, Serum 4.79 mg/dL (0.70-1.30); EST Glomerular Filtration Rate 14 mL/min (>60); Est Glom Filt Rate - Afr Amer 17 mL/min (>60); Ferritin 155 ng/mL (26-388); Globulin 4.9 g/dL (2.2-4.2); Glucose 82 mg/dL (74-106); High Density Lipoprotein 45 mg/dL; Iron 75 ug/dL (65-175); Iron Binding Capacity,Total 300 ug/dL (250-450); Phosphorus 4.4 mg/dL (2.5-4.9); Potassium 4.5 mmol/L (3.5-5.1); Protein, Total 8.6 g/dL (6.4-8.2); Sodium Level 136 mmol/L (136-145); Thyroid Stim Hormone (TSH) 2.59 uIU/mL (0.358-3.74); Triglycerides 224 mg/dL; Very Low Density Lipoprotein 45 mg/dL (5-40)
[2019-05-05 10:06] LABS: Vitamin D,25 Hydroxy 23.8 ng/mL (29.95-100.01)
[2019-05-05 10:30] LABS: PTHIN 96.2 pg/mL (18.4-80.1)
== END ==
PROVIDERS: Family Provider Family Medicine; PCP Family Medicine; Referring Provider Internal Medicine Nephrology; Visit Provider Internal Medicine Nephrology
DX: E10.22 Type 1 diabetes mellitus with diabetic chronic kidney disease (principal); N18.5 Chronic kidney disease, stage 5; D63.1 Anemia in chronic kidney disease; N25.81 Secondary hyperparathyroidism of renal origin
CPT/HCPCS: 36415; 80048; 80061; 80076; 82306; 82728; 83540; 83550; 83970; 84100; 84443; 85027

== ENCOUNTER → 2019-06-23 16:37 | Outpatient (CLI) | payer OTHER, SELFPAY ==
[2018-04-21 07:39] VITALS: BMI 25.6
[2019-06-23 17:53] LABS: Hematocrit 32.8 % (40-54); Hemoglobin 10.9 g/dL (13.0-16.5); Mean Corp Hgb Conc 33.2 g/dL (32-36); Mean Corpuscular Hgb 29.1 pg (27.0-32.0); Mean Corpuscular Volume 87.5 fL (80-94); Mean Platelet Vol. 11.3 fl (6.2-12.0); Platelet Count 208 K/mm3 (150-450); RBC Distribution Width CV 12.6 % (11.6-14.6); RBC Distribution Width SD 40.1 fl (35.1-43.9); Red Blood Count 3.75 M/mm3 (4.6-6.2); White Blood Count 7.2 K/mm3 (4.4-11.0)
[2019-06-23 18:23] LABS: Albumin, Serum 3.6 g/dL (3.2-5.0); BUN 85 mg/dL (7-18); BUN/Creat Ratio 13.7 RATIO (10-20); Calcium,Total 9.6 mg/dL (8.5-10.1); Chloride 101 mmol/L (98-107); EST Glomerular Filtration Rate 10 mL/min (>60); Est Glom Filt Rate - Afr Amer 13 mL/min (>60); Glucose 91 mg/dL (74-106); Phosphorus 5.1 mg/dL (2.5-4.9); Potassium 4.6 mmol/L (3.5-5.1); Sodium Level 134 mmol/L (136-145)
[2019-06-24 08:48] LABS: PTHIN 90.4 pg/mL (18.4-80.1)
== END ==
LOC: LAB.FUTURE 16:41
PROVIDERS: Family Provider Family Medicine; PCP Family Medicine; Referring Provider Internal Medicine Nephrology; Visit Provider Internal Medicine Nephrology
DX: N18.5 Chronic kidney disease, stage 5 (principal); D63.1 Anemia in chronic kidney disease; N25.81 Secondary hyperparathyroidism of renal origin
CPT/HCPCS: 36415; 80069; 83970; 85027

== ENCOUNTER → 2019-07-10 15:43 | Outpatient (CLI) | payer OTHER, SELFPAY ==
[2018-04-21 07:39] VITALS: BMI 25.6
== END ==
PROVIDERS: PCP Family Medicine; Referring Provider Internal Medicine Nephrology; Visit Provider Internal Medicine Nephrology
DX: N18.5 Chronic kidney disease, stage 5 (principal)

== ENCOUNTER → 2019-07-13 15:52 | Outpatient (CLI) | payer OTHER, SELFPAY ==
[2018-04-21 07:39] VITALS: BMI 25.6
[2019-07-13 18:32] LABS: Albumin, Serum 3.5 g/dL (3.2-5.0); BUN 62 mg/dL (7-18); BUN/Creat Ratio 12.3 RATIO (10-20); Calcium,Total 9.3 mg/dL (8.5-10.1); Chloride 99 mmol/L (98-107); Creatinine, Serum 5.06 mg/dL (0.70-1.30); EST Glomerular Filtration Rate 13 mL/min (>60); Est Glom Filt Rate - Afr Amer 16 mL/min (>60); Glucose 127 mg/dL (74-106); Phosphorus 3.6 mg/dL (2.5-4.9); Potassium 4.2 mmol/L (3.5-5.1); Sodium Level 131 mmol/L (136-145)
== END ==
PROVIDERS: PCP Family Medicine; Referring Provider Internal Medicine Nephrology; Visit Provider Internal Medicine Nephrology
DX: N18.5 Chronic kidney disease, stage 5 (principal)
CPT/HCPCS: 80069

== ENCOUNTER → 2019-08-04 14:27 | Outpatient (CLI) | payer OTHER, SELFPAY ==
[2018-04-21 07:39] VITALS: BMI 25.6
[2019-08-04 14:54] LABS: Hematocrit 31.9 % (40-54); Hemoglobin 10.9 g/dL (13.0-16.5); Mean Corp Hgb Conc 34.2 g/dL (32-36); Mean Corpuscular Hgb 29.1 pg (27.0-32.0); Mean Corpuscular Volume 85.1 fL (80-94); Platelet Count 260 K/mm3 (150-450); RBC Distribution Width CV 12.2 % (11.6-14.6); RBC Distribution Width SD 37.4 fl (35.1-43.9); Red Blood Count 3.75 M/mm3 (4.6-6.2); White Blood Count 9.6 K/mm3 (4.4-11.0)
[2019-08-04 15:02] LABS: Albumin, Serum 3.7 g/dL (3.2-5.0); BUN 82 mg/dL (7-18); BUN/Creat Ratio 14.9 RATIO (10-20); Calcium,Total 9.5 mg/dL (8.5-10.1); Chloride 102 mmol/L (98-107); Creatinine, Serum 5.49 mg/dL (0.70-1.30); EST Glomerular Filtration Rate 12 mL/min (>60); Est Glom Filt Rate - Afr Amer 15 mL/min (>60); Glucose 74 mg/dL (74-106); Phosphorus 4.3 mg/dL (2.5-4.9); Potassium 4.3 mmol/L (3.5-5.1); Sodium Level 133 mmol/L (136-145)
== END ==
PROVIDERS: PCP Family Medicine; Visit Provider Internal Medicine Nephrology
DX: N18.5 Chronic kidney disease, stage 5 (principal); D63.1 Anemia in chronic kidney disease
CPT/HCPCS: 36415; 80069; 83970; 85027

== ENCOUNTER → 2019-09-01 15:44 | Outpatient (CLI) | payer OTHER, SELFPAY ==
[2018-04-21 07:39] VITALS: BMI 25.6
[2019-09-01 17:44] LABS: Hematocrit 31.1 % (40-54); Hemoglobin 10.5 g/dL (13.0-16.5); Mean Corp Hgb Conc 33.8 g/dL (32-36); Mean Corpuscular Hgb 29.9 pg (27.0-32.0); Mean Corpuscular Volume 88.6 fL (80-94); Mean Platelet Vol. 11.4 fl (6.2-12.0); Platelet Count 206 K/mm3 (150-450); RBC Distribution Width CV 12.7 % (11.6-14.6); RBC Distribution Width SD 40.7 fl (35.1-43.9); Red Blood Count 3.51 M/mm3 (4.6-6.2); White Blood Count 8.6 K/mm3 (4.4-11.0)
[2019-09-01 18:13] LABS: Albumin, Serum 3.9 g/dL (3.2-5.0); BUN 72 mg/dL (7-18); BUN/Creat Ratio 13.5 RATIO (10-20); Calcium,Total 9.8 mg/dL (8.5-10.1); Chloride 104 mmol/L (98-107); Creatinine, Serum 5.35 mg/dL (0.70-1.30); EST Glomerular Filtration Rate 12 mL/min (>60); Est Glom Filt Rate - Afr Amer 15 mL/min (>60); Glucose 69 mg/dL (74-106); Phosphorus 4.5 mg/dL (2.5-4.9); Potassium 4.4 mmol/L (3.5-5.1); Sodium Level 137 mmol/L (136-145)
[2019-09-02 10:18] LABS: PTHIN 46.7 pg/mL (18.4-80.1)
== END ==
LOC: MTLAB 15:46
PROVIDERS: PCP Family Medicine; Referring Provider Internal Medicine Nephrology; Visit Provider Internal Medicine Nephrology
DX: N18.5 Chronic kidney disease, stage 5 (principal); N25.81 Secondary hyperparathyroidism of renal origin; D63.1 Anemia in chronic kidney disease
CPT/HCPCS: 36415; 80069; 83970; 85027

== ENCOUNTER → 2019-09-17 14:30 | Outpatient (CLI) | payer OTHER, SELFPAY ==
[2018-04-21 07:39] VITALS: BMI 25.6
[2019-09-17 15:24] LABS: Hematocrit 29.6 % (40-54); Mean Corp Hgb Conc 33.8 g/dL (32-36); Mean Corpuscular Hgb 29.3 pg (27.0-32.0); Mean Corpuscular Volume 86.8 fL (80-94); Mean Platelet Vol. 11.2 fl (6.2-12.0); Platelet Count 215 K/mm3 (150-450); RBC Distribution Width CV 12.5 % (11.6-14.6); RBC Distribution Width SD 39.9 fl (35.1-43.9); Red Blood Count 3.41 M/mm3 (4.6-6.2); White Blood Count 10.9 K/mm3 (4.4-11.0)
[2019-09-17 15:36] LABS: Albumin, Serum 3.3 g/dL (3.2-5.0); BUN 71 mg/dL (7-18); BUN/Creat Ratio 16.6 RATIO (10-20); Calcium,Total 8.7 mg/dL (8.5-10.1); Chloride 98 mmol/L (98-107); Creatinine, Serum 4.27 mg/dL (0.70-1.30); EST Glomerular Filtration Rate 16 mL/min (>60); Est Glom Filt Rate - Afr Amer 19 mL/min (>60); Glucose 357 mg/dL (74-106); Phosphorus 3.5 mg/dL (2.5-4.9); Potassium 4.4 mmol/L (3.5-5.1); Sodium Level 129 mmol/L (136-145)
[2019-09-17 15:55] LABS: PTHIN 143.4 pg/mL (18.4-80.1)
[2019-09-18 10:55] LABS: Hepatitis B Surface Antigen Non-Reactive (Nonreactive)
== END ==
PROVIDERS: PCP Family Medicine; Visit Provider Internal Medicine Nephrology
DX: N18.6 End stage renal disease (principal); D63.1 Anemia in chronic kidney disease
CPT/HCPCS: 36415; 80069; 83970; 85027; 87340

== ENCOUNTER → 2019-09-24 12:35 | Outpatient (CLI) | payer OTHER, SELFPAY ==
[2019-09-23 15:00] VITALS: BMI 25.6
--- NOTE | 2019-09-24 12:37 | RAD_ITS ---
STUDY: X-RAY - ABDOMEN/PELVIS REASON FOR EXAM: Male, 44 years old. PATIENT STATES HAVING ISSUES WITH HIS DIALYSIS CATHETER IN HIS ABDOMEN. IT WAS PUT IN ABOUT 1 1/2 YRS AGO PER PATIENT. TECHNIQUE: Single AP view of the abdomen / pelvis. COMPARISON: None. FINDINGS: The tip of the left peritoneal dialysis catheter is within the pelvis. There is a moderate amount of colonic fecal material. Small bilateral intrarenal calculi. Calcification of the vas deferens bilaterally. Normal visualized osseous structures. RAD/Abd Inc Decub and/or Erect IMPRESSION: The tip of the left dialysis catheter is in the pelvis. Findings suggestive of small bilateral intrarenal calculi. Electronically Signed: Warren Walter, at 15:54 EDT , Service support ,
== END ==
LOC: MTRAD 12:36
PROVIDERS: PCP Family Medicine; Referring Provider Surgery; Visit Provider Surgery
DX: T82.598A Other mechanical complication of other cardiac and vascular devices and implants, initial encounter (principal)
CPT/HCPCS: 74019

== ENCOUNTER → 2020-04-12 09:38 | Outpatient (CLI) | payer OTHER, SELFPAY ==
[2019-09-23 15:00] VITALS: BMI 25.6
--- NOTE | 2020-04-12 09:41 | RAD_ITS ---
STUDY: X-RAY - LEFT HAND, ATTENTION INDEX FINGER REASON FOR EXAM: Male, 45 years old. Dog bite to left 2nd finger TECHNIQUE: 3 view(s) of the finger were obtained. COMPARISON: None. FINDINGS: Normal metacarpal head. Normal metacarpophalangeal joint. Normal proximal phalanx. Normal middle phalanx. Normal distal phalanx. Normal proximal interphalangeal joint. Normal distal interphalangeal joint. Vascular calcification. RAD/Finger(s) Min 2 Views IMPRESSION: Vascular calcification. Electronically Signed: Warren Walter, at 12:54 EST , Service support ,
== END ==
PROVIDERS: PCP Family Medicine; Referring Provider Family Medicine; Visit Provider Family Medicine
DX: M79.642 Pain in left hand (principal)
CPT/HCPCS: 73140

== ENCOUNTER → 2020-10-12 16:46 | Outpatient (CLI) | payer OTHER, SELFPAY ==
[2019-09-23 15:00] VITALS: BMI 25.6
--- NOTE | 2020-10-12 16:55 | RAD_ITS ---
HISTORY: sob EXAMINATION/TECHNIQUE: XR Chest 2 Views: 2 views COMPARISON: None FINDINGS: LINES/DEVICES: None. LUNGS: No pulmonary consolidation, mass, or edema. No pleural effusion or pneumothorax. MEDIASTINUM AND CARDIOVASCULAR STRUCTURES: Cardiac silhouette not enlarged. Central airways and mediastinal contour are unremarkable. BONES AND SOFT TISSUES: No acute bony abnormalities. RAD/Chest PA and Lateral IMPRESSION: No radiographic evidence of acute cardiopulmonary disease. at 1711 Reported and signed by: Regan Matias MD Electronically Signed: Regan Matias MD at 17:10 EDT Tel , Service support ,
[2020-10-12 17:26] LABS: Hematocrit 33.6 % (40-54); Hemoglobin 10.2 g/dL (13.0-16.5); Mean Corp Hgb Conc 30.4 g/dL (32-36); Mean Corpuscular Hgb 30.4 pg (27.0-32.0); Mean Corpuscular Volume 100.3 fL (80-94); Mean Platelet Vol. 11.3 fl (6.2-12.0); Platelet Count 195 K/mm3 (150-450); RBC Distribution Width CV 16.8 % (11.6-14.6); RBC Distribution Width SD 61.9 fl (35.1-43.9); Red Blood Count 3.35 M/mm3 (4.6-6.2); White Blood Count 12.6 K/mm3 (4.4-11.0)
[2020-10-12 17:41] LABS: BNP,B-Type NATRIURETIC PEPTIDE 131.7 pg/mL (0-100)
[2020-10-12 18:46] LABS: ALB/GLOB Ratio 1.3 RATIO (0.9-2.4); AST(SGOT) 24 U/L (15-37); Alanine Aminotransfer ALT/SGPT 49 U/L (16-61); Albumin, Serum 4.3 g/dL (3.2-5.0); Alkaline Phosphatase 60 U/L (45-117); Anion Gap 7 (5-15); BUN 31 mg/dL (7-18); BUN/Creat Ratio 18.8 RATIO (10-20); Calcium,Total 9.1 mg/dL (8.5-10.1); Chloride 106 mmol/L (98-107); Creatinine, Serum 1.65 mg/dL (0.70-1.30); EST Glomerular Filtration Rate 48 mL/min (>60); Est Glom Filt Rate - Afr Amer 58 mL/min (>60); Globulin 3.3 g/dL (2.2-4.2); Glucose 135 mg/dL (74-106); Potassium 4.4 mmol/L (3.5-5.1); Protein, Total 7.6 g/dL (6.4-8.2); Sodium Level 140 mmol/L (136-145)
== END ==
PROVIDERS: PCP Family Medicine; Referring Provider Family Medicine; Visit Provider Family Medicine
DX: R06.02 Shortness of breath (principal); R60.0 Localized edema
CPT/HCPCS: 36415; 71046; 80053; 83880; 84443; 85027

== ENCOUNTER → 2020-11-01 | Outpatient (CLI) | payer OTHER, SELFPAY ==
[2019-09-23 15:00] VITALS: BMI 25.6
== END | disposition home or self-care (01) ==
PROVIDERS: PCP Family Medicine; Referring Provider Family Medicine; Visit Provider Family Medicine
DX: T14.8XXA Other injury of unspecified body region, initial encounter (principal); X58.XXXA Exposure to other specified factors, initial encounter
CPT/HCPCS: 87070; 87077; 87186; 87205

== ENCOUNTER 2020-12-22 13:44 | Outpatient (RCR) | payer OTHER, SELFPAY ==
[2019-09-23 15:00] VITALS: BMI 25.6
[2020-12-22 14:28] VITALS: BP 150/82; PULSE 68; RESP 18; TEMP 36.5; BMI 25.6
--- NOTE | 2020-12-22 23:38 | PCM.WC.HP ---
History of Present Illness Date of Service: 12/22/20 Chief Complaint: Nonhealing wounds to fingers History of Wound: This is a 45-year-old white male who presents to the wound healing center today with complaint of nonhealing wounds to fingers. 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 The patient states that in September 2020, his kidney specialist did a biopsy that showed some inflammation and therefore they increased his prednisone dose. He states afterwards he started having issues with nonhealing wounds on his fingers. He states that each wound has occurred after a very small minor injury. He works with his hands a lot and reports a multitude of small minor injuries including a splinter or accidentally hitting the side of a finger, etc. Currently he has dry blackened wounds on his bilateral middle fingers, right fifth digit, and 2 on his right index finger. He states that his wounds are extremely painful. He recently was admitted at for evaluation of his wounds and severe pain in his fingers and states that they did an extensive work-up including biopsies and arterial studies. Records are not available for review at this time. He did follow-up with a plastic surgeon today who told him that he may benefit from Botox injections. At this time the exact etiology of his nonhealing wounds is unclear. He denies any current smoking. He denies any systemic or localized signs of infection and states that his wounds on his fingers only have a very small amount of drainage. He denies any other acute concerns at this time. Past medical, family, and social history reviewed and not pertinent to the current visit and all other systems reviewed and negative with exception of those listed above. [facility] Medical History (Updated 12/23/20 @ 12:47 by Elpidio Perea NP, FOAM CUTTING SUPERVISOR-C) Chronic renal insufficiency, stage IV (severe) Delayed wound healing GERD (gastroesophageal reflux disease) HTN (hypertension) Kidney disease Kidney failure Open wound of right index finger Open wound of right little finger Type 1 diabetes mellitus Home Medications atorvastatin 20 mg tablet 20 mg PO DAILY 01/28/18 [History Last Taken Unknown] chromium picolinate 400 mcg tablet 400 mcg PO DAILY 01/28/18 [History Last Taken Unknown] ferrous sulfate 142 mg (45 mg iron) tablet,extended release 45 mg PO DAILY tab 01/28/18 [History Last Taken Unknown] krill oil 500 mg capsule 500 mg PO DAILY 01/28/18 [History Last Taken Unknown] losartan 50 mg tablet 50 mg PO DAILY tab 01/28/18 [History Last Taken 04/21/18] metoprolol tartrate 100 mg tablet 150 mg PO QDAY tab 01/28/18 [History Last Taken 04/21/18] atulzuwo-dtneuyxv-bvwnf acid 400 mcg-vit K 20 mcg-lycop 300 mcg tablet 1 tab PO DAILY 01/28/18 [History Last Taken Unknown] omeprazole 20 mg capsule,delayed release 40 mg PO DAILY 02/13/18 [History Last Taken 04/21/18] nifedipine 90 mg tablet,extended release 90 mg PO DAILY 04/10/18 [History Last Taken Unknown] Novolog Flexpen U-100 Insulin 100 unit/mL (3 mL) subcutaneous See Rx Instructions SC .COMPLEX #30 ml NS 05/21/18 [Rx Last Taken Unknown] Allergy/AdvReac Type Severity Reaction Status Date / Time No Known Allergies Allergy Verified 09/23/19 14:49 Family History Mother Cancer sarcoma Breast cancer Skin cancer Brother Diabetes Father Heart disease High cholesterol Surgical History (Updated 09/23/19 @ 15:00 by Renee Abraham) Encounter for peritoneal dialysis catheter insertion H/O hernia repair History of cholecystectomy (~09/2019) History of wisdom tooth extraction Hx of appendectomy repair of fx arm Social History (Updated 09/23/19 @ 16:[address] Moshe Garcia MD) Smoking Status: Former smoker alcohol intake: never substance use type: does not use ROS ROS Narrative Negative x10 systems with exception of those listed above Vital Signs Vital Signs Vital Signs: 12/22/20 14:28 Temperature 97.7 F L Temperature Source Temporal Pulse Rate 68 Respiratory Rate 18 Blood Pressure 150/82 H Blood Pressure Mean 104 Blood Pressure Source Monitor Weight Body Mass Index (BMI) 25.6 Physical Exam Const alert, oriented x3, no apparent distress, healthy appearing and well nourished General Appearance: cooperative Exam Limitations: no limitations HEENT normocephalic Head and Scalp: normal to inspection Mouth: oral and palatal mucosa normal Eyes General Eye: normal appearance of both eyes Resp normal respiratory effort, normal air movement and no use of accessory muscles Effort and Inspection: able to speak in complete sentences Auscultation: clear to auscultation bilaterally Cardio regular rate, regular rhythm, S1 normal heart sound, S2 normal heart sound, no murmurs and peripheral pulses 2+ throughout Palpation: normal PMI Rate: regular rate Heart Sounds: S1 normal and S2 normal GI normal to inspection, nondistended, normoactive bowel sounds, soft to palpation, non-tender and non-distended Palpation: soft Extremity normal to inspection and full ROM General Extremity: normal exam except as noted Skin Wound Narrative: Negative Dejuan's test bilateral upper extremities, multiple areas of eschar noted on bilateral middle fingers, there is also a open ulceration on the right fifth digit on the lateral aspect and also on the right index finger on the dorsal aspect, large amounts of eschar and slough present, slight periwound bed erythema but no purulent drainage, streaking, or warmth noted at this time. Neuro oriented x3 and moves all extremities Sensorium / Orientation: awake, alert, oriented to person, oriented to place and oriented to time Psych mental status grossly normal, thought process normal and denies hallucinations Appearance: grossly normal Attitude: calm Activity / Motor Behavior: appropriate eye contact Speech: normal speech Thought Process: normal thought process Thought Content: normal thought content Attention / Concentration: attention grossly intact Insight: insight good Judgement: judgement good Debridement Note Debridement Note Post-Debridement Measurements and Additional Note: Post-Debridement Measurements/Treatment - Nurse 1 - General Ulcer Assessment Start: 12/22/20 13:51 Freq: Status: Active Protocol: WC.LOWEXT Activity Type Activity Date Activity User E-Sign Co-Sign Detail Recorded Client Recorded Date Recorded By Document 12/22/20 14:28 DL [id number] 12/22/20 14:40 DL 12/22/20 14:28 - Today's Visit Information Type of service Initial Visit Arrival Mode Ambulatory Transfer Assistance None Patient Identification Verified (Name & Yes ) Patient Requires Transmission-Based No Precautions Height and Weight Body Mass Index (BMI) 25.6 BMI Classification Overweight Vital Signs Temperature (97.8 F-99.1 F) 97.7 F L Temperature Source Temporal Pulse Rate (60-100) 68 Pulse Location Monitor Respiratory Rate (12-18) 18 Respiratory rate source Observation Blood Pressure (90/60-120/80) 150/82 H Blood Pressure Mean 104 Source Monitor Pain Scale: 0-10 Numeric Is Patient Pain Free? Yes Communication Assessment Preferred language Tajik Able to Read Yes Able to Write No Right Hearing Abillity Normal Left Hearing Abillity Normal Visual Assistive Devices None,Glasses Teaching Assessment Preferences Verbal,Written, Demonstration Barriers to Learning None Readiness To Learn Good Willingness to Engage in Self Management Med Activies Readiness to Engage in Self Management Med Activities Anxiety Level Calm Cooperation Cooperative Perception Coherent Interest in Health Problem Asks Questions Education Importance Acknowledges Need Does Patient Smoke tobacco or other No substances Smoking Status Former smoker Is Patient Diabetic No Functional Assessment Recent Decline in Ability to Perform Denies Any Declines Culture/Restoration/Licensed Optical Dispenser Cultural/Restoration Needs that may affect No Treatment Plan Would you allow our [facility] database marketing analyst to No meet you for the purpose of spiritual/ emotional support? Licensed Optical Dispenser to contact place of oriental orthodox No Teaching: Wound Center Discharge Instructions -Person Taught Patient Dressing Your Wound -Person Taught Patient *Welcome to the Wound Center -Person Taught Patient WC - Nurse 1 - General Ulcer Measurement Start: 12/22/20 13:51 Freq: Status: Active Protocol: Activity Type Activity Date Activity User E-Sign Co-Sign Detail Recorded Client Recorded Date Recorded By Document 12/22/20 14:28 DL [id number] 12/22/20 14:40 DL 12/22/20 14:28 Wound Center Nurse 1 #5 L 2nd finger -Current Size (cm) - Length 0.5 -Current Size (cm) - Width 0.8 -Current Size (cm) - Depth 0.1 -Total Square Cm 0.40 -Photo Taken Yes -Exudate Amt None Present -Wound Margin Thickened -Granulation Amt None Present (0 %) -Necrosis Amt Large (67-100%) -Necrotic Tissue Type Eschar -Structure Exposed N/A -Texture (Aria-wound Skin Appearance) Scarring -Moisture (Aria-wound Skin Appearance) Dry/Scaly -Color (Aria-wound Skin Appearance) No Abnormality -Temperature (Aria-wound Skin No Abnormality Appearance) (Pt Warm) -Tenderness on Palpation (Aria-wound No Skin Appearance) -Ulcer Cleansing Wound Cleanser -Foul Odor after Cleansing No -Anesthetic Used 5% Lidocaine Gel #4 L 2nd finger -Current Size (cm) - Length 0.5 -Current Size (cm) - Width 0.5 -Current Size (cm) - Depth 0.1 -Total Square Cm 0.25 -Photo Taken Yes -Classification - Thickness Unclassifiable (Eschar Covered ) -Exudate Amt None Present -Wound Margin Thickened -Granulation Amt None Present (0 %) -Necrosis Amt Large (67-100%) -Necrotic Tissue Type Eschar -Structure Exposed N/A -Texture (Aria-wound Skin Appearance) Scarring -Moisture (Aria-wound Skin Appearance) Dry/Scaly -Color (Aria-wound Skin Appearance) No Abnormality -Temperature (Aria-wound Skin No Abnormality Appearance) (Pt Warm) -Tenderness on Palpation (Aria-wound No Skin Appearance) -Ulcer Cleansing Rinsed/ Irrigated with Saline -Foul Odor after Cleansing No -Anesthetic Used 4% Lidocaine Solution #3 R Index/Knuckle -Current Size (cm) - Length 0.5 -Current Size (cm) - Width 0.5 -Current Size (cm) - Depth 0.1 -Total Square Cm 0.25 -Photo Taken Yes -Classification - Thickness Unclassifiable (Eschar Covered ) -Exudate Amt None Present -Wound Margin Thickened -Granulation Amt None Present (0 %) -Necrosis Amt Large (67-100%) -Necrotic Tissue Type Eschar -Structure Exposed N/A -Texture (Aria-wound Skin Appearance) Scarring -Moisture (Aria-wound Skin Appearance) Dry/Scaly -Color (Aria-wound Skin Appearance) No Abnormality -Temperature (Aria-wound Skin No Abnormality Appearance) (Pt Warm) -Tenderness on Palpation (Aria-wound No Skin Appearance) -Ulcer Cleansing Rinsed/ Irrigated with Saline -Foul Odor after Cleansing No -Anesthetic Used 5% Lidocaine Gel #2 R 2nd finger -Current Size (cm) - Length 0.8 -Current Size (cm) - Width 0.5 -Current Size (cm) - Depth 0.1 -Total Square Cm 0.40 -Photo Taken Yes -Classification - Thickness Unclassifiable (Eschar Covered ) -Exudate Amt None Present -Wound Margin Epibole -Granulation Amt None Present (0 %) -Necrosis Amt Large (67-100%) -Necrotic Tissue Type Eschar -Structure Exposed N/A -Texture (Aria-wound Skin Appearance) Scarring -Moisture (Aria-wound Skin Appearance) Dry/Scaly -Color (Aria-wound Skin Appearance) No Abnormality -Temperature (Aria-wound Skin No Abnormality Appearance) (Pt Warm) -Tenderness on Palpation (Aria-wound No Skin Appearance) -Ulcer Cleansing Rinsed/ Irrigated with Saline -Foul Odor after Cleansing No -Anesthetic Used 5% Lidocaine Gel #1 R 5th finger -Current Size (cm) - Length 1.1 -Current Size (cm) - Width 1.2 -Current Size (cm) - Depth 0.2 -Total Square Cm 1.32 -Photo Taken Yes -Classification - Thickness Unclassifiable (Eschar Covered ) -Exudate Amt Small -Exudate Type Serosanguineous -Wound Margin Distinct, Outline Attached -Granulation Amt None Present (0 %) -Necrosis Amt Large (67-100%) -Necrotic Tissue Type Adherent Slough -Structure Exposed N/A -Texture (Aria-wound Skin Appearance) Localized Edema ,Scarring -Color (Aria-wound Skin Appearance) Erythema -Temperature (Aria-wound Skin No Abnormality Appearance) (Pt Warm) -Tenderness on Palpation (Aria-wound Yes Skin Appearance) -Ulcer Cleansing Rinsed/ Irrigated with Saline -Foul Odor after Cleansing No -Anesthetic Used 5% Lidocaine Gel WC - Nurse 2 - General Ulcer CM Notes Start: 12/22/20 13:51 Freq: Status: Active Protocol: Activity Type Activity Date Activity User E-Sign Co-Sign Detail Recorded Client Recorded Date Recorded By Document 12/22/20 15:04 MW [id number] 12/22/20 15:20 MW 12/22/20 15:04 Wound Center Nurse 2 #5 L 2nd finger -Time 15:08 -Correct Patient Yes -Correct Side, Site, Position Yes -Correct Procedure Yes -Procedure Performed No -Tunneling No -Undermining/Tunneling No -Circular Undermining No -Wound/Ulcer Outcome Not Healed -Ulcer Cleansing Not Cleansed -Foul Odor after Cleansing No -Bioengineered Tissue No -Bleeding Controlled with NA -Offloading No -Treatment Response Procedure Tolerated Well #4 L 2nd finger -Time 15:08 -Correct Patient Yes -Correct Side, Site, Position Yes -Correct Procedure Yes -Procedure Performed No -Tunneling No -Undermining/Tunneling No -Circular Undermining No -Wound/Ulcer Outcome Not Healed -Ulcer Cleansing Rinsed/ Irrigated with Saline -Foul Odor after Cleansing No -Bioengineered Tissue No -Bleeding Controlled with NA -Offloading No #3 R Index/Knuckle -Time 15:09 -Correct Patient Yes -Correct Side, Site, Position Yes -Correct Procedure Yes -Procedure Performed Yes -Type of Procedure Debridement -Clinical Debridement Subcutaneous -Tissue Removed Subcutaneous -Post Debridement (cm) - Length 1.0 -Post Debridement (cm) - Width 0.5 -Post Debridement (cm) - Depth 0.2 -Total Square (Post) (cm) 0.50 -Area of Debridement (cm) - Length 1.0 -Area of Debridement (cm) - Width 0.5 -Total Square (Area) (cm) 0.50 -Tunneling No -Undermining/Tunneling No -Circular Undermining No -Wound/Ulcer Outcome Not Healed -Ulcer Cleansing Rinsed/ Irrigated with Saline -Foul Odor after Cleansing No -Bioengineered Tissue No -Bleeding Controlled with NA -Offloading No -Debridement - Subq, 1st 20sq cm Yes #2 R 2nd finger -Time 15:09 -Correct Patient Yes -Correct Side, Site, Position Yes -Correct Procedure Yes -Procedure Performed No -Tunneling No -Undermining/Tunneling No -Circular Undermining No -Wound/Ulcer Outcome Not Healed #1 R 5th finger -Time 15:10 -Correct Patient Yes -Correct Side, Site, Position Yes -Correct Procedure Yes -Procedure Performed Yes -Type of Procedure Debridement -Clinical Debridement Subcutaneous -Tissue Removed Subcutaneous -Post Debridement (cm) - Length 1.3 -Post Debridement (cm) - Width 2.0 -Post Debridement (cm) - Depth 0.2 -Total Square (Post) (cm) 2.60 -Area of Debridement (cm) - Length 1.3 -Area of Debridement (cm) - Width 2.0 -Total Square (Area) (cm) 2.60 -Tunneling No -Undermining/Tunneling No -Circular Undermining No -Wound/Ulcer Outcome Not Healed -Ulcer Cleansing Rinsed/ Irrigated with Saline -Foul Odor after Cleansing No -Bioengineered Tissue No -Bleeding Controlled with Pressure -Offloading No -Treatment Response Procedure Tolerated Well -Debridement - Subq, 1st 20sq cm No Pain Scale: 0-10 Numeric Is Patient Pain Free? Yes WC - Nurse 3 - General Ulcer D/C NN Start: 12/22/20 13:51 Freq: Status: Active Protocol: Activity Type Activity Date Activity User E-Sign Co-Sign Detail Recorded Client Recorded Date Recorded By Document 12/22/20 16:24 DL [id number] 12/22/20 16:30 DL 12/22/20 16:24 Wound Care Nurse 3 #5 L 2nd finger -Ulcer Cleansing Rinsed/ Irrigated with Saline -Foul Odor after Cleansing No -Other Dressing betadine -Primary Dressing Covered/Secured with Dry Gauze, Secured with Tape #4 L 2nd finger -Ulcer Cleansing Rinsed/ Irrigated with Saline -Foul Odor after Cleansing No -Other Dressing betadne -Primary Dressing Covered/Secured with Dry Gauze, Secured with Tape #3 R Index/Knuckle -Ulcer Cleansing Rinsed/ Irrigated with Saline -Foul Odor after Cleansing No -Other Dressing hydrogel -Primary Dressing Covered/Secured with Dry Gauze, Secured with Tape #2 R 2nd finger -Ulcer Cleansing Rinsed/ Irrigated with Saline -Foul Odor after Cleansing No -Other Dressing betadine -Primary Dressing Covered/Secured with Dry Gauze, Secured with Tape #1 R 5th finger -Ulcer Cleansing Rinsed/ Irrigated with Saline -Other Dressing hydrogel -Primary Dressing Covered/Secured with Dry Gauze, Secured with Tape Treatment Response Procedure Tolerated Well Pain Scale: 0-10 Numeric Is Patient Pain Free? Yes WC - Visit Discharge Discharge Condition Stable Ambulatory Status Ambulatory Transportation Private Auto Notes: Pt to obtain Santyl for ulcers #1 and # 3. Additional Wound Wound debrided: Right index ulceration and right fifth digit ulcer Laterality: Right Type of Debridement: Selective debridement Anesthesia Used: 5% Lidocaine Gel Depth: Down to and including healthy tissue and in the subcutaneous layer Percentage of wound debrided: 100 Instrument Used: 3mm curette Tissue Removed: Slough and devitalized tissue Severity: Limited To Skin Breakdown Amount of bleeding with debridement: Mild Bleeding Controlled with: Pressure Patient tolerated procedure: Patient tolerated procedure well Charges/Coding Visit Charges Office Visits / Consults: [id number] OV L4 New Procedures Integumentary [id number]: [id number] Jagruti subq tissue 20 sq cm/< Assessment/Plan Assessment/Plan (1) Open wound of right index finger: CODE(S): S61.200A - Unspecified open wound of right index finger without damage to nail, initial encounter (2) Open wound of right little finger: CODE(S): S61.206A - Unspecified open wound of right little finger without damage to nail, initial encounter (3) Delayed wound healing: CODE(S): T14.8XXD - Other injury of unspecified body region, subsequent encounter (4) Uncontrolled type 1 diabetes with renal manifestation: CODE(S): E10.29 - Type 1 diabetes mellitus with other diabetic kidney complication; E10.65 - Type 1 diabetes mellitus with hyperglycemia (5) Chronic renal insufficiency, stage IV (severe): CODE(S): N18.4 - Chronic kidney disease, stage 4 (severe) PLAN: Debridement performed today in clinic as annotated above. Hydrogel applied. At home wound-care instructions: Santyl to be applied to right fifth digit wound and also the 2 wounds that are present on the right index finger, on the areas of eschar he was instructed to utilize iodine twice a day change both areas daily and as needed and cover with gauze Change dressing once daily or more frequently as needed due to contamination. Wash wounds daily with antibacterial soap and water, rinse and dry thoroughly before each dressing change. Compression: Not applicable Off-loading: The patient was instructed to avoid pressure and friction on the affected areas. Reposition every 2 hours at minimum. Avoid prolonged standing and/or dangling of legs. When seated, feet should be elevated at chest level. Frequent ambulation is encouraged. Diet: Patient encouraged to increase protein intake while taking caution to avoid high carbohydrate and/or sugar intake. Patient is a non-smoker Labs/cultures/imaging: Cultures ordered and collected today. Routine baseline lab work will be requested from his recent hospital stay at . Vascular studies requested. Discussed with patient and his that since they are extremely worried about his current condition and would like immediate answers and a second opinion, that the should consider following up with [facility] and/or dermatology referral. Would like to request his records for review, however unclear etiology at this time. May be secondary to his minor superficial injuries and delayed wound healing due to his chronic use of prednisone. Follow-up: Return to clinic in 1 week for re-evaluation. Return sooner or report to the emergency room should symptoms worsen, or new symptoms arise. This note was generated with [employer] software. It may contain incorrect words, spelling, and punctuation that were not noted in checking the note before signing. I have spent 55 minutes today reviewing labs, records, and history. Time includes coordinating care, interpretation of tests, and counseling the patient/family. This also includes time I spent with the patient for exam, treatment plan, and education as well as documenting clinical information in the electronic health record.
== END 2020-12-31 23:59 ==
LOC: WC 13:44
PROVIDERS: PCP Family Medicine; Visit Provider Nurse Practitioner Family
DX: E10.622 Type 1 diabetes mellitus with other skin ulcer (principal); L98.491 Non-pressure chronic ulcer of skin of other sites limited to breakdown of skin; I12.9 Hypertensive chronic kidney disease with stage 1 through stage 4 chronic kidney disease, or unspecified chronic kidney disease; E10.22 Type 1 diabetes mellitus with diabetic chronic kidney disease; N18.4 Chronic kidney disease, stage 4 (severe); Z79.4 Long term (current) use of insulin; Z94.0 Kidney transplant status; Z94.83 Pancreas transplant status; Z79.52 Long term (current) use of systemic steroids; Z79.899 Other long term (current) drug therapy; Z87.891 Personal history of nicotine dependence
CPT/HCPCS: 11042; 11045; 87070; 87075; 87186; 87205; 99203; G0463

== ENCOUNTER → 2020-12-29 16:02 | Outpatient (CLI) | payer OTHER, SELFPAY ==
[2020-12-22 14:28] VITALS: BMI 25.6
--- NOTE | 2020-12-29 16:04 | RAD_ITS ---
STUDY: X-RAY CHEST REASON FOR EXAM: Male, 45 years old. SHortness of breath TECHNIQUE: PA and lateral views of the chest. COMPARISON: OCTOBER 12, 2020 FINDINGS: Moderate to significant consolidation is present throughout the right upper lobe. Mild patchy consolidation is seen in the right lower lobe. Left lung is clear. There is no demonstrated pleural abnormality. Normal size heart. Normal mediastinum and zaida. Normal visualized pulmonary arteries. Normal visualized aortic arch and descending thoracic aorta. Normal visualized thoracic spine. Normal visualized ribs, clavicles, and shoulders. There is no demonstrated abnormality of the visualized soft tissue structures of the upper abdomen. IMPRESSION: Moderate to significant right upper lobe pneumonia 1. Moderate to significant consolidation is present throughout the right upper lobe. Mild patchy consolidation is seen in the right lower lobe. Left lung is clear. Electronically Signed: Tomás Bahena MD at 16:33 EDT , Service support , RAD/Chest PA and Lateral
== END ==
PROVIDERS: PCP Family Medicine; Referring Provider Family Medicine; Visit Provider Family Medicine
DX: J18.9 Pneumonia, unspecified organism (principal)
CPT/HCPCS: 71046

== ENCOUNTER → 2021-01-12 09:37 | Outpatient (CLI) | payer OTHER, SELFPAY ==
[2020-12-22 14:28] VITALS: BMI 25.6
--- NOTE | 2021-01-12 09:45 | RAD_ITS ---
STUDY: X-RAY CHEST REASON FOR EXAM: Male, 45 years old. Follow-up for recent diagnosis of pneumonia. TECHNIQUE: PA and lateral views of the chest. COMPARISON: Comparison is made with prior study dated 12/29/2020. FINDINGS: Marked improvement in the previously seen right upper lobe pneumonia. Minimal residual thickening of the right minor fissure persists. There is no demonstrated pleural abnormality. Normal size heart. Normal mediastinum and zaida. Normal visualized pulmonary arteries. Normal visualized aortic arch and descending thoracic aorta. Normal visualized thoracic spine. Normal visualized ribs, clavicles, and shoulders. There is no demonstrated abnormality of the visualized soft tissue structures of the upper abdomen. RAD/Chest PA and Lateral IMPRESSION: Marked improvement of the right upper lobe pneumonia with mild residual thickening of the right minor fissure. Electronically Signed: Warren Walter MD at 10:18 EDT , Service support ,
== END ==
PROVIDERS: PCP Family Medicine; Referring Provider Family Medicine; Visit Provider Family Medicine
DX: J18.9 Pneumonia, unspecified organism (principal)
CPT/HCPCS: 71046

== ENCOUNTER → 2021-01-16 | Outpatient (CLI) | payer OTHER, SELFPAY ==
[2020-12-22 14:28] VITALS: BMI 25.6
== END | disposition home or self-care (01) ==
PROVIDERS: PCP Family Medicine; Referring Provider Family Medicine; Visit Provider Family Medicine
DX: Z20.822 Contact with and (suspected) exposure to COVID-19 (principal)
CPT/HCPCS: 87635; U0005; U0003

== ENCOUNTER → 2022-05-10 | Outpatient (CLI) | payer MEDICARE, SELFPAY ==
[2022-05-10 13:01] LABS: AST(SGOT) 17 U/L (15-37); Alanine Aminotransfer ALT/SGPT 24 U/L (16-61); Albumin, Serum 3.9 g/dL (3.2-5.0); Alkaline Phosphatase 70 U/L (45-117); Anion Gap 5 (5-15); BUN 23 mg/dL (7-18); BUN/Creat Ratio 21.1 RATIO (10-20); Calcium,Total 9.5 mg/dL (8.5-10.1); Chloride 104 mmol/L (98-107); Cholesterol 127 mg/dL (200); Creatinine, Serum 1.09 mg/dL (0.70-1.30); EST Glomerular Filtration Rate 77 mL/min (>60); Est Glom Filt Rate - Afr Amer 93 mL/min (>60); Globulin 4.1 g/dL (2.2-4.2); Glucose 102 mg/dL (74-106); High Density Lipoprotein 67 mg/dL; Potassium 4.5 mmol/L (3.5-5.1); Sodium Level 138 mmol/L (136-145); Thyroid Stim Hormone (TSH) 1.63 uIU/mL (0.358-3.74); Triglycerides 55 mg/dL; Very Low Density Lipoprotein 11 mg/dL (5-40)
== END | disposition home or self-care (01) ==
LOC: MFPLAB 11:22
PROVIDERS: PCP Family Medicine; Referring Provider Family Medicine; Visit Provider Family Medicine
DX: E78.5 Hyperlipidemia, unspecified (principal); E10.22 Type 1 diabetes mellitus with diabetic chronic kidney disease
CPT/HCPCS: 36415; 80053; 80061; 84403; 84443

== ENCOUNTER → 2022-08-09 | Outpatient (CLI) | payer MEDICARE, SELFPAY ==
--- NOTE | 2022-08-09 09:00 | RAD_ITS ---
INDICATION: ELBOW PAIN EXAMINATION/TECHNIQUE: X-RAY - LEFT XR Elbow Min 3 Views COMPARISON: None. FINDINGS: No acute fracture or dislocation. No destructive bone changes. Joint spaces are well-maintained. Normal alignment. Atherosclerotic vascular calcification. No radiopaque foreign body or soft tissue gas. RAD/Elbow min 3 Views IMPRESSION: No acute findings. Electronically Signed: Jazlyn Floyd MD at 0:00 EST Reading Location ID and State: [id number] / Tel , Service support ,
== END | disposition home or self-care (01) ==
PROVIDERS: PCP Family Medicine; Referring Provider Family Medicine; Visit Provider Family Medicine
DX: M25.522 Pain in left elbow (principal)
CPT/HCPCS: 73080

== ENCOUNTER → 2023-07-08 | Outpatient (CLI) | payer MEDICARE, SELFPAY ==
[2023-07-08 15:58] LABS: Vitamin B12 446 pg/mL (211-911)
[2023-07-08 16:09] LABS: ALB/GLOB Ratio 0.9 RATIO (0.9-2.4); AST(SGOT) 24 U/L (15-37); Alanine Aminotransfer ALT/SGPT 34 U/L (16-61); Albumin, Serum 4.2 g/dL (3.2-5.0); Alkaline Phosphatase 66 U/L (45-117); Anion Gap 6 (5-15); BUN 31 mg/dL (7-18); Calcium,Total 9.4 mg/dL (8.5-10.1); Chloride 103 mmol/L (98-107); Cholesterol 127 mg/dL (200); Creatinine, Serum 1.29 mg/dL (0.70-1.30); EST Glomerular Filtration Rate 63 mL/min (>60); Est Glom Filt Rate - Afr Amer 76 mL/min (>60); Globulin 4.7 g/dL (2.2-4.2); Glucose 118 mg/dL (74-106); High Density Lipoprotein 60 mg/dL; Potassium 4.1 mmol/L (3.5-5.1); Protein, Total 8.9 g/dL (6.4-8.2); Sodium Level 134 mmol/L (136-145); Thyroid Stim Hormone (TSH) 1.48 uIU/mL (0.358-3.74); Triglycerides 79 mg/dL; Very Low Density Lipoprotein 16 mg/dL (5-40)
== END | disposition home or self-care (01) ==
LOC: MTLAB 12:39
PROVIDERS: PCP Family Medicine; Referring Provider Family Medicine; Visit Provider Family Medicine
DX: E11.42 Type 2 diabetes mellitus with diabetic polyneuropathy (principal)
CPT/HCPCS: 36415; 80053; 80061; 82607; 84403; 84443